=== PATIENT | female | born 1960 | race Caucasian/White ===

== ENCOUNTER 2019-02-14 12:43 | Outpatient (REF) | payer BC, SELFPAY ==
--- NOTE | 2019-02-14 09:00 | PAPFT_PTH ---
PATIENT: Frannie Mora LOC: [facility]#:[id number] AGE/SX: 58/F ROOM: RE02/14/[address]: Vicki Delcid : 1960 BED: DIS: 02/14/2019 SPEC #: [id number] RECD: 02/15/19 13:04 STATUS: MIGUEL DEJESUS #: [id number] JADE: 02/14/19 09:[address]: Vicki Mays DEPT: [facility] Cytology RECD BY: Georgiana Mejias ENTERED: 02/15/19 13:04 SP TYPE: PAPFT OTHR DR: Chantal Bates Tissues: 1 - CX/ENDOCX FOR PAP SMEARS Procedures: PAP THIN PREP/UVM Screening HPV DNA PROBE Comments: [id number]
[2019-02-14 22:32] LABS: ALT 49 U/L (14-59); AST 21 U/L (15-37); Albumin 4.1 g/dL (3.4-5.0); Alkaline Phosphatase 142 U/L (46-116); Anion Gap 11.1 mmol/L (3-11); BUN 17 mg/dL (7-18); Bilirubin, Total 0.5 mg/dL (0.2-1.0); CO2 23.9 mmol/L (21.0-32.0); CREATININE 0.97 mg/dL (0.55-1.02); Calcium 9.5 mg/dL (8.5-10.1); Calculated LDL 99 mg/dL; Chloride 103 mmol/L (98-107); Cholesterol 169 mg/dL (50-200); Glucose 105 mg/dL (70-100); HDL Cholesterol 49 mg/dL (40-60); Hemoglobin A1C 5.8 % (4.5-6.2); Potassium 4.4 mmol/L (3.5-5.1); Sodium 138 mmol/L (136-145); Total Protein 7.9 g/dL (6.4-8.2); Triglyceride 109 mg/dL (30-150)
== END 2019-02-14 13:03 ==
LOC: NCHCN 12:43
PROVIDERS: PCP Nurse Practitioner Family; Visit Provider Nurse Practitioner Family
DX: Z00.00 Encounter for general adult medical examination without abnormal findings (principal); R73.09 Other abnormal glucose; F41.1 Generalized anxiety disorder; E66.9 Obesity, unspecified; Z13.220 Encounter for screening for lipoid disorders; Z12.4 Encounter for screening for malignant neoplasm of cervix; Z11.51 Encounter for screening for human papillomavirus (HPV)
CPT/HCPCS: 80053; 80061; 88142; 83036; 87624

== ENCOUNTER 2020-04-27 20:58 | Outpatient (REF) | payer BC, SELFPAY ==
[2020-04-27 21:53] LABS: TSH 1.56 uIU/mL (0.36-3.74)
== END 2020-04-27 21:18 ==
LOC: NCHCN 20:58
PROVIDERS: PCP Nurse Practitioner Family; Visit Provider Nurse Practitioner Family
DX: R53.83 Other fatigue (principal)
CPT/HCPCS: 84443

== ENCOUNTER 2020-05-28 18:19 | Outpatient (REF) | payer BC, SELFPAY ==
[2020-05-28 20:04] LABS: HCT 43.5 % (36.0-46.0); HGB 14.3 g/dL (11.2-15.7); MCH 29.6 pg (27.0-33.0); MCHC 32.9 % (32.0-36.0); MCV 90.1 fL (80-95); MPV 11.2 fL (8.0-11.0); Platelet Count 282 10^3/uL (130-400); RBC 4.83 10^6/uL (3.93-5.22); RDW 13.6 % (11.7-14.6); RDW-SD 45.2 fL; WBC 9.32 10^3/uL (4.4-10.8)
[2020-05-28 20:28] LABS: ALT 35 U/L (14-59); AST 22 U/L (15-37); Alkaline Phosphatase 121 U/L (46-116); Anion Gap 10.6 mmol/L (3-11); BUN 19 mg/dL (7-18); Bilirubin, Total 0.4 mg/dL (0.2-1.0); C-Reactive Protein 1.09 mg/dL (0.0-0.3); CO2 24.4 mmol/L (21.0-32.0); CREATININE 0.97 mg/dL (0.55-1.02); Calcium 9.6 mg/dL (8.5-10.1); Chloride 101 mmol/L (98-107); Estimated GFR 59.19 (mL/min/1.73m2); Glucose 131 mg/dL (74-106); Sodium 136 mmol/L (136-145); Total Protein 7.8 g/dL (6.4-8.2)
[2020-05-28 20:40] LABS: ESR 33 mm/hr (0-30)
[2020-05-30 14:31] LABS: ANA Interpretation Negative (Negative)
== END 2020-05-28 18:39 ==
LOC: NCHCN 18:19
PROVIDERS: PCP Nurse Practitioner Family; Visit Provider Nurse Practitioner Family
DX: R53.83 Other fatigue (principal); R73.03 Prediabetes; M25.59 Pain in other specified joint
CPT/HCPCS: 80053; 85027; 85652; 83036; 86038; 86140

== ENCOUNTER 2020-11-07 16:57 | Outpatient (REF) | payer BC, SELFPAY ==
[2020-11-07 15:53] LABS: Vitamin B12 746 pg/mL (193-986)
[2020-11-08 01:17] LABS: Vitamin D 25 Total 38.8 ng/mL (30-100)
== END 2020-11-07 16:58 | disposition home or self-care (01) ==
LOC: NCHCN 16:57
PROVIDERS: PCP Nurse Practitioner Family; Visit Provider Nurse Practitioner Community Health
DX: F41.1 Generalized anxiety disorder (principal); F32.9 Major depressive disorder, single episode, unspecified; Z68.43 Body mass index [BMI] 50.0-59.9, adult
CPT/HCPCS: 82306; 82607

== ENCOUNTER 2021-09-02 19:58 | Outpatient (REF) | payer OTHER, SELFPAY ==
[2021-09-02 17:34] LABS: Abs Immature Grans 0.07 10^3/uL (0.0-0.06); Absolute Basophil Count 0.04 10^3/uL (0.0-0.2); Absolute Eosinophil Count 0.22 10^3/uL (0.0-0.7); Absolute Lymphocyte Count 1.71 10^3/uL (1.2-3.4); Absolute Monocyte Count 0.73 10^3/uL (0.1-0.8); Absolute Neutrophil Count 7.59 10^3/uL (1.2-6.7); Basophils % 0.4; Eosinophils % 2.1; HCT 44.6 % (36.0-46.0); HGB 14.4 g/dL (11.2-15.7); Immature Grans % 0.7; Lymphocytes % 16.5; MCH 30.1 pg (27.0-33.0); MCHC 32.3 % (32.0-36.0); MCV 93.1 fL (80-95); MPV 11.5 fL (8.0-11.0); Neutrophils % 73.3; Nucleated RBC 0 %; Platelet Count 275 10^3/uL (130-400); RBC 4.79 10^6/uL (3.93-5.22); RDW 13.9 % (11.7-14.6); RDW-SD 47.8 fL; WBC 10.36 10^3/uL (4.4-10.8)
[2021-09-02 19:38] LABS: Anion Gap 9.1 mmol/L (3-11); BUN 14 mg/dL (7-18); CO2 24.9 mmol/L (21.0-32.0); Calcium 9.2 mg/dL (8.5-10.1); Chloride 103 mmol/L (98-107); Estimated GFR 56.95 (mL/min/1.73m2); Glucose 186 mg/dL (74-106); Potassium 4.3 mmol/L (3.5-5.1); Sodium 137 mmol/L (136-145); TSH 2.31 uIU/mL (0.36-3.74)
== END 2021-09-02 19:59 | disposition home or self-care (01) ==
LOC: NCHCN 19:58
PROVIDERS: PCP Nurse Practitioner Family; Visit Provider Nurse Practitioner Family
DX: R53.83 Other fatigue (principal)
CPT/HCPCS: 80048; 84443; 85025

== ENCOUNTER 2022-07-03 08:46 | Outpatient (REF) | payer OTHER, SELFPAY ==
[2022-07-03 15:06] LABS: HCT 44.5 % (36.0-46.0); HGB 14.6 g/dL (11.2-15.7); MCH 29.4 pg (27.0-33.0); MCHC 32.8 % (32.0-36.0); MCV 90 fL (80-95); Platelet Count 295 10^3/uL (130-400); RBC 4.96 10^6/uL (3.93-5.22); RDW 13.9 % (11.7-14.6); RDW-SD 45.7 fL; WBC 9.98 10^3/uL (4.4-10.8)
[2022-07-03 15:32] LABS: ALT 34 U/L (14-59); AST 28 U/L (15-37); Albumin 3.8 g/dL (3.4-5.0); Alkaline Phosphatase 139 U/L (46-116); Anion Gap 7.2 mmol/L (3-11); BUN 15 mg/dL (7-18); Bilirubin, Total 0.4 mg/dL (0.2-1.0); CO2 26.8 mmol/L (21.0-32.0); Calcium 9.5 mg/dL (8.5-10.1); Chloride 106 mmol/L (98-107); Glucose 134 mg/dL (74-106); Hemoglobin A1C 6.3 % (<5.7); Potassium 4.4 mmol/L (3.5-5.1); Sodium 140 mmol/L (136-145); TSH 2.73 uIU/mL (0.36-3.74); Total Protein 8.2 g/dL (6.4-8.2)
== END 2022-07-03 08:47 | disposition home or self-care (01) ==
LOC: NCHCN 08:46
PROVIDERS: PCP Nurse Practitioner Family; Visit Provider Nurse Practitioner Family
DX: I10 Essential (primary) hypertension (principal); R53.83 Other fatigue; R73.03 Prediabetes; E04.1 Nontoxic single thyroid nodule
CPT/HCPCS: 80053; 85027; 83036; 84443

== ENCOUNTER 2023-05-04 14:46 | Outpatient (REF) | payer OTHER, SELFPAY ==
--- OUTSIDE RECORDS SUMMARY | 2023-05-04 14:56 | XMS_ITS | CCD ---
Author Name Unknown Address [address] [place] [address] [id number] Organization Unknown Address [address] [place], [place] [phone] Care Team Providers Care Nc Manager Name Role Phone MAYRA MOODY Attending Physician [phone] Vital Signs Unknown or Not Available. Allergies Allergy Code Allergy Type Reaction Status VICTOZA 556667 Drug allergy NAUSEA/VOMITING Active Procedures Unknown or Not Available. History of Immunizations Unknown or Not Available. Problems Unknown or Not Available. Results Unknown or Not Available. Active Medications Unknown or Not Available. Medications Administered During Visit Unknown or Not Available. Encounters Encounter Diagnosis Diagnosis Code Start Date Encounter for screening mamm ogram for malignant neoplasm of breast Z1231 02/12/2023 Social History Smoking Status Code Start Date End Date Never smoker [id number] Patient Decision Aids Unknown or Not Available. Discharge Instructions You were admitted to [facility] on 02/12/2023 12:16 with a principal diagnosis of Encounter for screening mammogram for malignant neoplasm of breast You were discharged from [facility] on 02/12/2023 12:17 Should you have any questions prior to discharge, please contact a member of your healthcare team. If you have left the hospital and have any questions, please contact your primary care physician. Chief Complaint and Reason For Visit Chief Complaint Date of Onset SCREENING Function Status Unknown or Not Available. Plan of Care Unknown or Not Available. Referral/Transition of Care Unknown or Not Available.
--- OUTSIDE RECORDS SUMMARY | 2023-05-04 14:56 | XMS_ITS | CCD ---
Author Name Unknown Address [address] [place] [address] [id number] Organization Unknown Address [address] [place] [address] [phone] Care Team Providers Care Multimedia Artist Name Role Phone MEGHAN BUI Attending Physician [phone] Vital Signs Unknown or Not Available. Allergies Allergy Code Allergy Type Reaction Status VICTOZA 760531 Drug allergy NAUSEA/VOMITING Active Procedures Unknown or Not Available. History of Immunizations Unknown or Not Available. Problems Unknown or Not Available. Results CBC W/ DIFFERENTIAL* - Colle ct Date/Time: 10/27/2022 17:27 Test Name Code Test Result Test Units Test Ref Rang e WBC 6690-2 11.01 th/cmm L=5.00 H=10.00 NEUT % 69.0 % L=40.0 H=80.0 LYMPH % 19.8 % L=10.0 H=50.0 MONO % 80031-9 8.0 % L=2.0 H=12.0 EOS % 2.2 % L=0.0 H=8.0 BASO % 0.5 % L=0.0 H=3.0 IG % 2514-8 0.5 % L=0.0 H=1.1 NRBC % 20651-2 0.0 % L=0.0 H=0.0 NEUT abs count 751-8 7.6 th/cmm L=1.6 H=8. 4 LYMPH abs count 731-0 2.2 th/cmm L=1.5 H=4 .0 MONO abs count 742-7 0.9 th/cmm L=0.2 H=1. 0 EOS abs count 711-2 0.2 th/cmm L=0.0 H=0.5 BASO abs count 704-7 0.1 th/cmm L=0.0 H=0. 2 IG abs count 33811-2 0.1 th/cmm L=0.0 H=0.1 NRBC abs count 72225-0 0.0 mil/cmm L=0.0 H=0. 0 RBC 789-8 4.53 mil/cmm L=3.90 H=5.40 HEMOGLOBIN 718-7 13.5 gm/dL L=12.0 H=16.0 HEMATOCRIT 4544-3 41 % L=37 H=47 MCV 787-2 90 fL L=82 H=92 MCH 785-6 29.8 pg L=27.0 H=31.0 MCHC 786-4 33.2 % L=32.0 H=36.0 RDW-SD 788-0 44.9 fL L=39.0 H=49.0 PLATELET COUNT 777-3 310 th/cmm L=150 H=45 0 Active Medications Unknown or Not Available. Medications Administered During Visit Unknown or Not Available. Encounters Encounter Diagnosis Diagnosis Code Start Date Hemorrhage of blood vessel [id number] 10/27 Social History Smoking Status Code Start Date End Date Never smoker [id number] Patient Decision Aids Unknown or Not Available. Discharge Instructions You were admitted to [facility] on 10/27/2022 16:57 with a principal diagnosis of Hemorrhage, not elsewhere classified You had the following tests done:CBC W/ DIFFERENTIAL* You were discharged from [facility] on 10/27/2022 16:57 Should you have any questions prior to discharge, please contact a member of your healthcare team. If you have left the hospital and have any questions, please contact your primary care physician. Chief Complaint and Reason For Visit Unknown or Not Available. Function Status Unknown or Not Available. Plan of Care Unknown or Not Available. Referral/Transition of Care Unknown or Not Available.
--- OUTSIDE RECORDS SUMMARY | 2023-05-04 14:56 | XMS_ITS | CCD ---
Author Name Unknown Address [address] [place] [address] [phone] Organization Unknown Address [address] [place] [address] [phone] Care Team Providers Care Printing Shop Supervisor Name Role Phone CORIE DORADO Mendoza Attending Physician [phone] Vital Signs Unknown or Not Available. Allergies Allergy Code Allergy Type Reaction Status VICTOZA 636558 Drug allergy NAUSEA/VOMITING Active Procedures Unknown or Not Available. History of Immunizations Unknown or Not Available. Problems Unknown or Not Available. Results Unknown or Not Available. Active Medications Unknown or Not Available. Medications Administered During Visit Unknown or Not Available. Encounters Encounter Diagnosis Diagnosis Code Start Date Obstructive sleep apnea syndrome [id number] 02/24/2023 Social History Smoking Status Code Start Date End Date Never smoker [id number] Patient Decision Aids Unknown or Not Available. Discharge Instructions You were admitted to [facility] on 02/24/2023 08:48 with a principal diagnosis of YANET You were discharged from [facility] on 02/24/2023 08:48 Should you have any questions prior to [...]
--- OUTSIDE RECORDS SUMMARY | 2023-05-04 14:57 | XMS_ITS | CCD ---
Author Name Unknown Address [address] [place] [address] [phone] Organization Unknown Address [address] [place] [address] [phone] Care Team Providers Care Non Licensed Nuclear Equipment Operator Name Role Phone MEGHAN BUI Attending Physician [phone] MEGHAN BUI Rounding (Secondary) Physician [phone] Vital Signs Unknown or Not Available. Allergies Unknown or Not Available. Procedures Unknown or Not Available. History of Immunizations Unknown or Not Available. Problems Unknown or Not Available. Results CBC W/ DIFFERENTIAL* - Colle ct Date/Time: 08/28/2022 11:24 Test Name Code Test Result Test Units Test Ref Rang e WBC 6690-2 10.30 th/cmm L=5.00 H=10.00 NEUT % 69.3 % L=40.0 H=80.0 LYMPH % 19.9 % L=10.0 H=50.0 MONO % 32012-8 7.2 % L=2.0 H=12.0 EOS % 2.1 % L=0.0 H=8.0 BASO % 0.6 % L=0.0 H=3.0 IG % 2514-8 0.9 % L=0.0 H=1.1 NRBC % 49493-1 0.0 % L=0.0 H=0.0 NEUT abs count 751-8 7.1 th/cmm L=1.6 H=8. 4 LYMPH abs count 731-0 2.1 th/cmm L=1.5 H=4 .0 MONO abs count 742-7 0.7 th/cmm L=0.2 H=1. 0 EOS abs count 711-2 0.2 th/cmm L=0.0 H=0.5 BASO abs count 704-7 0.1 th/cmm L=0.0 H=0. 2 IG abs count 06470-5 0.1 th/cmm L=0.0 H=0.1 NRBC abs count 11732-7 0.0 mil/cmm L=0.0 H=0. 0 RBC 789-8 4.59 mil/cmm L=3.90 H=5.40 HEMOGLOBIN 718-7 13.7 gm/dL L=12.0 H=16.0 HEMATOCRIT 4544-3 41 % L=37 H=47 MCV 787-2 90 fL L=82 H=92 MCH 785-6 29.8 pg L=27.0 H=31.0 MCHC 786-4 33.1 % L=32.0 H=36.0 RDW-SD 788-0 47.8 fL L=39.0 H=49.0 PLATELET COUNT 777-3 271 th/cmm L=150 H=45 0 Active Medications Unknown or Not Available. Medications Administered During Visit Unknown or Not Available. Encounters Encounter Diagnosis Diagnosis Code Start Date Abnormal findings on diagnos tic imaging of other specified body structures R9389 08/28/2022 Social History Smoking Status Code Start Date End Date Never smoker [id number] Patient Decision Aids Unknown or Not Available. Discharge Instructions You were admitted to [facility] on 08/28/2022 10:34 with a principal diagnosis of Abnormal findings on diagnostic imaging of other specified body structures You had the following tests done:CBC W/ DIFFERENTIAL* You were discharged from [facility] on 08/28/2022 10:34 Should you have any questions prior to [...]
--- OUTSIDE RECORDS SUMMARY | 2023-05-04 14:57 | XMS_ITS | CCD ---
Author Name Unknown Address [address] [place] [address] [phone] Organization Unknown Address [address] [place] [address] [phone] Care Team Providers Care Consumer Safety Inspector Name Role Phone MEGHAN BUI Attending Physician [phone] MEGHAN BUI Rounding (Secondary) Physician [phone] Vital Signs Unknown or Not Available. Allergies Unknown or Not Available. Procedures Unknown or Not Available. History of Immunizations Unknown or Not Available. Problems Unknown or Not Available. Results Unknown or Not Available. Active Medications Unknown or Not Available. Medications Administered During Visit Unknown or Not Available. Encounters Encounter Diagnosis Diagnosis Code Start Date Imaging result abnormal [id number] 09/17/19 23 Social History Smoking Status Code Start Date End Date Never smoker [id number] Patient Decision Aids Unknown or Not Available. Discharge Instructions You were admitted to [facility] on 09/16/2022 09:54 with a principal diagnosis of Abnormal findings on diagnostic imaging of other specified body structures You were discharged from [facility] on 09/16/2022 09:55 Should you have any questions prior to [...]
--- OUTSIDE RECORDS SUMMARY | 2023-05-04 14:57 | XMS_ITS | CCD ---
Author Name Unknown Address [address] [place] [address] [phone] Organization Unknown Address [address] [place] [address] [phone] Care Team Providers Care Recruiting Associate Name Role Phone MEGHAN BUI Attending Physician [phone] Vital Signs Unknown or Not Available. Allergies Allergy Code Allergy Type Reaction Status VICTOZA 199402 Drug allergy NAUSEA/VOMITING Active Procedures Unknown or Not Available. History of Immunizations Unknown or Not Available. Problems Unknown or Not Available. Results Unknown or Not Available. Active Medications Unknown or Not Available. Medications Administered During Visit Unknown or Not Available. Encounters Encounter Diagnosis Diagnosis Code Start Date Postmenopausal bleeding [id number] 09/20/19 23 Social History Smoking Status Code Start Date End Date Never smoker 139178325 Patient Decision Aids Unknown or Not Available. Discharge Instructions You were admitted to [facility] on 09/19/2022 00:22 with a principal diagnosis of Postmenopausal bleeding You were discharged from [facility] on 09/19/2022 00:22 Should you have any questions prior to [...]
--- OUTSIDE RECORDS SUMMARY | 2023-05-04 14:57 | XMS_ITS | CCD ---
Author Name Unknown Address [address] [place] [address] [phone] Organization Unknown Address [address] [place] [address] [phone] Care Team Providers Care Patrol Lady Name Role Phone MEGHAN BUI Attending Physician [phone] MEGHAN BUI Rounding (Secondary) Physician [phone] Vital Signs Unknown or Not Available. Allergies Allergy Code Allergy Type Reaction Status VICTOZA 810899 Drug allergy NAUSEA/VOMITING Active Procedures Unknown or Not Available. History of Immunizations Unknown or Not Available. Problems Unknown or Not Available. Results Unknown or Not Available. Active Medications Unknown or Not Available. Medications Administered During Visit Unknown or Not Available. Encounters Encounter Diagnosis Diagnosis Code Start Date Follow-up visit [id number] 10/02/2022 Social History Smoking Status Code Start Date End Date Never smoker 576003689 Patient Decision Aids Unknown or Not Available. Discharge Instructions You were admitted to [facility] on 10/02/2022 11:46 with a principal diagnosis of Encounter for follow-up examination after completed treatment for conditions other than malignant neoplasm You were discharged from [facility] on 10/02/2022 11:47 Should you have any questions prior to [...]
--- OUTSIDE RECORDS SUMMARY | 2023-05-04 14:57 | XMS_ITS | CCD ---
Author Name Unknown Address [address] [place] [address] [phone] Organization Unknown Address [address] [place] [address] [phone] Care Team Providers Care Sewer Line Photo Inspector Name Role Phone MAYRA MOODY Attending Physician [phone] Vital Signs Unknown or Not Available. Allergies Unknown or Not Available. Procedures Unknown or Not Available. History of Immunizations Unknown or Not Available. Problems Unknown or Not Available. Results Unknown or Not Available. Active Medications Unknown or Not Available. Medications Administered During Visit Unknown or Not Available. Encounters Encounter Diagnosis Diagnosis Code Start Date Pain in right hip D70360 04/22/2022 Social History Smoking Status Code Start Date End Date Never smoker [id number] Patient Decision Aids Unknown or Not Available. Discharge Instructions You were admitted to [facility] on 04/22/2022 13:55 with a principal diagnosis of Pain in right hip You were discharged from [facility] on 04/22/2022 13:55 Should you have any questions prior to [...]
--- OUTSIDE RECORDS SUMMARY | 2023-05-04 14:57 | XMS_ITS | CCD ---
Author Name Unknown Address [address] [place] [address] [phone] Organization Unknown Address [address] [place] [address] [phone] Care Team Providers Care Senior Civil Engineer Name Role Phone MAYRA MOODY Attending Physician [phone] Vital Signs Unknown or Not Available. Allergies [...] imaging of other specified body structures R9389 08/08/2022 Social History Smoking Status Code Start Date End Date Never smoker 585397813 Patient Decision Aids Unknown or Not Available. Discharge Instructions You were admitted to [facility] on 08/08/2022 08:10 with a principal diagnosis of Abnormal findings on diagnostic imaging of other specified body structures You were discharged from [facility] on 08/08/2022 08:10 Should you have any questions prior to [...]
--- OUTSIDE RECORDS SUMMARY | 2023-05-04 14:57 | XMS_ITS | CCD ---
Author Name Unknown Address [address] [place] [address] [id number] Organization Unknown Address [address] [place] [address] [phone] Care Team Providers Care Ribbon Sweatband Operator Name Role Phone ARMIN HERRERA Attending Physician [phone] ARMIN HERRERAing (Secondary) Physician [phone] Vital Signs Unknown or Not Available. Allergies Unknown or Not Available. Procedures Unknown or Not Available. History of Immunizations Unknown or Not Available. Problems Unknown or Not Available. Results Unknown or Not Available. Active Medications Unknown or Not Available. Medications Administered During Visit Unknown or Not Available. Encounters Encounter Diagnosis Diagnosis Code Start Date Pain in left shoulder L64465 02/27/2022 Social History Smoking Status Code Start Date End Date Never smoker [id number] Patient Decision Aids Unknown or Not Available. Discharge Instructions You were admitted to [facility] on 02/27/2022 11:49 with a principal diagnosis of Pain in left shoulder You were discharged from [facility] on 02/27/2022 00:00 Should you have any questions prior to [...]
--- OUTSIDE RECORDS SUMMARY | 2023-05-04 14:58 | XMS_ITS | CCD ---
Author Name Unknown Address [address] [place] [address] [phone] Organization Unknown Address [address] [place] [address] [id number] Care Team Providers Care Hat Ironer Name Role Phone MAYRA MOODY Attending Physician [phone] Vital Signs Unknown or Not Available. Allergies Unknown or Not Available. Procedures Unknown or Not Available. History of Immunizations Unknown or Not Available. Problems Unknown or Not Available. Results Unknown or Not Available. Active Medications Unknown or Not Available. Medications Administered During Visit Unknown or Not Available. Encounters Encounter Diagnosis Diagnosis Code Start Date Screening mammography [id number] 04/01/2021 Social History Smoking Status Code Start Date End Date Never smoker 763904982 Patient Decision Aids Unknown or Not Available. Discharge Instructions You were admitted to [facility] on 04/01/2021 11:01 with a principal diagnosis of Encounter for screening mammogram for malignant neoplasm of breast You were discharged from [facility] on 04/01/2021 11:01 Should you have any questions prior to discharge, please contact a member of your healthcare team. If you have left the hospital and have any questions, please contact your primary care physician. Chief Complaint and Reason For Visit Chief Complaint Date of Onset SCR Function Status Unknown or Not Available. Plan of Care Unknown or Not Available. Referral/Transition of Care Unknown or Not Available.
[2023-05-04 21:18] LABS: Abs Immature Grans 0.08 10^3/uL (0.0-0.06); Absolute Basophil Count 0.05 10^3/uL (0.0-0.2); Absolute Lymphocyte Count 1.79 10^3/uL (1.2-3.4); Absolute Monocyte Count 0.48 10^3/uL (0.1-0.8); Absolute Neutrophil Count 7.01 10^3/uL (1.2-6.7); Basophils % 0.5; Eosinophils % 2.1; HCT 44.4 % (36.0-46.0); HGB 14.6 g/dL (11.2-15.7); Immature Grans % 0.8; Lymphocytes % 18.6; MCH 28.9 pg (27.0-33.0); MCHC 32.9 % (32.0-36.0); MCV 88 fL (80-95); Platelet Count 281 10^3/uL (130-400); RBC 5.05 10^6/uL (3.93-5.22); RDW 13.7 % (11.7-14.6); RDW-SD 44.3 fL; WBC 9.61 10^3/uL (4.4-10.8)
[2023-05-04 21:23] LABS: ESR 42 mm/hr (0-30)
[2023-05-04 21:39] LABS: ALT 32 U/L (14-59); AST 26 U/L (15-37); Albumin 3.6 g/dL (3.4-5.0); Alkaline Phosphatase 156 U/L (46-116); Anion Gap 12.9 mmol/L (3-11); BUN 14 mg/dL (7-18); Bilirubin, Total 0.4 mg/dL (0.2-1.0); CO2 23.1 mmol/L (21.0-32.0); Calcium 9.7 mg/dL (8.5-10.1); Calculated LDL 69 mg/dL (<100); Chloride 101 mmol/L (98-107); Cholesterol 143 mg/dL (<200); Estimated GFR 64.49 (mL/min/1.73m2); Glucose 167 mg/dL (74-106); HDL Cholesterol 44 mg/dL (40-60); Sodium 137 mmol/L (136-145); TSH 1.68 uIU/mL (0.36-3.74); Total Protein 8.2 g/dL (6.4-8.2); Triglyceride 153 mg/dL (<150)
[2023-05-04 21:40] LABS: Microalb ug/mg Crea 8.1 ug/mg Cr
[2023-05-05 17:43] LABS: CRP, High Sensitivity 14.98 mg/L (See Note)
== END 2023-05-04 14:47 | disposition home or self-care (01) ==
LOC: NCHCN 14:46
PROVIDERS: PCP Nurse Practitioner Family; Visit Provider Nurse Practitioner Family
DX: E11.9 Type 2 diabetes mellitus without complications (principal); R53.82 Chronic fatigue, unspecified; K76.0 Fatty (change of) liver, not elsewhere classified; R70.0 Elevated erythrocyte sedimentation rate
CPT/HCPCS: 80053; 80061; 85652; 86141; 82043; 82570; 84443; 85025

== ENCOUNTER 2023-05-06 08:58 | Outpatient (REF) | payer OTHER, SELFPAY ==
--- OUTSIDE RECORDS SUMMARY | 2023-05-06 09:02 | XMS_ITS | CCD ---
Author Name Unknown Address [address] [place] [address] [phone] Organization Unknown Address [address] [place] [address] [phone] Care Team Providers Care Electric Power Superintendent Name Role Phone CORIE DORADO Mendoza Attending Physician [phone] Vital Signs Unknown or Not Available. Allergies Allergy Code Allergy Type Reaction Status VICTOZA 249068 Drug allergy NAUSEA/VOMITING Active Procedures Unknown or Not Available. History of Immunizations Unknown or Not Available. Problems Unknown or Not Available. Results Unknown or Not Available. Active Medications Unknown or Not Available. Medications Administered During Visit Unknown or Not Available. Encounters Encounter Diagnosis Diagnosis Code Start Date Obstructive sleep apnea syndrome 26570012 02/24/2023 Social History Smoking Status Code Start Date End Date Never smoker 871747754 Patient Decision Aids Unknown or Not Available. Discharge Instructions You were admitted to [facility] on 02/24/2023 08:48 with a principal diagnosis of YANET You were discharged from [facility] on 02/24/2023 08:48 Should you have [...]
--- OUTSIDE RECORDS SUMMARY | 2023-05-06 09:02 | XMS_ITS | CCD ---
Author Name Unknown Address [address] [place] [address] [phone] Organization Unknown Address [address] [place] [address] [phone] Care Team Providers Care Java Lead Engineer Name Role Phone MEGHAN BUI Attending Physician [phone] Vital Signs Unknown or Not Available. Allergies Allergy Code Allergy Type Reaction Status VICTOZA 363986 Drug allergy NAUSEA/VOMITING Active Procedures Unknown or Not Available. History of Immunizations Unknown or Not Available. Problems Unknown or Not Available. Results Unknown or Not Available. Active Medications Unknown or Not Available. Medications Administered During Visit Unknown or Not Available. Encounters Encounter Diagnosis Diagnosis Code Start Date Postmenopausal bleeding 73228817 09/20/19 23 Social History Smoking Status Code Start Date End Date Never smoker 300976414 Patient Decision Aids Unknown or Not Available. Discharge Instructions You were admitted to on 09/19/2022 00:22 with a principal diagnosis of Postmenopausal bleeding You were discharged from on 09/19/2022 00:22 Should you have any [...]
--- OUTSIDE RECORDS SUMMARY | 2023-05-06 09:02 | XMS_ITS | CCD ---
Author Name Unknown Address [address] [place] [address] [phone] Organization Unknown Address [address] [place], [place] [phone] Care Team Providers Care Roving Marker Name Role Phone MAYRA MOODY Attending Physician [phone] Vital Signs Unknown or Not Available. Allergies Allergy Code Allergy Type Reaction Status VICTOZA 069678 Drug allergy NAUSEA/VOMITING Active Procedures Unknown or [...] Code Start Date End Date Never smoker 563848018 Patient Decision Aids Unknown or Not Available. Discharge Instructions You were admitted to [facility] on 02/12/2023 12:16 with a principal diagnosis of Encounter for screening mammogram for malignant neoplasm of breast You were discharged from [facility] on 02/12/2023 12:17 Should you [...]
--- OUTSIDE RECORDS SUMMARY | 2023-05-06 09:02 | XMS_ITS | CCD ---
Author Name Unknown Address [address] [place] [address] [phone] Organization Unknown Address [address] [place] [address] [phone] Care Team Providers Care Managing Consultant Name Role Phone MEGHAN BUI Attending Physician [phone] Vital Signs Unknown or Not Available. Allergies Allergy Code Allergy Type Reaction Status VICTOZA 277427 Drug allergy NAUSEA/VOMITING Active Procedures Unknown or Not Available. History of Immunizations Unknown or Not Available. Problems Unknown or Not Available. Results CBC W/ DIFFERENTIAL* - Colle ct Date/Time: 10/27/2022 17:27 Test Name Code Test Result Test Units Test Ref Rang e WBC 6690-2 11.01 th/cmm L=5.00 H=10.00 NEUT % 69.0 % L=40.0 H=80.0 LYMPH % 19.8 % L=10.0 H=50.0 MONO % 59130-3 8.0 % L=2.0 H=12.0 EOS % 2.2 % L=0.0 H=8.0 BASO % 0.5 % L=0.0 H=3.0 IG % 2514-8 0.5 % L=0.0 H=1.1 NRBC % 02631-6 0.0 % L=0.0 H=0.0 NEUT abs count 751-8 7.6 th/cmm L=1.6 H=8. 4 LYMPH abs count 731-0 2.2 th/cmm L=1.5 H=4 .0 MONO abs count 742-7 0.9 th/cmm L=0.2 H=1. 0 EOS abs count 711-2 0.2 th/cmm L=0.0 H=0.5 BASO abs count 704-7 0.1 th/cmm L=0.0 H=0. 2 IG abs count 17037-5 0.1 th/cmm L=0.0 H=0.1 NRBC abs count 80718-7 0.0 mil/cmm L=0.0 H=0. 0 RBC 789-8 [...] Code Start Date Hemorrhage of blood vessel 143907370 10/27 Social History Smoking Status Code Start Date End Date Never smoker 504230724 Patient Decision Aids Unknown or Not Available. Discharge Instructions You were admitted to [facility] on 10/27/2022 16:57 with a principal diagnosis of Hemorrhage, not elsewhere classified You had the following tests done:CBC W/ DIFFERENTIAL* You were discharged from [facility] on 10/27/2022 16:57 Should you have [...]
--- OUTSIDE RECORDS SUMMARY | 2023-05-06 09:03 | XMS_ITS | CCD ---
Author Name Unknown Address [address] [place] [address] [phone] Organization Unknown Address [address] [place] [address] [phone] Care Team Providers Care Service Center Assistant Name Role Phone MEGHAN BUI Attending Physician [phone] Vital Signs Unknown or Not Available. Allergies Unknown or Not Available. Procedures Unknown or Not Available. History of Immunizations Unknown or Not Available. Problems Unknown or Not Available. Results CBC W/ DIFFERENTIAL* - Colle ct Date/Time: 09/13/2022 12:00 Test Name Code Test Result Test Units Test Ref Rang e WBC 6690-2 8.64 th/cmm L=5.00 H=10.00 NEUT % 69.7 % L=40.0 H=80.0 LYMPH % 20.7 % L=10.0 H=50.0 MONO % 06195-7 5.9 % L=2.0 H=12.0 EOS % 2.4 % L=0.0 H=8.0 BASO % 0.7 % L=0.0 H=3.0 IG % 2514-8 0.6 % L=0.0 H=1.1 NRBC % 08557-8 0.0 % L=0.0 H=0.0 NEUT abs count 751-8 6.0 th/cmm L=1.6 H=8. 4 LYMPH abs count 731-0 1.8 th/cmm L=1.5 H=4 .0 MONO abs count 742-7 0.5 th/cmm L=0.2 H=1. 0 EOS abs count 711-2 0.2 th/cmm L=0.0 H=0.5 BASO abs count 704-7 0.1 th/cmm L=0.0 H=0. 2 IG abs count 41761-0 0.1 th/cmm L=0.0 H=0.1 NRBC abs count 02973-0 0.0 mil/cmm L=0.0 H=0. 0 RBC 789-8 4.68 mil/cmm L=3.90 H=5.40 HEMOGLOBIN 718-7 13.7 gm/dL L=12.0 H=16.0 HEMATOCRIT 4544-3 42 % L=37 H=47 MCV 787-2 89 fL L=82 H=92 MCH 785-6 29.3 pg L=27.0 H=31.0 MCHC 786-4 32.8 % L=32.0 H=36.0 RDW-SD 788-0 47.6 fL L=39.0 H=49.0 PLATELET COUNT 777-3 285 th/cmm L=150 H=45 0 Active Medications Unknown or Not Available. Medications Administered During Visit Unknown or Not Available. Encounters Encounter Diagnosis Diagnosis Code Start Date Abnormal vaginal bleeding [id number] 2022 Social History Smoking Status Code Start Date End Date Never smoker [id number] Patient Decision Aids Unknown or Not Available. Discharge Instructions You were admitted to [facility] on 09/13/2022 11:56 with a principal diagnosis of Abnormal uterine and vaginal bleeding, unspecified You had the following tests done:CBC W/ DIFFERENTIAL* You were discharged from [facility] on 09/13/2022 11:56 Should you have any questions prior to [...]
--- OUTSIDE RECORDS SUMMARY | 2023-05-06 09:03 | XMS_ITS | CCD ---
Author Name Unknown Address [address] [place] [address] [phone] Organization Unknown Address [address] [place] [address] [phone] Care Team Providers Care Traffic Assistant Name Role Phone ARMIN HERRERA Attending Physician [phone] ARMIN HERRERAing (Secondary) Physician [phone] Vital Signs Unknown or Not Available. Allergies Unknown or Not Available. Procedures Unknown or Not Available. History of Immunizations Unknown or Not Available. Problems Unknown or Not Available. Results Unknown or Not Available. Active Medications Unknown or Not Available. Medications Administered During Visit Unknown or Not Available. Encounters Encounter Diagnosis Diagnosis Code Start Date Pain in left shoulder [id number] 02/27/2022 Social History Smoking Status Code Start Date End Date Never smoker [id number] Patient Decision Aids Unknown or Not Available. Discharge Instructions You were admitted to [facility] on 02/27/2022 11:49 with a principal diagnosis of Pain in left shoulder You were discharged from [facility] on 02/27/2022 00:00 Should you have any [...]
--- OUTSIDE RECORDS SUMMARY | 2023-05-06 09:03 | XMS_ITS | CCD ---
Author Name Unknown Address [address] [place] [address] [phone] Organization Unknown Address [address] [place] [address] [phone] Care Team Providers Care Band Presser Name Role Phone MEGHAN BUI Attending Physician [phone] MEGHAN BUI Rounding (Secondary) Physician [phone] Vital Signs Unknown or Not Available. Allergies [...] % 19.9 % L=10.0 H=50.0 MONO % 15952-8 7.2 % L=2.0 H=12.0 EOS % 2.1 % L=0.0 H=8.0 BASO % 0.6 % L=0.0 H=3.0 IG % 2514-8 0.9 % L=0.0 H=1.1 NRBC % 71949-0 0.0 % L=0.0 H=0.0 NEUT abs count 751-8 7.1 th/cmm L=1.6 H=8. 4 LYMPH abs count 731-0 2.1 th/cmm L=1.5 H=4 .0 MONO abs count 742-7 0.7 th/cmm L=0.2 H=1. 0 EOS abs count 711-2 0.2 th/cmm L=0.0 H=0.5 BASO abs count 704-7 0.1 th/cmm L=0.0 H=0. 2 IG abs count 57417-1 0.1 th/cmm L=0.0 H=0.1 NRBC abs count 71637-1 0.0 mil/cmm L=0.0 H=0. 0 RBC 789-8 [...] Code Start Date End Date Never smoker [id number] Patient Decision Aids Unknown or Not Available. Discharge Instructions You were admitted to [facility] on 08/28/2022 10:34 with a principal diagnosis of Abnormal findings on diagnostic imaging of other specified body structures You had the following tests done:CBC W/ DIFFERENTIAL* You were discharged from [facility] on 08/28/2022 10:34 Should you have [...]
--- OUTSIDE RECORDS SUMMARY | 2023-05-06 09:03 | XMS_ITS | CCD ---
Author Name Unknown Address [address] [place] [address] [phone] Organization Unknown Address [address] [place] [address] [phone] Care Team Providers Care Equalizer Operator Name Role Phone MAYRA MOODY Attending Physician [phone] Vital Signs Unknown or Not Available. Allergies Unknown or Not Available. Procedures Unknown or Not Available. History of Immunizations Unknown or Not Available. Problems Unknown or Not Available. Results Unknown or Not Available. Active Medications Unknown or Not Available. Medications Administered During Visit Unknown or Not Available. Encounters Encounter Diagnosis Diagnosis Code Start Date Screening mammography [id number] 04/01/2021 Social History Smoking Status Code Start Date End Date Never smoker [id number] Patient Decision Aids Unknown or Not Available. Discharge Instructions You were admitted to [facility] on 04/01/2021 11:01 with a principal diagnosis of Encounter for screening mammogram for malignant neoplasm of breast You were discharged from [facility] on 04/01/2021 11:01 Should you have any [...]
--- OUTSIDE RECORDS SUMMARY | 2023-05-06 09:03 | XMS_ITS | CCD ---
Author Name Unknown Address [address] [place] [address] [phone] Organization Unknown Address [address] [place] [address] [phone] Care Team Providers Care Ophthalmology Surgical Technician Name Role Phone MEGHAN BUI Attending Physician [phone] MEGHAN BUI Rounding (Secondary) Physician [phone] Vital Signs Unknown or Not Available. Allergies Unknown or Not Available. Procedures Unknown or Not Available. History of Immunizations Unknown or Not Available. Problems Unknown or Not Available. Results Unknown or Not Available. Active Medications Unknown or Not Available. Medications Administered During Visit Unknown or Not Available. Encounters Encounter Diagnosis Diagnosis Code Start Date Imaging result abnormal [id number] 09/17/19 23 Social History Smoking Status Code Start Date End Date Never smoker [id number] Patient Decision Aids Unknown or Not Available. Discharge Instructions You were admitted to [facility] on 09/16/2022 09:54 with a principal diagnosis of Abnormal findings on diagnostic imaging of other specified body structures You were discharged from [facility] on 09/16/2022 09:55 Should you have any [...]
--- OUTSIDE RECORDS SUMMARY | 2023-05-06 09:03 | XMS_ITS | CCD ---
Author Name Unknown Address [address] [place] [address] [phone] Organization Unknown Address [address] [place] [address] [phone] Care Team Providers Care Customer Supply Coordinator Name Role Phone MAYRA MOODY Attending Physician [phone] Vital Signs Unknown or Not Available. Allergies [...] Code Start Date End Date Never smoker [id number] Patient Decision Aids Unknown or Not Available. Discharge Instructions You were admitted to [facility] on 08/08/2022 08:10 with a principal diagnosis of Abnormal findings on diagnostic imaging of other specified body structures You were discharged from [facility] on 08/08/2022 08:10 Should you have [...]
--- OUTSIDE RECORDS SUMMARY | 2023-05-06 09:03 | XMS_ITS | CCD ---
Author Name Unknown Address [address] [place] [address] [phone] Organization Unknown Address [address] [place] [address] [phone] Care Team Providers Care Printed Circuit Boards Stripper Etcher Name Role Phone MEGHAN BUI Attending Physician [phone] Vital Signs Vital Sign Value Unit Date/Time Recent/Initial ? BMI (Body Mass Index) 51.39 kg/m^2 09/17/2022 10: 03 Initial VS Weight Measured 338 lbs 09/17/2022 10:03 Ini tial VS Height 68 in 09/17/2022 10:03 Initial VS BSA (Body Surface Area) 2.71 m^2 09/17/2022 1 0:03 Initial VS BP Systolic 120 mmHg 09/19/2022 10:13 Initial VS BP Diastolic 62 mmHg 09/19/2022 10:13 Initia l VS Respiratory Rate 12 bpm 09/19/2022 10:13 In itial VS Heart Rate 68 bpm 09/19/2022 10:13 Initial VS O2 % BldC Oximetry 98 % 09/19/2022 10:13 Initial VS Body Temperature 36.2 degrees 09/19/2022 10:13 In itial VS Allergies Allergy Code Allergy Type Reaction Status VICTOZA [id number] Drug allergy NAUSEA/VOMITING Active Procedures Procedure Code Procedure Type Date Hysteroscopy, Surgical; w/Endometrial Ablation 15550 CPT 09/19/2022 Anesthesia, Vaginal Proc, w/ Bx; Hysteroscopy &/Or Hysterosalpingography 57179 CPT 09/19/2022 History of Immunizations Unknown or Not Available. Problems Unknown or Not Available. Results TISSUE SURGICAL PATHOLOGY (C ONSULT)* - Collect Date/Time: 09/19/2022 10:49 Test Name Code Test Result Test Units Test Ref Rang e Report (See below) N/A Active Medications Medications Administered During Visit Medication Dose Units Frequency Route Date/Time of Last Dose LACTATED RINGERS 1000ML 1 EA X1 09/19/2022 07:21 MIDAZOLAM INJ SDV: 2MG/2ML 2 MG X1 IVP 09/19/2022 07:37 SCOPOLAMINE PATCH: 1MG/72HR 1 MG X1 TR ANSDERMAL 09/19/2022 07:21 Encounters Encounter Diagnosis Diagnosis Code Start Date Postmenopausal bleeding N950 09/20/19 23 Social History Smoking Status Code Start Date End Date Never smoker [id number] Patient Decision Aids Unknown or Not Available. Discharge Instructions You were admitted to [facility] on 09/19/2022 06:28 with a principal diagnosis of Postmenopausal bleeding You had the following procedures done:Hysteroscopy, Surgical; w/Endometrial AblationAnesthesia, Vaginal Proc, w/Bx; Hysteroscopy &/Or Hysterosalpingography You had the following tests done:TISSUE SURGICAL PATHOLOGY (CONSULT)* You were discharged from [facility] on 09/19/2022 10:39 Should you have any questions prior to [...]
[2023-05-07 11:20] LABS: Lyme Ab w Rflx to Lyme Confirm Negative (Negative)
[2023-05-07 14:44] LABS: ANA Interpretation Negative (Negative)
== END 2023-05-06 08:59 | disposition home or self-care (01) ==
LOC: NCHCN 08:58
PROVIDERS: PCP Nurse Practitioner Family; Visit Provider Nurse Practitioner Family
DX: R53.82 Chronic fatigue, unspecified (principal)
CPT/HCPCS: 86038; 86618

== ENCOUNTER 2023-08-06 15:00 | Outpatient (REF) | payer BC, SELFPAY ==
[2023-08-06 15:20] LABS: Abs Immature Grans 0.06 10^3/uL (0.0-0.06); Absolute Basophil Count 0.05 10^3/uL (0.0-0.2); Absolute Eosinophil Count 0.24 10^3/uL (0.0-0.7); Absolute Lymphocyte Count 1.27 10^3/uL (1.2-3.4); Absolute Monocyte Count 0.53 10^3/uL (0.1-0.8); Absolute Neutrophil Count 6.44 10^3/uL (1.2-6.7); Basophils % 0.6; Eosinophils % 2.8; HCT 41.9 % (36.0-46.0); HGB 14.2 g/dL (11.2-15.7); Immature Grans % 0.7; Lymphocytes % 14.8; MCH 29.2 pg (27.0-33.0); MCHC 33.9 % (32.0-36.0); MCV 86 fL (80-95); MPV 12.3 fL (8.0-11.0); Monocytes % 6.2; Neutrophils % 74.9; Platelet Count 275 10^3/uL (130-400); RBC 4.86 10^6/uL (3.93-5.22); RDW 13.2 % (11.7-14.6); RDW-SD 41.7 fL; WBC 8.59 10^3/uL (4.4-10.8)
[2023-08-06 15:21] LABS: Bilirubin Negative (Negative); Blood Negative (Negative); Clarity Clear (Clear); Glucose >=1000 mg/dL (Negative); Ketones Negative (Negative); Leukocyte Esterase Negative (Negative); Nitrite Negative (Negative); Specific Gravity <= 1.005 (1.005-1.025); Urobilinogen 0.2 mg/dL (Up to 0.2); pH 5.5 (5-8)
[2023-08-06 15:48] LABS: ALT 54 U/L (14-59); AST 35 U/L (15-37); Albumin 3.8 g/dL (3.4-5.0); Alkaline Phosphatase 207 U/L (46-116); Anion Gap 13.5 mmol/L (3-11); BUN 21 mg/dL (7-18); Bilirubin, Total 0.6 mg/dL (0.2-1.0); CREATININE 1.4 mg/dL (0.55-1.02); Calcium 9.6 mg/dL (8.5-10.1); Calculated LDL 48 mg/dL (<100); Cholesterol 136 mg/dL (<200); Estimated GFR 43.07 (mL/min/1.73m2); HDL Cholesterol 34 mg/dL (40-60); Sodium 125 mmol/L (136-145); TSH 1.75 uIU/Ml (0.36-3.74); Total Protein 8.1 g/dL (6.4-8.2); Triglyceride 270 mg/dL (<150)
[2023-08-06 15:50] LABS: Bacteria Negative HPF (Negative); C & S Indicated? Yes; Casts Negative LPF (Negative); Crystals Negative HPF (Negative); Epithelial Cells Rare HPF (Negative); Mucus Negative (Negative); Other Cells Rare Yeast (Negative); RBC Negative HPF (0-2); WBC 0-2 HPF (0-5)
[2023-08-06 15:59] LABS: Vitamin D 25 Total 32.2 ng/mL (30-100)
[2023-08-06 16:09] LABS: CO2 20.5 mmol/L (21.0-32.0); Chloride 91 mmol/L (98-107)
[2023-08-06 16:18] LABS: Glucose 514 mg/dL (74-106)
[2023-08-06 17:03] LABS: Hemoglobin A1C 10.7 % (<5.7)
== END 2023-08-06 15:01 | disposition home or self-care (01) ==
LOC: NCHCN 15:00
PROVIDERS: PCP Nurse Practitioner Family; Visit Provider Nurse Practitioner Family
DX: I10 Essential (primary) hypertension; E11.9 Type 2 diabetes mellitus without complications; E78.5 Hyperlipidemia, unspecified; E55.9 Vitamin D deficiency, unspecified
CPT/HCPCS: 80053; 80061; 82306; 81003; 81015; 83036; 84443; 85025; 87086

== ENCOUNTER 2024-04-05 13:08 | Outpatient (REF) | payer BC, SELFPAY ==
--- OUTSIDE RECORDS SUMMARY | 2024-04-05 13:42 | XMS_ITS ---
Author Organization Unknown Address [address] [place] [address] [phone] Phone Care Team Providers Care Molder Inflated Ball Name Role Phone HAO Greer Attending Unavailable HEIDY Payne Primary Unavailable Social History Type Status Start Date End Date Code Code Syst em Smoking History Never smoker (Never Smoked) [id number] SNOMED CT Sex Female Medications Medication Start Date End Date Route Frequency Dose Code Code System Medication Instructions Home Meds glipiZIDE 5MG Oral Tablet 08/10/2023 Unknown ORAL BID BEFORE MEALS 5 MILLIGRAMS 097496 RxNorm TAKE 5 MILLIGRAMS ORAL BID BEFORE MEALS Cortizone-10 Maximum Strength 1% Topical application Cream 08/10/2023 Unknown TOPICAL APPLICA TION NEEDED THREE TIMES A DAY 1 APPL 238170 RxNorm 1 APPL TOPICAL APPLICATION NEEDED THREE TIMES A DAY FOR HEMORRGHOIDS FLUoxetine HCl 40MG Oral Capsule 08/10/2023 Unknown ORAL DAILY 40 MILLIGRAMS 785243 RxNorm TAKE 40 MILLIGRAMS ORAL DAILY Multivitamin Oral Tablet 08/10/2023 Unknown ORAL DAILY 1 unit(s) RxNorm TAKE 1 EACH ORAL DAILY Olmesartan Medoxomil 20MG Oral Tablet 08/10/2023 Unknown ORAL DAILY 1 TABLET 674322 RxNorm TAKE 1 TABLE T ORAL DAILY Prometrium 200MG Oral Capsule, Liquid Filled 08/10/2023 Unknown ORAL DAILY 200 MILLIGRAMS 722433 RxNorm TAKE 200 MILLIGRAMS ORAL DAILY Terconazole 0.4% Vaginal Cream 08/10/2023 Unknown VAGINAL NEEDED 1 APPL 627223 RxNorm 1 APPL VAGINAL NEEDED Vitamin B Complex Oral Capsule 08/10/2023 Unknown ORAL DAILY 1 unit(s) RxNorm TAKE 1 EACH ORAL DAILY Vitamin D 5000 IU Oral Tablet 08/10/2023 Unknown ORAL DAILY 5000 IU 326858 RxNorm TAKE 5000 IU ORAL DAILY buPROPion HCl 300MG Oral Tablet, Extended Release, 24 HR 08/10/2023 Unknown ORAL DAILY 300 MILLIGRAMS 555430 RxNorm TAKE 300 MILLIGRAMS ORAL DAILY metFORMIN HCl AvPak 500MG Oral Tablet, Extended Release 08/10/2023 Unknown ORAL TWICE A DAY WITH FOOD 1000 MILLIGRAMS 262781 RxNorm TAKE 1000 MILLIGRAMS ORAL TWICE A DAY WITH FOOD Insulin Glargine Pen 100 IU/1 ML Subcutaneous Solution 08/10/2023 Unknown SUBCUTA NEOUS DAILY 20 UNIT 7965349 RxNorm INJECT 20 UNIT SUBCUTANEOUS DAILY Assessment You had the following problems:TYPE 2 DIABETES WITH COMPLICATIONBLURRED VISIONWEAKNESSDIZZINESSVAGINAL CANDIDAHEMORRHOIDS Hospital Discharge Instructions Should you have any questions prior to discharge, please contact a member of your healthcare team. If you have left the hospital and have any questions, please contact your primary care physician. Reason For Referral No Data Found Problems Problem Start Date Resolved Date Status Code Code System TYPE 2 DIABETES WITH COMPLICATION active 921753676 SNOMED-CT BLURRED VISION active 068996736 SNOME D-CT WEAKNESS active 24155853 SNOMED-CT DIZZINESS active 943728769 SNOMED-CT VAGINAL RAFAEL active 00556817 SNOM ED-CT HEMORRHOIDS active 40882775 SNOMED-C T DEPRESSION 08/08/2023 resolved 20992422 SNOMED-C T ANXIETY 08/08/2023 resolved 23760005 SNOMED-CT DIABETES 2 08/08/2023 resolved 33761889 SNOMED-C T ENDOMETRIAL CANCER GENETIC MARKER OF SUSCEPTIBILITY POSITIVE (FINDING) 08/08/2023 resolved 48763099063613 SNOMED-CT Allergies and Adverse Reactions Allergy Substance Reaction Severity Start Date Concern Status Co de Code System VICTOZA Nausea/Vomiting (SNOMED-CT: 46696780) Active 996810 RxNorm Plan of Treatment MM SCREEN BILAT 02/12/2023 US PELVIC / TV 08/08/2022 MM SCREEN BILAT 04/01/2021 Encounters Encounter Diagnosis Start Date Code Code Sys tem Imaging result abnormal 09/16/2022 948856461 SNOM ED-CT Personal Care Team Section Performer Name Performer Role Active Date Inactive Da te
--- OUTSIDE RECORDS SUMMARY | 2024-04-05 13:42 | XMS_ITS ---
Author Organization Unknown Address [address] [place] [address] [phone] Phone Care Team Providers Care Budget And Policy Analyst Name Role Phone HAO Greer Attending Unavailable HEIDY Payne Primary Unavailable Results CBC W/ DIFFERENTIAL* - Colle ct Date/Time: 08/28/2022 11:24 [facility] ID: [id number] [address] [place], [place], [address] LOINC: 62247-2 Test Value Unit Reference Range Code Code System Flag WBC 10.30 th/cmm L=5.00 H=10.00 6690-2 LOINC H NEUT % 69.3 % L=40.0 H=80.0 LYMPH % 19.9 % L=10.0 H=50.0 MONO % 7.2 % L=2.0 H=12.0 04613-0 LOINC EOS % 2.1 % L=0.0 H=8.0 BASO % 0.6 % L=0.0 H=3.0 IG % 0.9 % L=0.0 H=1.1 2514-8 LOINC NRBC % 0.0 % L=0.0 H=0.0 79919-4 LOINC NEUT abs count 7.1 th/cmm L=1.6 H=8.4 751-8 LOINC LYMPH abs count 2.1 th/cmm L=1.5 H=4.0 731-0 LOINC MONO abs count 0.7 th/cmm L=0.2 H=1.0 742-7 LOINC EOS abs count 0.2 th/cmm L=0.0 H=0.5 711-2 LOINC BASO abs count 0.1 th/cmm L=0.0 H=0.2 704-7 LOINC IG abs count 0.1 th/cmm L=0.0 H=0.1 29439-7 LOINC NRBC abs count 0.0 mil/cmm L=0.0 H=0.0 44285-4 LOINC RBC 4.59 mil/cmm L=3.90 H=5.40 789-8 LOINC HEMOGLOBIN 13.7 gm/dL L=12.0 H=16.0 718-7 LOINC HEMATOCRIT 41 % L=37 H=47 4544-3 LOINC MCV 90 fL L=82 H=92 787-2 LOINC MCH 29.8 pg L=27.0 H=31.0 785-6 LOINC MCHC 33.1 % L=32.0 H=36.0 786-4 LOINC RDW-SD 47.8 fL L=39.0 H=49.0 788-0 LOINC PLATELET COUNT 271 th/cmm L=150 H=450 777-3 LOINC Social History Type Status Start Date End Date Code Code Syst em Smoking History Never smoker (Never Smoked) 905366609 SNOMED CT Sex Female Medications Medication Start Date End Date Route Frequency Dose Code Code System Medication Instructions Home Meds glipiZIDE 5MG Oral Tablet 08/10/2023 Unknown ORAL BID BEFORE MEALS 5 MILLIGRAMS 292676 RxNorm TAKE 5 MILLIGRAMS ORAL BID BEFORE MEALS Cortizone-10 Maximum Strength 1% Topical application Cream 08/10/2023 Unknown TOPICAL APPLICA TION NEEDED THREE TIMES A DAY 1 APPL 496802 RxNorm 1 APPL TOPICAL APPLICATION NEEDED THREE TIMES A DAY FOR HEMORRGHOIDS FLUoxetine HCl 40MG Oral Capsule 08/10/2023 Unknown ORAL DAILY 40 MILLIGRAMS 078422 RxNorm TAKE 40 MILLIGRAMS ORAL DAILY Multivitamin Oral Tablet 08/10/2023 Unknown ORAL DAILY 1 unit(s) RxNorm TAKE 1 EACH ORAL DAILY Olmesartan Medoxomil 20MG Oral Tablet 08/10/2023 Unknown ORAL DAILY 1 TABLET 899655 RxNorm TAKE 1 TABLE T ORAL DAILY Prometrium 200MG Oral Capsule, Liquid Filled 08/10/2023 Unknown ORAL DAILY 200 MILLIGRAMS 674053 RxNorm TAKE 200 MILLIGRAMS ORAL DAILY Terconazole 0.4% Vaginal Cream 08/10/2023 Unknown VAGINAL NEEDED 1 APPL 809105 RxNorm 1 APPL VAGINAL NEEDED Vitamin B Complex Oral Capsule 08/10/2023 Unknown ORAL DAILY 1 unit(s) RxNorm TAKE 1 EACH ORAL DAILY Vitamin D 5000 IU Oral Tablet 08/10/2023 Unknown ORAL DAILY 5000 IU 724531 RxNorm TAKE 5000 IU ORAL DAILY buPROPion HCl 300MG Oral Tablet, Extended Release, 24 HR 08/10/2023 Unknown ORAL DAILY 300 MILLIGRAMS 780061 RxNorm TAKE 300 MILLIGRAMS ORAL DAILY metFORMIN HCl AvPak 500MG Oral Tablet, Extended Release 08/10/2023 Unknown ORAL TWICE A DAY WITH FOOD 1000 MILLIGRAMS 575928 RxNorm TAKE 1000 MILLIGRAMS ORAL TWICE A DAY WITH FOOD Insulin Glargine Pen 100 IU/1 ML Subcutaneous Solution 08/10/2023 Unknown SUBCUTA NEOUS DAILY 20 UNIT 8924584 RxNorm INJECT 20 UNIT SUBCUTANEOUS DAILY Assessment [...] System TYPE 2 DIABETES WITH COMPLICATION active 581974820 SNOMED-CT BLURRED VISION active 008026498 SNOME D-CT WEAKNESS active 31441551 SNOMED-CT DIZZINESS active 032062963 SNOMED-CT VAGINAL RAFAEL active 19857499 SNOM ED-CT HEMORRHOIDS active 61671521 SNOMED-C T DEPRESSION 08/08/2023 resolved 69748542 SNOMED-C T ANXIETY 08/08/2023 resolved 85110785 SNOMED-CT DIABETES 2 08/08/2023 resolved 38737010 SNOMED-C T ENDOMETRIAL CANCER GENETIC MARKER OF SUSCEPTIBILITY POSITIVE (FINDING) 08/08/2023 resolved 66368468055836 SNOMED-CT Allergies and Adverse Reactions Allergy Substance Reaction Severity Start Date Concern Status Co de Code System VICTOZA Nausea/Vomiting (SNOMED-CT: 80778246) Active 946177 RxNorm Plan of Treatment MM SCREEN BILAT 02/12/2023 US PELVIC / TV 08/08/2022 MM SCREEN BILAT 04/01/2021 Encounters Encounter Diagnosis Start Date Code Code Sys tem Abnormal findings on diagnos tic imaging of other specified body structures 08/28/2022 SNOMED-CT Personal Care Team Section Performer Name Performer Role Active Date Inactive Da te
--- OUTSIDE RECORDS SUMMARY | 2024-04-05 13:42 | XMS_ITS ---
Author Organization Unknown Address [address] [place] [address] [phone] Phone Care Team Providers Care Rn Allergy Name Role Phone HAO Greer Attending Unavailable HEIDY Payne Primary Unavailable Social History Type Status Start Date End Date Code Code Syst em Smoking History Never smoker (Never Smoked) 742735219 SNOMED CT Sex Female Medications Medication Start Date End Date Route Frequency Dose Code Code System Medication Instructions Home Meds glipiZIDE 5MG Oral Tablet 08/10/2023 Unknown ORAL BID BEFORE MEALS 5 MILLIGRAMS 653970 RxNorm TAKE 5 MILLIGRAMS ORAL BID BEFORE MEALS Cortizone-10 Maximum Strength 1% Topical application Cream 08/10/2023 Unknown TOPICAL APPLICA TION NEEDED THREE TIMES A DAY 1 APPL 529511 RxNorm 1 APPL TOPICAL APPLICATION NEEDED THREE TIMES A DAY FOR HEMORRGHOIDS FLUoxetine HCl 40MG Oral Capsule 08/10/2023 Unknown ORAL DAILY 40 MILLIGRAMS 549065 RxNorm TAKE 40 MILLIGRAMS ORAL DAILY Multivitamin Oral Tablet 08/10/2023 Unknown ORAL DAILY 1 unit(s) RxNorm TAKE 1 EACH ORAL DAILY Olmesartan Medoxomil 20MG Oral Tablet 08/10/2023 Unknown ORAL DAILY 1 TABLET 248944 RxNorm TAKE 1 TABLE T ORAL DAILY Prometrium 200MG Oral Capsule, Liquid Filled 08/10/2023 Unknown ORAL DAILY 200 MILLIGRAMS 652581 RxNorm TAKE 200 MILLIGRAMS ORAL DAILY Terconazole 0.4% Vaginal Cream 08/10/2023 Unknown VAGINAL NEEDED 1 APPL 927596 RxNorm 1 APPL VAGINAL NEEDED Vitamin B Complex Oral Capsule 08/10/2023 Unknown ORAL DAILY 1 unit(s) RxNorm TAKE 1 EACH ORAL DAILY Vitamin D 5000 IU Oral Tablet 08/10/2023 Unknown ORAL DAILY 5000 IU 894485 RxNorm TAKE 5000 IU ORAL DAILY buPROPion HCl 300MG Oral Tablet, Extended Release, 24 HR 08/10/2023 Unknown ORAL DAILY 300 MILLIGRAMS 943345 RxNorm TAKE 300 MILLIGRAMS ORAL DAILY metFORMIN HCl AvPak 500MG Oral Tablet, Extended Release 08/10/2023 Unknown ORAL TWICE A DAY WITH FOOD 1000 MILLIGRAMS 230697 RxNorm TAKE 1000 MILLIGRAMS ORAL TWICE A DAY WITH FOOD Insulin Glargine Pen 100 IU/1 ML Subcutaneous Solution 08/10/2023 Unknown SUBCUTA NEOUS DAILY 20 UNIT 0848775 RxNorm INJECT 20 UNIT SUBCUTANEOUS DAILY Assessment [...] System TYPE 2 DIABETES WITH COMPLICATION active 615783983 SNOMED-CT BLURRED VISION active 331515306 SNOME D-CT WEAKNESS active 36627764 SNOMED-CT DIZZINESS active 794255502 SNOMED-CT VAGINAL RAFAEL active 52640474 SNOM ED-CT HEMORRHOIDS active 08563757 SNOMED-C T DEPRESSION 08/08/2023 resolved 72545927 SNOMED-C T ANXIETY 08/08/2023 resolved 37606093 SNOMED-CT DIABETES 2 08/08/2023 resolved 54375906 SNOMED-C T ENDOMETRIAL CANCER GENETIC MARKER OF SUSCEPTIBILITY POSITIVE (FINDING) 08/08/2023 resolved 69696716273149 SNOMED-CT Allergies and Adverse Reactions Allergy Substance Reaction Severity Start Date Concern Status Co de Code System VICTOZA Nausea/Vomiting (SNOMED-CT: 97749445) Active 112816 RxNorm Plan of Treatment MM SCREEN BILAT 02/12/2023 US PELVIC / TV 08/08/2022 MM SCREEN BILAT 04/01/2021 Encounters Encounter Diagnosis Start Date Code Code Sys tem Follow-up visit 10/02/2022 518515863 SNOMED-CT Personal Care Team Section Performer Name Performer Role Active Date Inactive Da te
--- OUTSIDE RECORDS SUMMARY | 2024-04-05 13:42 | XMS_ITS ---
Author Organization Unknown Address [address] [place] [address] [phone] Phone Care Team Providers Care Jewelry Estimator Name Role Phone HAO Greer Attending Unavailable HEIDY Payne Primary Unavailable Results CBC W/ DIFFERENTIAL* - Colle ct Date/Time: 09/13/2022 12:00 [facility] ID: [id number] [address] [place], [place], [address] LOINC: 34243-4 Test Value Unit Reference Range Code Code System Flag WBC 8.64 th/cmm L=5.00 H=10.00 6690-2 LOINC NEUT % 69.7 % L=40.0 H=80.0 LYMPH % 20.7 % L=10.0 H=50.0 MONO % 5.9 % L=2.0 H=12.0 99483-3 LOINC EOS % 2.4 % L=0.0 H=8.0 BASO % 0.7 % L=0.0 H=3.0 IG % 0.6 % L=0.0 H=1.1 2514-8 LOINC NRBC % 0.0 % L=0.0 H=0.0 04780-1 LOINC NEUT abs count 6.0 th/cmm L=1.6 H=8.4 751-8 LOINC LYMPH abs count 1.8 th/cmm L=1.5 H=4.0 731-0 LOINC MONO abs count 0.5 th/cmm L=0.2 H=1.0 742-7 LOINC EOS abs count 0.2 th/cmm L=0.0 H=0.5 711-2 LOINC BASO abs count 0.1 th/cmm L=0.0 H=0.2 704-7 LOINC IG abs count 0.1 th/cmm L=0.0 H=0.1 91086-6 LOINC NRBC abs count 0.0 mil/cmm L=0.0 H=0.0 97267-3 LOINC RBC 4.68 mil/cmm L=3.90 H=5.40 789-8 LOINC HEMOGLOBIN 13.7 gm/dL L=12.0 H=16.0 718-7 LOINC HEMATOCRIT 42 % L=37 H=47 4544-3 LOINC MCV 89 fL L=82 H=92 787-2 LOINC MCH 29.3 pg L=27.0 H=31.0 785-6 LOINC MCHC 32.8 % L=32.0 H=36.0 786-4 LOINC RDW-SD 47.6 fL L=39.0 H=49.0 788-0 LOINC PLATELET COUNT 285 th/cmm L=150 H=450 777-3 LOINC Social History Type Status Start Date End Date Code Code Syst em Smoking History Never smoker (Never Smoked) 234908774 SNOMED CT Sex Female Medications Medication Start Date End Date Route Frequency Dose Code Code System Medication Instructions Home Meds glipiZIDE 5MG Oral Tablet 08/10/2023 Unknown ORAL BID BEFORE MEALS 5 MILLIGRAMS 736199 RxNorm TAKE 5 MILLIGRAMS ORAL BID BEFORE MEALS Cortizone-10 Maximum Strength 1% Topical application Cream 08/10/2023 Unknown TOPICAL APPLICA TION NEEDED THREE TIMES A DAY 1 APPL 558565 RxNorm 1 APPL TOPICAL APPLICATION NEEDED THREE TIMES A DAY FOR HEMORRGHOIDS FLUoxetine HCl 40MG Oral Capsule 08/10/2023 Unknown ORAL DAILY 40 MILLIGRAMS 517408 RxNorm TAKE 40 MILLIGRAMS ORAL DAILY Multivitamin Oral Tablet 08/10/2023 Unknown ORAL DAILY 1 unit(s) RxNorm TAKE 1 EACH ORAL DAILY Olmesartan Medoxomil 20MG Oral Tablet 08/10/2023 Unknown ORAL DAILY 1 TABLET 541614 RxNorm TAKE 1 TABLE T ORAL DAILY Prometrium 200MG Oral Capsule, Liquid Filled 08/10/2023 Unknown ORAL DAILY 200 MILLIGRAMS 994397 RxNorm TAKE 200 MILLIGRAMS ORAL DAILY Terconazole 0.4% Vaginal Cream 08/10/2023 Unknown VAGINAL NEEDED 1 APPL 051059 RxNorm 1 APPL VAGINAL NEEDED Vitamin B Complex Oral Capsule 08/10/2023 Unknown ORAL DAILY 1 unit(s) RxNorm TAKE 1 EACH ORAL DAILY Vitamin D 5000 IU Oral Tablet 08/10/2023 Unknown ORAL DAILY 5000 IU 604505 RxNorm TAKE 5000 IU ORAL DAILY buPROPion HCl 300MG Oral Tablet, Extended Release, 24 HR 08/10/2023 Unknown ORAL DAILY 300 MILLIGRAMS 357276 RxNorm TAKE 300 MILLIGRAMS ORAL DAILY metFORMIN HCl AvPak 500MG Oral Tablet, Extended Release 08/10/2023 Unknown ORAL TWICE A DAY WITH FOOD 1000 MILLIGRAMS 827423 RxNorm TAKE 1000 MILLIGRAMS ORAL TWICE A DAY WITH FOOD Insulin Glargine Pen 100 IU/1 ML Subcutaneous Solution 08/10/2023 Unknown SUBCUTA NEOUS DAILY 20 UNIT 9733575 RxNorm INJECT 20 UNIT SUBCUTANEOUS DAILY Assessment [...] System TYPE 2 DIABETES WITH COMPLICATION active 089346751 SNOMED-CT BLURRED VISION active 228490143 SNOME D-CT WEAKNESS active 09373003 SNOMED-CT DIZZINESS active 374413151 SNOMED-CT VAGINAL RAFAEL active 54364685 SNOM ED-CT HEMORRHOIDS active 94931568 SNOMED-C T DEPRESSION 08/08/2023 resolved 13897407 SNOMED-C T ANXIETY 08/08/2023 resolved 47885796 SNOMED-CT DIABETES 2 08/08/2023 resolved 02795643 SNOMED-C T ENDOMETRIAL CANCER GENETIC MARKER OF SUSCEPTIBILITY POSITIVE (FINDING) 08/08/2023 resolved 40867208177275 SNOMED-CT Allergies and Adverse Reactions Allergy Substance Reaction Severity Start Date Concern Status Co de Code System VICTOZA Nausea/Vomiting (SNOMED-CT: 40741698) Active 980813 RxNorm Plan of Treatment MM SCREEN BILAT 02/12/2023 US PELVIC / TV 08/08/2022 MM SCREEN BILAT 04/01/2021 Encounters Encounter Diagnosis Start Date Code Code Sys tem Abnormal vaginal bleeding 09/13/2022 563635168 SN OMED-CT Personal Care Team Section Performer Name Performer Role Active Date Inactive Da te
--- OUTSIDE RECORDS SUMMARY | 2024-04-05 13:42 | XMS_ITS ---
Author Organization Unknown Address [address] [place] [address] [phone] Phone Care Team Providers Care Fringe Weaver Name Role Phone HEIDY Payne Attending Unavailable Results XR HIP 2V OR 3V RT* - Comple thu: 04/22/2022 14:19 LOINC: [facility] RADIOLOGY [place], [place] [address] PACS COSMETIC ASSEMBLER REPORT Patient Name: BLOSSOM GRAHAM MRN: Sex: : Age: [id number] F 1960 61 Account: Accession: Admit: StayType: [id number] 04/22/2022 O/P Ordered: Order ID: Submitted: Ordering Provider: 04/22/2022 14:01 [id number] [facility] MAYRA MOODY Completed: Technologist: Resulted: 04/22/2022 14:19 KVK 04/22/2022 18:10 Study Description: XR HIP 2V OR 3V RT* Study Reason: RT HIP PAIN TECHNIQUE: 2D digital imaging was performed. COMPARISON: No exams were available for comparison FINDINGS: NUMBER OF VIEWS: 3 No evidence of pelvic nor hip fracture. No obvious degenerative changes in either hip. Additional views of the right reveal no osteophytes and no joint space narrowing. Bone density is normal. No osseous lesions. IMPRESSION: No significant radiographic findings in the pelvis and hip. Report Digitally Signed by Dany Andrade on 04/22/2022 06:10 PM EST Social History Type Status Start Date End Date Code Code Syst em Smoking History Never smoker (Never Smoked) 286771878 SNOMED CT Sex Female Medications Medication Start Date End Date Route Frequency Dose Code Code System Medication Instructions Home Meds glipiZIDE 5MG Oral Tablet 08/10/2023 Unknown ORAL BID BEFORE MEALS 5 MILLIGRAMS 215795 RxNorm TAKE 5 MILLIGRAMS ORAL BID BEFORE MEALS Cortizone-10 Maximum Strength 1% Topical application Cream 08/10/2023 Unknown TOPICAL APPLICA TION NEEDED THREE TIMES A DAY 1 APPL 188602 RxNorm 1 APPL TOPICAL APPLICATION NEEDED THREE TIMES A DAY FOR HEMORRGHOIDS FLUoxetine HCl 40MG Oral Capsule 08/10/2023 Unknown ORAL DAILY 40 MILLIGRAMS 894681 RxNorm TAKE 40 MILLIGRAMS ORAL DAILY Multivitamin Oral Tablet 08/10/2023 Unknown ORAL DAILY 1 unit(s) RxNorm TAKE 1 EACH ORAL DAILY Olmesartan Medoxomil 20MG Oral Tablet 08/10/2023 Unknown ORAL DAILY 1 TABLET 568608 RxNorm TAKE 1 TABLE T ORAL DAILY Prometrium 200MG Oral Capsule, Liquid Filled 08/10/2023 Unknown ORAL DAILY 200 MILLIGRAMS 494033 RxNorm TAKE 200 MILLIGRAMS ORAL DAILY Terconazole 0.4% Vaginal Cream 08/10/2023 Unknown VAGINAL NEEDED 1 APPL 395226 RxNorm 1 APPL VAGINAL NEEDED Vitamin B Complex Oral Capsule 08/10/2023 Unknown ORAL DAILY 1 unit(s) RxNorm TAKE 1 EACH ORAL DAILY Vitamin D 5000 IU Oral Tablet 08/10/2023 Unknown ORAL DAILY 5000 IU 789904 RxNorm TAKE 5000 IU ORAL DAILY buPROPion HCl 300MG Oral Tablet, Extended Release, 24 HR 08/10/2023 Unknown ORAL DAILY 300 MILLIGRAMS 548951 RxNorm TAKE 300 MILLIGRAMS ORAL DAILY metFORMIN HCl AvPak 500MG Oral Tablet, Extended Release 08/10/2023 Unknown ORAL TWICE A DAY WITH FOOD 1000 MILLIGRAMS 710691 RxNorm TAKE 1000 MILLIGRAMS ORAL TWICE A DAY WITH FOOD Insulin Glargine Pen 100 IU/1 ML Subcutaneous Solution 08/10/2023 Unknown SUBCUTA NEOUS DAILY 20 UNIT 0345876 RxNorm INJECT 20 UNIT SUBCUTANEOUS DAILY Assessment [...] System TYPE 2 DIABETES WITH COMPLICATION active 311197207 SNOMED-CT BLURRED VISION active 150475377 SNOME D-CT WEAKNESS active 64828444 SNOMED-CT DIZZINESS active 233370820 SNOMED-CT VAGINAL RAFAEL active 84832243 SNOM ED-CT HEMORRHOIDS active 44837543 SNOMED-C T DEPRESSION 08/08/2023 resolved 58815094 SNOMED-C T ANXIETY 08/08/2023 resolved 47979201 SNOMED-CT DIABETES 2 08/08/2023 resolved 01468438 SNOMED-C T ENDOMETRIAL CANCER GENETIC MARKER OF SUSCEPTIBILITY POSITIVE (FINDING) 08/08/2023 resolved [id number] SNOMED-CT Allergies and Adverse Reactions Allergy Substance Reaction Severity Start Date Concern Status Co de Code System VICTOZA Nausea/Vomiting (SNOMED-CT: 10167088) Active 783877 RxNorm Plan of Treatment MM SCREEN BILAT 02/12/2023 US PELVIC / TV 08/08/2022 MM SCREEN BILAT 04/01/2021 Encounters Encounter Diagnosis Start Date Code Code Sys tem Pain in right hip 04/22/2022 SNOMED-CT Personal Care Team Section Performer Name Performer Role Active Date Inactive Da te
--- OUTSIDE RECORDS SUMMARY | 2024-04-05 13:42 | XMS_ITS ---
Author Organization Unknown Address [address] [place] [address] [phone] Phone Care Team Providers Care Fire Control Assistant Name Role Phone HEIDY Payne Attending Unavailable Results MM SCREENING BILAT MAMMO W T CED W CAD - Completed: 02/12/2023 12:13 LOINC: [facility] RADIOLOGY [place], [place] [address] PACS WHEEL PRESS CLERK REPORT Patient Name: BLOSSOM GRAHAM MRN: Sex: : Age: [id number] F 1960 62 Account: Accession: Admit: StayType: [id number] O/P Ordered: Order ID: Submitted: Ordering Provider: 02/12/2023 11:04 [id number] MAYRA CARRION Completed: Technologist: Resulted: 02/12/2023 12:13 [facility] 02/12/2023 16:19 Study Description: MM SCREENING BILAT MAMMO W MARLON W CAD Study Reason: Screening TECHNIQUE: 2D digital images with tomosynthesis and CAD COMPARISON: 2014 through 2019 FINDINGS: The breasts are composed of scattered fibroglandular densities, Breast Density category B. No suspicious masses or suspicious microcalcifications are seen. No skin thickening or abnormal axillary lymph nodes are seen. There has been no significant change from prior exams. IMPRESSION: BI-RADS Category 1, Negative mammogram Yearly screening mammography is recommended. Breast Density - Category B, scattered fibroglandular densities. A negative radiographic report should not delay biopsy if a dominant or clinically suspicious mass is present. Up to ten percent of cancers are not identified on mammography. A negative report may reinforce clinical impression. Adenosis and dense breasts may obscure an underlying neoplasm. False positive reports average 6 to 10%. Patient will receive a letter notifying them of these results. Report Digitally Signed by Kelli Funk on 02/12/2023 04:19 PM EDT Social History Type Status Start Date End Date Code Code Syst em Smoking History Never smoker (Never Smoked) 084027599 SNOMED CT Sex Female Medications Medication Start Date End Date Route Frequency Dose Code Code System Medication Instructions Home Meds glipiZIDE 5MG Oral Tablet 08/10/2023 Unknown ORAL BID BEFORE MEALS 5 MILLIGRAMS 975896 RxNorm TAKE 5 MILLIGRAMS ORAL BID BEFORE MEALS Cortizone-10 Maximum Strength 1% Topical application Cream 08/10/2023 Unknown TOPICAL APPLICA TION NEEDED THREE TIMES A DAY 1 APPL 830841 RxNorm 1 APPL TOPICAL APPLICATION NEEDED THREE TIMES A DAY FOR HEMORRGHOIDS FLUoxetine HCl 40MG Oral Capsule 08/10/2023 Unknown ORAL DAILY 40 MILLIGRAMS 427626 RxNorm TAKE 40 MILLIGRAMS ORAL DAILY Multivitamin Oral Tablet 08/10/2023 Unknown ORAL DAILY 1 unit(s) RxNorm TAKE 1 EACH ORAL DAILY Olmesartan Medoxomil 20MG Oral Tablet 08/10/2023 Unknown ORAL DAILY 1 TABLET 594129 RxNorm TAKE 1 TABLE T ORAL DAILY Prometrium 200MG Oral Capsule, Liquid Filled 08/10/2023 Unknown ORAL DAILY 200 MILLIGRAMS 392912 RxNorm TAKE 200 MILLIGRAMS ORAL DAILY Terconazole 0.4% Vaginal Cream 08/10/2023 Unknown VAGINAL NEEDED 1 APPL 794925 RxNorm 1 APPL VAGINAL NEEDED Vitamin B Complex Oral Capsule 08/10/2023 Unknown ORAL DAILY 1 unit(s) RxNorm TAKE 1 EACH ORAL DAILY Vitamin D 5000 IU Oral Tablet 08/10/2023 Unknown ORAL DAILY 5000 IU 141862 RxNorm TAKE 5000 IU ORAL DAILY buPROPion HCl 300MG Oral Tablet, Extended Release, 24 HR 08/10/2023 Unknown ORAL DAILY 300 MILLIGRAMS 665649 RxNorm TAKE 300 MILLIGRAMS ORAL DAILY metFORMIN HCl AvPak 500MG Oral Tablet, Extended Release 08/10/2023 Unknown ORAL TWICE A DAY WITH FOOD 1000 MILLIGRAMS 821169 RxNorm TAKE 1000 MILLIGRAMS ORAL TWICE A DAY WITH FOOD Insulin Glargine Pen 100 IU/1 ML Subcutaneous Solution 08/10/2023 Unknown SUBCUTA NEOUS DAILY 20 UNIT 5732091 RxNorm INJECT 20 UNIT SUBCUTANEOUS DAILY Assessment [...] System TYPE 2 DIABETES WITH COMPLICATION active 335841574 SNOMED-CT BLURRED VISION active 632982693 SNOME D-CT WEAKNESS active 98230536 SNOMED-CT DIZZINESS active 810708775 SNOMED-CT VAGINAL RAFAEL active 04642597 SNOM ED-CT HEMORRHOIDS active 58000663 SNOMED-C T DEPRESSION 08/08/2023 resolved 07692331 SNOMED-C T ANXIETY 08/08/2023 resolved 40350003 SNOMED-CT DIABETES 2 08/08/2023 resolved 27547841 SNOMED-C T ENDOMETRIAL CANCER GENETIC MARKER OF SUSCEPTIBILITY POSITIVE (FINDING) 08/08/2023 resolved 76286593547852 SNOMED-CT Allergies and Adverse Reactions Allergy Substance Reaction Severity Start Date Concern Status Co de Code System VICTOZA Nausea/Vomiting (SNOMED-CT: 36628651) Active 222110 RxNorm Plan of Treatment MM SCREEN BILAT 02/12/2023 US PELVIC / TV 08/08/2022 MM SCREEN BILAT 04/01/2021 Encounters Encounter Diagnosis Start Date Code Code Sys tem Encounter for screening mamm ogram for malignant neoplasm of breast 02/12/2023 SNOMED-CT Personal Care Team Section Performer Name Performer Role Active Date Inactive Da te
--- OUTSIDE RECORDS SUMMARY | 2024-04-05 13:42 | XMS_ITS ---
Author Organization Unknown Address [address] [place] [address] [phone] Phone Care Team Providers Care Hot Metal Crane Operator Name Role Phone HAO Greer Attending Unavailable Social History Type Status Start Date End Date Code Code Syst em Smoking History Never smoker (Never Smoked) 681643707 SNOMED CT Sex Female Medications Medication Start Date End Date Route Frequency Dose Code Code System Medication Instructions Home Meds glipiZIDE 5MG Oral Tablet 08/10/2023 Unknown ORAL BID BEFORE MEALS 5 MILLIGRAMS 401375 RxNorm TAKE 5 MILLIGRAMS ORAL BID BEFORE MEALS Cortizone-10 Maximum Strength 1% Topical application Cream 08/10/2023 Unknown TOPICAL APPLICA TION NEEDED THREE TIMES A DAY 1 APPL 446370 RxNorm 1 APPL TOPICAL APPLICATION NEEDED THREE TIMES A DAY FOR HEMORRGHOIDS FLUoxetine HCl 40MG Oral Capsule 08/10/2023 Unknown ORAL DAILY 40 MILLIGRAMS 232922 RxNorm TAKE 40 MILLIGRAMS ORAL DAILY Multivitamin Oral Tablet 08/10/2023 Unknown ORAL DAILY 1 unit(s) RxNorm TAKE 1 EACH ORAL DAILY Olmesartan Medoxomil 20MG Oral Tablet 08/10/2023 Unknown ORAL DAILY 1 TABLET 137501 RxNorm TAKE 1 TABLE T ORAL DAILY Prometrium 200MG Oral Capsule, Liquid Filled 08/10/2023 Unknown ORAL DAILY 200 MILLIGRAMS 549189 RxNorm TAKE 200 MILLIGRAMS ORAL DAILY Terconazole 0.4% Vaginal Cream 08/10/2023 Unknown VAGINAL NEEDED 1 APPL 822287 RxNorm 1 APPL VAGINAL NEEDED Vitamin B Complex Oral Capsule 08/10/2023 Unknown ORAL DAILY 1 unit(s) RxNorm TAKE 1 EACH ORAL DAILY Vitamin D 5000 IU Oral Tablet 08/10/2023 Unknown ORAL DAILY 5000 IU 444504 RxNorm TAKE 5000 IU ORAL DAILY buPROPion HCl 300MG Oral Tablet, Extended Release, 24 HR 08/10/2023 Unknown ORAL DAILY 300 MILLIGRAMS 396446 RxNorm TAKE 300 MILLIGRAMS ORAL DAILY metFORMIN HCl AvPak 500MG Oral Tablet, Extended Release 08/10/2023 Unknown ORAL TWICE A DAY WITH FOOD 1000 MILLIGRAMS 582692 RxNorm TAKE 1000 MILLIGRAMS ORAL TWICE A DAY WITH FOOD Insulin Glargine Pen 100 IU/1 ML Subcutaneous Solution 08/10/2023 Unknown SUBCUTA NEOUS DAILY 20 UNIT 7625995 RxNorm INJECT 20 UNIT SUBCUTANEOUS DAILY Assessment [...] System TYPE 2 DIABETES WITH COMPLICATION active 366840848 SNOMED-CT BLURRED VISION active 957325166 SNOME D-CT WEAKNESS active 92465459 SNOMED-CT DIZZINESS active 129423772 SNOMED-CT VAGINAL RAFAEL active 69859011 SNOM ED-CT HEMORRHOIDS active 16803709 SNOMED-C T DEPRESSION 08/08/2023 resolved 79934805 SNOMED-C T ANXIETY 08/08/2023 resolved 38576509 SNOMED-CT DIABETES 2 08/08/2023 resolved 88358482 SNOMED-C T ENDOMETRIAL CANCER GENETIC MARKER OF SUSCEPTIBILITY POSITIVE (FINDING) 08/08/2023 resolved 07381121461625 SNOMED-CT Allergies and Adverse Reactions Allergy Substance Reaction Severity Start Date Concern Status Co de Code System VICTOZA Nausea/Vomiting (SNOMED-CT: 04845369) Active 507620 RxNorm Plan of Treatment MM SCREEN BILAT 02/12/2023 US PELVIC / TV 08/08/2022 MM SCREEN BILAT 04/01/2021 Encounters Encounter Diagnosis Start Date Code Code Sys tem Postmenopausal bleeding 09/19/2022 25883557 SNOM ED-CT Personal Care Team Section Performer Name Performer Role Active Date Inactive Da te
--- OUTSIDE RECORDS SUMMARY | 2024-04-05 13:42 | XMS_ITS ---
Author Organization Unknown Address [address] [place] [address] [phone] Phone Care Team Providers Care Arbor Press Operator Name Role Phone HEIDY Payne Attending Unavailable Results US PELVIC TRANSVAGINAL* - Co mpleted: 08/08/2022 08:42 LOINC: [facility] RADIOLOGY [place], [place] [address] PACS FAST FOOD SERVICES MANAGER REPORT Patient Name: BLOSSOM GRAHAM MRN: Sex: : Age: [id number] F 1960 61 Account: Accession: Admit: StayType: [id number] 08/08/2022 O/P Ordered: Order ID: Submitted: Ordering Provider: 08/08/2022 08:14 [id number] [facility] MAYRA MOODY Completed: Technologist: Resulted: 08/08/2022 08:42 BM 08/08/2022 09:31 Study Description: US PELVIC TRANSVAGINAL* Study Reason: POST MENOPAUSAL TECNIQUE: Transabdominal and transvaginal exams performed. COMPARISON: 18 September 2020 FINDINGS: Exam somewhat limited by patient body habitus. Transabdominal images limited by lack of bladder distention. UTERUS: Retroflexed. 11.0 x 6.2 x 8.1 cm Endometrium: 12 mm, thickened and heterogeneous. Myometrium: Unremarkable. Cervix: Nabothian cysts. OVARIES: Right: Cyst or mass: None. Left: Not visualized. DOPPLER: Color: Symmetric and uniform flow to both ovaries. No hyperemia. CUL-DE-SAC: Free fluid: None. IMPRESSION: 1. Enlarged uterus. Endometrium thickened and heterogeneous. 2. Unremarkable bilateral right ovary left ovary not visualized. Report Digitally Signed by Kelli Funk on 08/08/2022 09:31 AM EDT Social History Type Status Start Date End Date Code Code Syst em Smoking History Never smoker (Never Smoked) 193326356 SNOMED CT Sex Female Medications Medication Start Date End Date Route Frequency Dose Code Code System Medication Instructions Home Meds glipiZIDE 5MG Oral Tablet 08/10/2023 Unknown ORAL BID BEFORE MEALS 5 MILLIGRAMS 508243 RxNorm TAKE 5 MILLIGRAMS ORAL BID BEFORE MEALS Cortizone-10 Maximum Strength 1% Topical application Cream 08/10/2023 Unknown TOPICAL APPLICA TION NEEDED THREE TIMES A DAY 1 APPL 985143 RxNorm 1 APPL TOPICAL APPLICATION NEEDED THREE TIMES A DAY FOR HEMORRGHOIDS FLUoxetine HCl 40MG Oral Capsule 08/10/2023 Unknown ORAL DAILY 40 MILLIGRAMS 469389 RxNorm TAKE 40 MILLIGRAMS ORAL DAILY Multivitamin Oral Tablet 08/10/2023 Unknown ORAL DAILY 1 unit(s) RxNorm TAKE 1 EACH ORAL DAILY Olmesartan Medoxomil 20MG Oral Tablet 08/10/2023 Unknown ORAL DAILY 1 TABLET 992093 RxNorm TAKE 1 TABLE T ORAL DAILY Prometrium 200MG Oral Capsule, Liquid Filled 08/10/2023 Unknown ORAL DAILY 200 MILLIGRAMS 054338 RxNorm TAKE 200 MILLIGRAMS ORAL DAILY Terconazole 0.4% Vaginal Cream 08/10/2023 Unknown VAGINAL NEEDED 1 APPL 131651 RxNorm 1 APPL VAGINAL NEEDED Vitamin B Complex Oral Capsule 08/10/2023 Unknown ORAL DAILY 1 unit(s) RxNorm TAKE 1 EACH ORAL DAILY Vitamin D 5000 IU Oral Tablet 08/10/2023 Unknown ORAL DAILY 5000 IU 584787 RxNorm TAKE 5000 IU ORAL DAILY buPROPion HCl 300MG Oral Tablet, Extended Release, 24 HR 08/10/2023 Unknown ORAL DAILY 300 MILLIGRAMS 208084 RxNorm TAKE 300 MILLIGRAMS ORAL DAILY metFORMIN HCl AvPak 500MG Oral Tablet, Extended Release 08/10/2023 Unknown ORAL TWICE A DAY WITH FOOD 1000 MILLIGRAMS 614061 RxNorm TAKE 1000 MILLIGRAMS ORAL TWICE A DAY WITH FOOD Insulin Glargine Pen 100 IU/1 ML Subcutaneous Solution 08/10/2023 Unknown SUBCUTA NEOUS DAILY 20 UNIT 1471545 RxNorm INJECT 20 UNIT SUBCUTANEOUS DAILY Assessment [...] System TYPE 2 DIABETES WITH COMPLICATION active 538610443 SNOMED-CT BLURRED VISION active 142298060 SNOME D-CT WEAKNESS active 04179020 SNOMED-CT DIZZINESS active 074830725 SNOMED-CT VAGINAL RAFAEL active 55959767 SNOM ED-CT HEMORRHOIDS active 02923148 SNOMED-C T DEPRESSION 08/08/2023 resolved 09437440 SNOMED-C T ANXIETY 08/08/2023 resolved 73676482 SNOMED-CT DIABETES 2 08/08/2023 resolved 69383966 SNOMED-C T ENDOMETRIAL CANCER GENETIC MARKER OF SUSCEPTIBILITY POSITIVE (FINDING) 08/08/2023 resolved 08794541711639 SNOMED-CT Allergies and Adverse Reactions Allergy Substance Reaction Severity Start Date Concern Status Co de Code System VICTOZA Nausea/Vomiting (SNOMED-CT: 63585828) Active 757720 RxNorm Plan of Treatment MM SCREEN BILAT 02/12/2023 US PELVIC / TV 08/08/2022 MM SCREEN BILAT 04/01/2021 Encounters Encounter Diagnosis Start Date Code Code Sys tem Abnormal findings on diagnos tic imaging of other specified body structures 08/08/2022 SNOMED-CT Personal Care Team Section Performer Name Performer Role Active Date Inactive Da te
--- OUTSIDE RECORDS SUMMARY | 2024-04-05 13:42 | XMS_ITS ---
Author Organization Unknown Address [address] [place] [address] [phone] Phone Care Team Providers Care Safety Engineer Pressure Vessels Name Role Phone AVE CORIE Donaldson Attending Unavailable HEIDY Payne Primary Unavailable Social History Type Status Start Date End Date Code Code Syst em Smoking History Never smoker (Never Smoked) 530386417 SNOMED CT Sex Female Medications Medication Start Date End Date Route Frequency Dose Code Code System Medication Instructions Home Meds glipiZIDE 5MG Oral Tablet 08/10/2023 Unknown ORAL BID BEFORE MEALS 5 MILLIGRAMS 805679 RxNorm TAKE 5 MILLIGRAMS ORAL BID BEFORE MEALS Cortizone-10 Maximum Strength 1% Topical application Cream 08/10/2023 Unknown TOPICAL APPLICA TION NEEDED THREE TIMES A DAY 1 APPL 287560 RxNorm 1 APPL TOPICAL APPLICATION NEEDED THREE TIMES A DAY FOR HEMORRGHOIDS FLUoxetine HCl 40MG Oral Capsule 08/10/2023 Unknown ORAL DAILY 40 MILLIGRAMS 105301 RxNorm TAKE 40 MILLIGRAMS ORAL DAILY Multivitamin Oral Tablet 08/10/2023 Unknown ORAL DAILY 1 unit(s) RxNorm TAKE 1 EACH ORAL DAILY Olmesartan Medoxomil 20MG Oral Tablet 08/10/2023 Unknown ORAL DAILY 1 TABLET 679607 RxNorm TAKE 1 TABLE T ORAL DAILY Prometrium 200MG Oral Capsule, Liquid Filled 08/10/2023 Unknown ORAL DAILY 200 MILLIGRAMS 016441 RxNorm TAKE 200 MILLIGRAMS ORAL DAILY Terconazole 0.4% Vaginal Cream 08/10/2023 Unknown VAGINAL NEEDED 1 APPL 636766 RxNorm 1 APPL VAGINAL NEEDED Vitamin B Complex Oral Capsule 08/10/2023 Unknown ORAL DAILY 1 unit(s) RxNorm TAKE 1 EACH ORAL DAILY Vitamin D 5000 IU Oral Tablet 08/10/2023 Unknown ORAL DAILY 5000 IU 277657 RxNorm TAKE 5000 IU ORAL DAILY buPROPion HCl 300MG Oral Tablet, Extended Release, 24 HR 08/10/2023 Unknown ORAL DAILY 300 MILLIGRAMS 845417 RxNorm TAKE 300 MILLIGRAMS ORAL DAILY metFORMIN HCl AvPak 500MG Oral Tablet, Extended Release 08/10/2023 Unknown ORAL TWICE A DAY WITH FOOD 1000 MILLIGRAMS 212380 RxNorm TAKE 1000 MILLIGRAMS ORAL TWICE A DAY WITH FOOD Insulin Glargine Pen 100 IU/1 ML Subcutaneous Solution 08/10/2023 Unknown SUBCUTA NEOUS DAILY 20 UNIT 3376987 RxNorm INJECT 20 UNIT SUBCUTANEOUS DAILY Assessment [...] System TYPE 2 DIABETES WITH COMPLICATION active 965371286 SNOMED-CT BLURRED VISION active 470288344 SNOME D-CT WEAKNESS active 00160597 SNOMED-CT DIZZINESS active 131672680 SNOMED-CT VAGINAL RAFAEL active 38764395 SNOM ED-CT HEMORRHOIDS active 20681770 SNOMED-C T DEPRESSION 08/08/2023 resolved 93477241 SNOMED-C T ANXIETY 08/08/2023 resolved 18742537 SNOMED-CT DIABETES 2 08/08/2023 resolved 94984051 SNOMED-C T ENDOMETRIAL CANCER GENETIC MARKER OF SUSCEPTIBILITY POSITIVE (FINDING) 08/08/2023 resolved 56457959157388 SNOMED-CT Allergies and Adverse Reactions Allergy Substance Reaction Severity Start Date Concern Status Co de Code System VICTOZA Nausea/Vomiting (SNOMED-CT: 09145316) Active 654988 RxNorm Plan of Treatment MM SCREEN BILAT 02/12/2023 US PELVIC / TV 08/08/2022 MM SCREEN BILAT 04/01/2021 Encounters Encounter Diagnosis Start Date Code Code Sys tem Obstructive sleep apnea syndrome 02/24/2023 62670973 SNOMED-CT Personal Care Team Section Performer Name Performer Role Active Date Inactive Da te
--- OUTSIDE RECORDS SUMMARY | 2024-04-05 13:42 | XMS_ITS ---
Author Organization Unknown Address [address] [place] [address] [phone] Phone Care Team Providers Care Junior Software Engineer Name Role Phone HAO Greer Attending Unavailable HEIDY Payne Primary Unavailable Results CBC W/ DIFFERENTIAL* - Colle ct Date/Time: 10/27/2022 17:27 [facility] ID: [id number] [address] [place], [place], [address] LOINC: 34604-9 Test Value Unit Reference Range Code Code System Flag WBC 11.01 th/cmm L=5.00 H=10.00 6690-2 LOINC H NEUT % 69.0 % L=40.0 H=80.0 LYMPH % 19.8 % L=10.0 H=50.0 MONO % 8.0 % L=2.0 H=12.0 61121-5 LOINC EOS % 2.2 % L=0.0 H=8.0 BASO % 0.5 % L=0.0 H=3.0 IG % 0.5 % L=0.0 H=1.1 2514-8 LOINC NRBC % 0.0 % L=0.0 H=0.0 66231-3 LOINC NEUT abs count 7.6 th/cmm L=1.6 H=8.4 751-8 LOINC LYMPH abs count 2.2 th/cmm L=1.5 H=4.0 731-0 LOINC MONO abs count 0.9 th/cmm L=0.2 H=1.0 742-7 LOINC EOS abs count 0.2 th/cmm L=0.0 H=0.5 711-2 LOINC BASO abs count 0.1 th/cmm L=0.0 H=0.2 704-7 LOINC IG abs count 0.1 th/cmm L=0.0 H=0.1 91179-1 LOINC NRBC abs count 0.0 mil/cmm L=0.0 H=0.0 16438-6 LOINC RBC 4.53 mil/cmm L=3.90 H=5.40 789-8 LOINC HEMOGLOBIN 13.5 gm/dL L=12.0 H=16.0 718-7 LOINC HEMATOCRIT 41 % L=37 H=47 4544-3 LOINC MCV 90 fL L=82 H=92 787-2 LOINC MCH 29.8 pg L=27.0 H=31.0 785-6 LOINC MCHC 33.2 % L=32.0 H=36.0 786-4 LOINC RDW-SD 44.9 fL L=39.0 H=49.0 788-0 LOINC PLATELET COUNT 310 th/cmm L=150 H=450 777-3 LOINC Social History Type Status Start Date End Date Code Code Syst em Smoking History Never smoker (Never Smoked) 086620988 SNOMED CT Sex Female Medications Medication Start Date End Date Route Frequency Dose Code Code System Medication Instructions Home Meds glipiZIDE 5MG Oral Tablet 08/10/2023 Unknown ORAL BID BEFORE MEALS 5 MILLIGRAMS 089217 RxNorm TAKE 5 MILLIGRAMS ORAL BID BEFORE MEALS Cortizone-10 Maximum Strength 1% Topical application Cream 08/10/2023 Unknown TOPICAL APPLICA TION NEEDED THREE TIMES A DAY 1 APPL 631811 RxNorm 1 APPL TOPICAL APPLICATION NEEDED THREE TIMES A DAY FOR HEMORRGHOIDS FLUoxetine HCl 40MG Oral Capsule 08/10/2023 Unknown ORAL DAILY 40 MILLIGRAMS 881788 RxNorm TAKE 40 MILLIGRAMS ORAL DAILY Multivitamin Oral Tablet 08/10/2023 Unknown ORAL DAILY 1 unit(s) RxNorm TAKE 1 EACH ORAL DAILY Olmesartan Medoxomil 20MG Oral Tablet 08/10/2023 Unknown ORAL DAILY 1 TABLET 700833 RxNorm TAKE 1 TABLE T ORAL DAILY Prometrium 200MG Oral Capsule, Liquid Filled 08/10/2023 Unknown ORAL DAILY 200 MILLIGRAMS 046487 RxNorm TAKE 200 MILLIGRAMS ORAL DAILY Terconazole 0.4% Vaginal Cream 08/10/2023 Unknown VAGINAL NEEDED 1 APPL 924957 RxNorm 1 APPL VAGINAL NEEDED Vitamin B Complex Oral Capsule 08/10/2023 Unknown ORAL DAILY 1 unit(s) RxNorm TAKE 1 EACH ORAL DAILY Vitamin D 5000 IU Oral Tablet 08/10/2023 Unknown ORAL DAILY 5000 IU 758834 RxNorm TAKE 5000 IU ORAL DAILY buPROPion HCl 300MG Oral Tablet, Extended Release, 24 HR 08/10/2023 Unknown ORAL DAILY 300 MILLIGRAMS 344054 RxNorm TAKE 300 MILLIGRAMS ORAL DAILY metFORMIN HCl AvPak 500MG Oral Tablet, Extended Release 08/10/2023 Unknown ORAL TWICE A DAY WITH FOOD 1000 MILLIGRAMS 166775 RxNorm TAKE 1000 MILLIGRAMS ORAL TWICE A DAY WITH FOOD Insulin Glargine Pen 100 IU/1 ML Subcutaneous Solution 08/10/2023 Unknown SUBCUTA NEOUS DAILY 20 UNIT 8998971 RxNorm INJECT 20 UNIT SUBCUTANEOUS DAILY Assessment [...] System TYPE 2 DIABETES WITH COMPLICATION active 600221644 SNOMED-CT BLURRED VISION active 086487836 SNOME D-CT WEAKNESS active 56478749 SNOMED-CT DIZZINESS active 324603614 SNOMED-CT VAGINAL RAFAEL active 12173562 SNOM ED-CT HEMORRHOIDS active 05505762 SNOMED-C T DEPRESSION 08/08/2023 resolved 72178752 SNOMED-C T ANXIETY 08/08/2023 resolved 82599695 SNOMED-CT DIABETES 2 08/08/2023 resolved 01236996 SNOMED-C T ENDOMETRIAL CANCER GENETIC MARKER OF SUSCEPTIBILITY POSITIVE (FINDING) 08/08/2023 resolved 16266959779327 SNOMED-CT Allergies and Adverse Reactions Allergy Substance Reaction Severity Start Date Concern Status Co de Code System VICTOZA Nausea/Vomiting (SNOMED-CT: 02706727) Active 905807 RxNorm Plan of Treatment MM SCREEN BILAT 02/12/2023 US PELVIC / TV 08/08/2022 MM SCREEN BILAT 04/01/2021 Encounters Encounter Diagnosis Start Date Code Code Sys tem Hemorrhage of blood vessel 10/27/2022 151185816 S NOMED-CT Personal Care Team Section Performer Name Performer Role Active Date Inactive Da te
--- OUTSIDE RECORDS SUMMARY | 2024-04-05 13:42 | XMS_ITS ---
Author Organization Unknown Address [address] [place] [address] [phone] Phone Care Team Providers Care Permanent Mold Supervisor Name Role Phone HAO Greer Attending Unavailable NOAM Barr CIVIL TECHNICIAN Unavailable HEIDY Payne Primary Unavailable Results TISSUE SURGICAL PATHOLOGY (C ONSULT)* - Collect Date/Time: 09/19/2022 10:49 [facility] ID: [id number] [address], [id number] LOINC: Test Value Unit Reference Range Code Code System Flag Report (See below) Social History Type Status Start Date End Date Code Code Syst em Smoking History Never smoker (Never Smoked) 132602368 SNOMED CT Sex Female Vital Signs Vital Sign Value Unit [place] Value [place] Unit Date/Time Recent/Initial? Code Code System Body Mass Index 51.39 kg/m2 09/17/2022 10:03 Initial 06442 -5 LOINC Systolic Blood Pressure 120 mm[Hg] 09/19/2022 10:13 Initial 8480- 6 LOINC Diastolic Blood Pressure 62 mm[Hg] 09/19/2022 10:13 Initial 8462- 4 LOINC Body Surface Area 2.71 m2 09/17/2022 10:03 Initial 3140- 1 LOINC Height 172.720 0 cm 68.00 in 09/17/2022 10:03 Initial 8302- 2 LOINC O2 Saturation 98 % 2022 10:13 Initial 29527 -5 LOINC Pulse 68.0 /min 09/19/2022 10:13 Initial 8867- 4 LOINC Respiration 12 /min 09/20/19 10:13 Initial 9279- 1 LOINC Temperature 36.2 [place] 97.2 F 09/20/19 10:13 Initial 8310- 5 LOINC Weight 153.31 kg 338.00 lbs 09/17/2022 10:03 Initial 72566 -7 [facility] Medications Medication Start Date End Date Route Frequency Dose Code Code System Medication Instructions Home Meds glipiZIDE 5MG Oral Tablet 08/10/2023 Unknown ORAL BID BEFORE MEALS 5 MILLIGRAMS 173993 RxNorm TAKE 5 MILLIGRAMS ORAL BID BEFORE MEALS Cortizone-10 Maximum Strength 1% Topical application Cream 08/10/2023 Unknown TOPICAL APPLICA TION NEEDED THREE TIMES A DAY 1 APPL 077189 RxNorm 1 APPL TOPICAL APPLICATION NEEDED THREE TIMES A DAY FOR HEMORRGHOIDS FLUoxetine HCl 40MG Oral Capsule 08/10/2023 Unknown ORAL DAILY 40 MILLIGRAMS 597195 RxNorm TAKE 40 MILLIGRAMS ORAL DAILY Multivitamin Oral Tablet 08/10/2023 Unknown ORAL DAILY 1 unit(s) RxNorm TAKE 1 EACH ORAL DAILY Olmesartan Medoxomil 20MG Oral Tablet 08/10/2023 Unknown ORAL DAILY 1 TABLET 553608 RxNorm TAKE 1 TABLE T ORAL DAILY Prometrium 200MG Oral Capsule, Liquid Filled 08/10/2023 Unknown ORAL DAILY 200 MILLIGRAMS 596953 RxNorm TAKE 200 MILLIGRAMS ORAL DAILY Terconazole 0.4% Vaginal Cream 08/10/2023 Unknown VAGINAL NEEDED 1 APPL 862340 RxNorm 1 APPL VAGINAL NEEDED Vitamin B Complex Oral Capsule 08/10/2023 Unknown ORAL DAILY 1 unit(s) RxNorm TAKE 1 EACH ORAL DAILY Vitamin D 5000 IU Oral Tablet 08/10/2023 Unknown ORAL DAILY 5000 IU 412639 RxNorm TAKE 5000 IU ORAL DAILY buPROPion HCl 300MG Oral Tablet, Extended Release, 24 HR 08/10/2023 Unknown ORAL DAILY 300 MILLIGRAMS 404588 RxNorm TAKE 300 MILLIGRAMS ORAL DAILY metFORMIN HCl AvPak 500MG Oral Tablet, Extended Release 08/10/2023 Unknown ORAL TWICE A DAY WITH FOOD 1000 MILLIGRAMS 212024 RxNorm TAKE 1000 MILLIGRAMS ORAL TWICE A DAY WITH FOOD Insulin Glargine Pen 100 IU/1 ML Subcutaneous Solution 08/10/2023 Unknown SUBCUTA NEOUS DAILY 20 UNIT 1786311 RxNorm INJECT 20 UNIT SUBCUTANEOUS DAILY Assessment You had the following problems:TYPE 2 DIABETES WITH COMPLICATIONBLURRED VISIONWEAKNESSDIZZINESSVAGINAL CANDIDAHEMORRHOIDS Hospital Discharge Instructions Should you have any questions prior to discharge, please contact a member of your healthcare team. If you have left the hospital and have any questions, please contact your primary care physician. Reason For Referral No Data Found Procedures Procedure Name Date Status Code Code Jose rhodes Hysteroscopy, Surgical; w/Endometrial Ablation 09/19/2022 completed 24437 CPT Anesthesia, Vaginal Proc, w/ Bx; Hysteroscopy &/Or Hysterosalpingography 09/19/2022 completed 37368 CPT Problems Problem Start Date Resolved Date Status Code Code System TYPE 2 DIABETES WITH COMPLICATION active 069063883 SNOMED-CT BLURRED VISION active 060553244 SNOME D-CT WEAKNESS active 87955586 SNOMED-CT DIZZINESS active 901510339 SNOMED-CT VAGINAL RAFAEL active 64083726 SNOM ED-CT HEMORRHOIDS active 24892737 SNOMED-C T DEPRESSION 08/08/2023 resolved 10294169 SNOMED-C T ANXIETY 08/08/2023 resolved 24100462 SNOMED-CT DIABETES 2 08/08/2023 resolved 62814507 SNOMED-C T ENDOMETRIAL CANCER GENETIC MARKER OF SUSCEPTIBILITY POSITIVE (FINDING) 08/08/2023 resolved 43710459939466 SNOMED-CT Allergies and Adverse Reactions Allergy Substance Reaction Severity Start Date Concern Status Co de Code System VICTOZA Nausea/Vomiting (SNOMED-CT: 85790779) Active 839260 RxNorm Plan of Treatment MM SCREEN BILAT 02/12/2023 US PELVIC / TV 08/08/2022 MM SCREEN BILAT 04/01/2021 Future Order Description Future Order Date Futu re Order Loinc: BASIC METABOLIC PANEL (BMP) 09/17/2022 [place]: 51187-8 Encounters Encounter Diagnosis Start Date Code Code Sys tem Postmenopausal bleeding 09/19/2022 SNOM ED-CT Personal Care Team Section Performer Name Performer Role Active Date Inactive Da te
--- OUTSIDE RECORDS SUMMARY | 2024-04-05 13:42 | XMS_ITS ---
Author Organization Unknown Address [address] [place] [address] [phone] Phone Care Team Providers Care Ergonomic Specialist Name Role Phone SHARON FUNEZ Attending Unavailable HEIDY Payne Primary Unavailable Results XR SHOULDER 2V OR MORE LT* - Completed: 02/27/2022 13:13 LOINC: [facility] [place], [place] [address] PACS PLANNING ENGINEER REPORT Patient Name: BLOSSOM GRAHAM MRN: Sex: : Age: [id number] F [id number] Account: StayType: Accession: Admit: [id number] [facility] [id number] 02/27/2022 Ordered: Order ID: Ordering Provider: [id number] ARMIN HERRERA Completed: CompletedBy: Resulted: By: [id number] [facility] [id number] [facility] Study Description: XR SHOULDER 2V OR MORE LT* Study Reason: [email or web address] TECHNIQUE: 2D digital imaging was performed. COMPARISON: No exams were available for comparison FINDINGS: NUMBER OF VIEWS: 3 There is no evidence of fracture nor dislocation. There are no abnormal soft tissue calcifications. The subacromial space is not diminished. Bone density is normal and there are no significant osseous lesions. IMPRESSION: No significant findings Report Digitally Signed by Dany Andrade on 02/27/2022 05:30 PM EDT Social History Type Status Start Date End Date Code Code Syst em Smoking History Never smoker (Never Smoked) 157100034 SNOMED CT Sex Female Medications Medication Start Date End Date Route Frequency Dose Code Code System Medication Instructions Home Meds glipiZIDE 5MG Oral Tablet 08/10/2023 Unknown ORAL BID BEFORE MEALS 5 MILLIGRAMS 597795 RxNorm TAKE 5 MILLIGRAMS ORAL BID BEFORE MEALS Cortizone-10 Maximum Strength 1% Topical application Cream 08/10/2023 Unknown TOPICAL APPLICA TION NEEDED THREE TIMES A DAY 1 APPL 091414 RxNorm 1 APPL TOPICAL APPLICATION NEEDED THREE TIMES A DAY FOR HEMORRGHOIDS FLUoxetine HCl 40MG Oral Capsule 08/10/2023 Unknown ORAL DAILY 40 MILLIGRAMS 892740 RxNorm TAKE 40 MILLIGRAMS ORAL DAILY Multivitamin Oral Tablet 08/10/2023 Unknown ORAL DAILY 1 unit(s) RxNorm TAKE 1 EACH ORAL DAILY Olmesartan Medoxomil 20MG Oral Tablet 08/10/2023 Unknown ORAL DAILY 1 TABLET 630277 RxNorm TAKE 1 TABLE T ORAL DAILY Prometrium 200MG Oral Capsule, Liquid Filled 08/10/2023 Unknown ORAL DAILY 200 MILLIGRAMS 463453 RxNorm TAKE 200 MILLIGRAMS ORAL DAILY Terconazole 0.4% Vaginal Cream 08/10/2023 Unknown VAGINAL NEEDED 1 APPL 620017 RxNorm 1 APPL VAGINAL NEEDED Vitamin B Complex Oral Capsule 08/10/2023 Unknown ORAL DAILY 1 unit(s) RxNorm TAKE 1 EACH ORAL DAILY Vitamin D 5000 IU Oral Tablet 08/10/2023 Unknown ORAL DAILY 5000 IU 376169 RxNorm TAKE 5000 IU ORAL DAILY buPROPion HCl 300MG Oral Tablet, Extended Release, 24 HR 08/10/2023 Unknown ORAL DAILY 300 MILLIGRAMS 448609 RxNorm TAKE 300 MILLIGRAMS ORAL DAILY metFORMIN HCl AvPak 500MG Oral Tablet, Extended Release 08/10/2023 Unknown ORAL TWICE A DAY WITH FOOD 1000 MILLIGRAMS 553026 RxNorm TAKE 1000 MILLIGRAMS ORAL TWICE A DAY WITH FOOD Insulin Glargine Pen 100 IU/1 ML Subcutaneous Solution 08/10/2023 Unknown SUBCUTA NEOUS DAILY 20 UNIT 3589115 RxNorm INJECT 20 UNIT SUBCUTANEOUS DAILY Assessment [...] System TYPE 2 DIABETES WITH COMPLICATION active 681622693 SNOMED-CT BLURRED VISION active 047150503 SNOME D-CT WEAKNESS active 07145798 SNOMED-CT DIZZINESS active 261818175 SNOMED-CT VAGINAL RAFAEL active 22122939 SNOM ED-CT HEMORRHOIDS active 74419227 SNOMED-C T DEPRESSION 08/08/2023 resolved 06871129 SNOMED-C T ANXIETY 08/08/2023 resolved 41213149 SNOMED-CT DIABETES 2 08/08/2023 resolved 05209652 SNOMED-C T ENDOMETRIAL CANCER GENETIC MARKER OF SUSCEPTIBILITY POSITIVE (FINDING) 08/08/2023 resolved 87739248597457 SNOMED-CT Allergies and Adverse Reactions Allergy Substance Reaction Severity Start Date Concern Status Co de Code System VICTOZA Nausea/Vomiting (SNOMED-CT: 47205674) Active 557773 RxNorm Plan of Treatment MM SCREEN BILAT 02/12/2023 US PELVIC / TV 08/08/2022 MM SCREEN BILAT 04/01/2021 Encounters Encounter Diagnosis Start Date Code Code Sys tem 02/27/2022 [id number] SNOMED-CT Personal Care Team Section Performer Name Performer Role Active Date Inactive Da te
--- OUTSIDE RECORDS SUMMARY | 2024-04-05 13:43 | XMS_ITS | Encounter Summary ---
Author Organization [facility] Address [address] [place] [id number] Care Team Providers Care Legal Secretary Receptionist Name Role Phone Vicki Mays NP Primary Care Provider [phone] Sam Morris MD Unavailable [phone] Reason for Visit * Auth/Cert (Routine) Specialty Diagnoses / Procedures Referred By [facility] Referred To Contact Diagnoses Endometrial cancer ([facility]) Procedures UT LAPAROSCOPY W TOT HYSTERECTUTERUS <=250 GRAM W TUBE/OVARY UT INTRAOPERATIVE SENTINEL LYMPH NODE ID W DYE INJECTION UT LAP,PELVIC LYMPHADENECTOMY/BX UT LAPAROSCOPY TOT HYSTERECTOMY UTERUS >250 GRAM W TUBE/OVARY Robotic assisted total laparoscopic hysterectomy, bilateral salpingo-oophorectomy injection of ICG dye bilateral sentinel lymph node dissection Referral ID Status Reason Start Date Expiration Date Visits Re quested Visits Authorized [id number] 1 1 Encounter Details Date Type Department Care Team (Late st Contact Info) Description 11/17/2022 7:25 EDT - 11/17/2022 11:40 EDT Surgery [facility] OR [address] [place] [address] [id number] Seb Kwon MD [address] [place] [address], [facility], [address] [place] [address] Robotic assisted total laparoscopic hysterectomy, bilateral salpingo-oophorectomy [62783 (CPT??)] Surgery Details Date/Time Status Location OR Service Patient Class Case Class Case Type Trauma Case? 11/17/2022 0725 Posted [facility] OR MOR 17 Gynecology Extended Stay H - Elective Panel 1 Procedure LRB Anes Op Region Wound Class Comments Robotic assisted total laparoscopic hysterectomy, bilateral salpingo-oophorectomy Bilateral General Abdomen Class I/ Clean injection of ICG dye N/A General Abdomen Class I/ Clean bilateral sentinel lymph nod e dissection Bilateral General Abdomen Class I/ Clean Surgeon Surgeon Role Service Panel Seb Kwon MD Primary Gynecology 1 Mirella French MD Resident - Assisting Gynecology 1 Lisa Lopez DO Resident - Assisting Gynecolo gy 1 documented in this encounter Social History Tobacco Use Types Packs/Day Years Used Date Smoking Tobacco: Never Smokeless Tobacco: Never Alcohol Use Standard Drinks/Week Comments Not Currently 0 (1 standard drink = 0.6 oz pur e alcohol) Interpersonal Safety Answer Date Record ed Physically Hurt Never 08/26/2020 Verbally Threaten Not on file 08/26/2020 Comments No Sex and Gender Information Value Date Recorded Sex Assigned at Not on file Legal Sex Female 18:21 EST Gender Identity Not on file Sexual Orientation Not on file documented as of this encounter Last Filed Vital Signs Vital Sign Reading Time Taken Comments Blood Pressure 147/64 11/17/2022 0648 EDT Pulse - - Temperature 36.7 ??C (98.1 ??F) 11/17/2022 0648 EDT Respiratory Rate 16 11/17/2022 0648 EDT Oxygen Saturation 97% 11/17/2022 0648 EDT Inhaled Oxygen Concentration - - Weight 151.7 kg (334 lb 7 oz) 11/17/2022 0704 ED T Height 172.7 cm (5' 8) 11/17/2022 0704 EDT Body Mass Index 50.85 11/17/2022 0704 EDT documented in this encounter Functional Status * Are you deaf or do you have serious difficulty hearing? Answer Date of Assessment Author No 11/17/2022 16:56 Alicia Gomez RN * Are you blind or do you have serious difficulty seeing, even when wearing glasses? Answer Date of Assessment Author No 11/17/2022 16:56 Alicia Gomez RN * Do you have serious difficulty walking or climbing stairs? (5 years old or older) Answer Date of Assessment Author No 11/17/2022 16:56 Alicia Gomez RN * Do you have difficulty dressing or bathing? (5 years old or older) Answer Date of Assessment Author No 11/17/2022 16:56 Alicia Gomez RN * Because of a physical, mental, or emotional condition, do you have difficulty doing errands alone such as visiting a doctor's office or shopping? (15 years old or older) Answer Date of Assessment Author No 11/17/2022 16:56 Alicia Gomez RN documented as of this encounter Mental Status * Because of a physical, mental, or emotional condition, do you have serious difficulty concentrating, remembering, or making decisions? (5 years old or older) Answer Entry Date Author No 11/17/2022 16:56 Alicia Gomez RN documented in this encounter Discharge Summaries * Margo Brizuela MD - 11/17/2022 1536 EDT Discharge Summary Admit Date: 11/17/2022 Discharge Date: 11/18/2022 Principal/Final Diagnosis: Endometrial cancer (HCC-CMS) (HCC) Chief Complaint: postmenopausal bleeding Principal Procedure: RA TLH BSO SLND Date: 11/17/2022 Secondary Procedure: None Condition at Discharge: Good Hospital Course: Frannie is a 61 y.o. year old female who was admitted to the gynecologic oncology service following an uncomplicated RA TLH BSO and SLND that was performed for a history of grade 1 endometrial cancer. Please see operative report for full details. The patient did well post-operatively with stable vital signs and good pain control. Her Hct remained stable post-operatively. On the morning of POD #1, she tolerated a regular diet, ambulated and voided independently after removal of her courtney catheter. She was subsequently discharged to home withinstructions to follow up on 12/[address] Jacob Relevant Studies at Discharge: Final pathology pending Last Lab Results at Discharge: CBC: Lab Results Component Value Date WBC 9.79 10/09/2022 RBC 4.48 10/09/2022 HGB 13.4 10/09/2022 HCT 40.0 10/09/2022 MCV 89 10/09/2022 MCH 29.9 10/09/2022 MCHC 33.5 10/09/2022 PLT 313 10/09/2022 Discharge Summary Completed: Margo Brizuela MD 11/18/22 6:08 OBGYN PGY-1 Pager #[phone] Cosigned by Seb Kwon MD at 11/27/2022 9:32 EDT documented in this encounter Discharge Instructions * Discharge Instr - AVS First Page* Margo Brizuela MD - 11/17/2022 11:18 EDT You have undergone a robotic assisted laparoscopic hysterectomy. Many people feel quite well following their surgery and are tempted to resume their usual activities. It is important to remember that you had major surgery. For this reason you should limit your activities. No heavy lifting - no more than 25 pounds for 12 weeks. We recommend the common sense rule: If there is pain, pressure or discomfort when lifting , STOP. No driving for 1 week, or longer if you are taking narcotic pain medication. Do not place anything into your vagina for 12 weeks (no tampons, douching or intercourse). If you have stairs in your home, you may go up and down, but try to limit to only 2 times per day for the first days that you are home. You may shower 24 hours after your surgery, let the water run over your incisions and pat dry, but do not scrub the incisions. Pat dry with a clean towel. You should not immerse in water (no bath tubs, hot tubs or swimming) for 6 weeks, or longer if you have vaginal spotting or a discharge. Work with your doctor to plan your return to normal work activities. You have a follow-up appointment scheduled on 12/01/[address] Jacob. * Attachments The following attachments cannot be sent through Care Everywhere. * enoxaparin (Stateless) * Enoxaparin (Lovenox) (Stateless) documented in this encounter Medications at Time of Discharge acetaminophen (TYLENOL) 500 mg tablet Take 2 Tablets by mouth every 6 hours as needed for Pain. 11/17/2022 buPROPion (WELLBUTRIN XL) 300 mg XL tablet Take 1 Tablet by mouth daily. 10/03/2022 chlorhexidine gluconate 4 % (E-Z SCRUB 107) sponge Use as directed in pre-op showering instructions. 2 Each 10/09/2022 ergocalciferol, vitamin D2, (VITAMIN D ORAL) Take by mouth. famotidine (PEPCID) 40 mg tablet Take 1 Tablet by mouth daily. FLUoxetine (PROZAC) 20 mg capsule Take 1 Capsule by mouth daily. ibuprofen (MOTRIN) 200 mg tablet Take 4 Tablets by mouth every 8 hours as needed for Pain. 11/17/2022 LORazepam (ATIVAN) 0.5 mg tablet Take 2 Tablets by mouth at bedtime as needed. Multivitamins with Minerals tablet tablet Take 1 Tablet by mouth daily. olmesartan (BENICAR) 20 mg tablet Take 1 Tablet by mouth daily. oxyCODONE (ROXICODONE) 5 mg immediate release tablet Take 1 Tablet by mouth every 4 hours as needed for Pain. Daily Max: 30 mg 6 Tablet 11/18/2022 progesterone (PROMETRIUM) 200 mg capsule Take 1 Capsule by mouth daily. VITAMIN B COMPLEX ORAL Take by mouth. enoxaparin (LOVENOX) 40 mg/0.4 mL injection Inject 40 mg into the skin every 12 hours for 7 days. 6 mL 11/18/2022 3 documented as of this encounter Ordered Prescriptions Prescription Sig Dispense Quantity Refills Last Filled Start Date End Date oxyCODONE (ROXICODONE) 5 mg immediate release tablet Take 1 Tablet by mouth every 4 hours as needed for Pain. Daily Max: 30 mg 6 Tablet 11/18/2022 ibuprofen (MOTRIN) 200 mg tablet Take 4 Tablets by mouth every 8 hours as needed for Pain. 11/17/2022 acetaminophen (TYLENOL) 500 mg tablet Take 2 Tablets by mouth every 6 hours as needed for Pain. 11/17/2022 enoxaparin (LOVENOX) 40 mg/0.4 mL injection Inject 40 mg into the skin every 12 hours for 7 days. 6 mL 11/18/2022 3 enoxaparin (LOVENOX) 40 mg/0.4 mL injection Inject 40 mg into the skin every 12 hours for 7 days. 6 mL 11/17/2022 3 oxyCODONE (ROXICODONE) 5 mg immediate release tablet Take 1 Tablet by mouth every 4 hours as needed for Pain. Daily Max: 30 mg 6 Tablet 11/17/2022 3 documented in this encounter Discharge Disposition Disposition Code Departure Means Destination Comment s Home or Self [facility] documented in this encounter Progress Notes * Emily Webb - 11/18/2022 1042 EDT Frannie Mora 1960 Endometrial cancer ([facility]) ([facility]) Chart review completed and discussed the plan of care with the direct care RN and/or primary care team. Primary Insurance: R [employer] Secondary Insurance: none listed Patient with no apparent Case Management needs at this time. No housing, transportation, insurance,resources concerns identified at this time. Supports in place to achieve a safe post-hospital transition. No identified barriers to accessing necessary care and/or follow-up after discharge. psychology instructor/Educational Program Assistant will continue to follow patient's progress and remain available if situation changes for coordination of care, psychosocial support and/or discharge planning. Patient discharged home prior to CM being able to meet for assessment. Chart reviewed and patient was discharged with no apparent CM needs. EMILY WEBB 11/18/2022 13:48 Emily Webb LMSW Clamp Operator II Pager: [phone] * Jaime Nieves RN - 11/18/2022 0895 EDT Nursing Discharge Note D: Patient noted with discharge orders to: Home. A: Prescriptions e-scripted. Reviewed discharge instructions and prescriptions with Patient IV d/c'd. Belongings collected and sent home with patient. R: Patient verbalized understanding of discharge instructions and denied further questions. JAIME NIEVES RN 11/18/2022 8:14 * Seb Kwon MD - 11/18/2022 0524 EDT Gynecology Progress Note Service Date: 11/18/2022 Admit Date: 11/17/2022 5:09 ( LOS: 0 days ) POD: 1 (11/17/2022) Chief Complaint: endometrial cancer 24 Hour Events: -underwent RA TLH BSO SLND -admitted for routine post op care Subjective Feeling well, pain well controlled. Passing flatus. Tolerating PO, ambulating and voiding independently. Feeling prepared for discharge. Objective UOP: 150 cc/ 4 hours Vital Signs Temp: [36 ??C (96.8 ??F)-37 ??C (98.6 ??F)] , Heart Rate: [64 BPM-80 BPM] , Resp: [11-18] , BP: (106-160)/(45-78) , SpO2: [96 %-100 %] Physical Exam Gen: NAD Resp: CTAB CV: RRR Abdomen: Soft, non-tender, five Incisions clean/dry/intact with dermabond overlying. Ext: WWP, 2+DPs, 1+ PE bilat Medications Reviewed: No changes Labs Reviewed: No new labs. Assessment Frannie Mora is a 61 y.o. POD#1 s/p RA TLH, BSO, SLND for G1 endometrial adenocarcinoma. AVSS and voiding spontaneously, meeting post op milestones. Admitted for routine post op care 2/2 YANET. 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 - scheduled follow-up on 12/01/[address] Jacob Pain: Well controlled on current regimen of Acetaminophen, motrin and oxycodone CV: HTN, holding CHEESEMAKER omelsartan Resp: hx of YANET -continue home CPAP, RT consulted GI: Regular diet as tolerated. Zofran, Diphenhydramine PRN for nausea. Colace, miralax for bowel regimen. : s/p Courtney. Voiding spontaneously. F/E/N: SLIV Endo: No active issues. Psych: History of anxiety and depression -continue CHEESEMAKER wellbutrin and fluoxetine Heme: Pre-op Hct 40, EBL 25cc. AM CBC pending ID: Afebrile, no active issues. S/p ancef/ flagyl VTE Prophylaxis: Ambulation, SCD's, Lovenox 40 mg BID per weight based dosing, plan for dc with 7 days Disposition: D/C home once tolerating po, pain well controlled, ambulating and voiding independently,likely this am LISA LOPEZ DO 11/18/2022 5:24 Attending Note/Doyle I have personally examined and interviewed pt. I agree with residents note and plan. If tolerates diet and has good pain control. OK to d/c home later today. Seb Kwon MD * Guru Tolentino RT - 11/17/2022 8877 EDT Respiratory Nocturnal BIPAP/CPAP Heart Rate: 76 BPM, Resp: 18, SpO2: 96 %, Breath Sounds Bilateral: Clear Patient was placed on Device Type: Patient Home Unit, Settings were home settings. Pt tolerating well RT CHAD 11/17/22 * Lisa Lopez DO - 11/17/2022 1528 EDT Gynecology Progress Note Service Date: 11/17/2022 Admit Date: 11/17/2022 5:09 ( LOS: 0 days ) POD: 0 (11/17/2022) Chief Complaint: endometrial cancer 24 Hour Events: -underwent RA TLH BSO SLND -admitted for routine post op care Subjective Feeling fine, pain well controlled. Ambulated to bathroom and voided 500 cc, felt empty. Not yet passing flatus. Sipping on gingerale. Denies NVD, CP, SOB. . Objective UOP: 500 cc at 1600 Vital Signs Temp: [36.7 ??C (98.1 ??F)-37 ??C (98.6 ??F)] , Heart Rate: [72 BPM-80 BPM] , Resp: [11-17] , BP: (106-147)/(45-72) , SpO2: [96 %-99 %] Physical Exam Gen: NAD Resp: CTAB CV: RRR Abdomen: Soft, non-tender, five Incisions clean/dry/intact with dermabond overlying Ext: WWP, 2+DPs, 1+ PE bilat Medications Reviewed: No changes Labs Reviewed: No new labs. Assessment Frannie Mora is a 61 y.o. POD#0 s/p RA TLH, BSO, SLND for G1 endometrial adenocarcinoma. AVSS and voiding spontaneously, meeting post op milestones. Admitted for routine post op care 2/2 YANET. 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 - scheduled follow-up on 12/01/[address] Jacob Pain: Well controlled on current regimen of Acetaminophen, motrin and oxycodone CV: HTN, holding CHEESEMAKER omelsartan Resp: hx of YANET, currently on oxymizer for ERAS. Will monitor O2 Sat. -continue home CPAP GI: Regular diet as tolerated. Zofran, Diphenhydramine PRN for nausea. Colace, miralax for bowel regimen. : s/p Courtney. Voiding spontaneously. F/E/N: SLIV Endo: No active issues. Psych: History of anxiety and depression -continue CHEESEMAKER wellbutrin and fluoxetine Heme: Pre-op Hct 40, EBL 25cc. AM CBC ordered. ID: Afebrile, no active issues. S/p ancef flagyl VTE Prophylaxis: Ambulation, SCD's, Lovenox 40 mg BID per weight based dosing, plan for dc with 7 days Disposition: D/C home once tolerating po, pain well controlled, ambulating and voiding independently Stacy Sanders, MS4 MIRELLA PAZ MD 11/17/2022 15:28 documented in this encounter H&P Notes * Seb Kwon MD - 11/17/2022 0655 EDT The preoperative history and physical which was performed within 30 days of this procedure has been reviewed and the clinically appropriate elements of the physical examination have been repeated. There are no changes to the documented history and physical or if so such changes are documented below. The consent was reviewed with the patient. Plan is to remove the uterus, cervix, both tubes/ovaries, inject ICG dye and SLN bx. Pt agrees with the consent. Questions answered. Seb Kwon MD 11/17/2022 6:55 Source Note - Lisa Lopez DO - 11/17/2022 6:30 EDT DEPARTMENT OF GYNECOLOGY ONCOLOGY PRE-OP HISTORY AND PHYSICAL CC: endometrial cancer Date of Service: 11/17/2022 HPI: Per Dr. Jacob's note from 10/09, In August, presented to Dr. Morris [facility] with menorrhagia despite progesterone treatment. Reported large clots, one golf ball sized clot. Previous episode of bleeding in September 2020 prompted EMB which showed no hyperplasia, atypia or malignancy. 08/08/22 US showed 12 mm endometrium. 09/19/22 D&C resulted in diagnosis of endometrial cancer. ?? Today, Frannie describes 2 months of daily, heavy vaginal bleeding. Her last menstrual period was around 10 years ago. The bleeding has caused her to feel exhausted. She notes that she had COVID back in June and since then has felt SOB with exertion and occasionally. No history of asthma or smoking. She also endorses abdominal bloating which she thinks may be contributing to shortness of breath. ?? She was prescribed progesterone for bleeding / management of endometrial cancer one month ago afterdiagnosis. She has not noticed a difference in bleeding. She is sick of daily bleeding and ready for hysterectomy. ?? She denies fevers, chills, CP, nausea, vomiting, diarrhea, constipation, difficulty voiding. Today, she states she is feeling well denies CP, SOB. No questions. 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 PMH PSH Past Medical History: Diagnosis Date ??? Anxiety 11/10/22 med controlled ??? Depression 11/10/22 med controlled ??? Endometrial cancer (HCC-CMS) (HCC) ??? Exercise involving walking 11/10/22 walks daily, able to go up 2 flight of stairs w/o sob ??? History of general anesthesia 11/10/22 med controlled ??? Hypertension 11/10/22 med controlled ??? Menorrhagia Past Surgical History: Procedure Laterality Date ??? SHOULDER SURGERY Right 2010 Social History Family History Social History Tobacco Use ??? Smoking status: Never ??? Smokeless tobacco: Never Substance Use Topics ??? Alcohol use: Not Currently No family history on file. Medications Medications Prior to Admission Medication Sig Dispense Refill Last Dose ??? buPROPion (WELLBUTRIN) 100 mg tablet Take 1 Tablet by mouth daily. 11/17/2022 at 0400 ??? chlorhexidine gluconate 4 % (E-Z SCRUB 107) sponge Use as directed in pre-op showering instructions. 2 Each 0 11/17/2022 ??? ergocalciferol, vitamin D2, (VITAMIN D ORAL) Take by mouth. 11/09/2022 ??? famotidine (PEPCID) 40 mg tablet Take 1 Tablet by mouth daily. 11/17/2022 ??? FLUoxetine (PROZAC) 20 mg capsule Take 1 Capsule by mouth daily. 11/17/2022 at 0400 ??? LORazepam (ATIVAN) 0.5 mg tablet Take 2 Tablets by mouth at bedtime as needed. 11/14/2022 ??? Multivitamins with Minerals tablet tablet Take 1 Tablet by mouth daily. 11/09/2022 ??? olmesartan (BENICAR) 20 mg tablet Take 1 Tablet by mouth daily. 11/14/2022 ??? progesterone (PROMETRIUM) 200 mg capsule Take 1 Capsule by mouth daily. 11/17/2022 ??? VITAMIN B COMPLEX ORAL Take by mouth. 11/09/2022 at 0400 Allergies Allergies Allergen Reactions ??? Victoza [Liraglutide] Nausea And Vomiting Crazy sick Objective: There were no vitals filed for this visit. There is no height or weight on file to calculate BMI. Physical Exam GEN: NAD CV: RRR Resp: CTAB Ext: WWP Labs: Latest Reference Range & Units 10/09/22 15:41 Sodium 136 - 145 mmol/L 140 Potassium 3.5 - 5.0 mmol/L 4.7 Chloride 96 - 110 mmol/L 106 CO2 22 - 32 mmol/L 23 Anion Gap 5 - 14 mmol/L 11 BUN 10 - 26 mg/dL 17 Creatinine 0.52 - 1.04 mg/dL 0.88 GFR, Calculated >60 mL/min/1.73m2 76 Glucose, Serum 70 - 100 mg/dl 102 (H) Calcium 8.5 - 10.5 mg/dL 10.0 Total Protein 6.3 - 8.2 g/dL 7.8 Albumin 3.4 - 4.9 g/dL 4.6 ALBUMIN/GLOBULIN RATIO - PMC 1.0 - 2.5 1.4 ALT <35 U/L 44 (H) AST 15 - 46 U/L 33 Bilirubin, Total <1.4 mg/dL <0.5 Total Alkaline Phosphatase 38 - 126 U/L 102 Hemoglobin A1C <5.7 % 7.0 (H) Est Avg Glucose mg/dL 154 (H): Data is abnormally high Latest Reference Range & Units 10/09/22 15:41 WBC 4.00 - 12.40 K/cmm 9.79 RBC 3.86 - 5.04 M/cmm 4.48 Hemoglobin 11.6 - 15.2 g/dL 13.4 HCT 34.9 - 44.4 % 40.0 MCV 81 - 98 fL 89 MCH 26.7 - 33.3 pg 29.9 MCHC 32.1 - 35.9 g/dL 33.5 RDW-CV <14.7 % 14.2 RDW-SD <50.4 fl 46.5 PLT 141 - 377 K/cmm 313 MPV 9.5 - 12.7 fL 11.0 Imaging: No new imaging Assessment: Frannie Mora is an 61 y.o. with FIGO grade 1 endometrial adenocarcinoma presenting for planned RA TLH BSO and SLND. AVSS and feeling well, plan to proceed. Plan: Medical Considerations: - Comorbidities: depression, HTN, DM2 - Medications: fluoxetine, wellbutrin, omelsartan - Anticoagulation: none Surgical Considerations: - PSH: shoulder surgery - There is no height or weight on file to calculate BMI. Blossom-operative Considerations: - Consent: paper; signed in the office - Health Maintenance: Pap not indicated - Labs: noneS - Other Studies: EKG/CXR n/a - ABx: cefazolin, flagyl - VTE PPx: SCDs, heparin - Glucose Protocol: n/a - Beta-blockade: none - Blood products: willing to accept all blood products; no refusal Lisa Lopez D.O. 11/17/2022 6:49 OBGYN PGY-4 Cosigned by Seb Kwon MD at 11/17/2022 6:51 EDT * Lisa Lopez DO - 11/17/2022 0630 EDT DEPARTMENT OF GYNECOLOGY ONCOLOGY PRE-OP HISTORY AND PHYSICAL CC: endometrial cancer Date of Service: 11/17/2022 HPI: Per Dr. Jacob's note from 10/09, In August, presented to Dr. Morris [facility] with menorrhagia despite progesterone treatment. Reported large clots, one golf ball sized clot. Previous episode of bleeding in September 2020 prompted EMB which showed no hyperplasia, atypia or malignancy. 08/08/22 US showed 12 mm endometrium. 09/19/22 D&C resulted in diagnosis of endometrial cancer. ?? Today, Frannie describes 2 months of daily, heavy vaginal bleeding. Her last menstrual period was around 10 years ago. The bleeding has caused her to feel exhausted. She notes that she had COVID back in June and since then has felt SOB with exertion and occasionally. No history of asthma or smoking. She also endorses abdominal bloating which she thinks may be contributing to shortness of breath. ?? She was prescribed progesterone for bleeding / management of endometrial cancer one month ago afterdiagnosis. She has not noticed a difference in bleeding. She is sick of daily bleeding and ready for hysterectomy. ?? She denies fevers, chills, CP, nausea, vomiting, diarrhea, constipation, difficulty voiding. Today, she states she is feeling well denies CP, SOB. No questions. 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 PMH PSH Past Medical History: Diagnosis Date ??? Anxiety 11/10/22 med controlled ??? Depression 11/10/22 med controlled ??? Endometrial cancer (HCC-CMS) (HCC) ??? Exercise involving walking 11/10/22 walks daily, able to go up 2 flight of stairs w/o sob ??? History of general anesthesia 11/10/22 med controlled ??? Hypertension 11/10/22 med controlled ??? Menorrhagia Past Surgical History: Procedure Laterality Date ??? SHOULDER SURGERY Right 2010 Social History Family History Social History Tobacco Use ??? Smoking status: Never ??? Smokeless tobacco: Never Substance Use Topics ??? Alcohol use: Not Currently No family history on file. Medications Medications Prior to Admission Medication Sig Dispense Refill Last Dose ??? buPROPion (WELLBUTRIN) 100 mg tablet Take 1 Tablet by mouth daily. 11/17/2022 at 0400 ??? chlorhexidine gluconate 4 % (E-Z SCRUB 107) sponge Use as directed in pre-op showering instructions. 2 Each 0 11/17/2022 ??? ergocalciferol, vitamin D2, (VITAMIN D ORAL) Take by mouth. 11/09/2022 ??? famotidine (PEPCID) 40 mg tablet Take 1 Tablet by mouth daily. 11/17/2022 ??? FLUoxetine (PROZAC) 20 mg capsule Take 1 Capsule by mouth daily. 11/17/2022 at 0400 ??? LORazepam (ATIVAN) 0.5 mg tablet Take 2 Tablets by mouth at bedtime as needed. 11/14/2022 ??? Multivitamins with Minerals tablet tablet Take 1 Tablet by mouth daily. 11/09/2022 ??? olmesartan (BENICAR) 20 mg tablet Take 1 Tablet by mouth daily. 11/14/2022 ??? progesterone (PROMETRIUM) 200 mg capsule Take 1 Capsule by mouth daily. 11/17/2022 ??? VITAMIN B COMPLEX ORAL Take by mouth. 11/09/2022 at 0400 Allergies Allergies Allergen Reactions ??? Victoza [Liraglutide] Nausea And Vomiting Crazy sick Objective: There were no vitals filed for this visit. There is no height or weight on file to calculate BMI. Physical Exam GEN: NAD CV: RRR Resp: CTAB Ext: WWP Labs: Latest Reference Range & Units 10/09/22 15:41 Sodium 136 - 145 mmol/L 140 Potassium 3.5 - 5.0 mmol/L 4.7 Chloride 96 - 110 mmol/L 106 CO2 22 - 32 mmol/L 23 Anion Gap 5 - 14 mmol/L 11 BUN 10 - 26 mg/dL 17 Creatinine 0.52 - 1.04 mg/dL 0.88 GFR, Calculated >60 mL/min/1.73m2 76 Glucose, Serum 70 - 100 mg/dl 102 (H) Calcium 8.5 - 10.5 mg/dL 10.0 Total Protein 6.3 - 8.2 g/dL 7.8 Albumin 3.4 - 4.9 g/dL 4.6 ALBUMIN/GLOBULIN RATIO - PMC 1.0 - 2.5 1.4 ALT <35 U/L 44 (H) AST 15 - 46 U/L 33 Bilirubin, Total <1.4 mg/dL <0.5 Total Alkaline Phosphatase 38 - 126 U/L 102 Hemoglobin A1C <5.7 % 7.0 (H) Est Avg Glucose mg/dL 154 (H): Data is abnormally high Latest Reference Range & Units 10/09/22 15:41 WBC 4.00 - 12.40 K/cmm 9.79 RBC 3.86 - 5.04 M/cmm 4.48 Hemoglobin 11.6 - 15.2 g/dL 13.4 HCT 34.9 - 44.4 % 40.0 MCV 81 - 98 fL 89 MCH 26.7 - 33.3 pg 29.9 MCHC 32.1 - 35.9 g/dL 33.5 RDW-CV <14.7 % 14.2 RDW-SD <50.4 fl 46.5 PLT 141 - 377 K/cmm 313 MPV 9.5 - 12.7 fL 11.0 Imaging: No new imaging Assessment: Frannie Mora is an 61 y.o. with FIGO grade 1 endometrial adenocarcinoma presenting for planned RA TLH BSO and SLND. AVSS and feeling well, plan to proceed. Plan: Medical Considerations: - Comorbidities: depression, HTN, DM2 - Medications: fluoxetine, wellbutrin, omelsartan - Anticoagulation: none Surgical Considerations: - PSH: shoulder surgery - There is no height or weight on file to calculate BMI. Blossom-operative Considerations: - Consent: paper; signed in the office - Health Maintenance: Pap not indicated - Labs: noneS - Other Studies: EKG/CXR n/a - ABx: cefazolin, flagyl - VTE PPx: SCDs, heparin - Glucose Protocol: n/a - Beta-blockade: none - Blood products: willing to accept all blood products; no refusal Lisa Lopez D.O. 11/17/2022 6:49 OBGYN PGY-4 Cosigned by Seb Kwon MD at 11/17/2022 6:51 EDT documented in this encounter OR Notes * OR Surgeon - Seb Kwon MD - 11/17/2022 0000 EDT OPERATIVE REPORT SERVICE DATE: 11/17/2022 SURGEON: Seb Kwon MD ASSISTANTS: Ena Lopez MD and Mirella Paz MD PREOPERATIVE DIAGNOSIS: Endometrial carcinoma, BMI of 51. POSTOPERATIVE DIAGNOSIS: Endometrial carcinoma index of 51 with a uterine weight of over 400 grams. PROCEDURES: Da Eduardo assisted total laparoscopic hysterectomy, bilateral salpingo-oophorectomy, injection of ICG dye, bilateral pelvic lymph node sampling, and cystoscopy. ANESTHESIA: General. COMPLICATIONS: At the very beginning of the case, the patient became hypotensive and had decrease in O2 saturation. Anesthesia was having a difficult time and at that time had requested that we stop the procedure. At that point, the abdominal pressure was decreased to 12 mmHg and anesthesia was able to stabilize the patient and anesthesia then allowed us to continue with the procedure. FINDINGS: At the time of surgery, both ovaries were small and atrophic. Uterus was approximately 12-week size, weight was greater than 400 grams. Cystoscopy demonstrated urine from both ureteral orifices, and the bladder mucosa was intact. NARRATIVE: The patient was brought to operating room, and after successful attainment of anesthesia, the patient was prepped and draped in the usual sterile fashion. Timeout was taken, the patient was identified and the proposed surgical procedure was stated with nursing and anesthesia. ICG dye wasinjected at the cervix at the 3 and 9 o'clock position and the COREY uterine manipulator and cervical cap was inserted under direct visualization. At this point, a small incision was made at the umbilicus. Veress needle was inserted into abdominopelvic cavity. The abdominopelvic cavity was then insufflated with CO2. A small vertical incision was made above the umbilicus and the 8 mm da Eduardo trocar port was inserted. Next, under direct visualization, two 8 mm da Eduardo ports were placed in the left lower quadrant, one was placed in the rightupper quadrant and one was placed in the right lower quadrant. The patient was then placed in Trendelenburg and the above findings were noted. At this point, the da Eduardo system was docked under trocars. However, at this point, anesthesia had mentioned that they were having a challenge ventilating t he patient and the patient was hypotensive and had dropped her O2 saturations. At this point, the da Eduardo System was undocked from the trocars and the intra- abdominal pressure was then decreased to 12 mmHg. Please refer to anesthesia notes, but anesthesia was able to stabilize the patient. At thispoint, when anesthesia had stabilized the patient, they gave us permission to continue with the surgery. The da Eduardo system was docked under trocars and Dr Kwon took control of the surgical console and the above findings were noted. The round ligament on the patient's right side was identified. Itwas cauterized and cut. Retroperitoneal space was opened. The ureter was identified and the ovarian pedicle was then cauterized and cut. Using the Firefly technology, sentinel lymph nodes could not be clearly visualized with the Firefly technology and as such a right-sided pelvic lymph node sampling was performed. Specimens were delivered through the accessory port. Attention was then turned to the patient's left side. Round ligament was cauterized and cut. Retroperitoneal space was opened. Theureter was identified and the ovarian pedicle was then cauterized and cut. However, because of the size of the uterus and it was obstructing the view of being able to clearly see the lymph node on the patient's left side, Dr Kwon decided not proceed on with the sentinel lymph nodes because of the patient's anatomy and as such, began the hysterectomy. The bladder was then backfilled to outline thesuperior boundaries of the bladder. The bladder flap was then created. Uterine vessels were then skeletonized and uterine vessels were then cauterized and cut bilaterally. Descending bites were takenalong the cervix in a fashion of cauterizing and cutting fashion. Once this was performed, the anter ior colpotomy was then created after the bladder was deflated and the anterior colpotomy was extended to both the right and left side and then posteriorly. Once the cervix was amputated from the upper vagina, an attempt was made to deliver the uterus, cervix, tubes and ovaries through the vagina, but however, because of the width of the uterus we could not pass it through. At this point, a 15 cm Endopouch was placed into the vagina. The uterus, tubes, and ovaries were placed into the Endopouch and the uterus was then brought into the vaginal canal. Uterus was then morcellated in order to decompress the width of the uterus and the entire specimen was then still able to deliver through the vaginal canal intact and with the Endopouch intact. At this point, attention wa s then turned to the patient's left pelvic area and because sentinel lymph nodes could not be identified with the Firefly technology, sampling of the left-sided pelvic lymph nodes was then performed.Specimens were delivered through the accessory port. At this point, copious irrigation was performed. All areas of resection were noted to be hemostatic. Vaginal cuff was then reapproximated. Two V-Loc sutures were used. Each V-Loc suture started at an angle and met in the midline. Cystoscopy was then performed and urine was noted to come from both ureteral orifices, and the bladder mucosa was intact. At this point, all areas of resection were reexamined and were noted to be hemostatic. Martha was then applied to the areas of resection, the da Eduardo system was then undocked from trocars, CO2 was expressed from the abdominopelvic cavity, trocars were removed, and skin edges were reapproximated. At the end of surgical procedure, the patient tolerated the procedure well. The patient was transferred to the recovery room in good, stable condition. Dr Kwon was present throughout the entire procedure. Unless otherwise noted, there were no complications, no blood loss, no cultures obtained, no specimens removed, and no drains retained. Seb Kwon MD / CD Confirmation: [id number] Dictation ID: [id number] cc: Seb Kwon MD, [facility], [address] [place] [address] Lisa Lopez DO, [address] [place] [address] Mirella Paz MD, [facility], [address] [place] [phone] documented in this encounter Miscellaneous Notes * Plan of Care - Emily Webb - 11/18/2022 1042 EDT 11/18/22 1347 Discharge Delay Risk Assessment 1. Disease/Medical Condition 5 Major Barrier day total 1-6 1 Minor or major discharge risk delay(s) present? No discharge barriers identified Does the patient meet criteria to be escalated? No Initial assessment status Initial assessment complete? Yes Emily Webb [facility] [place] Clamp Operator II Pager: [phone] * Result Encounter Note - Seb Kwon MD - 11/18/2022 1042 EDT Frannie, your final pathology report shows that the cancer was confined to the lining of your uterus.There was no invasion into the muscle of the uterus. There was no cancer spread. You will not need any radiation therapy or chemotherapy. When we see you in clinic, we will review the surveillance protocol in the future. Please call if you have any questions. Oh yes, happy birthday! * Plan of Care - Uriel Rosas RN - 11/18/2022 0639 EDT Problem: Daily Care Plan Goals Goal: Care Plan Documentation Outcome: Met This Shift Flowsheets (Taken 11/18/2022 0015) Area of Focus: Pain/ Comfort Goal This Shift: maintain an acceptable level of pain during shift Problem: High Fall Risk: Goal: Patient will Remain Free of Falls due to Med. Side Effects Outcome: Met This Shift Data: assume care 2300. Patient A&Ox3 , ambulates with standby assist, voiding , pain controlled on scheduled and prn medication.POD #1 today for RA TLH BSO SLND lap sites x 5 derma galloway CDI Action: medication given as ordered and needed, Q 4 VSS used home CPAP during the night Bed locked in lowest position, alarm on and audible call mccoy tray table and belongings within reach Response: patient rest in between care, care bundled to promote rest URIEL ROSAS RN 11/18/2022 2:10 * Plan of Care - Yoanna Laws RN - 11/17/2022 2238 EDT Problem: Daily Care Plan Goals Goal: Care Plan Documentation Outcome: Ongoing Data: Pt admitted to [place] [id number] from PACU s/p TLH BSO and sentinel lymph node dissection. Patient rating pain 3/10 at rest and 8/10 with movement. Action: Assessment completed. Pt oriented to floor, room, plan of care. Pt medicated for pain. Callbell within reach. Response: Pt stable at this time. Pt verbalizes understanding of plan of care. States pain is now 2-3 /10 at rest and 6/10 with movement. Will continue to monitor. * Flowsheet Note - Liliana Vallejo RN - 11/17/2022 1230 EDT Pt maintains eyes closed , opens eyes to verbal stim but quickly closes, unable to verbalize responses to questions like how's your breathing? Nods yes to agree that she is having discomfort, but not interactive. Resp with long exxpirations, nasal trumpet still in place until cognitively more interactive; simple mask remains 8l; pt able to cough shallow , congested but no sputum produces. on command. Lunge sound like she needs to cough out some mucus, no obvious wheezing at present. * Brief Op Note - Lisa Lopez DO - 11/17/2022 1119 EDT Date: 11/17/2022 Location: [facility] OR Name: Frannie Mora, : 1960, Diagnosis Pre-Op Diagnosis Codes: * Endometrial cancer (HCC-CMS) (HCC) [C54.1] Post-op Diagnosis * Endometrial cancer (HCC-CMS) (HCC) [C54.1] Procedures * Robotic assisted total laparoscopic hysterectomy, bilateral salpingo-oophorectomy * injection of ICG dye * bilateral sentinel lymph node dissection Surgeons * Seb Kwon MD - Primary * Lisa Lopez DO - Resident - Assisting * Mirella Paz MD - Resident - Assisting Procedure Summary Anesthesia: General ASA: ASA status not filed in the log. Estimated Blood Loss: 25 cc Total IV Fluids: 2200 mL UOP: 250 cc Staff: Forensic Photographer: Gilma Malik RN Scrub Person: Rosmery Bailey RN Patient Brim Rounder: Unique Trejo Indications: Frannie Mora is an 61 y.o. female who is having surgery for grade 1 endometrial cancer Findings: 1. Normal external genitalia, vaginal rugae and cervix. Bimanual with large boggy uterus, no masses 2. Uterus sounded to 10 cm, corey placed without issues 3. Atraumatic entry. Normal abdominal survey 4. Large and boggy appearing uterus with possible left sided broad ligament fiboid, normal b/l fallopian tubes and ovaries 5. B/l ureters visualized vermiculating away from surgical site 6. B/l lymph nodes dissected with good hemostasis 7. Cystoscopy with atraumatic bladder mucosa, b/l ureteral jets visualized 8. Hemostasis at end of case Complications: None; patient tolerated the procedure well. Disposition: PACU - hemodynamically stable. Condition: stable Specimens Collected: Order Name Source Comment Collection Info Order Time TYPE AND SCREEN Blood, Venous Use when sample to be drawn day of surgery - 3-day expiry Collected By: Symoen Salazar RN 11/17/2022 6:03 Where will surgery be performed? [facility] Results Release to Patient (Note: Choosing Manual Release will only block results from tests performed at [facility] and does not apply for Miscellaneous Test Order) Immediate via [employer] Portal PATIENT RE-TYPE Blood, Venous Collected By: Shanelle Jalloh AA 11/17/2022 8:17 Results Release to Patient (Note: Choosing Manual Release will only block results from tests performed at [facility] and does not apply for Miscellaneous Test Order) Immediate via [employer] Portal Lisa Lopez D.O. 11/17/2022 11:21 OBGYN PGY-4 documented in this encounter Plan of Treatment Not on file documented as of this encounter Procedures Procedure Name Priority Date/Time Associated Diagnosis Comments COMPLETE BLOOD COUNT Routine 11/18/2022 7:12 EDT SURGICAL PATHOLOGY Routine 11/17/2022 8: 55 EDT PATIENT RE-TYPE Routine 11/17/2022 8:00 EDT LYMPHADENECTOMY, PELVIS, LAPAROSCOPIC, WITH BIOPSY 11/17/2022 7:36 EDT Endometrial cancer (HCC-CMS) INTRAOPERATIVE MAPPING SENTINEL LYMPH NODES INCLUDING INJECTION 11/17/2022 7:36 EDT Endometrial cancer (HCC-CMS) HYSTERECTOMY, ROBOT-ASSISTED, WITH SALPINGO-OOPHORECTOMY IF INDICATED, FOR UTERUS LESS THAN 250 GRAMS 11/17/2022 7:36 EDT Endometrial cancer (HCC-CMS) TYPE AND SCREEN Routine 11/17/2022 6:28 EDT documented in this encounter Results * (ABNORMAL) COMPLETE BLOOD COUNT (11/18/2022 7:12 EDT) WBC 17.09(H) 4.00 - 12.40 K/cmm 11/18/2022 8:15 EDT [facility] RBC 4.44 3.86 - 5.04 M/cmm 11/18/2022 8:15 EDT [facility] Hemoglobin 13.1 11.6 - 15.2 g/dL 11/18/2022 8:15 EDT [facility] HCT 38.6 34.9 - 44.4 % 11/18/2022 8:15 EDT [facility] MCV 87 81 - 98 fL 11/18/2022 8:15 EDT [facility] MCH 29.5 26.7 - 33.3 pg 11/18/2022 8:15 EDT [facility] MCHC 33.9 32.1 - 35.9 g/dL 11/18/2022 8:15 EDT [facility] RDW-CV 13.1 <14.7 % 11/18/2022 8:15 T [facility] RDW-SD 41.2 <50.4 fl 11/18/2022 8:15 EDT [facility] PLT 305 141 - 377 K/cmm 11/18/2022 8:15 T [facility] MPV 11.1 9.5 - 12.7 fL 11/18/2022 8:15 T [facility] Blood VENOUS BLOOD / Unknown Venipuncture / Unknown 11/18/2022 7:12 EDT 11/18/2022 8:04 EDT us Lisa Lopez DO HEMATOLOGY & PF4 ORDERABL ES Final Result [facility] [address] [place] [address] * SURGICAL PATHOLOGY (11/17/2022 8:55 EDT) Note to Patient The following pathology results have been interpreted by your pathologist and may be available to you before your health provider has had the opportunity to review them. Please allow time for your provider to receive these results and explore management options, if applicable. 11/20/2022 16:35 EDT [facility] Final Diagnosis A. LYMPH NODES, PELVIC, RIGHT, SAMPLING: - One lymph node negative for metastatic carcinoma (0/1). B. A. UTERUS, CERVIX, FALLOPIAN TUBES, AND OVARIES, HYSTERECTOMY AND BILATERAL SALPINGO-OOPHORECTOMY : - Endometrium: - Endometrial adenocarcinoma, endometrioid type with squamous differentiation, FIGO grade 1, confined to the endometrium (slides B7, B10) (AJCC: pT1a, pN0; FIGO stage IA). See synoptic report and comment. - Adjacent inactive endometrium with pseudodecidualized stroma consistent with exogenous hormone effect. - Myometrium: - Adenomyosis. - Cervix: - Negative for tumor. - Serosa: - Negative for tumor. - Fallopian tubes: - No specific pathologic features. - Ovaries: - Cortical inclusion cysts. C. LYMPH NODES, PELVIC, LEFT, SAMPLING: - Two lymph nodes negative for metastatic carcinoma (0/2). 11/20/2022 16:35 [facility] Diagnosis Comment Ultrastaging of the pelvic sentinel lymph node(s) is not performed in the absence of myoinvasion or lymphovascular invasion. Immunohistochemical staining for mismatch repair (MMR) proteins was previously performed on the curettage. 11/20/2022 16:35 [facility] Attestation By the signature below, the attending physician certifies that they have 1) personally conducted a gross and/or microscopic examination of the described specimen(s), and/or personally interpreted the results of laboratory testing of the described specimen(s), and 2) personally rendered or confirmed the above diagnosis. 11/20/2022 16:35 [facility] at 1635 Synoptic ENDOMETRIUM ENDOMETRIUM: HYSTERECTOMY - All Specimens 8th Edition - Protocol posted: 05/07/2022 SPECIMEN ?? Procedure: ?Total hysterectomy and bilateral salpingo-oophorectomy TUMOR ?? Tumor Site: ?Endometrium ?? Histologic Type: ?Endometrioid carcinoma, NOS ?? Histologic Grade: ?FIGO grade 1 ?? Myometrial Invasion: ?Not identified ?? Uterine Serosa Involvement: ?Not identified ?? Cervical Stromal Involvement: ?Not identified ?? Other Tissue / Organ Involvement: ?Not applicable ?? Peritoneal / Ascitic Fluid: ?Not submitted / unknown ?? Lymphatic and / or Vascular Invasion: ?Not identified REGIONAL LYMPH NODES ?? Regional Lymph Node Status: ? : ?All regional lymph nodes negative for tumor cells ? Lymph Nodes Examined: ? Total Number of Pelvic Nodes Examined: ?3 ? Total Number of Para-aortic Nodes Examined: ?0 pTNM CLASSIFICATION (AJCC 8th Edition) ?? Reporting of pT, pN, and (when applicable) pM categories is based on information available to the pathologist at the time the report is issued. As per the AJCC (Chapter 1, 8th Ed.) it is the managing physician's responsibility to establish the final pathologic stage based upon all pertinent information, including but potentially not limited to this pathology report. ?? pT Category: ?pT1a ?? pN Category: ?pN0 FIGO STAGE ?? FIGO Stage: ?IA 11/20/2022 16:35 [facility] Clinical History Endometrial cancer (HCC-CMS) ([facility]) 11/20/2022 16:35 [facility] Gross Description A. Received in normal saline labelled with proper patient identification (initials K, N) and right-sided pelvic lymph node sampling is a 3.5 x 3.0 x 1.5 cm aggregate of lobulated pale yellow adipose tissue. Sectioning reveals two pink-duron lymph nodes (0.7 x 0.4 x 0.3 cm and 0.9 x 0.6 x 0.4 cm). The lymph nodes are entirely submitted in A1 (smaller node, trisected) and A2 (larger node, trisected). B. Received in normal saline labelled with proper patient identification (initials K, N) and uterus, cervix, bilateral fallopian tubes and ovaries is a focally disrupted, unopened uterus (316 g, 14.5 cm fundus to cervix by 8.5 cm cornu to cornu by 7.2 cm anterior to posterior), right ovary (3.0 x 0.7 x 0.5 cm), right fallopian tube (7.5 cm in length by 0.5 cm in diameter left ovary (2.4 x 0.7 x 0.4 cm) and left fallopian tube (7.5 cm in length by 0.5 cm in diameter). The intact portions of serosa are smooth and pink-duron. The cervix (2.8 cm in diameter) is covered by duron david ectocervical mucosa and has a slit-like os (1.5 cm in diameter). The endocervical canal (4.8 cm in length) is lined by duron herringbone mucosa. The specimen is disrupted at the lower uterine segment on both sides of the specimen. This area is inked blue on both sides of the specimen. The endometrium (6.5 cm cornu to cornu by 6.3 cm in length) shows a polypoid, pink-duron to david, friable mass (6.5 x 6.3 x 0.8 cm) involving the majority of the anterior and small portion of the posterior endometrium. The mass grossly appears to invade to a maximum depth of less than 50% of the underlying myometrium. The remainder of the endometrium pale duron and finely granular with a maximum thickness of 0.1 cm. The duron, coarsely trabeculated myometrium has a maximum of 3.6 cm. No intramural submucosal, or subserosal nodules are identified. The right ovary has a smooth, white cortical surface. Sectioning reveals duron-white to yellow cut surfaces. The right fimbriated fallopian tube has a duron-david serosal surface with multiple mucus-filled paratubal cysts (0.4 cm in greatest dimension). No excrescences identified. Sectioning reveals a patent unremarkable lumen. The left ovary has a smooth, duron-yellow cortical surface. Sectioning reveals duron-yellow cut surfaces. The left fallopian tube has a smooth, dark purple serosal surface. Sectioning reveals a patent unremarkable lumen. Staff Nurse sections are submitted as follows: BLOCK SIMON B1-B2- anterior cervix to lower uterine segment, bisected B3-B4- posterior cervix to lower uterine segment, bisected B5-B6- mass at deepest point of invasion from anterior side of specimen, bisected B7-B8- additional section of mass from anterior side of specimen, bisected B9- anterior lower uterine segment with possible mass B10-B11- mass at deepest point of invasion from posterior side of specimen bisected B12-B13- additional section of mass from posterior side of specimen, bisected B14-B16- right ovary, entirely submitted B17-B18- right fallopian tube to include bisected fimbria B19-B21- left ovary entirely submitted B22-B23- left fallopian tube to include bisected fimbria C. Received in normal saline labelled with proper patient identification (initials K, N) and left-sided pelvic lymph node sampling is a 3.5 x 2.7 x 1.0 cm aggregate of lobulated yellow adipose tissue. Sectioning reveals two firm duron lymph nodes (0.9 x 0.5 x 0.4 cm and 1.4 x 0.9 x 0.5 cm). The specimen is entirely submitted as follows: BLOCK SIMON C1- smaller lymph node, trisected C2-C3- larger lymph node, quadrisected RAJ ALFONSO(ASCP) 11/18/2022 12:04 11/20/2022 16:35 EDT [facility] Performing Lab [facility] 11/20/2022 16:35 EDT [facility] Scanned Images 11/20/2022 16:35 EDT [facility] Tissue UTERUS, FALLOPIAN TUBES AND OVARIES, CS / Unknown 11/17/2022 8:55 EDT 11/17/2022 21:48 EDT Tissue specimen (specimen) ENTIRE LYMPH NODE / Unknown 11/17/2022 9:17 EDT 11/17/2022 21:48 EDT Tissue specimen (specimen) ENTIRE LYMPH NODE / Unknown 11/17/2022 10:43 EDT 11/17/2022 21:48 EDT us Seb Kwon MD PATHOLOGY ORDERABLES Final Resul t Performing Organization Address City/[facility]/ZIP Co de Phone Number [facility] [address] [place] [id number] * PATIENT RE-TYPE (11/17/2022 8:00 EDT) ABO A 11/17/2022 8:44 EDT [facility] Rh Factor Positive 11/17/2022 8:44 EDT [facility] Blood VENOUS BLOOD / Unknown Venipuncture / Unknown 11/17/2022 8:00 EDT 11/17/2022 8:27 EDT us Seb Kwon MD BLOOD BANK TESTS Final Result [facility] [address] [place] [address] * TYPE AND SCREEN (11/17/2022 6:28 EDT) ABO A 11/17/2022 7:30 EDT [facility] Rh Factor Positive 11/17/2022 7:30 EDT [facility] Antibody Screen Negative 11/17/2022 7:30 EDT [facility] Specimen Expires: 11/20/2022 @ 23:59 11/17/2022 7:30 EDT [facility] Blood VENOUS BLOOD / Unknown Venipuncture / Unknown 11/17/2022 6:28 EDT 11/17/2022 6:41 EDT us Lisa Lopez DO BLOOD BANK TESTS Edited R esult - Final Performing Organization Address City/[facility] de Phone Number [facility] [address] [place] [address] documented in this encounter Visit Diagnoses Diagnosis Endometrial cancer (HCC-CMS)- Primary Malignant neoplasm of corpus uteri, except isthmus Endometrial cancer (HCC-CMS) Malignant neoplasm of corpus uteri, except isthmus documented in this encounter Admitting Diagnoses Diagnosis Endometrial cancer (HCC-CMS) Malignant neoplasm of corpus uteri, except isthmus Endometrial adenocarcinoma (HCC-CMS) Malignant neoplasm of corpus uteri, except isthmus documented in this encounter Administered Medications Inactive Administered Medications - up to 3 most recent administrations Medication Order MAR Action Action Date Dose Rate Site acetaminophen (OFIRMEV) IV solution 1,000 mg 1,000 mg, intravenous, NOW X1, 1 dose, On 11/17/22 at 1245, Is the patient NPO? If No, state reason why oral acetaminophen cannot be used in Comment field. No, Is this patient nothing by rectum? If No, state why rectal acetaminophen cannot be used in the Comment field. No, Are NSAIDs contraindicated in this patient? No, Is the patient in ED, PACU or ICU? Yes, Routine, Recovery & On Unit Given 11/17/2022 12:25 EDT 1,000 mg acetaminophen (TYLENOL) tablet 1,000 mg 1,000 mg, oral, PRE-OP ONCE, 1 dose, On Thu11/17/22 at 0630, Routine, Preprocedure Given 11/17/2022 6:29 EDT 1,000 mg acetaminophen (TYLENOL) tablet 650 mg 650 mg, oral, EVERY 4 HOURS, First dose on Thu11/17/22 at 1700, Until Discontinued, Routine Given 11/18/2022 5:00 EDT 650 mg Given 11/18/2022 0:16 EDT 650 mg Given 11/17/2022 20:42 EDT 650 mg buPROPion (WELLBUTRIN XL) XL tablet 300 mg 300 mg, oral, DAILY, First dose on Thu11/18/22 at 0900, Until Discontinued, Routine Given 11/18/2022 8:26 EDT 300 mg diphenhydrAMINE (BENADRYL) capsule 25 mg 25 mg, oral, EVERY 6 HOURS PRN, Starting on Thu11/17/22 at 1643, Until Thu11/18/22 at 1242, Itching, Routine diphenhydrAMINE (BENADRYL) injection 25 mg 25 mg, intravenous, EVERY 6 HOURS PRN, Starting on Thu11/17/22 at 1643, Until Thu11/18/22 at 1242, Itching, Routine docusate sodium (COLACE) capsule 100 mg 100 mg, oral, 2 TIMES DAILY, First dose on Thu11/17/22 at 2100, Until Discontinued, Routine Given 11/18/2022 8:26 EDT 10 0 mg Given 11/17/2022 20:43 EDT 100 mg enoxaparin (LOVENOX) injection 40 mg 40 mg, subcutaneous, EVERY 12 HOURS, First dose on Thu11/18/22 at 0900, Until Discontinued, Routine Given 11/18/2022 8:26 EDT 40 mg famotidine (PEPCID) tablet 40 mg 40 mg, oral, DAILY, First dose on Thu11/18/22 at 0900, Until Discontinued, Routine Given 11/18/2022 8:26 EDT 40 mg FLUoxetine (PROZAC) capsule 20 mg 20 mg, oral, DAILY, First dose on Thu11/18/22 at 0900, Until Discontinued, Routine Given 11/18/2022 8:27 EDT 20 mg heparin injection 5,000 Units 5,000 Units, subcutaneous, PRE-OP ONCE, 1 dose, On Thu11/17/22 at 0630, Routine, Preprocedure Given 11/17/2022 6:31 EDT 5,000 Units HYDROmorphone (DILAUDID) 2 mg tablet 1 dose, Starting on Thu11/17/22 at 1416, Until Thu11/17/22 at 1420 HYDROmorphone (DILAUDID) tablet 2-4 mg 2-4 mg, oral, PACU ONCE, 1 dose, On Thu11/17/22 at 1430, Routine Given 11/17/2022 14:20 EDT 4 mg HYDROmorphone (PF) (DILAUDID) 0.5 mg/0.5 mL syringe 0.3-0.5 mg 0.3-0.5 mg, intravenous, EVERY 10 MINUTES PRN, Starting on Thu11/17/22 at 1130, Until Thu11/17/22 at 1629, Pain, Routine, Recovery (only) Given 11/17/2022 15:26 EDT 0.3 mg ibuprofen (MOTRIN) tablet 600 mg 600 mg, oral, EVERY 6 HOURS PRN, Starting on Thu11/17/22 at 1643, Until Thu11/18/22 at 1242, Mild Pain 1-3, Routine Given 11/17/2022 20:42 EDT 600 mg indocyanine green (IC-GREEN) injection PRN, Starting on Thu11/17/22 at 0826, Until Thu11/17/22 at 1150, Routine, Intraprocedure Given 11/17/2022 8:26 EDT 25 mg Other lactated ringers (LR) infusion at 25 mL/hr, intravenous, CONTINUOUS, Starting on Thu11/17/22 at 0630, Until Thu11/17/22 at 1643, Routine, Preprocedure Restarted 11/17/2022 8:17 EDT Continued by Anesthesia 11/17/2022 7:36 EDT 25 mL/hr New Bag 11/17/2022 6:29 EDT 25 mL/hr ondansetron (PF) (ZOFRAN) injection 4 mg 4 mg, intravenous, EVERY 6 HOURS PRN, Starting on Thu11/17/22 at 1643, Until Thu11/18/22 at 1242, Nausea, Vomiting, Routine Given 11/17/2022 17:34 EDT 4 mg ondansetron (ZOFRAN-ODT) disintegrating tablet 4 mg 4 mg, oral, EVERY 6 HOURS PRN, Starting on Thu11/17/22 at 1643, Until Thu11/18/22 at 1242, Nausea, Routine oxyCODONE (ROXICODONE) immediate release tablet 5-10 mg 5-10 mg, oral, EVERY 4 HOURS PRN, Starting on Thu11/17/22 at 1643, Until Thu11/18/22 at 1242, Pain, Routine Given 11/18/2022 6:53 EDT 10 mg Given 11/18/2022 0:16 EDT 5 mg Given 11/17/2022 19:04 EDT 10 mg sodium chloride 0.9 % 1,000 mL with methylene blue (PROVAYBLUE) 5 mL PRN, Starting on Thu11/17/22 at 0835, Until Thu11/17/22 at 1150, Routine, Intraprocedure Given 11/17/2022 8:35 EDT 300 mL Bladde r sodium chloride 0.9 % irrigation PRN, Starting on Thu11/17/22 at 0835, Until Thu11/17/22 at 1150, Routine, Intraprocedure Given 11/17/2022 8:35 EDT 1,000 mL Other sterile water (bottle) irrigation PRN, Starting on Thu11/17/22 at 0835, Until Thu11/17/22 at 1150, Intraprocedure Given 11/17/2022 8:35 EDT 500 mL Other documented in this encounter Discontinued Medications Medication Sig Discontinue Reason Start Date End Da te buPROPion (WELLBUTRIN) 100 mg tablet Take 1 Tablet by mouth daily. Order modification 11/17/2022 oxyCODONE (ROXICODONE) 5 mg immediate release tablet Take 1 Tablet by mouth every 4 hours as needed for Pain. Daily Max: 30 mg Reorder 11/17/2022 11/18/2022 enoxaparin (LOVENOX) 40 mg/0.4 mL injection Inject 40 mg into the skin every 12 hours for 7 days. Reorder 11/17/2022 11/18/2022 documented as of this encounter Historical Medications * This list may reflect changes made after this encounter. buPROPion (WELLBUTRIN XL) 300 mg XL tablet Take 1 Tablet by mouth daily. 10/03/2022 added in this encounter Active and Recently Administered Medications Times are shown in EDT. Scheduled Medication Order 11/16/2022 11/17/2022 11/18/2022 acetaminophen (OFIRMEV) IV solution 1,000 mg (COMPLETED) 1,000 mg, intravenous, NOW X1, 1 dose, On Thu11/17/22 at 1245, Is the patient NPO? If No, state reason why oral acetaminophen cannot be used in Comment field. No, Is this patient nothing by rectum? If No, state why rectal acetaminophen cannot be used in the Comment field. No, Are NSAIDs contraindicated in this patient? No, Is the patient in ED, PACU or ICU? Yes, Routine, Recovery & On Unit 1225 (Given - Provider: Liliana Vallejo RN) acetaminophen (TYLENOL) tablet 1,000 mg (COMPLETED) 1,000 mg, oral, PRE-OP ONCE, 1 dose, On Thu11/17/22 at 0630, Routine, Preprocedure 0629 (Given - Provider: Symone Salazar RN) acetaminophen (TYLENOL) tablet 650 mg 650 mg, oral, EVERY 4 HOURS, First dose on Thu11/17/22 at 1700, Until Discontinued, Routine 1733 (Given - Provider: Yoanna Laws RN)2042 (Given - Provider: Yoanna Laws RN) 0016 (Given - Provider: Uriel Rosas RN)0500 (Given - Provider: Uriel Rosas RN)0900 (Canceled Entry - Provider: Batch Job User Admin - Comment: Automatically canceled at discontinue of medication order)1200 (Canceled Entry - Provider: Batch Job User Admin - Comment: Automatically canceled at discontinue of medication order) buPROPion (WELLBUTRIN XL) XL tablet 300 mg 300 mg, oral, DAILY, First dose on Thu11/18/22 at 0900, Until Discontinued, Routine 0826 (Given - Provid er: Jaime Nieves RN) ceFAZolin (ANCEF) syringe 3 g (COMPLETED) 3 g, intravenous, Administer over 5 Minutes, PRE-OP ONCE, 1 dose, On Thu11/17/22 at 0630, Routine, Preprocedure 08 (Given - Provider: ELLIE Monk) docusate sodium (COLACE) capsule 100 mg 100 mg, oral, 2 TIMES DAILY, First dose on Thu11/17/22 at 2100, Until Discontinued, Routine 2042 (Given - Provider: Yoanna Laws RN) 825 (Given - Provider: Jaime Nieves RN) enoxaparin (LOVENOX) injection 40 mg 40 mg, subcutaneous, EVERY 12 HOURS, First dose on Thu11/18/22 at 0900, Until Discontinued, Routine 825 (Given - Provid er: Jaime Nieves RN) famotidine (PEPCID) tablet 40 mg 40 mg, oral, DAILY, First dose on Thu11/18/22 at 0900, Until Discontinued, Routine 825 (Given - Provid er: Jaime Nieves RN) FLUoxetine (PROZAC) capsule 20 mg 20 mg, oral, DAILY, First dose on Thu11/18/22 at 0900, Until Discontinued, Routine 826 (Given - Provid er: Jiame Nieves RN) heparin injection 5,000 Units (COMPLETED) 5,000 Units, subcutaneous, PRE-OP ONCE, 1 dose, On Thu11/17/22 at 0630, Routine, Preprocedure 0631 (Given - Provider: Symone Salazar RN) HYDROmorphone (DILAUDID) tablet 2-4 mg (COMPLETED) 2-4 mg, oral, PACU ONCE, 1 dose, On Thu11/17/22 at 1430, Routine 1420 (Given - Provider: Bettie Hirsch RN) metronidazole (FLAGYL) infusion 500 mg (COMPLETED) 500 mg, intravenous, Administer over 30 Minutes, PRE-OP ONCE, 1 dose, On Thu11/17/22 at 0630, Type of Therapy: Prophylaxis, Suspected Indication (Select all that apply): Other, Other Indication: hsyterectomy, Routine, Preprocedure 0738 (Given - Provider: ELLIE Monk) Continuous Medication Order 11/16/2022 11/17/2022 11/18/2022 lactated ringers (LR) infusion (CANCELED) at 25 mL/hr, intravenous, CONTINUOUS, Starting on Thu11/17/22 at 0630, Until Thu11/17/22 at 1643, Routine, Preprocedure 0629 (New Bag - Provider: Symone Salazar RN)0736 (Continued by Anesthesia - Provider: ELLIE Monk)0816 (Paused - Provider: ELLIE Monk - Comment: Switch to gravity)0817 (Restarted - Provider: ELLIE Monk)0949 (Anesthesia Volume Adjustment - Provider: ELLIE Monk)1147 (Completed - Provider: ELLIE Monk) PRN Medication Order 11/16/2022 11/17/2022 11/18/2022 diphenhydrAMINE (BENADRYL) capsule 25 mg(Linked Group 1) 25 mg, oral, EVERY 6 HOURS PRN, Starting on Thu11/17/22 at 1643, Until Thu11/18/22 at 1242, Itching, Routine diphenhydrAMINE (BENADRYL) injection 25 mg(Linked Group 1) 25 mg, intravenous, EVERY 6 HOURS PRN, Starting on Thu11/17/22 at 1643, Until Thu11/18/22 at 1242, Itching, Routine HYDROmorphone (PF) (DILAUDID) 0.5 mg/0.5 mL syringe 0.3-0.5 mg (CANCELED) 0.3-0.5 mg, intravenous, EVERY 10 MINUTES PRN, Starting on Thu11/17/22 at 1130, Until Thu11/17/22 at 1629, Pain, Routine, Recovery (only) 1526 (Given - Provider: Lesly Guzmán RN) ibuprofen (MOTRIN) tablet 600 mg 600 mg, oral, EVERY 6 HOURS PRN, Starting on Thu11/17/22 at 1643, Until Thu11/18/22 at 1242, Mild Pain 1-3, Routine 2042 (Given - Provider: Yoanna Laws RN) indocyanine green (IC-GREEN) injection (CANCELED) PRN, Starting on Thu11/17/22 at 0826, Until Thu11/17/22 at 1150, Routine, Intraprocedure 0826 (Given - Provider: Seb Kwon MD - Comment: cervix. mix with 20 ml sterile water) ondansetron (PF) (ZOFRAN) injection 4 mg(Linked Group 2) 4 mg, intravenous, EVERY 6 HOURS PRN, Starting on Thu11/17/22 at 1643, Until Thu11/18/22 at 1242, Nausea, Vomiting, Routine 1734 (Given - Provider: Yoanna Laws RN) ondansetron (ZOFRAN-ODT) disintegrating tablet 4 mg(Linked Group 2) 4 mg, oral, EVERY 6 HOURS PRN, Starting on Thu11/17/22 at 1643, Until Thu11/18/22 at 1242, Nausea, Routine 1734 (See Alternative - Provider: Yoanna Laws RN) oxyCODONE (ROXICODONE) immediate release tablet 5-10 mg 5-10 mg, oral, EVERY 4 HOURS PRN, Starting on Thu11/17/22 at 1643, Until Thu11/18/22 at 1242, Pain, Routine 1904 (Given - Provider: Yoanna Laws RN) 0016 (Given - Provider: Uriel Rosas, YARELI)0653 (Given - Provider: Uriel Rosas RN) polyethylene glycol 3350 (MIRALAX) packet 17 g 17 g, oral, DAILY PRN, Starting on Thu11/17/22 at 1643, Until Thu11/18/22 at 1242, Constipation, Routine sodium chloride 0.9 % 1,000 mL with methylene blue (PROVAYBLUE) 5 mL (CANCELED) PRN, Starting on Thu11/17/22 at 0835, Until Thu11/17/22 at 1150, Routine, Intraprocedure 0835 (Given - Provider: Seb Kwon MD) sodium chloride 0.9 % irrigation (CANCELED) PRN, Starting on Thu11/17/22 at 0835, Until Thu11/17/22 at 1150, Routine, Intraprocedure 0835 (Given - Provider: Seb Kwon MD - Comment: surgical site) sterile water (bottle) irrigation (CANCELED) PRN, Starting on Thu11/17/22 at 0835, Until Thu11/17/22 at 1150, Intraprocedure 0835 (Given - Provider: Seb Kwon MD - Comment: instrument care) Linked Groups Order Group 1: diphenhydrAMINE (BENADRYL) capsule 25 mgJump to med 25 mg, oral, EVERY 6 HOURS PRN, Starting on Thu11/17/22 at 1643, Until Thu11/18/22 at 1242, Itching, Routine Or diphenhydrAMINE (BENADRYL) injection 25 mgJump to med 25 mg, intravenous, EVERY 6 HOURS PRN, Starting on Thu11/17/22 at 1643, Until Thu11/18/22 at 1242, Itching, Routine Group 2: ondansetron (PF) (ZOFRAN) injection 4 mgJump to med 4 mg, intravenous, EVERY 6 HOURS PRN, Starting on Thu11/17/22 at 1643, Until Thu11/18/22 at 1242, Nausea, Vomiting, Routine Or ondansetron (ZOFRAN-ODT) disintegrating tablet 4 mgJump to med 4 mg, oral, EVERY 6 HOURS PRN, Starting on Thu11/17/22 at 1643, Until Thu11/18/22 at 1242, Nausea, Routine documented in this encounter Orders Medications Ordered That Frank ht Not Have Been Administered Count Last Ordered Date First Ordered Date acetaminophen (TYLENOL) solu tion unit dose cup 995 mg 1 11/17/2022 acetaminophen (TYLENOL) tablet 1,000 mg 1 0 11/17/2022 atropine 0.1 mg/mL syringe 0.5 mg 1 023 ceFAZolin (ANCEF) syringe 3 g 1 11/17/2022 chlorhexidine gluconate 2 % cloth 1 Each 2 11/17/2022 diphenhydrAMINE (BENADRYL) capsule 25 mg 1 11/17/2022 diphenhydrAMINE (BENADRYL) i njection 12.5 mg 1 11/17/2022 diphenhydrAMINE (BENADRYL) injection 25 mg 1 11/17/2022 fentaNYL citrate (PF) injection 25-50 mcg 1 11/17/2022 lactated ringers (LR) infusion 1 11/17/2022 lidocaine (PF) 10 mg/mL (1 % ) injection 2 mg 1 11/17/2022 metoclopramide (REGLAN) injection 10 mg 1 0 11/17/2022 metronidazole (FLAGYL) infusion 500 mg 1 naloxone (NARCAN) injection 0.2 mg 1 2022 ondansetron (PF) (ZOFRAN) injection 4 mg 1 11/17/2022 ondansetron (ZOFRAN-ODT) dis integrating tablet 4 mg 1 11/17/2022 polyethylene glycol 3350 (DE RALAX) packet 17 g 1 11/17/2022 Nursing Count Last Ordered Date First Orde red Date VTE PHARMACOLOGIC PROPHYLAXI S CURRENTLY ORDERED OR ON ALTERNATIVE THER 1 11/17/2022 Transfer Count Last Ordered Date First Orde red Date TRANSFER PATIENT 1 11/17/2022 Discharge Count Last Ordered Date First Orde red Date DISCHARGE PATIENT 1 11/18/2022 documented in this encounter Care Teams Legal Secretary Receptionist Relationship Specialty Start Date End Date Vicki Mays NP [address] [place] [address] PCP - General 01/17/16 Sam Morris MD [address] [place] [address] [place] [id number] 11/17/22 documented as of this encounter
--- OUTSIDE RECORDS SUMMARY | 2024-04-05 13:43 | XMS_ITS | Encounter Summary ---
Author Organization [facility] Address [address] [place] [address] Care Team Providers Care Research Development Manager Name Role Phone Vicki Mays NP Primary Care Provider [phone] Sam Morris MD Unavailable Encounter Details Date Type Department Care Team (Late st Contact Info) Description 05/05/2023 Lab Requisition [facility] Pathology & Laboratory Medicine - [address] [phone] Outr Resulting Lab, Provider Social History Tobacco Use Types Packs/Day Years [...] on file documented as of this encounter Functional Status * Are you [...] Alicia Gomez RN documented in this encounter Plan of Treatment Not on file documented as of this encounter Procedures Procedure Name Priority Date/Time Associated Diagnosis Comments HIGH SENSITIVITY C-REACTIVE PROTEIN (CARDIOVASCULAR DISEASE) Routine 05/04/2023 13:50 EST documented in this encounter Results * HIGH SENSITIVITY C-REACTIVE PROTEIN (CARDIOVASCULAR DISEASE) (05/04/2023 13:50 EST) High Sensitivity CRP 14.98 See Note mg/L 05/05/2023 17:39 EST [facility] Comment: Reference Range: ??Low Risk: ? <1.0 mg/L ??Average Risk: ?? 1.0 - 3.0 mg/L ??High Risk: ?>3.0 mg/L ??Indeterminate*: >10.0 mg/L ??*May be an indication of another source of inflammation or infection Blood VENOUS BLOOD / Unknown 05/04/2023 13:50 EST 05/05/2023 17:15 EST us Provider Outr Resulting Lab CHEMISTRY & BLOOD GA S ORDERABLES Final Result [facility] [address] [place] [address] documented in this encounter Visit Diagnoses Not on filedocumented in this encounter Care Teams Research Development Manager Relationship Specialty Start Date End Date Vicki Mays NP [address] [place] [address] PCP - General 01/17/16 Sam Morris MD [address] [facility] [address] [place] [id number] 11/17/22 documented as of this encounter
--- OUTSIDE RECORDS SUMMARY | 2024-04-05 13:43 | XMS_ITS | Encounter Summary ---
Author Organization [facility] Address [address] [place] [address] Care Team Providers Care Geography Teacher Name Role Phone Vicki Mays NP Primary Care Provider [phone] Sam Morris MD Unavailable [phone] Reason for Visit * Reason Onset Date Comments Other 06/15/2023 Health Coaching - Referral Encounter Details Date Type Department Care Team (Late st Contact Info) Description 06/15/2023 Telephone [facility] Hematology & Oncology - [facility] [address] [place], [place] [phone] Sigifredo Jacob MD [address] [place] [address] [address] [place] [address] Other (Health Coaching - Referral) Social History Tobacco Use Types Packs/Day Years [...] Alicia Gomez RN documented in this encounter Miscellaneous Notes * Telephone Encounter - Leticia Muñoz - 06/15/2023 1114 EST I left the patient a voice mail and followed up with an email to the patient about the health coaching referral their doctor made. I included some details about the health coaching process, my email,and my phone number so they can contact me to schedule a session if interested in health coaching. Leticia Muñoz 06/15/2023 11:33 documented in this encounter Plan of Treatment Not on file documented as of this encounter Visit Diagnoses Not on filedocumented in this encounter Care Teams Geography Teacher Relationship Specialty Start Date End Date Vicki Mays NP [address] [place] [address] PCP - General 01/17/16 Sam Morris MD [address] [place] [address] [place] [address] 11/17/22 documented as of this encounter
--- OUTSIDE RECORDS SUMMARY | 2024-04-05 13:43 | XMS_ITS ---
Author Organization Unknown Address [address] [place] [phone] Phone Care Team Providers Care Picker/Puller Name Role Phone LA Payne Attending Unavailable Social History Type Status Start Date End Date Code Code Syst em Smoking History Never smoker (Never Smoked) 267556920 SNOMED CT Sex Female Medications Medication Start Date End Date Route Frequency Dose Code Code System Medication Instructions Home Meds glipiZIDE 5MG Oral Tablet 08/10/2023 Unknown ORAL BID BEFORE MEALS 5 MILLIGRAMS 578277 RxNorm TAKE 5 MILLIGRAMS ORAL BID BEFORE MEALS Cortizone-10 Maximum Strength 1% Topical application Cream 08/10/2023 Unknown TOPICAL APPLICA TION NEEDED THREE TIMES A DAY 1 APPL 166511 RxNorm 1 APPL TOPICAL APPLICATION NEEDED THREE TIMES A DAY FOR HEMORRGHOIDS FLUoxetine HCl 40MG Oral Capsule 08/10/2023 Unknown ORAL DAILY 40 MILLIGRAMS 161611 RxNorm TAKE 40 MILLIGRAMS ORAL DAILY Multivitamin Oral Tablet 08/10/2023 Unknown ORAL DAILY 1 unit(s) RxNorm TAKE 1 EACH ORAL DAILY Olmesartan Medoxomil 20MG Oral Tablet 08/10/2023 Unknown ORAL DAILY 1 TABLET 965526 RxNorm TAKE 1 TABLE T ORAL DAILY Prometrium 200MG Oral Capsule, Liquid Filled 08/10/2023 Unknown ORAL DAILY 200 MILLIGRAMS 423290 RxNorm TAKE 200 MILLIGRAMS ORAL DAILY Terconazole 0.4% Vaginal Cream 08/10/2023 Unknown VAGINAL NEEDED 1 APPL 182569 RxNorm 1 APPL VAGINAL NEEDED Vitamin B Complex Oral Capsule 08/10/2023 Unknown ORAL DAILY 1 unit(s) RxNorm TAKE 1 EACH ORAL DAILY Vitamin D 5000 IU Oral Tablet 08/10/2023 Unknown ORAL DAILY 5000 IU 880736 RxNorm TAKE 5000 IU ORAL DAILY buPROPion HCl 300MG Oral Tablet, Extended Release, 24 HR 08/10/2023 Unknown ORAL DAILY 300 MILLIGRAMS 487637 RxNorm TAKE 300 MILLIGRAMS ORAL DAILY metFORMIN HCl AvPak 500MG Oral Tablet, Extended Release 08/10/2023 Unknown ORAL TWICE A DAY WITH FOOD 1000 MILLIGRAMS 144202 RxNorm TAKE 1000 MILLIGRAMS ORAL TWICE A DAY WITH FOOD Insulin Glargine Pen 100 IU/1 ML Subcutaneous Solution 08/10/2023 Unknown SUBCUTA NEOUS DAILY 20 UNIT 2026794 RxNorm INJECT 20 UNIT SUBCUTANEOUS DAILY Assessment [...] System TYPE 2 DIABETES WITH COMPLICATION active 214076835 SNOMED-CT BLURRED VISION active 122491602 SNOME D-CT WEAKNESS active 79842354 SNOMED-CT DIZZINESS active 708314407 SNOMED-CT VAGINAL RAFAEL active 74360083 SNOM ED-CT HEMORRHOIDS active 14551343 SNOMED-C T DEPRESSION 08/08/2023 resolved 74209601 SNOMED-C T ANXIETY 08/08/2023 resolved 28393070 SNOMED-CT DIABETES 2 08/08/2023 resolved 17764371 SNOMED-C T ENDOMETRIAL CANCER GENETIC MARKER OF SUSCEPTIBILITY POSITIVE (FINDING) 08/08/2023 resolved [id number] SNOMED-CT Allergies and Adverse Reactions Allergy Substance Reaction Severity Start Date Concern Status Co de Code System VICTOZA Nausea/Vomiting (SNOMED-CT: 89100675) Active 932568 RxNorm Plan of Treatment MM SCREEN BILAT 02/12/2023 US PELVIC / TV 08/08/2022 MM SCREEN BILAT 04/01/2021 Encounters Encounter Diagnosis Start Date Code Code Sys tem Type 2 diabetes mellitus with hyperglycemia 08/08/2023 SNOMED-CT Personal Care Team Section Performer Name Performer Role Active Date Inactive Da te
--- OUTSIDE RECORDS SUMMARY | 2024-04-05 13:43 | XMS_ITS ---
Author Organization Unknown Address [address] [place] [phone] Phone Care Team Providers Care Datacap Developer Name Role Phone VESNA ZAMAN Attending Unavailable HEIDY Payne Primary Unavailable Social History Type Status Start Date End Date Code Code Syst em Smoking History Never smoker (Never Smoked) [id number] SNOMED CT Sex Female Medications Medication Start Date End Date Route Frequency Dose Code Code System Medication Instructions Home Meds glipiZIDE 5MG Oral Tablet 08/10/2023 Unknown ORAL BID BEFORE MEALS 5 MILLIGRAMS 111250 RxNorm TAKE 5 MILLIGRAMS ORAL BID BEFORE MEALS Cortizone-10 Maximum Strength 1% Topical application Cream 08/10/2023 Unknown TOPICAL APPLICA TION NEEDED THREE TIMES A DAY 1 APPL 999396 RxNorm 1 APPL TOPICAL APPLICATION NEEDED THREE TIMES A DAY FOR HEMORRGHOIDS FLUoxetine HCl 40MG Oral Capsule 08/10/2023 Unknown ORAL DAILY 40 MILLIGRAMS 632407 RxNorm TAKE 40 MILLIGRAMS ORAL DAILY Multivitamin Oral Tablet 08/10/2023 Unknown ORAL DAILY 1 unit(s) RxNorm TAKE 1 EACH ORAL DAILY Olmesartan Medoxomil 20MG Oral Tablet 08/10/2023 Unknown ORAL DAILY 1 TABLET 121481 RxNorm TAKE 1 TABLE T ORAL DAILY Prometrium 200MG Oral Capsule, Liquid Filled 08/10/2023 Unknown ORAL DAILY 200 MILLIGRAMS 407261 RxNorm TAKE 200 MILLIGRAMS ORAL DAILY Terconazole 0.4% Vaginal Cream 08/10/2023 Unknown VAGINAL NEEDED 1 APPL 911912 RxNorm 1 APPL VAGINAL NEEDED Vitamin B Complex Oral Capsule 08/10/2023 Unknown ORAL DAILY 1 unit(s) RxNorm TAKE 1 EACH ORAL DAILY Vitamin D 5000 IU Oral Tablet 08/10/2023 Unknown ORAL DAILY 5000 IU 575862 RxNorm TAKE 5000 IU ORAL DAILY buPROPion HCl 300MG Oral Tablet, Extended Release, 24 HR 08/10/2023 Unknown ORAL DAILY 300 MILLIGRAMS 017237 RxNorm TAKE 300 MILLIGRAMS ORAL DAILY metFORMIN HCl AvPak 500MG Oral Tablet, Extended Release 08/10/2023 Unknown ORAL TWICE A DAY WITH FOOD 1000 MILLIGRAMS 291902 RxNorm TAKE 1000 MILLIGRAMS ORAL TWICE A DAY WITH FOOD Insulin Glargine Pen 100 IU/1 ML Subcutaneous Solution 08/10/2023 Unknown SUBCUTA NEOUS DAILY 20 UNIT 7728682 RxNorm INJECT 20 UNIT SUBCUTANEOUS DAILY Assessment [...] System TYPE 2 DIABETES WITH COMPLICATION active [id number] SNOMED-CT BLURRED VISION active 972459131 SNOME D-CT WEAKNESS active 31017608 SNOMED-CT DIZZINESS active 157257457 SNOMED-CT VAGINAL RAFAEL active 14322901 SNOM ED-CT HEMORRHOIDS active 70803471 SNOMED-C T DEPRESSION 08/08/2023 resolved 04096671 SNOMED-C T ANXIETY 08/08/2023 resolved 46610008 SNOMED-CT DIABETES 2 08/08/2023 resolved 07894843 SNOMED-C T ENDOMETRIAL CANCER GENETIC MARKER OF SUSCEPTIBILITY POSITIVE (FINDING) 08/08/2023 resolved 54045801659158 SNOMED-CT Allergies and Adverse Reactions Allergy Substance Reaction Severity Start Date Concern Status Co de Code System VICTOZA Nausea/Vomiting (SNOMED-CT: 64127874) Active 893048 RxNorm Plan of Treatment MM SCREEN BILAT 02/12/2023 US PELVIC / TV 08/08/2022 MM SCREEN BILAT 04/01/2021 Encounters Encounter Diagnosis Start Date Code Code Sys tem Obstructive sleep apnea (adult) (pediatric) 09/13/2023 SNOMED-CT Personal Care Team Section Performer Name Performer Role Active Date Inactive Da te
--- OUTSIDE RECORDS SUMMARY | 2024-04-05 13:43 | XMS_ITS | Encounter Summary ---
Author Organization [facility] Address [address] [place] [address] Care Team Providers Care Manager Technology Name Role Phone Vicki Mays NP Primary Care Provider [phone] Sam Morris MD Unavailable [phone] Reason for Referral * Consult (Routine/Next Available) - Receiving Office to Obtain Authorization Specialty Diagnoses / Procedures Referred By Olimpia lentz Referred To Contact Diagnoses Endometrial cancer ([facility]) Yessenia Huddleston PA-C Phone: tel: fax: [facility] Hematology & Oncology - [address] [address] Phone: tel: fax: Referral ID Status Reason Start Date Expiration Date Visits Requested Visits Authorized [id number] Receiving Office to Obtain Authorization Specialty Services Required 4 1 1 Reason for Visit * Reason Comments Follow-up Encounter Details Date Type Department Care Team ([facility] Contact Info) Description 06/04/2023 11:00 EST Office Visit [facility] OBGYN Services - [address] [phone] Yessenia Huddleston PA-C [address] [place] [address], [address] [place] [address] Endometrial cancer ([facility]) (Primary Dx) Social History Tobacco Use Types Packs/Day Years [...] Sign Reading Time Taken Comments Blood Pressure 130/76 06/04/2023 1113 EST Pulse - - Temperature - - Respiratory Rate - - Oxygen Saturation - - Inhaled Oxygen Concentration - - Weight 153.8 kg (339 lb) 06/04/2023 1113 EST Height - - Body Mass Index 51.54 11/17/2022 0704 EDT documented in this encounter [...] Answer Entry Date Author No 11/17/2022 16:56 BLAISET Alicia Laws RN documented in this encounter Progress Notes * Yessenia Huddleston PA-C - 06/04/2023 1100 EST GYNECOLOGIC ONCOLOGY VISIT NOTE Date of service: 06/11/2023 Patient Identification: Name: Frannie Mora Reason for Visit: Follow up - history of endometrial cancer Subjective: HPI: Frannie Mora is a 62 y.o. with a history of endometrial cancer who is s/p RA TLH, BSO, SLND on11/17/2022. Final pathology demonstrated FIGO grade 1 stage IA endometrial adenocarcinoma, endometrioid type with squamous differentiation. Today Frannie reports to be feeling well overall. She is having back and lower abdominal pain that she related directly to moving heavy sheetrock. She continues to have chronic shortness of breath withexertion. Frannie does report increased personal stress and is seeing a therapist that she is pleasedand comfortable with. Her weight has been stable but notes gaining weight over time. She denies vaginal bleeding/discharge, vulvar irritation/itching, pelvic pain, abdominal pain/bloating/distention,early satiety, nausea, vomiting, unintentional weight loss, changes in bowel or bladder habits, chest pain, and lower extremity edema. The remainder of a 10 point review of systems was negative unless otherwise described above. Objective: BP 130/76 Wt (!) 153.8 kg (339 lb) BMI 51.54 kg/m?? Physical Exam: Constitutional: Oriented to person, place, and time. She appears well-developed and well-nourished.In no acute distress. Head: Normocephalic and atraumatic. Eyes: Pupils are equal, round, and reactive to light. Neck: Normal range of motion. No lymphadenopathy. Cardiovascular: Normal rate, regular rhythm and normal heart sounds. No murmur heard. Pulmonary/Chest: Effort and breath sounds normal. No respiratory distress. No wheezes. Abdominal: Soft and non-tender, no distension. Genitourinary: There is no rash, tenderness, lesion or injury on the right labia. There is no rash,tenderness, lesion or injury on the left labia. No vaginal discharge, erythema, tenderness or bleeding. Speculum exam reveals that the vaginal cuff is well healed, without any evidence of masses or or exophytic lesions. Bimanual exam is without any masses or nodularity. Cervix, uterus and adnexa are surgically absent. Musculoskeletal: Normal range of motion. Skin: Skin is warm and dry. No erythema. No pallor. Psychiatric: Normal mood and affect. Behavior is normal. Judgment and thought content normal. Assessment: Frannie Mora is an 62 y.o. female s/p RA TLH, BSO, SLND for G1 FIGO stage IA endometrial adenocarcinoma on 11/17/2022. Frannie continues to do well. She is without evidence of disease recurrence on clinical exam, and she is without worrisome symptoms. Per the most recent SGO guidelines, I did not obtain a vaginal pap smear, as there were no concerning lesions on her vaginal exam. We discussed the signs and symptoms that would be concerning for recurrent endometrial cancer (vaginal bleeding, abdominal pain, pressure, bloating or changes in bowel or bladder habits), and she knows to call our office for sooner evaluation if she should experience any symptoms such as these. Surveillance visits q 3-4 months for 2 years, followed by q 6 months for a total of 5 years. Imaging only as clinically indicated. We discussed meeting with a hot mill shearer and she is amendable to this. Plan: - [facility]er to [facility] - follow up 3 months or sooner as needed Yessenia Huddleston PA-C Gynecologic Oncology [id number] documented in this encounter Plan of Treatment Scheduled Referrals Name Type Priority Associated Diagnoses Order Schedule AMB NUTRITION SERVICES Outpatient Referral Routine/Next Available Endometrial cancer ([facility]) Expected: 07/12/2023 (Approximate), Expires: 06/11/2024 documented as of this encounter Visit Diagnoses Diagnosis Endometrial cancer ([facility])- Primary Malignant neoplasm of corpus uteri, except isthmus documented in this encounter Care Teams Manager Technology Relationship Specialty Start Date End Date Vicki Mays NP [address] [place] [address] PCP - General 8/25/16 Sam Morris MD [address] [address] 11/17/22 documented as of this encounter
--- OUTSIDE RECORDS SUMMARY | 2024-04-05 13:43 | XMS_ITS | Encounter Summary ---
Author Organization [facility] Address [address] [place] [address] Care Team Providers Care Material Assembler Name Role Phone Vicki Mays NP Primary Care Provider [phone] Sam Morris MD Unavailable [phone] Encounter Details Date Type Department Care Team (Late st Contact Info) Description 08/09/[address] [facility] Pathology & Laboratory Medicine - [address] [phone] Outr Resulting Lab, Provider Social History Tobacco [...] Date of Assessment Author No 11/17/2022 16:56 EDT Alicia Laws RN * Do you have difficulty dressing or bathing? (5 years old or older) Answer Date of Assessment Author No 11/17/2022 16:56 EDT Alicia Laws RN * Because of a physical, mental, or emotional condition, do you have difficulty doing errands alone such as visiting a doctor's office or shopping? (15 years old or older) Answer Date of Assessment Author No 11/17/2022 16:56 EDT Alicia Laws RN documented as of this encounter Mental Status * Because of a physical, mental, or emotional condition, do you have serious difficulty concentrating, remembering, or making decisions? (5 years old or older) Answer Entry Date Author No 11/17/2022 16:56 EDT Alicia Laws RN documented in this encounter Plan of Treatment Not on file documented as of this encounter Procedures Procedure Name Priority Date/Time Associated Diagnosis Comments VITAMIN B12 Routine 08/09/2023 6:56 EDT documented in this encounter Results * (ABNORMAL) VITAMIN B12 (08/09/2023 6:56 EDT) Vitamin B12 1,043(H) 211 - 911 pg/mL 08/10/2023 9:40 EDT [facility] Blood VENOUS BLOOD / Unknown 08/09/2023 6:56 EDT 08/09/2023 15:44 EDT us Provider Outr Resulting Lab CHEMISTRY & BLOOD GA S ORDERABLES Final Result [facility] [address] [place] [address] documented in this encounter Visit Diagnoses Not on filedocumented in this encounter Care Teams Material Assembler Relationship Specialty Start Date End Date Vicki Mays NP [address] [place] [address] PCP - General 01/17/16 Sam Morris MD [address] [facility] [address] [place] [address] 11/17/22 documented as of this encounter
--- OUTSIDE RECORDS SUMMARY | 2024-04-05 13:43 | XMS_ITS | Encounter Summary ---
Author Organization [facility] Address [address] [place] [address] Care Team Providers Care Burner Machine Operator Name Role Phone Vicki Mays NP Primary Care Provider [phone] Sam Morris MD Unavailable [phone] Reason for Visit * Auth/Cert (Routine) Specialty Diagnoses / Procedures Referred By Olimpia lentz Referred To Contact Diagnoses Endometrial cancer ([facility]) Procedures SC LAPAROSCOPY W TOT HYSTERECTUTERUS <=250 GRAM W TUBE/OVARY SC INTRAOPERATIVE SENTINEL LYMPH NODE ID W DYE INJECTION SC LAP,PELVIC LYMPHADENECTOMY/BX SC LAPAROSCOPY TOT HYSTERECTOMY UTERUS >250 GRAM W TUBE/OVARY Robotic assisted total laparoscopic hysterectomy, bilateral salpingo-oophorectomy injection of ICG dye bilateral sentinel lymph node dissection Referral ID Status Reason Start Date Expiration Date Visits Re quested Visits Authorized [id number] 1 1 Encounter Details Date Type Department Care Team (Late st Contact Info) Description 11/17/2022 5:09 EDT - 11/18/2022 10:42 EDT Hospital Encounter [facility] Neurosurgery Unit [address] [place] [address] Seb Kwon MD [address] [facility], [facility] [address] [place] [address] Discharge Disposition: Home or Self Care Social History Tobacco Use Types Packs/Day Years [...] Sign Reading Time Taken Comments Blood Pressure 154/78 11/18/2022 0825 EDT Pulse - - Temperature 36.5 ??C (97.7 ??F) 11/18/2022 0825 EDT Respiratory Rate 15 11/18/2022 0825 EDT Oxygen Saturation 99% 11/18/2022 0825 EDT Inhaled Oxygen Concentration - - Weight [...] Alicia Laws RN documented in this encounter Discharge Summaries [...] Brizuela MD 11/18/22 6:08 OBGYN PGY-1 Pager #[phone] Cosigned by Seb Kwon MD at 11/27/2022 [...] follow-up appointment scheduled on 12/01/[address] Jcaob. * Attachments The following attachments cannot be sent through Care Everywhere. * enoxaparin (Bulgarian) * Enoxaparin (Lovenox) (Bulgarian) documented in this encounter Medications at Time [...] Means Destination Comment s Home or Self Group Home documented in this encounter Progress Notes * Emily Webb - 11/18/2022 1042 EDT Frannie Mora 1960 Endometrial cancer ([facility]) ([facility]) Chart review completed and discussed the plan of care with the direct care RN and/or primary care team. Primary Insurance: [employer] Secondary Insurance: none listed Patient with no apparent Case Management needs at this time. No housing, transportation, insurance,resources concerns identified at this time. Supports in place to achieve a safe post-hospital transition. No identified barriers to accessing necessary care and/or follow-up after discharge. electrical installation supervisor/Chemical Processor will continue to follow patient's progress and remain available if situation changes for coordination of care, psychosocial support and/or discharge planning. Patient discharged home prior to CM being able to meet for assessment. Chart reviewed and patient was discharged with no apparent CM needs. EMILY WEBB 11/18/2022 13:48 Emily Webb [facility] Assurance Sourcing Manager II Pager: [phone] * Jaime Nieves RN - 11/18/2022 0814 EDT Nursing Discharge Note D: Patient noted with discharge orders to: Home. A: Prescriptions e-scripted. Reviewed discharge instructions and prescriptions with Patient IV d/c'd. Belongings collected and sent home with patient. R: Patient verbalized understanding of discharge instructions and denied further questions. JAIME NIEVES RN 11/18/2022 8:14 * Seb Kwon MD - 11/18/2022 0537 EDT Gynecology Progress Note Service Date: 11/18/2022 [...] routine post op care 2/2 YANET. Plan Military Education Coordinator: s/p above procedure, final path pending. - scheduled follow-up on 12/01/[address] 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 Zofran, Diphenhydramine PRN for nausea. Colace, miralax for bowel regimen. : s/p Courtney. Voiding spontaneously. F/E/N: [facility]IV Endo: No active issues. Psych: History of anxiety and depression -continue PRINTING SHOP SUPERVISOR wellbutrin and fluoxetine Heme: Pre-op Hct 40, EBL 25cc. AM CBC pending ID: Afebrile, no active issues. S/p ancef/ flagyl VTE Prophylaxis: Ambulation, SCD's, Lovenox 40 mg BID per weight based dosing, plan for dc with 7 days Disposition: D/C home once tolerating po, pain well controlled, ambulating and voiding independently,likely this am LISA LOPEZ, 11/18/2022 5:24 Attending Jenny/Doyle I have personally examined and interviewed pt. I agree with residents note and plan. If tolerates diet and has good pain control. OK to d/c home later today. Seb Kwon MD * Guru Tolentino, RT - 11/17/2022 6537 EDT Respiratory Nocturnal BIPAP/CPAP Heart Rate: 76 [...] Admitted for routine post op care 2/2 YANTE. Plan Military Education Coordinator: s/p above procedure, final path pending. - scheduled follow-up on 12/01/[address] 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 Will monitor O2 Sat. -continue home CPAP GI: Regular diet as tolerated. Zofran, Diphenhydramine PRN for nausea. Colace, miralax for bowel regimen. : s/p Courtney. Voiding spontaneously. F/E/N: SLIV Endo: No active issues. 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 Morris at [facility] with menorrhagia despite progesterone treatment. Reported [...] No questions. Review of Systems: see HPI SUPERVISOR CABINETMAKER History OB History Menopause 10 years ago [...] Dr. Morris at [facility] with menorrhagia despite progesterone treatment. Reported [...] No questions. Review of Systems: see HPI SUPERVISOR CABINETMAKER History OB History Menopause 10 years ago [...] Procedure Laterality Date ??? SHOULDER SURGERY Right 2009 Social History Family History Social History Tobacco [...] retained. Seb Kwon MD / CD Confirmation: [id number] Dictation ID: [id number] cc: Seb Kwon MD, [facility], [address] [place] [address] Lisa Lopez DO, [address] [place] [address] Mirella aPz MD, [facility], [address] [place] [phone] documented in this encounter Miscellaneous Notes * Plan of Care - Emily Webb - 11/18/2022 1042 EDT 11/18/22 1347 Discharge Delay Risk Assessment 1. Disease/Medical Condition 5 Major Barrier day total 1-6 1 Minor or major discharge risk delay(s) present? No discharge barriers identified Does the patient meet criteria to be escalated? No Initial assessment status Initial assessment complete? Yes Emily Webb LMSW Assurance Sourcing Manager II Pager: [phone] * Result Encounter Note - Seb Kwon [...] Care - Uriel Rosas RN - 11/18/2022 0645 EDT Problem: Daily Care Plan Goals Goal: [...] Documentation Outcome: Ongoing Data: Pt admitted to I0111-1 from PACU s/p TLH BSO and sentinel [...] - 11/17/2022 1119 EDT Date: 11/17/2022 Location: [facility] OR Name: Frannie Mora, : 1960, Diagnosis [...] Fluids: 2200 mL UOP: 250 cc Staff: Currency Counter: Gilma Malik RN Scrub Person: Rosmery Bailey RN Patient Health And Nutrition Specialist: Unique Trejo Indications: Frannie Mora is an [...] of surgery - 3-day expiry Collected By: Symone Salazar RN 11/17/2022 6:03 Where will surgery be performed? [facility] Results Release to Patient (Note: Choosing Manual Release will only block results from tests performed at [facility] and does not apply for Miscellaneous Test Order) Immediate via Strut PATIENT RE-TYPE Blood, Venous Collected By: Shanelle Jalloh AA 11/17/2022 8:17 Results Release to Patient (Note: Choosing Manual Release will only block results from tests performed at [facility] and does not apply for Miscellaneous Test Order) Immediate via Strut Lisa Lopez D.O. 11/17/2022 11:21 OBGYN PGY-4 [...] 250 GRAMS 11/17/2022 7:36 EDT Endometrial cancer ([facility]) TYPE AND SCREEN Routine 11/17/2022 6:28 EDT documented in this encounter Results * (ABNORMAL) COMPLETE BLOOD COUNT (11/18/2022 7:12 EDT) WBC 17.09(H) 4.00 - 12.40 K/cmm 11/18/2022 8:15 [facility] RBC 4.44 3.86 - 5.04 M/cmm 11/18/2022 8:15 [facility] Hemoglobin 13.1 11.6 - 15.2 g/dL 11/18/2022 8:15 [facility] HCT 38.6 34.9 - 44.4 % 11/18/2022 8:15 [facility] MCV 87 81 - 98 fL 11/18/2022 8:15 [facility] MCH 29.5 26.7 - 33.3 pg 11/18/2022 8:15 [facility] MCHC 33.9 32.1 - 35.9 g/dL 11/18/2022 8:15 [facility] RDW-CV 13.1 <14.7 % 11/18/2022 8:15 [facility] RDW-SD 41.2 <50.4 fl 11/18/2022 8:15 EDT [facility] PLT 305 141 - 377 K/cmm 11/18/2022 8:15 EDT [facility] MPV 11.1 9.5 - 12.7 fL 11/18/2022 8:15 EDT [facility] Blood VENOUS BLOOD / Unknown Venipuncture / Unknown 11/18/2022 7:12 EDT 11/18/2022 8:04 EDT us Lisa Lopez DO HEMATOLOGY & PF4 ORDERABL ES Final Result [facility] [address] [place] [address] * SURGICAL PATHOLOGY (11/17/2022 8:55 EDT) Note to Patient The following pathology results have been interpreted by your pathologist and may be available to you before your health provider has had the opportunity to review them. Please allow time for your provider to receive these results and explore management options, if applicable. 11/20/2022 16:35 EDT [facility] Final Diagnosis A. LYMPH NODES, [...] negative for metastatic carcinoma (0/2). 11/20/2022 16:35 EDT [facility] Diagnosis Comment Ultrastaging of the pelvic sentinel lymph node(s) is not performed in the absence of myoinvasion or lymphovascular invasion. Immunohistochemical staining for mismatch repair (MMR) proteins was previously performed on the curettage. 11/20/2022 16:35 [facility] Attestation By the signature below, the attending physician certifies that they have 1) personally conducted a gross and/or microscopic examination of the described specimen(s), and/or personally interpreted the results of laboratory testing of the described specimen(s), and 2) personally rendered or confirmed the above diagnosis. 11/20/2022 16:35 [facility] at 1635 Synoptic ENDOMETRIUM ENDOMETRIUM: [...] STAGE ?? FIGO Stage: ?IA 11/20/2022 16:35 [facility] Clinical History Endometrial cancer ([facility]) ([facility]) 11/20/2022 16:35 [facility] Gross Description A. Received in [...] surface. Sectioning reveals a patent unremarkable lumen. Flooring Professional sections are submitted as follows: BLOCK SIMON [...] RAJ ALFONSO(ASCP) 11/18/2022 12:04 11/20/2022 16:35 EDT [facility] Performing Lab [facility] 11/20/2022 16:35 EDT [facility] Scanned Images 11/20/2022 16:35 EDT [facility] Tissue UTERUS, FALLOPIAN TUBES AND OVARIES, CS / Unknown 11/17/2022 8:55 EDT 11/17/2022 21:48 EDT Tissue specimen (specimen) ENTIRE LYMPH NODE / Unknown 11/17/2022 9:17 EDT 11/17/2022 21:48 EDT Tissue specimen (specimen) ENTIRE LYMPH NODE / Unknown 11/17/2022 10:43 EDT 11/17/2022 21:48 EDT us Seb Kwon MD PATHOLOGY ORDERABLES Final Resul t Performing Organization Address City/[facility]/ZIP Co de Phone Number [facility] [address] [place] [address] * PATIENT RE-TYPE (11/17/2022 8:00 EDT) ABO A 11/17/2022 8:44 EDT [facility] Rh Factor Positive 11/17/2022 8:44 EDT [facility] Blood VENOUS BLOOD / Unknown Venipuncture / Unknown 11/17/2022 8:00 EDT 11/17/2022 8:27 EDT us Seb Kwon MD BLOOD BANK TESTS Final Result [facility] [address] [place] [address] * TYPE AND SCREEN (11/17/2022 6:28 EDT) ABO A 11/17/2022 7:30 EDT [facility] Rh Factor Positive 11/17/2022 7:30 EDT [facility] Antibody Screen Negative 11/17/2022 7:30 EDT [facility] Specimen Expires: 11/20/2022 @ 23:59 11/17/2022 7:30 EDT [facility] Blood VENOUS BLOOD / Unknown Venipuncture / Unknown 11/17/2022 6:28 EDT 11/17/2022 6:41 EDT Lisa Lopez DO BLOOD BANK TESTS Edited R dicksonult - Final [facility] [address] [place] [address] documented in this encounter Visit Diagnoses Diagnosis [...] Routine Given 11/17/2022 20:42 EDT 600 mg lactated ringers (LR) infusion at 25 mL/hr, [...] mg Given 11/17/2022 19:04 EDT 10 mg documented in this encounter Discontinued Medications Medication [...] On Unit 1225 (Given - Provider: Liliana Vallejo, YARELI) acetaminophen (TYLENOL) tablet 1,000 mg (COMPLETED) 1,000 mg, oral, PRE-OP ONCE, 1 dose, On Thu11/17/22 at 0630, Routine, Preprocedure 0629 (Given - Provider: Symone Salazar, YARELI) acetaminophen (TYLENOL) tablet 650 mg 650 mg, oral, EVERY 4 HOURS, First dose on Thu11/17/22 at 1700, Until Discontinued, Routine 1733 (Given - Provider: Yoanna Laws RN)2042 (Given - Provider: Yoanna Laws RN) 0016 (Given - Provider: Uriel Rosas, YARELI)0500 (Given - Provider: Uriel Rosas, YARELI)0900 (Canceled Entry - Provider: Batch Job User [...] Discontinued, Routine 826 (Given - Provid er: Jaime Nieves RN) heparin injection 5,000 Units (COMPLETED) [...] RN) 0016 (Given - Provider: Uriel Rosas RN)0653 (Given - Provider: Uriel Rosas RN) polyethylene [...] citrate (PF) injection 25-50 mcg 1 11/17/2022 indocyanine green (IC-GREEN) injection 1 lactated ringers (LR) infusion 1 11/17/2022 lidocaine (PF) 10 mg/mL (1 % ) injection 2 mg 1 11/17/2022 metoclopramide (REGLAN) injection 10 mg 1 0 11/17/2022 metronidazole (FLAGYL) infusion 500 mg 1 naloxone (NARCAN) injection 0.2 mg 1 2022 ondansetron (PF) (ZOFRAN) injection 4 mg 1 11/17/2022 ondansetron (ZOFRAN-ODT) dis integrating tablet 4 mg 1 11/17/2022 polyethylene glycol 3350 (AK RALAX) packet 17 g 1 11/17/2022 sodium chloride 0.9 % 1,000 mL with methylene blue (PROVAYBLUE) 5 mL 1 11/17/2022 sodium chloride 0.9 % irrigation 1 11/18/19 sterile water (bottle) irrigation 1 023 Nursing Count Last Ordered Date First Orde red Date VTE PHARMACOLOGIC PROPHYLAXI S CURRENTLY ORDERED OR ON ALTERNATIVE THER 1 11/17/2022 Transfer Count Last Ordered Date First Orde red Date TRANSFER PATIENT 1 11/17/2022 Discharge Count Last Ordered Date First Orde red Date DISCHARGE PATIENT 1 11/18/2022 documented in this encounter Care Teams Burner Machine Operator Relationship Specialty Start Date End Date Vicki Mays NP [address] [place] [address] PCP - General 01/17/16 Sam Morris MD [address] [place] [address] [place] [phone] 11/17/22 documented as of this encounter
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
--- OUTSIDE RECORDS SUMMARY | 2024-04-05 13:43 | XMS_ITS | Encounter Summary ---
Author Organization [facility] Address [address] [place] [address] Care Team Providers Care Tank Stave Assembler Name Role Phone Vicki Mays NP Primary Care Provider [phone] Sam Morris MD Unavailable [phone] Reason for Visit * Reason Comments Post-OP Follow Up Post op follow up; Rafa Trejo TLH/BSO ICG, SLND 11/17/22 Encounter Details Date Type Department Care Team (Late st Contact Info) Description 02/26/2023 11:00 EDT Office Visit [facility] OBGYN Services - [address] [address] Yessenia Huddleston, PA-C [address] [facility], [address] [place] [address] Encounter for follow-up surveillance of endometrial cancer (Primary Dx) Social History Tobacco Use Types Packs/Day Years Used Date Smoking Tobacco: Never Smokeless Tobacco: Never Tobacco Cessation:Counseling Given: Not Answered Alcohol Use Standard Drinks/Week Comments Not Currently [...] Sign Reading Time Taken Comments Blood Pressure 142/84 02/26/2023 1102 EDT Pulse - - Temperature - - Respiratory Rate - - Oxygen Saturation - - Inhaled Oxygen Concentration - - Weight 151.2 kg (333 lb 6.4 oz) 02/26/2023 1102 EDT Height - - Body Mass Index 50.69 11/17/2022 0704 EDT documented in this encounter [...] Alicia Gomez RN documented in this encounter Progress Notes * Yessenia Huddleston PA-C - 02/26/2023 1100 EDT GYNECOLOGIC ONCOLOGY VISIT NOTE Date of service: 02/26/2023 Patient Identification: Name: Frannie Mora Reason for Visit: Follow up - history of endometrial cancer Subjective: HPI: Frannie Mora is a 62 y.o. s/p RA TLH, BSO, SLND on 11/17/2022. Final pathology demonstrated FIGO grade 1 stage IA endometrial adenocarcinoma, endometrioid type with squamous differentiation. Today Frannie reports to be feeling well overall. She does have a pulling sensation in her pelvic area and a numbness sensation in her left thigh. She is still feeling fatigued but wonders if it's 2/2 to not sleeping well due to her sleep apnea. She is eating and drinking without difficultly. Bowel/Bladder function has returned to normal. Denies fevers, chills, nausea, vomiting. Objective: BP (!) 142/84 Wt (!) 151.2 kg (333 lb 6.4 oz) BMI 50.69 kg/m?? Physical Exam: Constitutional: Oriented to person, [...] G1 FIGO stage IA endometrial adenocarcinoma on 11/17/22. Frannie has recovered well from surgery. She is without evidence of disease recurrence on clinical exam, and she is without worrisome symptoms. Per the most recent SGO guidelines, I didnot obtain a vaginal pap smear, as there were no concerning lesions on her vaginal exam. We discussed the signs and symptoms that would be concerning for recurrent endometrial cancer (vaginal bleeding, abdominal pain, pressure, bloating or changes in bowel or bladder habits), and she knows to call our office for sooner evaluation if she should experience any symptoms such as these. Surveillance vi sits q 3-4 months for 2 years, followed by q 6 months for a total of 5 years. Imaging only as clinically indicated. Plan: - follow up 3 months or sooner as needed Yessenia Huddleston PA-C Gynecologic Oncology [id number] documented in this encounter Plan of Treatment Not on file documented as of this encounter Visit Diagnoses Diagnosis Encounter for follow-up surveillance of endometrial cancer- Primary Unspecified follow-up examination documented in this encounter Care Teams Tank Stave Assembler Relationship Specialty Start Date End Date Vicki Mays NP [address] [place] [address] PCP - General 01/17/16 Sam Morris MD [address] [facility] [address] [place] [address] 11/17/22 documented as of this encounter
--- OUTSIDE RECORDS SUMMARY | 2024-04-05 13:43 | XMS_ITS | Referral Summary ---
Author Organization [facility] Address [address] [place] [address] Care Team Providers Care Window Trimmer Name Role Phone Vicki Mays NP Primary Care Provider [phone] Sam Morris MD Unavailable [phone] Encounters Date Type Department Care Team Description 03/03/2024 10:15 EDT Office Visit [facility] OBGYN Services - [facility] [address] [place] [address] Yessenia Huddleston, PADarwinC Encounter for follow-up surveillance of endometrial cancer (Primary Dx) from Last 3 Months Allergies Active Allergy Reactions Criticality Noted Date Comments Liraglutide Nausea And Vomiting 10/03/2022 Crazy sick Medications FLUoxetine (PROZAC) 20 mg capsule Take 1 Capsule by mouth daily. Active olmesartan (BENICAR) 20 mg tablet Take 1 Tablet by mouth daily. Active progesterone (PROMETRIUM) 200 mg capsule Take 1 Capsule by mouth daily. Active LORazepam (ATIVAN) 0.5 mg tablet Take 2 Tablets by mouth at bedtime as needed. Active Multivitamins with Minerals tablet tablet Take 1 Tablet by mouth daily. Active VITAMIN B COMPLEX ORAL Take by mouth. Ac tive ergocalciferol, vitamin D2, (VITAMIN D ORAL) Take by mouth. Activ e chlorhexidine gluconate 4 % (E-Z SCRUB 107) sponge Use as directed in pre-op showering instructions. 2 Each 3 Active Additional Information Patient not taking.Reported on 12/01/2022 famotidine (PEPCID) 40 mg tablet Take 1 Tablet by mouth daily. Active acetaminophen (TYLENOL) 500 mg tablet Take 2 Tablets by mouth every 6 hours as needed for Pain. 3 Active ibuprofen (MOTRIN) 200 mg tablet Take 4 Tablets by mouth every 8 hours as needed for Pain. 3 Active buPROPion (WELLBUTRIN XL) 300 mg XL tablet Take 1 Tablet by mouth daily. 3 Active oxyCODONE (ROXICODONE) 5 mg immediate release tablet Take 1 Tablet by mouth every 4 hours as needed for Pain. Daily Max: 30 mg 6 Tablet 3 Active Additional Information Patient not taking.Reported on 12/01/2022 ONETOUCH VERIO TEST STRIPS test strips TAKE 1 STRIP EVERY DAY BY MISCELL. ROUTE BEFORE MEAL(S). 4 Active ONETOUCH VERIO REFLECT METER Use as directed. 4 Active glipiZIDE (GLUCOTROL) 5 mg tablet Take 1 Tablet by mouth 2 times daily. 4 Active LANTUS SOLOSTAR U-100 INSULIN 100 unit/mL (3 mL) injection pen Inject 10 Units into the skin daily. 4 Active ONETOUCH DELICA PLUS LANCET 33 gauge misc USE TO TEST BLOOD SUGAR 4 Active Active Problems Problem Noted Date Diagnosed Date Endometrial adenocarcinoma ([facility]) 11/17/2022 Endometrial cancer ([facility]) 10/09/2022 Overview (10/09/2022): Added automatically from request for surgery [id number] Varicella 10/03/2022 Anxiety and depression 10/03/2022 Hypertension 10/03/2022 Social History Tobacco Use Types Packs/Day Years [...] on file Sexual Orientation Not on file Last Filed Vital Signs Vital Sign Reading Time Taken Comments Blood Pressure 138/76 09/03/2023 1037 EDT Pulse 100 07/01/2023 1358 EST Temperature 37.4 ??C (99.3 ??F) 07/01/2023 1358 EST Respiratory Rate 16 07/01/2023 1358 EST Oxygen Saturation 97% 07/01/2023 1358 EST Inhaled Oxygen Concentration - - Weight 144.2 kg (318 lb) 03/03/2024 1036 EDT Height 172.7 cm (5' 8) 11/17/2022 0704 EDT Body Mass Index 48.35 11/17/2022 0704 EDT Functional Status * Are you deaf or [...] Author No 11/17/2022 16:56 Alicia Gomez RN Mental Status * Because of a physical, mental, or emotional condition, do you have serious difficulty concentrating, remembering, or making decisions? (5 years old or older) Answer Entry Date Author No 11/17/2022 16:56 Alicia Gomez RN Plan of Treatment Not on file Insurance [facility] [place] [id number] [place] [address] [place] [address] Advance Directives For more information, please contact: [phone] * Full Code (Latest Code Status on File) Date Activated Date Inactivated Comments 11/17/2022 16:44 11/18/2022 12:47 Question Answer Comments When the patient has NO PULSE: Full Code / CPR Who Made the Decision? Default/Not Discussed * Full Code Date Activated Date Inactivated Comments 11/17/2022 6:03 11/17/2022 16:44 Question Answer Comments When the patient has NO PULSE: Full Code / CPR Who Made the Decision? Patient Care Teams Window Trimmer Relationship Specialty Start Date End Date Vicki Mays NP 4 [facility] [place] [address] PCP - General 01/17/16 Sam Morris MD [address] [facility] [address] [place] [address] 11/17/22
--- OUTSIDE RECORDS SUMMARY | 2024-04-05 13:43 | XMS_ITS | Encounter Summary ---
Author Organization [facility] Address [address] [place] [address] Care Team Providers Care Cartridge Feeder Name Role Phone Vicki Mays NP Primary Care Provider [phone] Sam Morris MD Unavailable [phone] Reason for Visit * Reason Comments Surveillance 6m surveillance; hx endometrial cancer Encounter Details Date Type Department Care Team (Late st Contact Info) Description 03/03/2024 10:15 EDT Office Visit [facility] OBGYN Services - [facility] [address] [place], [place] [id number] Yessenia Huddleston, PA-C [address] [place] [address], [address] [place] [address] Encounter for follow-up surveillance of [...] Sign Reading Time Taken Comments Blood Pressure - - Pulse - - Temperature - - Respiratory Rate - - Oxygen Saturation - - Inhaled Oxygen Concentration - - Weight 144.2 kg (318 lb) 03/03/2024 1036 EDT Height - - Body Mass Index 48.35 11/17/2022 0704 EDT documented in this encounter Functional Status * Are you deaf or do you have serious difficulty hearing? Answer Date of Assessment Author No 11/17/2022 16:56 Alicai Gomez RN * Are you blind or do you have serious difficulty seeing, even when wearing glasses? Answer Date of Assessment Author No 11/17/2022 16:56 EDT Alicia Laws RN * Do you have serious difficulty [...] Progress Notes * Yessenia Huddleston PA-C - 03/03/2024 1015 EDT GYNECOLOGIC ONCOLOGY VISIT NOTE Date of service: 03/03/2024 Patient Identification: Name: Frannie Mora Reason for Visit: Follow up - history of endometrial cancer Subjective: HPI: Frannie Mora is a 63 y.o. with a history of endometrial cancer who is s/p RA TLH, BSO, SLND on11/17/2022. Final pathology demonstrated FIGO grade 1 stage IA endometrial adenocarcinoma, endometrioid type with squamous differentiation. Today Frannie reports to be feeling well overall. She has mild fatigue. Appetite is normal. No issuesurinating or moving her bowels. She has chronic shortness of breath with exertion. She denies vaginal bleeding, pelvic pain, abdominal pain/bloating/distention, early satiety, unintentional weight loss, fevers, chills, fatigue, hot flashes, night sweats, nausea, vomiting, shortness of breath, chestpain, hematochezia/hematuria, and lower extremity edema. She has not had any abnormal vaginal discharge, vulvar irritation or itching. Review of Systems: A 10 point review of systems was performed and was negative, pertinent positives are listed in the HPI. Objective: Wt (!) 144.2 kg (318 lb) BMI 48.35 kg/m?? Physical Exam: Constitutional: Oriented to person, [...] content normal. Assessment: Frannie Mora is an 63 y.o. female s/p RA TLH, BSO, SLND for G1 FIGO stage IA endometrial adenocarcinoma on 11/17/2022. Frannie continues to do well. She is without evidence of disease recurrence on clinical exam, and she is without worrisome symptoms. We discussed the signs and symptoms that would be concerning for recurrent endometrial cancer (vaginal bleeding, abdominal pain, pressure, bloating orchanges in bowel or bladder habits), and she knows to call our office for sooner evaluation if she should experience any symptoms such as these. Surveillance visits q 3-4 months for 2 years, followedby q 6 months for a total of 5 years. Imaging only as clinically indicated. Plan: - follow up 3-4 months or sooner as needed Yessenia Huddleston PA-C Gynecologic Oncology [id number] documented in this encounter Plan of Treatment Not on file documented as of this encounter Visit Diagnoses Diagnosis Encounter for follow-up surveillance of endometrial cancer- Primary Unspecified follow-up examination documented in this encounter Care Teams Cartridge Feeder Relationship Specialty Start Date End Date Vicki Mays NP [address] [place] [address] PCP - General 01/17/16 Sam Morris MD [address] [facility] [address] [place] [address] 11/17/22 documented as of this encounter
--- OUTSIDE RECORDS SUMMARY | 2024-04-05 13:43 | XMS_ITS | Encounter Summary ---
Author Organization [facility] Address [address] [place] [address] Care Team Providers Care Electronics Processor Name Role Phone Vicki Mays NP Primary Care Provider [phone] Sam Morris MD Unavailable [phone] Encounter Details Date Type Department Care Team (Late st Contact Info) Description 11/09/2023 Lab Requisition [facility] Pathology & Laboratory Medicine - [facility] [address] [place], [place] [id number] Elsi Reese, PA [address] [place] [address] Neoplasm of uncertain behavior of skin Social History Tobacco Use Types Packs/Day Years [...] of Assessment Author No 11/17/2022 16:56 Alicia Gomez, RN * Are you blind or do [...] Procedure Name Priority Date/Time Associated Diagnosis Comments SURGICAL PATHOLOGY Today 11/09/2023 10 :32 EDT Neoplasm of uncertain behavior of skin documented in this encounter Results * SURGICAL PATHOLOGY (11/09/2023 10:32 EDT) Note to Patient The following pathology results have been interpreted by your pathologist and may be available to you before your health provider has had the opportunity to review them. Please allow time for your provider to receive these results and explore management options, if applicable. 11/10/2023 16:53 [facility] Final Diagnosis A. SKIN OF NASAL DORSUM, SHAVE BIOPSY: - Basal cell carcinoma, nodular type, involving the biopsy base and peripheral edge. B. SKIN OF MALAR CHEEK, RIGHT MEDIAL, SHAVE BIOPSY: - Basal cell carcinoma, nodular type, involving the biopsy base and peripheral edge. 11/10/2023 16:53 [facility] Attestation By the signature below, the attending physician certifies that they have 1) personally conducted a gross and/or microscopic examination of the described specimen(s), and/or personally interpreted the results of laboratory testing of the described specimen(s), and 2) personally rendered or confirmed the above diagnosis. 11/10/2023 16:53 [facility] at 1653 Clinical History A, B. Pearly telangiectatic papule; Ddx: BCC vs SCC; clinical diagnosis code: D48.5 11/10/2023 16:53 EDT [facility] Gross Description A. Received in formalin labelled with proper patient identification (initials K, N) and nasal dorsum is a 0.7 x 0.7 cm duron irregular skin shave. The epidermis displays a 0.5 x 0.5 cm duron-white irregular papule which is less than 0.1 cm from closest peripheral margin. The specimen is inked, bisected and entirely submitted in A1. B. Received in formalin labelled with proper patient identification (initials K, N) and right medial malar cheek is a 1.2 x 0.9 cm duron irregular skin shave. The epidermis displays a central 0.8 x 0.5 cm white irregular nodule which is less than 0.1 cm from closest peripheral margin. The specimen is inked, trisected and entirely submitted in B1. RAJ FRANCOIS(ASCP) 11/10/2023 7:58 11/10/2023 16:53 T [facility] Performing Lab [facility] 11/10/2023 16:53 T [facility] Scanned Images 11/10/2023 16:53 T [facility] Tissue SPECIMEN FROM SKIN / Unknown 11/09/2023 10:32 EDT 11/09/2023 22:37 EDT Tissue specimen (specimen) SPECIMEN FROM SKIN / Unknown 11/09/2023 10:32 EDT 11/09/2023 22:37 EDT us Elsi ANTHONY PATHOLOGY ORDERABLES Final Res ult [facility] [address] [place] [address] documented in this encounter Visit Diagnoses Diagnosis Neoplasm of uncertain behavior of skin documented in this encounter Care Teams Electronics Processor Relationship Specialty Start Date End Date Vicki Mays NP [address] [place] [address] PCP - General 01/17/16 Sam Morris MD [address] [facility] [address] [place] [address] 11/17/22 documented as of this encounter
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
--- OUTSIDE RECORDS SUMMARY | 2024-04-05 13:43 | XMS_ITS | Encounter Summary ---
Author Organization [facility] Address [address] [place] [address] Care Team Providers Care Marker Delivery Name Role Phone Vicki Mays NP Primary Care Provider Sam Morris MD Unavailable [phone] Reason for Visit * Auth/Cert (Routine) Specialty Diagnoses / Procedures Ref[facility] Referred To Contact Diagnoses Endometrial cancer ([facility]) Procedures SD LAPAROSCOPY W TOT HYSTERECTUTERUS <=250 GRAM W TUBE/OVARY SD INTRAOPERATIVE SENTINEL LYMPH NODE ID W DYE INJECTION SD LAP,PELVIC LYMPHADENECTOMY/BX SD LAPAROSCOPY TOT HYSTERECTOMY UTERUS >250 GRAM W TUBE/OVARY Robotic assisted total laparoscopic hysterectomy, bilateral salpingo-oophorectomy injection of ICG dye bilateral sentinel lymph node dissection Referral ID Status Reason Start Date Expiration Date Visits Re quested Visits Authorized [id number] 1 1 Encounter Details Date Type Department Care Team (Late st Contact Info) Description 11/17/2022 7:36 EDT Anesthesia Event [facility] Main [place] [address] [place], [place] [id number] Rubén Manzo MD PhD [address] [id number] Sam Tejeda MD [address] [phone] Anesthesia Record Procedure Summary Procedure Name Responsible Anesthesiologist Anesthesia Start Time Anesthesia Stop Time Robotic assisted total laparoscopic hysterectomy, bilateral salpingo-oophorectomy (Bilateral: Abdomen) Rubén Manzo MD PhD 11/17/22 0736 11/17/22 1200 Events Date Time Event Comment 11/17/2022 0736 An Start The patient was re-evaluated immediately before moderate or deep sedation use, before anesthesia induction, or before the anesthesia procedure. 0736 An Start Data 0749 An Intubation 0753 IV Placed 0802 Anesthesia Ready 1135 Jimmy 7.5 NPA to left nare 1140 An Extubation Simple mask 8 LPM to pacu 1150 an stop data 1200 Handoff to RN I completed my handoff to the receiving nurse during which we: 1. Identified the patient 2. Identified the responsible provider 3. Reviewed the pertinent medical history 4. Discussed the surgical course 5. Reviewed intra-op anesthesia management and issues during anesthesia 6. Set expectations for post-procedure period 7. Allowed opportunity for questions and acknowledgement of understanding. 1200 An Stop Meds Name Total dexaMETHasone (DECADRON) injection 4 mg/ mL (for IV doses up to 10mg) 8 mg fentanyl citrate (PF) injection 100 mcg HYDROmorphone vial 2 mg/mL 1 mg ketAMINE 5 mL prefilled syringe 30 mg midazolam (versed) 1 mg/mL 2 mL vial 2 m g ondansetron (PF) (ZOFRAN) injection 4 mg lidocaine 2% (PF) injection glass vial 8 0 mg phenylephrine pre-filled syringe 7,845 m cg propOFol (DIPRIVAN) injection 4,095,996 mcg rocuronium 10 mg/mL vial 130 mg sugammadex 100 mg/mL 2 mL vial 400 mg metronidazole (FLAGYL) infusion 500 mg 5 00 mg ceFAZolin (ANCEF) syringe 3 g 3 g scopolamine 1.5 mg/72 hr patch 1 Patch ketOROLAC injection 15 mg lactated ringers (LR) infusion 1,000 mL lactated ringers (LR) infusion 1,200 mL * Agents Name O2 N2O Air * Blood No blood administrations on file. Lines, Drains, and Airways Type Details Placement Removal Wound 11/17/22; 0848; Inci aditi; Anterior; Abdomen; 5 trocar incisions, dermabond as dressing 11/17/22 0848 by Gilma Malik RN Peripheral IV 11/17/22; 0615; 20; 1.5; B Avilez Introcan; Left; Antecubital; Inserted by RN (Nati Manzano); 1; None; 2% Chlorhexidine with IPA; 11/18/22; 0811; Discharged 11/17/22 0615 by Symone Salazar RN 11/18/22 0811 by Manjit Nieves RN Peripheral IV 11/17/22; 0753; 18; Left; Wrist; In OR by MD (jennifer HOU); 1; 11/18/22; 0811; Discharged 11/17/22 0753 by Jennifer Jalloh AA 11/18/22 0811 by Manjit Nieves RN Non-Surgical Airway 11/17/22; 0816 (crea thu via procedure documentation); 11/17/22; 1148 11/17/22 0816 by Jennifer Jalloh AA 11/17/22 1148 by Jennifer Jalloh AA Urethral Catheter 11/17/22; 0844; In O R by MD; Intraoperative monitoring; Non-latex; 16 fr; 10 ml; Yes; 11/17/22; 1700 (was removed earlier in the day, not sure of dc time) 11/17/22 0844 by Gilma Malik RN 11/17/22 1700 by Shaina Rosas RN documented in this encounter Social History Tobacco [...] on file documented as of this encounter Mental Status * Because of a physical, mental, or emotional condition, do you have serious difficulty concentrating, remembering, or making decisions? (5 years old or older) Answer Entry Date Author No 11/17/2022 16:56 EDT Alicia Laws RN documented in this encounter OR Notes * Anesthesia Postprocedure Evaluation - Jennifer Jalloh AA - 11/17/2022 1201 EDT Patient: Frannie Mora Vital signs were reviewed with the recovery nurse. [facility] Vit[facility] Value Taken Time BP 113/62 11/17/22 1154 Temp 36 11/17/22 1201 Resp 16 11/17/22 1200 Pulse From Oximetry 79 BPM 11/17/22 1200 SpO2 97 % 11/17/22 1200 Heart Rate 79 BPM 11/17/22 1200 Vitals shown include unvalidated device data. Last Pain Score - Numeric Pain Level (Scale 1-10): 6 Type of Anesthesia - general Anesthesia Post Evaluation Post-procedure vitals reviewed and are stable. Level of consciousness: awake and responsive/arousable to verbal stimuli Temperature status: normothermia Respiratory status: airway patent, stable, O2 Sat-within patient's normal range and face mask (NPA in left nare) Cardiovascular status: stable and acceptable Hydration status: adequate Nausea/Vomiting: none Pain management: adequate Post-Op Assessment: patient tolerated procedure well with no complications Patient participation: unable to participate due to sedation Disposition: inpatient Anesthesia Complications: No apparent anesthesia complications * Anesthesia Procedure Notes - Jennifer Jalloh AA - 11/17/2022 0815 EDTAssociated Order(s): Airway Airway Date/Time: 11/17/2022 7:49 Urgency: elective Airway not difficult General Information and Staff Patient location during procedure: OR Anesthesiologist: Rubén Manzo MD PhD Resident/MASTER MOTORCYCLE TECHNICIAN: Jennifer Jalloh AA Performed: resident/MASTER MOTORCYCLE TECHNICIAN/ELLIE Performed by: Jennifer Jalloh AA Authorized by: Rubén Manzo MD PhD Indications and Patient Condition Indications for airway management: anesthesia Sedation level: GA Preoxygenated: yes Patient position: sniffing Ventilation assessment: 1 - Easy Final Airway Details Final airway type: endotracheal airway Successful airway: ETT Cuffed: yes Successful intubation technique: video laryngoscopy Doyle Facilitating devices/methods: intubating stylet Endotracheal tube insertion site: oral Blade: Yoon Blade size: #3 ETT size (mm): 7.5 Cormack-Lehane Classification: grade I - full view of glottis Placement verified by: chest auscultation, capnometry and palpation of cuff Measured from: teeth ETT to teeth (cm): 22 Number of attempts at approach: 1 * Anesthesia Preprocedure Evaluation - Rubén Manzo MD PhD - 11/16/2022 1239 EDT Anesthesia Preprocedure Evaluation Nauseated in pre op. Rare GERD Sx. Objective fever 2 nights ago (99.9 F). Rapid covid test was negative. Took tylenol. In morning, felt fine, fever gone; no other Sx indicative of infection. Patient Medical History, including Anesthesia History reviewed. Chart and Nursing Notes reviewed, including NPO status and Medication History. Additional ROS/History Findings: 149.7KG Frannie Mora is a 61 year old female presenting for Robotic Lap Hysterectomy. PMH includes obesity, Anxiety, Depression, DM2, HTN and daily, heavy vaginal bleeding (endometrial CA). Residual effects ofCovid in June and some abdominal bloating causes SOB with exertion. No anesthesia records on file. No EKG on file Allergies Allergen Reactions ??? Victoza [Liraglutide] Nausea And Vomiting Review of Systems Past Medical History: Diagnosis Date ??? Anxiety 11/10/22 med controlled ??? Depression 11/10/22 med controlled ??? Endometrial cancer ([facility]) ([facility]) ??? Exercise involving walking 11/10/22 walks daily, able to go up 2 flight of stairs w/o sob ??? History of general anesthesia 11/10/22 med controlled ??? Hypertension 11/10/22 med controlled ??? Menorrhagia Relevant Problems CARDIOVASCULAR (+) Hypertension Physical Exam Airway Mallampati: IV Comments: obese Cardiovascular - normal exam Dental - normal exam Pulmonary - normal exam Abdominal Anesthesia Plan ASA 3 Anesthesia Type - general Anesthesia plan and risks discussed. Informed consent obtained from patient. Specific risks discussed were bleeding, myocardial infarction, nerve damage, dental injury, nausea,vomiting and post-op intubation. PAT Note Notes from 10/17/22 through 11/16/22 No notes of this type exist for this encounter. documented in this encounter Plan of Treatment Not on file documented as of this encounter Procedures Procedure Name Priority Date/Time Associated Diagnosis Comments ANESTHESIA INTUBATION Routine 11/17/2022 7:49 EDT documented in this encounter Results * SD AN ELECTIVE ENDOTRACHEAL AIRWAY (11/17/2022 7:49 EDT) Narrative Jennifer Jalloh AA - 11/17/2022 7:49 EDT Jennifer Jalloh AA ? 11/17/2022 ??8:16 Airway Date/Time: 11/17/2022 7:49 Urgency: elective Airway not difficult General Information and Staff Patient location during procedure: OR Anesthesiologist: Rubén Manzo MD PhD Resident/MASTER MOTORCYCLE TECHNICIAN: Jennifer Jalloh AA Performed: resident/MASTER MOTORCYCLE TECHNICIAN/AA Performed by: Jennifer Jalloh AA Authorized by: Rubén Manzo MD PhD ?? Indications and Patient Condition Indications for airway management: anesthesia Sedation level: GA Preoxygenated: yes Patient position: sniffing Ventilation assessment: 1 - Easy Final Airway Details Final airway type: endotracheal airway Successful airway: ETT Cuffed: yes Successful intubation technique: video laryngoscopy Doyle Facilitating devices/methods: intubating stylet Endotracheal tube insertion site: oral Blade: Yoon Blade size: #3 ETT size (mm): 7.5 Cormack-Lehane Classification: grade I - full view of glottis Placement verified by: chest auscultation, capnometry and palpation of cuff Measured from: teeth ETT to teeth (cm): 22 Number of attempts at approach: 1 Rubén Manzo MD PhD ANESTHESIA ORDERABLES Fin al Result documented in this encounter Visit Diagnoses Not on filedocumented in this encounter Administered Medications Inactive Administered Medications - up to 3 most recent administrations Medication Order MAR Action Action Date Dose Rate Site ceFAZolin (ANCEF) syringe 3 g 3 g, intravenous, Administer over 5 Minutes, PRE-OP ONCE, 1 dose, On Thu11/17/22 at 0630, Routine, Preprocedure Given 11/17/2022 8:01 EDT 3 g dexAMETHasone (DECADRON) injection intravenous, PRN, Starting on Thu11/17/22 at 0810, Until Thu11/17/22 at 1200, Routine, Anesthesia Intraprocedure Given 11/17/2022 8:10 EDT 8 mg fentaNYL citrate (PF) injection intravenous, PRN, Starting on Thu11/17/22 at 0739, Until Thu11/17/22 at 1200, Routine, Anesthesia Intraprocedure Given 11/17/2022 7:39 EDT 100 mcg HYDROmorphone (DILAUDUD) 2 mg/mL injection intravenous, PRN, Starting on Thu11/17/22 at 0812, Until Thu11/17/22 at 1200, Routine, Anesthesia Intraprocedure Given 11/17/2022 8:12 EDT 1 mg ketAMINE in NaCl, iso-osmotic (KETALAR) 50 mg/5 mL (10 mg/mL) IV injection intravenous, PRN, Starting on Thu11/17/22 at 0811, Until Thu11/17/22 at 1200, Routine, Anesthesia Intraprocedure Given 11/17/2022 9:49 EDT 10 mg Given 11/17/2022 8:11 EDT 20 mg ketOROLAC (TORADOL) injection intravenous, PRN, Starting on Thu11/17/22 at 1122, Until Thu11/17/22 at 1200, Routine, Anesthesia Intraprocedure Given 11/17/2022 11:22 EDT 15 mg lactated ringers (LR) infusion at 25 mL/hr, intravenous, CONTINUOUS, Starting on Thu11/17/22 at 0630, Until Thu11/17/22 at 1643, Routine, Preprocedure Restarted 11/17/2022 8:17 EDT Continued by Anesthesia 11/17/2022 7:36 EDT 25 mL/hr New Bag 11/17/2022 6:29 EDT 25 mL/hr lactated ringers (LR) infusion intravenous, FA IP EQF CONTINUOUS PRN FOR ONE STEP MEDS, Starting on Thu11/17/22 at 0753, Until Thu11/17/22 at 1200, Routine, Anesthesia Intraprocedure New Bag 11/17/2022 10:26 EDT New Bag 11/17/2022 7:53 EDT lidocaine (PF) 20 mg/mL (2 %) injection intravenous, PRN, Starting on Thu11/17/22 at 0743, Until Thu11/17/22 at 1200, Routine, Anesthesia Intraprocedure Given 11/17/2022 7:43 EDT 80 mg metronidazole (FLAGYL) infusion 500 mg 500 mg, intravenous, Administer over 30 Minutes, PRE-OP ONCE, 1 dose, On Thu11/17/22 at 0630, Type of Therapy: Prophylaxis, Suspected Indication (Select all that apply): Other, Other Indication: hsyterectomy, Routine, Preprocedure Given 11/17/2022 7:38 EDT 500 mg midazolam (PF) (VERSED) injection intravenous, PRN, Starting on Thu11/17/22 at 0728, Until Thu11/17/22 at 1200, Routine, Anesthesia Intraprocedure Given 11/17/2022 7:28 EDT 2 mg ondansetron (PF) (ZOFRAN) injection intravenous, PRN, Starting on Thu11/17/22 at 0729, Until Thu11/17/22 at 1200, Routine, Anesthesia Intraprocedure Given 11/17/2022 7:29 EDT 4 mg phenylephrine HCl in 0.9% NaCl injection intravenous, PRN, Starting on Thu11/17/22 at 0830, Until Thu11/17/22 at 1200, Routine, Anesthesia Intraprocedure Given 11/17/2022 10:01 EDT 200 mcg Rate Change 11/17/2022 8:50 EDT 40 mcg/min 24 mL/hr Given 11/17/2022 8:49 EDT 200 mcg propOFol (DIPRIVAN) injection intravenous, FA IP EQF CONTINUOUS PRN FOR ONE STEP MEDS, Starting on Thu11/17/22 at 0746, Until Thu11/17/22 at 1200, Routine, Anesthesia Intraprocedure Rate Change 11/17/2022 11:17 EDT 115 mcg/kg/min 104.673 mL/hr Rate Change 11/17/2022 8:44 EDT 115 mcg/kg/min 104.673 mL/ hr New Bag 11/17/2022 7:46 EDT 125 mcg/kg/min 113.775 mL/h r rocuronium (ZEMURON) injection intravenous, PRN, Starting on Thu11/17/22 at 0747, Until Thu11/17/22 at 1200, Routine, Anesthesia Intraprocedure Given 11/17/2022 10:05 EDT 30 mg Given 11/17/2022 8:49 EDT 30 mg Given 11/17/2022 7:47 EDT 70 mg scopolamine (TRANSDERM-SCOP) 1 mg over 3 days patch transdermal, Administer over 72 Hours, PRN, Starting on Thu11/17/22 at 0729, Until Thu11/17/22 at 1200, Routine, Anesthesia Intraprocedure Given 11/17/2022 7:29 EDT 1 Patch sugammadex (BRIDION) injection intravenous, PRN, Starting on Thu11/17/22 at 1135, Until Thu11/17/22 at 1200, Routine, Anesthesia Intraprocedure Given 11/17/2022 11:35 EDT 400 mg documented in this encounter Care Teams Marker Delivery Relationship Specialty Start Date End Date Vicki Mays NP [address] [place] [address] PCP - General 01/17/16 Sam Morris MD [address] [place] [address] [place] [id number] 11/17/22 documented as of this encounter
--- OUTSIDE RECORDS SUMMARY | 2024-04-05 13:43 | XMS_ITS ---
Author Organization Unknown Address [address] [place] [phone] Phone Care Team Providers Care Machine Stone Polisher Apprentice Name Role Phone AVE CORIE Donaldson Attending Unavailable HEIDY Payne Primary Unavailable Social History Type Status Start Date End Date Code Code Syst em Smoking History Never smoker (Never Smoked) 802543291 SNOMED CT Sex Female Medications Medication Start Date End Date Route Frequency Dose Code Code System Medication Instructions Home Meds glipiZIDE 5MG Oral Tablet 08/10/2023 Unknown ORAL BID BEFORE MEALS 5 MILLIGRAMS 982138 RxNorm TAKE 5 MILLIGRAMS ORAL BID BEFORE MEALS Cortizone-10 Maximum Strength 1% Topical application Cream 08/10/2023 Unknown TOPICAL APPLICA TION NEEDED THREE TIMES A DAY 1 APPL 902859 RxNorm 1 APPL TOPICAL APPLICATION NEEDED THREE TIMES A DAY FOR HEMORRGHOIDS FLUoxetine HCl 40MG Oral Capsule 08/10/2023 Unknown ORAL DAILY 40 MILLIGRAMS 492648 RxNorm TAKE 40 MILLIGRAMS ORAL DAILY Multivitamin Oral Tablet 08/10/2023 Unknown ORAL DAILY 1 unit(s) RxNorm TAKE 1 EACH ORAL DAILY Olmesartan Medoxomil 20MG Oral Tablet 08/10/2023 Unknown ORAL DAILY 1 TABLET 525159 RxNorm TAKE 1 TABLE T ORAL DAILY Prometrium 200MG Oral Capsule, Liquid Filled 08/10/2023 Unknown ORAL DAILY 200 MILLIGRAMS 007492 RxNorm TAKE 200 MILLIGRAMS ORAL DAILY Terconazole 0.4% Vaginal Cream 08/10/2023 Unknown VAGINAL NEEDED 1 APPL 685091 RxNorm 1 APPL VAGINAL NEEDED Vitamin B Complex Oral Capsule 08/10/2023 Unknown ORAL DAILY 1 unit(s) RxNorm TAKE 1 EACH ORAL DAILY Vitamin D 5000 IU Oral Tablet 08/10/2023 Unknown ORAL DAILY 5000 IU 363181 RxNorm TAKE 5000 IU ORAL DAILY buPROPion HCl 300MG Oral Tablet, Extended Release, 24 HR 08/10/2023 Unknown ORAL DAILY 300 MILLIGRAMS 987014 RxNorm TAKE 300 MILLIGRAMS ORAL DAILY metFORMIN HCl AvPak 500MG Oral Tablet, Extended Release 08/10/2023 Unknown ORAL TWICE A DAY WITH FOOD 1000 MILLIGRAMS 206773 RxNorm TAKE 1000 MILLIGRAMS ORAL TWICE A DAY WITH FOOD Insulin Glargine Pen 100 IU/1 ML Subcutaneous Solution 08/10/2023 Unknown SUBCUTA NEOUS DAILY 20 UNIT 8704535 RxNorm INJECT 20 UNIT SUBCUTANEOUS DAILY Assessment [...] System TYPE 2 DIABETES WITH COMPLICATION active 126992615 SNOMED-CT BLURRED VISION active 806382470 SNOME D-CT WEAKNESS active 45035891 SNOMED-CT DIZZINESS active 504870156 SNOMED-CT VAGINAL RAFAEL active 25937049 SNOM ED-CT HEMORRHOIDS active 50774558 SNOMED-C T DEPRESSION 08/08/2023 resolved 48312156 SNOMED-C T ANXIETY 08/08/2023 resolved 05579226 SNOMED-CT DIABETES 2 08/08/2023 resolved 25551393 SNOMED-C T ENDOMETRIAL CANCER GENETIC MARKER OF SUSCEPTIBILITY POSITIVE (FINDING) 08/08/2023 resolved 17221755912860 SNOMED-CT Allergies and Adverse Reactions Allergy Substance Reaction Severity Start Date Concern Status Co de Code System VICTOZA Nausea/Vomiting (SNOMED-CT: 45195125) Active 638723 RxNorm Plan of Treatment MM SCREEN BILAT 02/12/2023 US PELVIC / TV 08/08/2022 MM SCREEN BILAT 04/01/2021 Encounters Encounter Diagnosis Start Date Code Code Sys tem Obstructive sleep apnea syndrome 10/08/2023 90779226 SNOMED-CT Personal Care Team Section Performer Name Performer Role Active Date Inactive Da te
--- OUTSIDE RECORDS SUMMARY | 2024-04-05 13:43 | XMS_ITS | Encounter Summary ---
Author Organization [facility] Address [address] [place] [address] Care Team Providers Care Repulping Supervisor Name Role Phone Vicki Mays PILOT CONTROL OPERATOR HELPER Primary Care Provider [phone] Reason for Visit * Reason Onset Date Comments Confirmation 11/14/2022 Encounter Details Date Type Department Care Team (Late st Contact Info) Description 11/14/2022 Telephone [facility] O[facility] - [facility] [address], [place] [phone] Seb Kwon MD [address] [facility], [address] [place] [address] Confirmation Social History Tobacco Use Types Packs/Day Years [...] on file documented as of this encounter Miscellaneous Notes * Telephone Encounter - Marbiell Colón - 11/14/2022 1610 EDT Called pt to confirm their surgery details for 11/17. Check in at 5:20a at registration. No food after midnight and clear nonfat liquids ok until 3:20a. Confirmed pt has a ride home. No further questions and pt in agreement with plan. documented in this encounter Plan of Treatment Not on file documented as of this encounter Visit Diagnoses Not on filedocumented in this encounter Care Teams Repulping Supervisor Relationship Specialty Start Date End Date Vicki Mays, PILOT CONTROL OPERATOR HELPER [address] [place] [address] PCP - General 01/17/16 documented as of this encounter
--- OUTSIDE RECORDS SUMMARY | 2024-04-05 13:43 | XMS_ITS | Encounter Summary ---
Author Organization [facility] Address [address] [place] [address] Care Team Providers Care Arc And Gas Welder Name Role Phone Vicki Mays NP Primary Care Provider [phone] Sam Morris MD Unavailable [phone] Reason for Visit * Reason Comments Post-OP Follow Up Post op f/u s/p RA T LH, BSO, ICG, SLND (11/17/22); hx endometrial cancer Encounter Details Date Type Department Care Team (Late st Contact Info) Description 12/01/2022 9:45 EDT Post-op Visit [facility] O[facility]YN Services - [address] [address] Sigifredo Jacob MD [address] [facility], [address] [place] [address] Endometrial cancer (FORMERLY [facility]) (Primary Dx) Social History Tobacco Use Types [...] Sign Reading Time Taken Comments Blood Pressure 134/72 12/01/2022 0951 EDT Pulse - - Temperature - - Respiratory Rate - - Oxygen Saturation - - Inhaled Oxygen Concentration - - Weight 151.5 kg (334 lb) 12/01/2022 0951 EDT Height - - Body Mass Index 50.78 11/17/2022 0704 EDT documented in this encounter [...] documented in this encounter Progress Notes * Sigifredo Jacob MD - 12/01/2022 0945 EDT Gynecologic Oncology Post-Op Subjective: Patient ID: Frannie Mora Chief Complaint: Endometrial Cancer History of Present Illness: Frannie Mora is a 61 y.o. s/p RA TLH, BSO, SLND for FIGO G1 endometrial adenocarcinoma 11/17/22. Pt feels well well since procedure. Eating and drinking without difficult. Bowel/Bladder function has returned to normal. Denies nausea, vomiting, light headedness or dizziness. No longer taking painmedication. Ambulating without difficulty. See ROS for details. Oncology History No history exists. Patient Active Problem List Diagnosis ??? Varicella ??? Anxiety and depression ??? Hypertension ??? Endometrial cancer (HCC-CMS) (HCC) ??? Endometrial adenocarcinoma (HCC-CMS) (HCC) Past Medical History: Diagnosis Date ??? Anxiety 11/10/22 med controlled ??? Depression 11/10/22 med controlled ??? Endometrial cancer (HCC-CMS) (HCC) ??? Exercise involving walking 11/10/22 walks daily, able to go up 2 flight of stairs w/o sob ??? History of general anesthesia 11/10/22 med controlled ??? Hypertension 11/10/22 med controlled ??? Menorrhagia Past Surgical History: Procedure Laterality Date ??? SHOULDER SURGERY Right 2009 No family history on file. Social History Tobacco Use ??? Smoking status: Never ??? Smokeless tobacco: Never Substance Use Topics ??? Alcohol use: Not Currently ??? Drug use: Never Current Outpatient Medications on File Prior to Visit Medication Sig Dispense Refill ??? acetaminophen (TYLENOL) 500 mg tablet Take 2 Tablets by mouth every 6 hours as needed for Pain. ??? buPROPion (WELLBUTRIN XL) 300 mg XL tablet Take 1 Tablet by mouth daily. ??? chlorhexidine gluconate 4 % (E-Z SCRUB 107) sponge Use as directed in pre-op showering instructions. (Patient not taking: Reported on 12/01/2022) 2 Each 0 ??? ergocalciferol, vitamin D2, (VITAMIN D ORAL) Take by mouth. ??? famotidine (PEPCID) 40 mg tablet Take 1 Tablet by mouth daily. (Patient not taking: Reported on12/01/2022) ??? FLUoxetine (PROZAC) 20 mg capsule Take 1 Capsule by mouth daily. ??? ibuprofen (MOTRIN) 200 mg tablet Take 4 Tablets by mouth every 8 hours as needed for Pain. ??? LORazepam (ATIVAN) 0.5 mg tablet Take 2 Tablets by mouth at bedtime as needed. ??? Multivitamins with Minerals tablet tablet Take 1 Tablet by mouth daily. ??? olmesartan (BENICAR) 20 mg tablet Take 1 Tablet by mouth daily. ??? oxyCODONE (ROXICODONE) 5 mg immediate release tablet Take 1 Tablet by mouth every 4 hours as needed for Pain. Daily Max: 30 mg (Patient not taking: Reported on 12/01/2022) 6 Tablet 0 ??? progesterone (PROMETRIUM) 200 mg capsule Take 1 Capsule by mouth daily. (Patient not taking: Reported on 12/01/2022) ??? VITAMIN B COMPLEX ORAL Take by mouth. No current facility-administered medications on file prior to visit. Allergies Allergen Reactions ??? Victoza [Liraglutide] Nausea And Vomiting Crazy sick Review of Systems Constitutional: Negative for activity change, appetite change, chills, diaphoresis, fatigue and fever. HENT: Negative for sore throat and trouble swallowing. Respiratory: Negative for apnea, cough, shortness of breath and wheezing. Cardiovascular: Negative for chest pain, palpitations and leg swelling. Gastrointestinal: Negative for abdominal distention, abdominal pain, blood in stool, constipation, diarrhea, nausea and vomiting. Genitourinary: Negative for dysuria, pelvic pain, vaginal bleeding, vaginal discharge and vaginal pain. Neurological: Negative for dizziness, syncope, weakness and headaches. All other systems reviewed and are negative. - See HPI Objective: BP 134/72 Wt (!) 151.5 kg (334 lb) BMI 50.78 kg/m?? Physical Exam Vitals reviewed. Constitutional: She is oriented to person, place, and time. She appears well- developed and well-nourished. No distress. HENT: Head: Normocephalic and atraumatic. Mouth/Throat: Oropharynx is clear and moist. Eyes: Pupils are equal, round, and reactive to light. Conjunctivae and EOM are normal. Neck: No JVD present. No tracheal deviation present. No thyromegaly present. Cardiovascular: Normal rate, regular rhythm, normal heart sounds and intact distal pulses. Exam reveals no gallop and no friction rub. No murmur heard. Pulmonary/Chest: Effort normal and breath sounds normal. No stridor. No respiratory distress. She has no wheezes. She has no rales. Abdominal: Soft. Bowel sounds are normal. She exhibits no distension and no mass. There is no abdominal tenderness. There is no rebound and no guarding. Laparoscopic incisions are CDI Musculoskeletal: General: No tenderness or edema. Normal range of motion. Cervical back: Normal range of motion and neck supple. Lymphadenopathy: She has no cervical adenopathy. Neurological: She is alert and oriented to person, place, and time. No cranial nerve deficit. Skin: Skin is warm and dry. No rash noted. She is not diaphoretic. No erythema. No pallor. Psychiatric: She has a normal mood and affect. Her behavior is normal. Judgment and thought contentnormal. Surgical Pathology A. LYMPH NODES, PELVIC, RIGHT, SAMPLING: - One lymph node negative for metastatic carcinoma (0/1). ?? B. A. UTERUS, CERVIX, FALLOPIAN TUBES, AND OVARIES, HYSTERECTOMY AND BILATERAL SALPINGO-OOPHORECTOMY: - Endometrium: - Endometrial adenocarcinoma, endometrioid type [...] features. - Ovaries: - Cortical inclusion cysts. ?? C. LYMPH NODES, PELVIC, LEFT, SAMPLING: - Two lymph nodes negative for metastatic carcinoma (0/2). Assessment: Frannie Mora is an 62 y.o. female s/p RA TLH, BSO, SLND for G1 FIGO stage IA endometrial adenocarcinoma 11/17/22. She is recovering well. We discussed her pathology findings, and given the stage, lackof myometrial invasion or other risk factors for recurrence, recommendation at this time would be for no additional adjuvant treatment. Plan: Cuff check at 12 wks w/ Yessenia Huddleston PA-C Surveillance visits q 3-4 months for 2 years, followed by q 6 months for a total of 5 years. Imaging only as clinically indicated. Babak Parker MS4 The above documentation was initially written by a medical student as part of their education within my clinic. I was present, participated in, and supervised the gathering of all reeves clinical information documented above. I performed, myself, all portions of the patient's physical exam listed above. All clinical decision making and patient planning, as documented above, was made by me alone. I have reviewed, and when necessary edited, the above document to reflect my own clinical findings,assessment and treatment plan. I spent a total of 20 minutes in evaluating, planning and counseling the patient on the date of this encounter. No procedures were performed. Sigifredo Jacob MD documented in this encounter Plan of Treatment Not on file documented as of this encounter Visit Diagnoses Diagnosis Endometrial cancer (FORM[facility]LY [facility])- Primary Malignant neoplasm of corpus uteri, except isthmus documented in this encounter Care Teams Arc And Gas Welder Relationship Specialty Start Date End Date Vicki Mays NP [address] [place] [address] PCP - General 01/17/16 Sam Morris MD [address] [facility] [address] [place] [id number] 11/17/22 documented as of this encounter
--- OUTSIDE RECORDS SUMMARY | 2024-04-05 13:43 | XMS_ITS | Encounter Summary ---
Author Organization [facility] Address [address] [place] [address] Care Team Providers Care Software Technician Name Role Phone Vicki Mays NP Primary Care Provider [phone] Sam Morris MD Unavailable [phone] Reason for Visit * Reason Comments Follow-up 3m f/u; hx endometri al cancer Encounter Details Date Type Department Care Team (Late st Contact Info) Description 09/03/2023 10:30 EDT Office Visit [facility] OBGYN Services - [address] [id number] Ysesenia Huddleston, PADarwinC [address] [place] [address], [facility] [place] [address] [place] [address] Encounter for follow-up surveillance of [...] Blood Pressure 138/76 09/03/2023 1037 EDT Pulse - - Temperature - - Respiratory Rate - - Oxygen Saturation - - Inhaled Oxygen Concentration - - Weight 146.5 kg (323 lb) 09/03/2023 1037 EDT Height - - Body Mass Index 49.11 11/17/2022 0704 EDT documented in this encounter Functional Status * Are you deaf or do you have serious difficulty hearing? Answer Date of Assessment Author No 11/17/2022 16:56 EDT Alicia Laws RN * Are you blind or do you have serious difficulty seeing, even when wearing glasses? Answer Date of Assessment Author No 11/17/2022 16:56 BLAISET Alicia Laws RN * Do you have [...] Progress Notes * Yessenia Huddleston PA-C - 09/03/2023 1030 EDT GYNECOLOGIC ONCOLOGY VISIT NOTE Date of service: 09/03/2023 Patient Identification: Name: Frannie Mora Reason for Visit: Follow up - history of endometrial cancer Subjective: HPI: Frannie Mora is a 62 y.o. with a history of endometrial cancer who is s/p RA TLH, BSO, SLND on11/17/2022. Final pathology demonstrated FIGO grade 1 stage IA endometrial adenocarcinoma, endometrioid type with squamous differentiation. Today Frannie reports to be feeling well overall. She has chronic shortness of breath with exertion. She denies vaginal bleeding/discharge, vulvar irritation/itching, pelvic pain, abdominal pain/bloating/distention, early satiety, nausea, vomiting, unintentional weight loss, changes in bowel or bladde r habits, chest pain, and lower extremity edema. The remainder of a 10 point review of systems was negative unless otherwise described above. Objective: BP 138/76 Wt (!) 146.5 kg (323 lb) BMI 49.11 kg/m?? Physical Exam: Constitutional: Oriented to person, [...] clinically indicated. We discussed meeting with a powertrain engineer and she is amendable to this. Plan: - follow up 3-4 months or sooner as needed Yessenia Huddleston PA-C Gynecologic Oncology [id number] documented in this encounter Plan of Treatment Not on file documented as of this encounter Visit Diagnoses Diagnosis Encounter for follow-up surveillance of endometrial cancer- Primary Unspecified follow-up examination documented in this encounter Historical Medications * This list may reflect changes made after this encounter. ONETOUCH DELICA PLUS LANCET 33 gauge misc USE TO TEST BLOOD SUGAR 08/13/2023 LANTUS SOLOSTAR U-100 INSULIN 100 unit/mL (3 mL) injection pen Inject 10 Units into the skin daily. 08/10/2023 glipiZIDE (GLUCOTROL) 5 mg tablet Take 1 Tablet by mouth 2 times daily. 08/10/2023 ONETOUCH VERIO REFLECT METER Use as directed. 08/07/2023 ONETOUCH VERIO TEST STRIPS test strips TAKE 1 STRIP EVERY DAY BY MISCELL. ROUTE BEFORE MEAL(S). 08/28/2023 added in this encounter Care Teams Software Technician Relationship Specialty Start Date End Date Vicki Mays NP [address] [place] [address] PCP - General 01/17/16 Sam Morris MD [address] [facility] [address] [place] [id number] 11/17/22 documented as of this encounter
--- OUTSIDE RECORDS SUMMARY | 2024-04-05 13:43 | XMS_ITS | Encounter Summary ---
Author Organization [facility] Address [address] [place] [address] Care Team Providers Care Machine Washer Name Role Phone Vicki Mays NP Primary Care Provider [phone] Sam Morris MD Unavailable [phone] Encounter Details Date Type Department Care Team (Late st Contact Info) Description 05/06/2023 Lab Requisition [facility] - [address] [phone] Outr Resulting Lab, Provider Social History Tobacco [...] Procedure Name Priority Date/Time Associated Diagnosis Comments LYME AB Routine 05/06/2023 8:15 EST ANTI NUCLEAR AB (SHIMON), IFA Routine 05/06/2023 8:15 EST documented in this encounter Results * LYME AB (05/06/2023 8:15 EST) Lyme Ab Negative Negative 05/07/2023 11:15 EST [facility] Blood VENOUS BLOOD / Unknown 05/06/2023 8:15 EST 05/06/2023 21:37 EST us Provider Outr Resulting Lab IMMUNOLOGY AND SEROL OGY ORDERABLES Final Result [facility] [address] [place] [address] * ANTI NUCLEAR AB (SHIMON), IFA (05/06/2023 8:15 EST) SHIMON Interpretation Negative Negative 2022 14:40 EST [facility] Comment:No titer performed, SHIMON Screen is negative. Blood VENOUS BLOOD / Unknown 05/06/2023 8:15 EST 05/06/2023 21:37 EST Narrative [facility] - 05/07/2023 14:40 EST Results were obtained with the INOVA NOVA Lite HEp-2 SHIMON Kit by indirect immunofluorescence. us Provider Outr Resulting Lab IMMUNOLOGY AND SEROL OGY ORDERABLES Final Result [facility] [address] [place] [address] documented in this encounter Visit Diagnoses Not on filedocumented in this encounter Care Teams Machine Washer Relationship Specialty Start Date End Date Vicki Mays NP [address] [place] [address] PCP - General 01/17/16 Sam Morris MD [address] [facility] [address] [place] [id number] 11/17/22 documented as of this encounter
--- OUTSIDE RECORDS SUMMARY | 2024-04-05 13:43 | XMS_ITS ---
Author Organization Unknown Address [address] [place] [phone] Phone Care Team Providers Care Breakdown Worker Name Role Phone NORA SCHMITZFLOR Registered Nurse Unavailable Unavailable Xwatchlist Unavailable LA Payne Attending Unavailable [facility] Unavailable HEIDY Payne Primary Unavailable ANA Rhodes Secondary Unavailable UNLISTED PROVIDER - REQUESTED Xhandoff Un available Results NOVA GLUCOSE FINGER HEEL CAP ILLARY - Collect Date/Time: 08/10/2023 12:06 [facility] ID: [id number] [address] [place], [place], [id number] LOINC: 94602-9 Test Value Unit Reference Range Code Code System Flag GLUCOSE CAP 275 mg/dL L=70 H=116 58287-9 LOINC H NOVA GLUCOSE FINGER HEEL CAP ILLARY - Collect Date/Time: 08/10/2023 08:19 [facility] ID: [id number] [address] [place], [place], [id number] LOINC: 32116-0 Test Value Unit Reference Range Code Code System Flag GLUCOSE CAP 242 mg/dL L=70 H=116 45762-7 LOINC H NOVA GLUCOSE FINGER HEEL CAP ILLARY - Collect Date/Time: 08/09/2023 20:48 [facility] ID: [id number] [address] [place], [place], [id number] LOINC: 77931-3 Test Value Unit Reference Range Code Code System Flag GLUCOSE CAP 214 mg/dL L=70 H=116 68170-6 LOINC H NOVA GLUCOSE FINGER HEEL CAP ILLARY - Collect Date/Time: 08/09/2023 17:03 [facility] ID: [id number] [address] [place] [address], [place], [id number] LOINC: 58997-0 Test Value Unit Reference Range Code Code System Flag GLUCOSE CAP 149 mg/dL L=70 H=116 64222-0 LOINC H NOVA GLUCOSE FINGER HEEL CAP ILLARY - Collect Date/Time: 08/09/2023 11:50 [facility] ID: [id number] [address] [place], [place], [id number] LOINC: 93287-4 Test Value Unit Reference Range Code Code System Flag GLUCOSE CAP 182 mg/dL L=70 H=116 17719-5 LOINC H NOVA GLUCOSE FINGER HEEL CAP ILLARY - Collect Date/Time: 08/09/2023 08:19 [facility] ID: [id number] [address] [place], [place], [id number] LOINC: 84742-8 Test Value Unit Reference Range Code Code System Flag GLUCOSE CAP 255 mg/dL L=70 H=116 02012-0 LOINC H LACTIC ACID - Collect Date/T philly: 08/09/2023 06:56 [facility] ID: [id number] [address] [place] [address], [address] LOINC: Test Value Unit Reference Range Code Code System Flag LACTIC ACID 2.0 mmol/L L=0.7 H=2.1 50855-0 LOINC COMPREHENSIVE METABOLIC PANE L (CMP) - Collect Date/Time: 08/09/2023 06:56 [facility] ID: [id number] [address] [place] [address], [address] LOINC: 78019-2 Test Value Unit Reference Range Code Code System Flag GLUCOSE 246 mg/dL L=70 H=116 2345-7 LOINC H BUN 13 mg/dL L=6 H=25 3094-0 LOINC CREATININE 0.98 mg/dL L=0.51 H=0.95 2160-0 LOINC H SODIUM SERUM 135 mmol/L L=136 H=145 2951-2 LOINC L POTASSIUM SERUM 3.9 mmol/L L=3.4 H=5.2 2823-3 LOINC CHLORIDE SERUM 102 mmol/L L=96 H=110 2075-0 LOINC CARBON DIOXIDE (CO2) 26 mmol/L L=22 H=34 2028-9 LOINC ANION GAP 7.3 mmol/L 80113-8 LOINC CALCIUM SERUM 8.3 mg/dL L=8.2 H=10.2 99332-4 LOINC BILIRUBIN TOTAL 0.4 mg/dL L=0.0 H=1.3 1975-2 LOINC ALK. PHOS. 155 U/L L=46 H=116 6768-6 LOINC H SGOT (AST) 29 U/L L=15 H=37 1920-8 LOINC SGPT (ALT) 46 U/L L=12 H=78 1742-6 LOINC TOTAL PROTEIN 6.9 gm/dL L=6.0 H=8.0 2885-2 LOINC ALBUMIN 3.2 gm/dL L=3.4 H=5.0 1751-7 LOINC L AGE 62 years eGFR (non-Afr.Amer.) 58 mL/min 28570-2 LOINC eGFR (Afr-Equatorial [place]) 70 mL/min 83674-7 LOINC CBC W/ DIFFERENTIAL* - Colle ct Date/Time: 08/09/2023 06:56 [facility] ID: [id number] [address] [place], [place], [address] LOINC: 02156-8 Test Value Unit Reference Range Code Code System Flag WBC 9.60 th/cmm L=5.00 H=10.00 6690-2 LOINC NEUT % 67.0 % L=40.0 H=80.0 LYMPH % 22.9 % L=10.0 H=50.0 MONO % 5.8 % L=2.0 H=12.0 72264-0 LOINC EOS % 3.0 % L=0.0 H=8.0 BASO % 0.5 % L=0.0 H=3.0 IG % 0.8 % L=0.0 H=1.1 2514-8 LOINC NRBC % 0.0 % L=0.0 H=0.0 77886-5 LOINC NEUT abs count 6.4 th/cmm L=1.6 H=8.4 751-8 LOINC LYMPH abs count 2.2 th/cmm L=1.5 H=4.0 731-0 LOINC MONO abs count 0.6 th/cmm L=0.2 H=1.0 742-7 LOINC EOS abs count 0.3 th/cmm L=0.0 H=0.5 711-2 LOINC BASO abs count 0.1 th/cmm L=0.0 H=0.2 704-7 LOINC IG abs count 0.1 th/cmm L=0.0 H=0.1 60851-1 LOINC NRBC abs count 0.0 mil/cmm L=0.0 H=0.0 51025-5 LOINC RBC 4.45 mil/cmm L=3.90 H=5.40 789-8 LOINC HEMOGLOBIN 13.2 gm/dL L=12.0 H=16.0 718-7 LOINC HEMATOCRIT 39 % L=37 H=47 4544-3 LOINC MCV 87 fL L=82 H=92 787-2 LOINC MCH 29.7 pg L=27.0 H=31.0 785-6 LOINC MCHC 34.3 % L=32.0 H=36.0 786-4 LOINC RDW-SD 40.8 fL L=39.0 H=49.0 788-0 LOINC PLATELET COUNT 234 th/cmm L=150 H=450 777-3 LOINC VITAMIN B12 - Collect Date/T philly: 08/09/2023 06:56 [facility] ID: [id number] [address] [place], [place], [id number] LOINC: 2132-9 Test Value Unit Reference Range Code Code System Flag Vitamin B12 1043 211-911 H TSH THYROID STIMULATING HORM ONE* - Collect Date/Time: 08/09/2023 06:56 [facility] ID: [id number] [address] [place], [place], [address] LOINC: 3014-8 Test Value Unit Reference Range Code Code System Flag TSH 2.230 uIU/mL L=0.360 H=3.740 3014-8 LOINC NOVA GLUCOSE FINGER HEEL CAP ILLARY - Collect Date/Time: 08/09/2023 01:38 [facility] ID: [id number] [address] [place] [address], [id number] LOINC: 46208-7 Test Value Unit Reference Range Code Code System Flag GLUCOSE CAP 204 mg/dL L=70 H=116 58250-9 LOINC H NOVA GLUCOSE FINGER HEEL CAP ILLARY - Collect Date/Time: 08/08/2023 20:47 [facility] ID: [id number] [address] [place] [address], [id number] LOINC: 45995-1 Test Value Unit Reference Range Code Code System Flag GLUCOSE CAP 217 mg/dL L=70 H=116 96649-1 LOINC H LACTIC ACID - Collect Date/T philly: 08/08/2023 19:12 [facility] ID: [id number] [address] [place] [address], [address] LOINC: Test Value Unit Reference Range Code Code System Flag LACTIC ACID 2.2 mmol/L L=0.7 H=2.1 37623-8 LOINC H BASIC METABOLIC PANEL (BMP) - Collect Date/Time: 08/08/2023 19:12 [facility] ID: [id number] [address] [place] [address], [address] LOINC: 70822-3 Test Value Unit Reference Range Code Code System Flag GLUCOSE 292 mg/dL L=70 H=116 2345-7 LOINC H BUN 21 mg/dL L=6 H=25 3094-0 LOINC CREATININE 1.07 mg/dL L=0.51 H=0.95 2160-0 LOINC H SODIUM SERUM 131 mmol/L L=136 H=145 2951-2 LOINC L POTASSIUM SERUM 4.0 mmol/L L=3.4 H=5.2 2823-3 INC CHLORIDE SERUM 98 mmol/L L=96 H=110 2075-0 [facility] CARBON DIOXIDE (CO2) 25 mmol/L L=22 H=34 2028-9 [facility] ANION GAP 8.3 mmol/L 97057-0 [facility] CALCIUM SERUM 8.5 mg/dL L=8.2 H=10.2 07342-4 [facility] AGE 62 years eGFR (non-Afr.Amer.) 52 mL/min 00229-1 [facility] eGFR (Afr-Equatorial [place]an) 63 mL/min 59871-5 [facility] NOVA GLUCOSE FINGER HEEL CAP ILLARY - Collect Date/Time: 08/08/2023 18:26 [facility] ID: [id number] [address] [place], [place], [id number] LOINC: 72481-2 Test Value Unit Reference Range Code Code System Flag GLUCOSE CAP 302 mg/dL L=70 H=116 97823-3 LOINC H [facility] COVID GENEXPERT* - Co llect Date/Time: 08/08/2023 18:25 [facility] ID: [id number] [address] [place], [place], [id number] LOINC: 30081-3 Test Value Unit Reference Range Code Code System Flag COVID NEGATIVE Normal: Negative 02946-5 [facility] SOURCE= Anterior nasal 39207-8 [facility] Tier- INPATIENT/ED 34822-6 [facility] ORDER VENOUS BLOOD GAS* - Co llect Date/Time: 08/08/2023 17:38 [facility] ID: [id number] [address] [place], [place], [id number] LOINC: Test Value Unit Reference Range Code Code System Flag Specimen type: VENOUS pH (venous) 7.34 L=7.38 H=7.46 2746-6 LOINC L PCO2 (venous) 40.8 mm Hg L=41.0 H=51.0 2703-7 LOINC L PO2 (venous) 41 mm Hg L=30 H=50 2705-2 LOINC HCO3 22 mmol/L L=22 H=26 1960-4 LOINC TCO2 (venous) 23 mmol/L L=22 H=28 3533-7 LOINC BASE EXCESS (venous) -4 mmol/L L=-2 H=3 3097-3 LOINC L Assist vent. Resp. Rate /min. Temp. TROPONIN HIGH SENSITIVITY* - Collect Date/Time: 08/08/2023 17:38 [facility] ID: [id number] [address] [place] [address], [address] LOINC: 13157-9 Test Value Unit Reference Range Code Code System Flag TROPONIN HS 6.3 pg/mL L=0.0 H=60.4 Specimen seq. 1 HOUR HEMOGLOBIN A1C* - Collect Da te/Time: 08/08/2023 16:30 [facility] ID: [id number] [address] [place] [address], [address] LOINC: 4548-4 Test Value Unit Reference Range Code Code System Flag Hgb A1c 10.6 % L=3.8 H=5.7 4548-4 LOINC H MEAN BLOOD GLUCOSE 267 mg/dL 78387-3 LOINC KETONES QUAL - Collect Date/ Time: 08/08/2023 16:30 [facility] ID: [id number] [address] [place] [address], [address] LOINC: 5567-3 Test Value Unit Reference Range Code Code System Flag ACETONE SMALL 5567-3 LOINC URINALYSIS WITH REFLEX CULT IF POSITIVE* - Collect Date/Time: 08/08/2023 16:30 [facility] ID: [id number] [address] [place] [address], [address] LOINC: 17377-9 Test Value Unit Reference Range Code Code System Flag COLLECTION MODE: CLEAN CATCH 02634-2 LOINC Color YELLOW yellow 5778-6 LOINC Appearance CLEAR clear 5767-9 LOINC Glucose urine >=1000 negative mg/dl 59433-9 LOINC A Bilirubin NEGATIVE negative 5770-3 LOINC Ketones 40 negative mg/dl 2514-8 LOINC A Spec gravity 1.010 1.003 - 1.030 5811-5 LOINC pH urine 5.5 5.0 - 7.0 2756-5 LOINC Protein NEGATIVE negative mg/dl 17329-6 LOINC Urobilinogen 0.2 <or= 1 EU/dl 38025-1 LOINC Nitrite. NEGATIVE negative 5802-4 LOINC Blood NEGATIVE negative 5794-3 LOINC Leukocytes. NEGATIVE negative MICROSCOPIC NOT INDICAT LACTIC ACID - Collect Date/T philly: 08/08/2023 16:30 [facility] ID: [id number] [address] [place] [address], [address] LOINC: Test Value Unit Reference Range Code Code System Flag LACTIC ACID 3.6 mmol/L L=0.7 H=2.1 36715-5 LOINC H CBC W/ DIFFERENTIAL* - [facility] ct Date/Time: 08/08/2023 16:30 [facility] ID: [id number] [address] [place], [place] [address] LOINC: 50595-2 Test Value Unit Reference Range Code Code System Flag WBC 12.08 th/cmm L=5.00 H=10.00 6690-2 LOINC H NEUT % 73.8 % L=40.0 H=80.0 LYMPH % 16.6 % L=10.0 H=50.0 MONO % 6.0 % L=2.0 H=12.0 35817-8 LOINC EOS % 2.1 % L=0.0 H=8.0 BASO % 0.7 % L=0.0 H=3.0 IG % 0.8 % L=0.0 H=1.1 2514-8 LOINC NRBC % 0.0 % L=0.0 H=0.0 61193-5 LOINC NEUT abs count 8.9 th/cmm L=1.6 H=8.4 751-8 LOINC H LYMPH abs count 2.0 th/cmm L=1.5 H=4.0 731-0 LOINC MONO abs count 0.7 th/cmm L=0.2 H=1.0 742-7 LOINC EOS abs count 0.3 th/cmm L=0.0 H=0.5 711-2 LOINC BASO abs count 0.1 th/cmm L=0.0 H=0.2 704-7 LOINC IG abs count 0.1 th/cmm L=0.0 H=0.1 71503-9 LOINC NRBC abs count 0.0 mil/cmm L=0.0 H=0.0 61221-6 LOINC RBC 5.05 mil/cmm L=3.90 H=5.40 789-8 LOINC HEMOGLOBIN 14.9 gm/dL L=12.0 H=16.0 718-7 LOINC HEMATOCRIT 44 % L=37 H=47 4544-3 LOINC MCV 87 fL L=82 H=92 787-2 LOINC MCH 29.5 pg L=27.0 H=31.0 785-6 LOINC MCHC 34.0 % L=32.0 H=36.0 786-4 LOINC RDW-SD 41.2 fL L=39.0 H=49.0 788-0 LOINC PLATELET COUNT 267 th/cmm L=150 H=450 777-3 LOINC BASIC METABOLIC PANEL (BMP) - Collect Date/Time: 08/08/2023 16:30 [facility] ID: [id number] [address] [place], [place], [address] LOINC: 24443-3 Test Value Unit Reference Range Code Code System Flag GLUCOSE 428 mg/dL L=70 H=116 2345-7 LOINC HH BUN 22 mg/dL L=6 H=25 3094-0 LOINC CREATININE 1.16 mg/dL L=0.51 H=0.95 2160-0 LOINC H SODIUM SERUM 127 mmol/L L=136 H=145 2951-2 LOINC L POTASSIUM SERUM 4.9 mmol/L L=3.4 H=5.2 2823-3 LOINC CHLORIDE SERUM 94 mmol/L L=96 H=110 2075-0 LOINC L CARBON DIOXIDE (CO2) 21 mmol/L L=22 H=34 2028-9 LOINC L ANION GAP 12.4 mmol/L 35479-4 LOINC CALCIUM SERUM 9.5 mg/dL L=8.2 H=10.2 33154-8 LOINC AGE 62 years eGFR (non-Afr.Amer.) 48 mL/min 56114-8 LOINC eGFR (Afr-Equatorial [place]) 58 mL/min 51235-9 LOINC MICROALBUMIN URINE - Collect Date/Time: 08/08/2023 16:30 [facility] ID: [id number] - [id number] [address] [place] [address], [id number] LOINC: 57751-9 Test Value Unit Reference Range Code Code System Flag Creatinine Urine 72.2 mg/dl 2161-8 LOINC Microalb mg/dl 1.9 mg/dl 69853-0 [facility] Microalbumin ug/mg C 26.3 ug/mg Cr 9318-7 LOINC BNP (PRO-B NATRIURETIC PEPTI DE) - Collect Date/Time: 08/08/2023 16:30 [facility] ID: [id number] - [id number] [address] [place] [address], [address] LOINC: 65003-2 Test Value Unit Reference Range Code Code System Flag NT-proBNP 37.0 pg/mL L=0.0 H=125 77598-4 LOINC TROPONIN HIGH SENSITIVITY* - Collect Date/Time: 08/08/2023 16:30 [facility] ID: [id number] [address] [place] [address], [address] LOINC: 28254-7 Test Value Unit Reference Range Code Code System Flag TROPONIN HS 5.6 pg/mL L=0.0 H=60.4 Specimen seq. RANDOM ORDER VENOUS BLOOD GAS* - Co llect Date/Time: 08/08/2023 16:30 [facility] ID: [id number] [address] [place] [address], [id number] LOINC: Test Value Unit Reference Range Code Code System Flag Specimen type: VENOUS pH (venous) 7.50 L=7.38 H=7.46 2746-6 LOINC H PCO2 (venous) 26.6 mm Hg L=41.0 H=51.0 2703-7 LOINC L PO2 (venous) 122 mm Hg L=30 H=50 2705-2 LOINC H HCO3 21 mmol/L L=22 H=26 1960-4 LOINC L TCO2 (venous) 21 mmol/L L=22 H=28 3533-7 LOINC L BASE EXCESS (venous) -3 mmol/L L=-2 H=3 3097-3 LOINC L Assist vent. Resp. Rate /min. Temp. 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 CONTRAST MATERIAL Intravenous: Omnipaque 350 Contrast volume:structured data in ml COMPARISON: No exams were available for comparison FINDINGS: CTA Neck: The aortic arch anatomy is conventional and there is no significant stenosis of the origins of the great vessels off the aortic arch. ANTERIOR CIRCULATION: Both common carotid arteries exhibit normal luminal diameters. The carotid bifurcations are located medially anterior to the vertebral body, behind the hypopharynx, and do not exhibit stenosis at the bifurcations nor in the proximal internal carotid arteries on either side. The upper aspect of the internal carotid arteries in the upper neck are also patent. Also patent and the skull base/carotid canals. POSTERIOR CIRCULATION: Both vertebral arteries originate in conventional fashion off of the subclavian arteries. There is no evidence of significant stenosis of the subclavian arteries (which might result in subclavian steal syndrome). Both vertebral arteries are patent and the foramen transversarium. No evidence of intraluminal thrombus nor dissection. At the skull base both vertebral arteries contribute to the formation of the basilar artery. CTA Brain With: ANTERIOR CIRCULATION: Both internal carotid arteries are patent in the cavernous sinuses. Supraclinoid aspects are patent and nonaneurysmal. Both A1 segments are patent as are the anterior cerebral arteries. There is no aneurysm at the level of the anterior communicating artery. Both middle cerebral arteries appear patent without significant intraluminal defects nor tight stenosis. POSTERIOR CIRCULATION: At the skull base both vertebral arteries contribute to the formation of the basilar artery. Basilar artery ascends in the midline. Distally it terminates as patent posterior cerebral arteries. There is no aneurysm the tip of the basilar artery nor elsewhere in the inaja of Tran. BRAIN: There is no evidence hemorrhage, mass effect, nor shift of midline structures. There are no extraaxial fluid collections. The ventricles are not enlarged nor shifted and there is no blood within the ventricular system nor within the basal cisterns. There are no obvious ring enhancing lesions in the brain no abnormal meningeal enhancement. There is no obvious vascular malformation. IMPRESSION: 1. Patent carotid arteries in the neck. No significant stenosis. 2. Patent vertebral arteries in the neck. No dissection. 3. Patent intracranial arteries. No obvious aneurysms. No acute intracranial findings. Report Digitally Signed by Dany Andrade on 08/08/2023 07:18 PM EDT XR CHEST 2V PA AND LATERAL - Completed: 08/08/2023 18:15 LOINC: [facility] [place], [place] [address] PACS [employer]ICE [employer] MECHANIC REPORT Patient Name: FRANNIE GRAHAM MRN: Sex: : Age: [id number] F 1960 62 Account: Accession: Admit: StayType: [id number] 08/08/2023 E/R Ordered: Order ID: Submitted: Ordering Provider: 08/08/2023 17:44 [id number] LILIA OLIVAS Completed: Technologist: Resulted: 08/08/2023 18:15 PW 08/08/2023 18:34 Study Description: XR CHEST 2V PA AND LATERAL Study Reason: SOB TECHNIQUE: 2D digital imaging was performed. PA and Lateral views COMPARISON: Prior chest x-ray 2013. FINDINGS: Heart size is normal. The mediastinum is not widened. Lungs are clear. There are no infiltrates nor pleural effusions. IMPRESSION: No acute pulmonary findings. Report Digitally Signed by Dany Andrade on 08/08/2023 06:34 PM EDT Social History Type Status Start Date End Date Code Code Syst em Smoking History Never smoker (Never Smoked) [id number] SNOMED CT Sex Female Vital Signs Vital Sign Value Unit Cameron Value Cameron Unit Date/Time Recent/Initial? Code Code System Body Mass Index 49.87 kg/m2 08/08/2023 20:54 Most Recent 78404 -5 LOINC Body Mass Index 50.25 kg/m2 08/08/2023 16:15 Initial 50198 -5 LOINC Systolic Blood Pressure 131 mm[Hg] 08/10/2023 07:20 Most Recent 8480- 6 LOINC Diastolic Blood Pressure 69 mm[Hg] 08/10/2023 07:20 Most Recent 8462- 4 LOINC Systolic Blood Pressure 184 mm[Hg] 08/08/2023 16:15 Initial 8480- 6 LOINC Diastolic Blood Pressure 82 mm[Hg] 08/08/2023 16:15 Initial 8462- 4 LOINC Body Surface Area 2.67 m2 08/08/2023 20:54 Most Recent 3140- 1 LOINC Body Surface Area 2.68 m2 08/08/2023 16:15 Initial 3140- 1 LOINC Height 172.720 0 cm 68.00 in 08/08/2023 20:54 Most Recent 8302- 2 LOINC Height 172.720 0 cm 68.00 in 08/08/2023 16:15 Initial 8302- 2 LOINC O2 Saturation 95 % 2023 07:20 Most Recent 54919 -5 LOINC O2 Saturation 95 % 2023 16:15 Initial 51690 -5 LOINC Fraction of Inspired Oxygen 21 % 08/09/2023 23:34 Most Recent 3150- 0 LOINC Fraction of Inspired Oxygen 21 % 08/08/2023 23:19 Initial 3150- 0 LOINC Pulse 70.0 /min 08/10/2023 07:20 Most Recent 8867- 4 LOINC Pulse 83.0 /min 08/08/2023 16:15 Initial 8867- 4 LOINC Respiration 18 /min 08/10/19 24 07:20 Most Recent 9279- 1 LOINC Respiration 18 /min 08/08/19 24 16:15 Initial 9279- 1 LOINC Temperature 36.3 Altagracia 97.3 F 08/10/19 24 07:20 Most Recent 8310- 5 LOINC Temperature 35.7 Altagracia 96.3 F 08/08/19 24 16:15 Initial 8310- 5 LOINC Weight 148.78 kg 328.00 lbs 08/08/2023 20:54 Most Recent 08507 -7 LOINC Weight 149.90 kg 330.47 lbs 08/08/2023 16:15 Initial 91846 -7 LOINC Medications Medication Start Date End Date Route Frequency Dose Code Code System Medication Instructions Home Meds glipiZIDE 5MG Oral Tablet 08/10/2023 Unknown ORAL BID BEFORE MEALS 5 MILLIGRAMS 831502 RxNorm TAKE 5 MILLIGRAMS ORAL BID BEFORE MEALS Cortizone-10 Maximum Strength 1% Topical application Cream 08/10/2023 Unknown TOPICAL APPLICA TION NEEDED THREE TIMES A DAY 1 APPL 462318 RxNorm 1 APPL TOPICAL APPLICATION NEEDED THREE TIMES A DAY FOR HEMORRGHOIDS FLUoxetine HCl 40MG Oral Capsule 08/10/2023 Unknown ORAL DAILY 40 MILLIGRAMS 293751 RxNorm TAKE 40 MILLIGRAMS ORAL DAILY Multivitamin Oral Tablet 08/10/2023 Unknown ORAL DAILY 1 unit(s) RxNorm TAKE 1 EACH ORAL DAILY Olmesartan Medoxomil 20MG Oral Tablet 08/10/2023 Unknown ORAL DAILY 1 TABLET 951375 RxNorm TAKE 1 TABLE T ORAL DAILY Prometrium 200MG Oral Capsule, Liquid Filled 08/10/2023 Unknown ORAL DAILY 200 MILLIGRAMS 414296 RxNorm TAKE 200 MILLIGRAMS ORAL DAILY Terconazole 0.4% Vaginal Cream 08/10/2023 Unknown VAGINAL NEEDED 1 APPL 907926 RxNorm 1 APPL VAGINAL NEEDED Vitamin B Complex Oral Capsule 08/10/2023 Unknown ORAL DAILY 1 unit(s) RxNorm TAKE 1 EACH ORAL DAILY Vitamin D 5000 IU Oral Tablet 08/10/2023 Unknown ORAL DAILY 5000 IU 497995 RxNorm TAKE 5000 IU ORAL DAILY buPROPion HCl 300MG Oral Tablet, Extended Release, 24 HR 08/10/2023 Unknown ORAL DAILY 300 MILLIGRAMS [id number] RxNorm TAKE 300 MILLIGRAMS ORAL DAILY metFORMIN HCl AvPak 500MG Oral Tablet, Extended Release 08/10/2023 Unknown ORAL TWICE A DAY WITH FOOD 1000 MILLIGRAMS 774044 RxNorm TAKE 1000 MILLIGRAMS ORAL TWICE A DAY WITH FOOD Insulin Glargine Pen 100 IU/1 ML Subcutaneous Solution 08/10/2023 Unknown SUBCUTA NEOUS DAILY 20 UNIT [id number] RxNorm INJECT 20 UNIT SUBCUTANEOUS DAILY Assessment [...] Name Date Status Code Code Jose rhodes Hysterectomy completed 408570937 SNOMEDCT REPAIR BICEPS TENDON completed [id number] SNOM EDCT Rotator cuff repair completed [id number] SNOME DCT Problems Problem Start Date Resolved Date Status Code Code System TYPE 2 DIABETES WITH COMPLICATION active 136391505 SNOMED-CT BLURRED VISION active 324747256 SNOME D-CT WEAKNESS active 13462836 SNOMED-CT DIZZINESS active 333554568 SNOMED-CT VAGINAL LEATHA active 51770655 SNOM ED-CT HEMORRHOIDS active 03421795 SNOMED-C T DEPRESSION 08/08/2023 resolved 42507654 SNOMED-C T ANXIETY 08/08/2023 resolved 32587152 SNOMED-CT DIABETES 2 08/08/2023 resolved 83449495 SNOMED-C T ENDOMETRIAL CANCER GENETIC MARKER OF SUSCEPTIBILITY POSITIVE (FINDING) 08/08/2023 resolved [id number] SNOMED-CT Allergies and Adverse Reactions Allergy Substance Reaction Severity Start Date Concern Status Co de Code System VICTOZA Nausea/Vomiting (SNOMED-CT: 78474980) Active 313116 RxNorm Plan of Treatment MM SCREEN BILAT 02/12/2023 US PELVIC / TV 08/08/2022 MM SCREEN BILAT 04/01/2021 Encounters Encounter Diagnosis Start Date Code Code Sys tem Type 2 diabetes mellitus with hyperglycemia 08/08/2023 SNOMED-CT Personal Care Team Section Performer Name Performer Role Active Date Inactive Da te Discharge Summary Notes [facility] 08/10/2023 10:42 All Demographics Patient Name Age Sex Visit Number Admission Date/Time Attending Physician Date of Service Room and Bed Emergency Contact FRANNIE GRAHAM 1960 62 years Unknown [id number] 08/08/2023 20:25 EMILY FRENCH 08/08/2023 [id number] YASMIN GRAHAM J - [id number] 08/10/2023 10:34 Discharge Date: 08/10/2023 Admission Diagnosis: Diabetes mellitus type 2, newly diagnosed Hyperglycemia Pseudohyponatremia in the setting of hyperglycemia Dizziness Blurred vision Discharge Diagnosis: Diabetes mellitus type 2, newly diagnosed Hyperglycemia Pseudohyponatremia in the setting of hyperglycemia Dizziness Blurred vision Primary Care Physician: Primary Care Physician: HEIDY Payne Consulting Physician(s): Procedures: Recommendations: Discharge to home With home health Patient will follow-up with her primary care provider Eber Mays NP in the next couple of weeks, she has an appointment Frannie will check blood sugars at least twice a day, keep a record to review with Eber Mays at the follow-up appointment to aid in ongoing management of her newly diagnosed diabetes No concentrated sweets/Diabetic diet, patient is advised to pay particular attention to avoiding foods that have a high content of sugar including desserts and beverages. Discharge Medications: Discharge Meds List buPROPion HCl 300MG Oral Tablet, Extended Release, 24 HR, TAKE 300 MILLIGRAMS ORAL DAILY Cortizone-10 Maximum Strength 1% Topical application Cream, 1 APPL TOPICAL APPLICATION NEEDED THREE TIMES A DAY FOR HEMORRGHOIDS FLUoxetine HCl 40MG Oral Capsule, TAKE 40 MILLIGRAMS ORAL DAILY glipiZIDE 5MG Oral Tablet, TAKE 5 MILLIGRAMS ORAL BID BEFORE MEALS Insulin Glargine Pen 100 IU/1 ML Subcutaneous Solution, INJECT 20 UNIT SUBCUTANEOUS DAILY metFORMIN HCl AvPak 500MG Oral Tablet, Extended Release, TAKE 1000 MILLIGRAMS ORAL TWICE A DAY WITH FOOD Multivitamin Oral Tablet, TAKE 1 EACH ORAL DAILY Olmesartan Medoxomil 20MG Oral Tablet, TAKE 1 TABLET ORAL DAILY Prometrium 200MG Oral Capsule, Liquid Filled, TAKE 200 MILLIGRAMS ORAL DAILY Terconazole 0.4% Vaginal Cream, 1 APPL VAGINAL NEEDED Vitamin B Complex Oral Capsule, TAKE 1 EACH ORAL DAILY Vitamin D 5000 IU Oral Tablet, TAKE 5000 IU ORAL DAILY History of Present Illness patient is a very delightful 62-year-old woman who comes in with elevated blood sugars greater than 475, generalized weakness and blurred vision. Patient was seen at her primary care office at [facility] where she was seen for feeling unwell for multiple days. Feeling that she was excessively thirsty, painful urination, weak, dizzy and a yeast infection. Labs were drawn to note that the patient had an A1c of 10.6. This is a new diagnosis for the patient. Patient was started on 1000 mg of metformin and prescribed a glucometer. On Thursday patient was able to package pick up her medications, took first dose, and was unable to maintain a blood sugar under 450. Patient continued to get increasingly weak and very dizzy. Patient called primary care office and was instructed to double up on the metformin. Patient's Symptoms Continue to Worsen and Began to Feel Significantly Unwell. Blood Sugars Remained Elevated and Was Referred to the Emergency Department In the emergency department patient had blood work that showed an elevated glucose of 428, and elevated creatinine of 1.16, hyponatremia with a sodium of 127 and an elevated lactic acid of 3.5. There were greater than 1000 ketones in her urine. Initial VBG was done however it was elevated due to delayed testing and a repeat done showing an significantly improved with no initial concerns. CTA was completed to rule out any vascular changes and this was without any acute findings. Chest x-ray was done due to shortness of breath and this was also negative. Patient Denies Any Fevers, No Nausea Vomiting Diarrhea, No Pain outside of the Rectum Pain from the Hemorrhoids. Hospital Course Frannie was started on glargine, initially 10 units daily, ultimately increased to 20 units each a.m. Glipizide 5 mg p.o. twice daily with meals has been added to the metformin 1000 mg bid with meals. She was provided with some gentle intravenous fluids initially. Blood sugars have improved significantly. As above, initial blood glucose was 442 in the emergency department, sugars are now running mid 100s to low 200s. With hydration and improvement in her blood sugars sodium has come up to 135 from 127 and BUN of and creatinine have improved from 22 and 1.16 to 13 and 0.98. Patient is feeling much better although reports her vision is still a bit blurred. She is felt to be stable for discharge home with close follow-up. Frannie been provided with a log to keep track of her blood sugars. She Will Check Her Blood Sugars At Least Twice a Day can alternate between meals and at bedtime. She will bring the log to her follow-up appointment with Eber Mays to aid in ongoing management of her newly diagnosed diabetes. She recently had her vision tested, it sounds like she has some new glasses. If her vision continues to be blurred she should have her vision checked again. Labs last 72 hours Test Results Units Reference Range Collected WBC 9.60 th/cmm L=5.00 H=10.00 08/09/2023 06:56 HEMOGLOBIN 13.2 gm/dL L=12.0 H=16.0 08/09/2023 06:56 HEMATOCRIT 39 % L=37 H=47 08/09/2023 06:56 PLATELET COUNT 234 th/cmm L=150 H=450 08/09/2023 06:56 GLUCOSE 246 H mg/dL L=70 H=116 08/09/2023 06:56 BUN 13 mg/dL L=6 H=25 08/09/2023 06:56 CREATININE 0.98 H mg/dL L=0.51 H=0.95 08/09/2023 06:56 SODIUM SERUM 135 L mmol/L L=136 H=145 08/09/2023 06:56 POTASSIUM SERUM 3.9 mmol/L L=3.4 H=5.2 08/09/2023 06:56 CHLORIDE SERUM 102 mmol/L L=96 H=110 08/09/2023 06:56 CARBON DIOXIDE (CO2) 26 mmol/L L=22 H=34 08/09/2023 06:56 ANION GAP 7.3 mmol/L 08/09/2023 06:56 CALCIUM SERUM 8.3 mg/dL L=8.2 H=10.2 08/09/2023 06:56 BILIRUBIN TOTAL 0.4 mg/dL L=0.0 H=1.3 08/09/2023 06:56 ALK. PHOS. 155 H U/L L=46 H=116 08/09/2023 06:56 SGOT (AST) 29 U/L L=15 H=37 08/09/2023 06:56 SGPT (ALT) 46 U/L L=12 H=78 08/09/2023 06:56 TOTAL PROTEIN 6.9 gm/dL L=6.0 H=8.0 08/09/2023 06:56 ALBUMIN 3.2 L gm/dL L=3.4 H=5.0 08/09/2023 06:56 LACTIC ACID 2.0 mmol/L L=0.7 H=2.1 08/09/2023 06:56 TSH 2.230 uIU/mL L=0.360 H=3.740 08/09/2023 06:56 VITAMIN B12 08/09/2023 06:56 GLUCOSE 292 H mg/dL L=70 H=116 08/08/2023 19:12 BUN 21 mg/dL L=6 H=25 08/08/2023 19:12 CREATININE 1.07 H mg/dL L=0.51 H=0.95 08/08/2023 19:12 SODIUM SERUM 131 L mmol/L L=136 H=145 08/08/2023 19:12 POTASSIUM SERUM 4.0 mmol/L L=3.4 H=5.2 08/08/2023 19:12 CHLORIDE SERUM 98 mmol/L L=96 H=110 08/08/2023 19:12 CARBON DIOXIDE (CO2) 25 mmol/L L=22 H=34 08/08/2023 19:12 ANION GAP 8.3 mmol/L 08/08/2023 19:12 CALCIUM SERUM 8.5 mg/dL L=8.2 H=10.2 08/08/2023 19:12 LACTIC ACID 2.2 H mmol/L L=0.7 H=2.1 08/08/2023 19:12 COVID NEGATIVE NEGATIVE Normal: Negative 08/08/2023 18:25 Tier- INPATIENT/ED INPATIENT/ED 08/08/2023 18:25 Specimen type: VENOUS VENOUS 08/08/2023 17:38 pH (venous) 7.34 L L=7.38 H=7.46 08/08/2023 17:38 PCO2 (venous) 40.8 L mm Hg L=41.0 H=51.0 08/08/2023 17:38 PO2 (venous) 41 mm Hg L=30 H=50 08/08/2023 17:38 HCO3 22 mmol/L L=22 H=26 08/08/2023 17:38 TCO2 (venous) 23 mmol/L L=22 H=28 08/08/2023 17:38 BASE EXCESS (venous) -4 L mmol/L L=-2 H=3 08/08/2023 17:38 Assist vent. 08/08/2023 17:38 Resp. Rate /min. 08/08/2023 17:38 Temp. 08/08/2023 17:38 TROPONIN HS 6.3 pg/mL L=0.0 H=60.4 08/08/2023 17:38 Specimen seq. 1 HOUR 1 HOUR 08/08/2023 17:38 GLUCOSE 428 HH mg/dL L=70 H=116 08/08/2023 16:30 BUN 22 mg/dL L=6 H=25 08/08/2023 16:30 CREATININE 1.16 H mg/dL L=0.51 H=0.95 08/08/2023 16:30 SODIUM SERUM 127 L mmol/L L=136 H=145 08/08/2023 16:30 POTASSIUM SERUM 4.9 mmol/L L=3.4 H=5.2 08/08/2023 16:30 CHLORIDE SERUM 94 L mmol/L L=96 H=110 08/08/2023 16:30 CARBON DIOXIDE (CO2) 21 L mmol/L L=22 H=34 08/08/2023 16:30 ANION GAP 12.4 mmol/L 08/08/2023 16:30 CALCIUM SERUM 9.5 mg/dL L=8.2 H=10.2 08/08/2023 16:30 NT-proBNP 37.0 pg/mL L=0.0 H=125 08/08/2023 16:30 WBC 12.08 H th/cmm L=5.00 H=10.00 08/08/2023 16:30 HEMOGLOBIN 14.9 gm/dL L=12.0 H=16.0 08/08/2023 16:30 HEMATOCRIT 44 % L=37 H=47 08/08/2023 16:30 PLATELET COUNT 267 th/cmm L=150 H=450 08/08/2023 16:30 Hgb A1c 10.6 H % L=3.8 H=5.7 08/08/2023 16:30 MEAN BLOOD GLUCOSE 267 mg/dL 08/08/2023 16:30 ACETONE SMALL SMALL 08/08/2023 16:30 LACTIC ACID 3.6 H mmol/L L=0.7 H=2.1 08/08/2023 16:30 MICROALBUMIN URINE 08/08/2023 16:30 Specimen type: VENOUS VENOUS 08/08/2023 16:30 pH (venous) 7.50 H L=7.38 H=7.46 08/08/2023 16:30 PCO2 (venous) 26.6 L mm Hg L=41.0 H=51.0 08/08/2023 16:30 PO2 (venous) 122 H mm Hg L=30 H=50 08/08/2023 16:30 HCO3 21 L mmol/L L=22 H=26 08/08/2023 16:30 TCO2 (venous) 21 L mmol/L L=22 H=28 08/08/2023 16:30 BASE EXCESS (venous) -3 L mmol/L L=-2 H=3 08/08/2023 16:30 Assist vent. 08/08/2023 16:30 Resp. Rate /min. 08/08/2023 16:30 Temp. 08/08/2023 16:30 TROPONIN HS 5.6 pg/mL L=0.0 H=60.4 08/08/2023 16:30 Specimen seq. RANDOM RANDOM 08/08/2023 16:30 COLLECTION MODE: CLEAN CATCH CLEAN CATCH 08/08/2023 16:30 Color YELLOW YELLOW yellow 08/08/2023 16:30 Appearance CLEAR CLEAR clear 08/08/2023 16:30 Glucose urine >=1000 A >=1000 negative mg/dl 08/08/2023 16:30 Bilirubin NEGATIVE NEGATIVE negative 08/08/2023 16:30 Ketones 40 A 40 negative mg/dl 08/08/2023 16:30 Spec gravity 1.010 1.010 1.003 - 1.030 08/08/2023 16:30 pH urine 5.5 5.5 5.0 - 7.0 08/08/2023 16:30 Protein NEGATIVE NEGATIVE negative mg/dl 08/08/2023 16:30 Urobilinogen 0.2 0.2 08/08/2023 16:30 Nitrite. NEGATIVE NEGATIVE negative 08/08/2023 16:30 Blood NEGATIVE NEGATIVE negative 08/08/2023 16:30 Leukocytes. NEGATIVE NEGATIVE negative 08/08/2023 16:30 MICROSCOPIC NOT INDICAT NOT INDICAT 08/08/2023 16:30 Physical Exam: Vitals: Temperature 36.3 pulse 70 respiratory rate 18 blood pressure 131/69 oxygenation 95% on room air General: Obese middle-age woman who currently appears comfortable Heart: Regular rate and rhythm with no murmurs rubs gallops appreciated Lungs: Clear with no crackles or wheezes Abdomen: Obese, soft and nontender Extremities: No cyanosis cubbing or edema Neurologic: Patient awake and alert and oriented History and Physical Notes [facility] 08/08/2023 20:59 Patient Name Age Sex Admission Date/Time FRANNIE GRAHAM 1960 62 years Unknown 08/08/2023 20:25 08/08/2023 20:41 Admission Date: 08/08/2023 Reason for Admission: Hyperglycemia, visual changes and weakness Code Status: full code Attending Physician: Emily French MD Primary Care Physician: HEIDY Payne History of Present Illness Chief Complaint: BLURRED VISION, DIZZY HIGH BLOOD SUGAR patient is a very delightful 62-year-old woman who comes in with elevated blood sugars greater than 475, generalized weakness and blurred vision. Patient was seen at her primary care office at [facility] where she was seen for feeling unwell for multiple days. Feeling that she was excessively thirsty, painful urination, weak, dizzy and a yeast infection. Labs were drawn to note that the patient had an A1c of 10.6. This is a new diagnosis for the patient. Patient was started on 1000 mg of metformin and prescribed a glucometer. On Thursday patient was able to package pick up her medications, took first dose, and was unable to maintain a blood sugar under 450. Patient continued to get increasingly weak and very dizzy. Patient called primary care office and was instructed to double up on the metformin. Patient's Symptoms Continue to Worsen and Began to Feel Significantly Unwell. Blood Sugars Remained Elevated and Was Referred to the Emergency Department In the emergency department patient had blood work that showed an elevated glucose of 428, and elevated creatinine of 1.16, hyponatremia with a sodium of 127 and an elevated lactic acid of 3.5. There were greater than 1000 ketones in her urine. Initial VBG was done however it was elevated due to delayed testing and a repeat done showing an significantly improved with no initial concerns. CTA was completed to rule out any vascular changes and this was without any acute findings. Chest x-ray was done due to shortness of breath and this was also negative. Patient Denies Any Fevers, No Nausea Vomiting Diarrhea, No Pain outside of the Rectum Pain from the Hemorrhoids. Past Medical/Surgical/Family/Social History Past Medical History: Hysterectomy in 2022 hypertension anxiety depression obstructive sleep apnea hemorrhoids candidiasis Past Surgical History: RTC repair, right shoulder Bicep tendon repair Past Family History: history of familial diabetes, no early coronary artery disease in family. Past Social History: Patient lives in [place] with her and 13-year-old son. Patient has 6 kids. 3 of which are adopted. recently discharged from [facility] post bone marrow transplant 21 days ago. 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 Does not work she stays at home. Denies any recreational drug use, no EtOH, no smoking. No social determinants of health issues or concerns reported at this visit. Allergies: Allergy List VICTOZA, Medication Current Medications: Active Home Meds Medication Dosage Route Frequency Special Instructions Terconazole 0.4% Vaginal Cream buPROPion HCl 300MG Oral Tablet, Extended Release, 24 HR 300 MILLIGRAMS ORAL DAILY FLUoxetine HCl 40MG Oral Capsule 40 MILLIGRAMS ORAL DAILY metFORMIN HCl 500MG Oral Tablet, Extended Release 2000 MILLIGRAMS ORAL DAILY Olmesartan Medoxomil 20MG Oral Tablet 1 TABLET ORAL DAILY Prometrium 200MG Oral Capsule, Liquid Filled 200 MILLIGRAMS ORAL DAILY Previous Home Med Vitamin B Complex Oral Capsule 1 EACH ORAL DAILY Previous Home Med Vitamin D 5000 IU Oral Tablet 5000 IU ORAL DAILY Previous Home Med Multivitamin Oral Tablet 1 EACH ORAL DAILY Previous Home Med Review of Systems Constitutional: (-) fever (-) weight changes. Eyes: (+) blurry vision (-) eye pain. ENT: (-) sore throat (-) ear pain (-) epistaxis. Neck: (-) lymphadenopathy. Respiratory: (-) SOB (-) cough. Heart: (-) chest pain (-) palpitations. Abdomen: (-) nausea (-) vomiting (-) diarrhea. Genitourinary: (-) urinary frequency (-) urgency.+painful urination, +painful rectum Extremities: (-) edema. Skin: (-) rashes (-) lesions. Neuro: (-) headache (+) dizziness. Physical Exam Date/Time BP (mm/Hg) Heart Rate Resp Temp (C) SPO2% O2 Device 08/08/2023 19:45 137/74 67 18 96 % Room Air 21% GENERAL: Non Toxic, no acute distress SKIN: Warm & Dry, Good skin turgor, Absence of lesions or rashes HEENT: HEAD: Normocephalic, atraumatic EYES: Lid Margins without edema, ptosis, or lesions, conjunctivae without injections, sclera non icteric, moist, PERRL, EOM intact EARS: Symmetrical; no lesions NOSE: Septum midline, mucosa pink, non-tender MOUTH: Tongue symmetrical, MMM, Uvula midline, posterior pharynx without erythema or exudate. NECK: Supple, midline, no thyromegaly or adenopthay, negative for carotid bruit CHEST/LUNGS: Respiratory rate and rhythm regular, non-labored, no use of accessory muscles lung sounds CTA T/O, No rales, rhonchi or wheezes. HEART: Regular rate and rhythm. S1 S2 Present, no S3 S4 noted. No murmurs, rubs or gallop. ABDOMEN: Soft, non-distended, non-tender. Normal bowel sounds x 4 Q. No CVA tenderness, no masses or organomegaly GI/U: Noted +2 hemorroids EXTREMITIES: No cyanosis, edema +CSMT, +PP/DP. MUSCULOSKELETAL: Full ROM, no deformaties, symmetrical NEUROLOGIC: Alert & Oriented x 4, CN II-XII intact; Muscle strength 5/5 bilaterally, Sensation to pain, touch intact. Pre-Admission Studies: Diagnostic images reviewed by myself. CTA: There are no evidence of hemorrhage, mass or midline shift or structure. Patent carotid arteries bilaterally and vertebral arteries. No intracranial findings. CXR: No acute findings Labs last 24 hours Test Results Units Reference Range Collected GLUCOSE 292 H mg/dL L=70 H=116 08/08/2023 19:12 BUN 21 mg/dL L=6 H=25 08/08/2023 19:12 CREATININE 1.07 H mg/dL L=0.51 H=0.95 08/08/2023 19:12 SODIUM SERUM 131 L mmol/L L=136 H=145 08/08/2023 19:12 POTASSIUM SERUM 4.0 mmol/L L=3.4 H=5.2 08/08/2023 19:12 CHLORIDE SERUM 98 mmol/L L=96 H=110 08/08/2023 19:12 CARBON DIOXIDE (CO2) 25 mmol/L L=22 H=34 08/08/2023 19:12 ANION GAP 8.3 mmol/L 08/08/2023 19:12 CALCIUM SERUM 8.5 mg/dL L=8.2 H=10.2 08/08/2023 19:12 LACTIC ACID 2.2 H mmol/L L=0.7 H=2.1 08/08/2023 19:12 COVID NEGATIVE NEGATIVE Normal: Negative 08/08/2023 18:25 Tier- INPATIENT/ED INPATIENT/ED 08/08/2023 18:25 Specimen type: VENOUS VENOUS 08/08/2023 17:38 pH (venous) 7.34 L L=7.38 H=7.46 08/08/2023 17:38 PCO2 (venous) 40.8 L mm Hg L=41.0 H=51.0 08/08/2023 17:38 PO2 (venous) 41 mm Hg L=30 H=50 08/08/2023 17:38 HCO3 22 mmol/L L=22 H=26 08/08/2023 17:38 TCO2 (venous) 23 mmol/L L=22 H=28 08/08/2023 17:38 BASE EXCESS (venous) -4 L mmol/L L=-2 H=3 08/08/2023 17:38 Assist vent. 08/08/2023 17:38 Resp. Rate /min. 08/08/2023 17:38 Temp. 08/08/2023 17:38 TROPONIN HS 6.3 pg/mL L=0.0 H=60.4 08/08/2023 17:38 Specimen seq. 1 HOUR 1 HOUR 08/08/2023 17:38 GLUCOSE 428 HH mg/dL L=70 H=116 08/08/2023 16:30 BUN 22 mg/dL L=6 H=25 08/08/2023 16:30 CREATININE 1.16 H mg/dL L=0.51 H=0.95 08/08/2023 16:30 SODIUM SERUM 127 L mmol/L L=136 H=145 08/08/2023 16:30 POTASSIUM SERUM 4.9 mmol/L L=3.4 H=5.2 08/08/2023 16:30 CHLORIDE SERUM 94 L mmol/L L=96 H=110 08/08/2023 16:30 CARBON DIOXIDE (CO2) 21 L mmol/L L=22 H=34 08/08/2023 16:30 ANION GAP 12.4 mmol/L 08/08/2023 16:30 CALCIUM SERUM 9.5 mg/dL L=8.2 H=10.2 08/08/2023 16:30 NT-proBNP 37.0 pg/mL L=0.0 H=125 08/08/2023 16:30 WBC 12.08 H th/cmm L=5.00 H=10.00 08/08/2023 16:30 HEMOGLOBIN 14.9 gm/dL L=12.0 H=16.0 08/08/2023 16:30 HEMATOCRIT 44 % L=37 H=47 08/08/2023 16:30 PLATELET COUNT 267 th/cmm L=150 H=450 08/08/2023 16:30 Hgb A1c 10.6 H % L=3.8 H=5.7 08/08/2023 16:30 MEAN BLOOD GLUCOSE 267 mg/dL 08/08/2023 16:30 ACETONE SMALL SMALL 08/08/2023 16:30 LACTIC ACID 3.6 H mmol/L L=0.7 H=2.1 08/08/2023 16:30 Specimen type: VENOUS VENOUS 08/08/2023 16:30 pH (venous) 7.50 H L=7.38 H=7.46 08/08/2023 16:30 PCO2 (venous) 26.6 L mm Hg L=41.0 H=51.0 08/08/2023 16:30 PO2 (venous) 122 H mm Hg L=30 H=50 08/08/2023 16:30 HCO3 21 L mmol/L L=22 H=26 08/08/2023 16:30 TCO2 (venous) 21 L mmol/L L=22 H=28 08/08/2023 16:30 BASE EXCESS (venous) -3 L mmol/L L=-2 H=3 08/08/2023 16:30 Assist vent. 08/08/2023 16:30 Resp. Rate /min. 08/08/2023 16:30 Temp. 08/08/2023 16:30 TROPONIN HS 5.6 pg/mL L=0.0 H=60.4 08/08/2023 16:30 Specimen seq. RANDOM RANDOM 08/08/2023 16:30 COLLECTION MODE: CLEAN CATCH CLEAN CATCH 08/08/2023 16:30 Color YELLOW YELLOW yellow 08/08/2023 16:30 Appearance CLEAR CLEAR clear 08/08/2023 16:30 Glucose urine >=1000 A >=1000 negative mg/dl 08/08/2023 16:30 Bilirubin NEGATIVE NEGATIVE negative 08/08/2023 16:30 Ketones 40 A 40 negative mg/dl 08/08/2023 16:30 Spec gravity 1.010 1.010 1.003 - 1.030 08/08/2023 16:30 pH urine 5.5 5.5 5.0 - 7.0 08/08/2023 16:30 Protein NEGATIVE NEGATIVE negative mg/dl 08/08/2023 16:30 Urobilinogen 0.2 0.2 08/08/2023 16:30 Nitrite. NEGATIVE NEGATIVE negative 08/08/2023 16:30 Blood NEGATIVE NEGATIVE negative 08/08/2023 16:30 Leukocytes. NEGATIVE NEGATIVE negative 08/08/2023 16:30 MICROSCOPIC NOT INDICAT NOT INDICAT 08/08/2023 16:30 Assessment Problem List Dizziness Hemorrhoids Vaginal leatha Weakness Blurred vision Type 2 diabetes with complication Plan Admit for observation type 2 diabetes and hyperglycemia: will monitor blood sugars before meals and at bedtime and administer sliding scale. Will do diabetic education by nursing. Will start on Lantus 10 units nightly. Will continue the metformin 1000 mg p.o. twice daily. Will get a microalbumin. hyponatremia: will monitor BMP and treat as needed. Elevated lactic acid: was 3.5 after 1 L of fluid went down to 2.2. Will maintain IV hydration overnight. Will recheck in the a.m. Candiasis: Will Continue Terconazole Vaginal Cream Written by PCP Hemorrhoids: Will Provide Stool Softeners, Docusate Nightly. Will Also Prescribe Hydrocortisone Cream 2% Per Rectum Patient admitted as observation as I anticipate them to be here less than 2 midnights due to symptoms of hyperglycemia, weakness, vision changes. Progress Notes [facility] 08/09/2023 11:57 08/09/2023, 11:55 SUBJECTIVE: 62-year-old woman with morbid obesity, BMI 50 who was just recently diagnosed with diabetes this past . She is admitted with persistent hyperglycemia with associated weakness and blurred vision, blood sugar was 442 on arrival to the emergency department. She was started on glargine last evening, has been continued on metformin. Glipizide was added to her regimen this morning. Blood sugar before lunch today is down to 182. However, she is still feeling weak, states she really did not get any sleep last night. She also still has some blurred vision. See admission history and physical from 08/08/2023 for past medical history, family history, social history and review of systems. All reviewed and unchanged other than those listed above in the HPI. Allergy List VICTOZA, Medication OBJECTIVE: Vital Signs Most Recent Date/Time BP (mm/Hg) Heart Rate Resp Temp (C) SPO2% O2 Device 08/09/2023 07:08 122/56 63 18 36.5 TEMPORAL SCANNING 95 % GEN: Morbidly obese woman appears comfortable, no acute distress EYES: No scleral icteris NECK: supple, no LAD PULM: CTA b/l no w/r/r CV: RRR with no m/r/g appreciated ABD: soft, nontender, +BSx4 EXT: no edema NEURO: A&Ox3, 5/5 muscle strength upper and lower ext b/l. no facial droop. Labs last 24 hours Test Results Units Reference Range Collected WBC 9.60 th/cmm L=5.00 H=10.00 08/09/2023 06:56 HEMOGLOBIN 13.2 gm/dL L=12.0 H=16.0 08/09/2023 06:56 HEMATOCRIT 39 % L=37 H=47 08/09/2023 06:56 PLATELET COUNT 234 th/cmm L=150 H=450 08/09/2023 06:56 GLUCOSE 246 H mg/dL L=70 H=116 08/09/2023 06:56 BUN 13 mg/dL L=6 H=25 08/09/2023 06:56 CREATININE 0.98 H mg/dL L=0.51 H=0.95 08/09/2023 06:56 SODIUM SERUM 135 L mmol/L L=136 H=145 08/09/2023 06:56 POTASSIUM SERUM 3.9 mmol/L L=3.4 H=5.2 08/09/2023 06:56 CHLORIDE SERUM 102 mmol/L L=96 H=110 08/09/2023 06:56 CARBON DIOXIDE (CO2) 26 mmol/L L=22 H=34 08/09/2023 06:56 ANION GAP 7.3 mmol/L 08/09/2023 06:56 CALCIUM SERUM 8.3 mg/dL L=8.2 H=10.2 08/09/2023 06:56 BILIRUBIN TOTAL 0.4 mg/dL L=0.0 H=1.3 08/09/2023 06:56 ALK. PHOS. 155 H U/L L=46 H=116 08/09/2023 06:56 SGOT (AST) 29 U/L L=15 H=37 08/09/2023 06:56 SGPT (ALT) 46 U/L L=12 H=78 08/09/2023 06:56 TOTAL PROTEIN 6.9 gm/dL L=6.0 H=8.0 08/09/2023 06:56 ALBUMIN 3.2 L gm/dL L=3.4 H=5.0 08/09/2023 06:56 LACTIC ACID 2.0 mmol/L L=0.7 H=2.1 08/09/2023 06:56 TSH 2.230 uIU/mL L=0.360 H=3.740 08/09/2023 06:56 VITAMIN B12 08/09/2023 06:56 GLUCOSE 292 H mg/dL L=70 H=116 08/08/2023 19:12 BUN 21 mg/dL L=6 H=25 08/08/2023 19:12 CREATININE 1.07 H mg/dL L=0.51 H=0.95 08/08/2023 19:12 SODIUM SERUM 131 L mmol/L L=136 H=145 08/08/2023 19:12 POTASSIUM SERUM 4.0 mmol/L L=3.4 H=5.2 08/08/2023 19:12 CHLORIDE SERUM 98 mmol/L L=96 H=110 08/08/2023 19:12 CARBON DIOXIDE (CO2) 25 mmol/L L=22 H=34 08/08/2023 19:12 ANION GAP 8.3 mmol/L 08/08/2023 19:12 CALCIUM SERUM 8.5 mg/dL L=8.2 H=10.2 08/08/2023 19:12 LACTIC ACID 2.2 H mmol/L L=0.7 H=2.1 08/08/2023 19:12 COVID NEGATIVE NEGATIVE Normal: Negative 08/08/2023 18:25 Tier- INPATIENT/ED INPATIENT/ED 08/08/2023 18:25 Specimen type: VENOUS VENOUS 08/08/2023 17:38 pH (venous) 7.34 L L=7.38 H=7.46 08/08/2023 17:38 PCO2 (venous) 40.8 L mm Hg L=41.0 H=51.0 08/08/2023 17:38 PO2 (venous) 41 mm Hg L=30 H=50 08/08/2023 17:38 HCO3 22 mmol/L L=22 H=26 08/08/2023 17:38 TCO2 (venous) 23 mmol/L L=22 H=28 08/08/2023 17:38 BASE EXCESS (venous) -4 L mmol/L L=-2 H=3 08/08/2023 17:38 Assist vent. 08/08/2023 17:38 Resp. Rate /min. 08/08/2023 17:38 Temp. 08/08/2023 17:38 TROPONIN HS 6.3 pg/mL L=0.0 H=60.4 08/08/2023 17:38 Specimen seq. 1 HOUR 1 HOUR 08/08/2023 17:38 GLUCOSE 428 HH mg/dL L=70 H=116 08/08/2023 16:30 BUN 22 mg/dL L=6 H=25 08/08/2023 16:30 CREATININE 1.16 H mg/dL L=0.51 H=0.95 08/08/2023 16:30 SODIUM SERUM 127 L mmol/L L=136 H=145 08/08/2023 16:30 POTASSIUM SERUM 4.9 mmol/L L=3.4 H=5.2 08/08/2023 16:30 CHLORIDE SERUM 94 L mmol/L L=96 H=110 08/08/2023 16:30 CARBON DIOXIDE (CO2) 21 L mmol/L L=22 H=34 08/08/2023 16:30 ANION GAP 12.4 mmol/L 08/08/2023 16:30 CALCIUM SERUM 9.5 mg/dL L=8.2 H=10.2 08/08/2023 16:30 NT-proBNP 37.0 pg/mL L=0.0 H=125 08/08/2023 16:30 WBC 12.08 H th/cmm L=5.00 H=10.00 08/08/2023 16:30 HEMOGLOBIN 14.9 gm/dL L=12.0 H=16.0 08/08/2023 16:30 HEMATOCRIT 44 % L=37 H=47 08/08/2023 16:30 PLATELET COUNT 267 th/cmm L=150 H=450 08/08/2023 16:30 Hgb A1c 10.6 H % L=3.8 H=5.7 08/08/2023 16:30 MEAN BLOOD GLUCOSE 267 mg/dL 08/08/2023 16:30 ACETONE SMALL SMALL 08/08/2023 16:30 LACTIC ACID 3.6 H mmol/L L=0.7 H=2.1 08/08/2023 16:30 MICROALBUMIN URINE 08/08/2023 16:30 Specimen type: VENOUS VENOUS 08/08/2023 16:30 pH (venous) 7.50 H L=7.38 H=7.46 08/08/2023 16:30 PCO2 (venous) 26.6 L mm Hg L=41.0 H=51.0 08/08/2023 16:30 PO2 (venous) 122 H mm Hg L=30 H=50 08/08/2023 16:30 HCO3 21 L mmol/L L=22 H=26 08/08/2023 16:30 TCO2 (venous) 21 L mmol/L L=22 H=28 08/08/2023 16:30 BASE EXCESS (venous) -3 L mmol/L L=-2 H=3 08/08/2023 16:30 Assist vent. 08/08/2023 16:30 Resp. Rate /min. 08/08/2023 16:30 Temp. 08/08/2023 16:30 TROPONIN HS 5.6 pg/mL L=0.0 H=60.4 08/08/2023 16:30 Specimen seq. RANDOM RANDOM 08/08/2023 16:30 COLLECTION MODE: CLEAN CATCH CLEAN CATCH 08/08/2023 16:30 Color YELLOW YELLOW yellow 08/08/2023 16:30 Appearance CLEAR CLEAR clear 08/08/2023 16:30 Glucose urine >=1000 A >=1000 negative mg/dl 08/08/2023 16:30 Bilirubin NEGATIVE NEGATIVE negative 08/08/2023 16:30 Ketones 40 A 40 negative mg/dl 08/08/2023 16:30 Spec gravity 1.010 1.010 1.003 - 1.030 08/08/2023 16:30 pH urine 5.5 5.5 5.0 - 7.0 08/08/2023 16:30 Protein NEGATIVE NEGATIVE negative mg/dl 08/08/2023 16:30 Urobilinogen 0.2 0.2 08/08/2023 16:30 Nitrite. NEGATIVE NEGATIVE negative 08/08/2023 16:30 Blood NEGATIVE NEGATIVE negative 08/08/2023 16:30 Leukocytes. NEGATIVE NEGATIVE negative 08/08/2023 16:30 MICROSCOPIC NOT INDICAT NOT INDICAT 08/08/2023 16:30 ASSESSMENT: Problem List Type 2 diabetes with complication Blurred vision Weakness Vaginal leatha Hemorrhoids Dizziness PLAN: Continue metformin Glipizide started this morning 5 mg p.o. twice daily Continue glargine 10 units SQ nightly for now Monitor blood sugars, cover with Humalog sliding scale, adjust medication dosing accordingly Pseudohyponatremia in the setting of hyperglycemia, improved with improvement in her blood sugars. Consider admitting to inpatient today if she is not stable for discharge home.
--- OUTSIDE RECORDS SUMMARY | 2024-04-05 13:43 | XMS_ITS | Encounter Summary ---
Author Organization [facility] Address [address] [place] [address] Care Team Providers Care Shell Molder Name Role Phone Vicki Mays SCOOPER Primary Care Provider [phone] Reason for Visit * Reason Onset Date Comments Confirmation 11/14/2022 Encounter Details Date Type Department Care Team (Late st Contact Info) Description 11/14/2022 Telephone [facility] OBGYN Services - [facility] [address], [place] [id number] Seb Kwon MD [address] [facility], [address] [place] [address] Confirmation Social History Tobacco Use [...] encounter Miscellaneous Notes * Telephone Encounter - Maribell Colón - 11/14/2022 4767 EDT pc to pt to inform of surgery/check-in times. Pt did not answer LVM informing pt that I will try and call her again before the end of the day and that I will be sending her a MyChart message with allthe details that she needs to know for surgery. documented in this encounter Plan of Treatment Not on file documented as of this encounter Visit Diagnoses Not on filedocumented in this encounter Care Teams Shell Molder Relationship Specialty Start Date End Date Vicki Mays, SCOOPER [address] [place] [address] PCP - General 01/17/16 documented as of this encounter
--- OUTSIDE RECORDS SUMMARY | 2024-04-05 13:43 | XMS_ITS | Clinical Summary ---
Author Organization [facility] Address [address] [place] [address] Care Team Providers Care Rand Butter Name Role Phone Vicki Mays NP Primary Care Provider [phone] Sam Morris MD Unavailable [phone] Allergies Active Allergy Reactions Criticality Noted Date Comments Liraglutide Nausea And Vomiting 10/03/2022 [facility] Medications FLUoxetine (PROZAC) 20 mg capsule Take [...] Problem Noted Date Diagnosed Date Endometrial adenocarcinoma ([facility]) 11/17/2022 Endometrial cancer (HCC-CMS) 10/09/2022 Overview (10/09/2022): Added automatically from request for surgery [id number] Varicella 10/03/2022 Anxiety and depression 10/03/2022 Hypertension 10/03/2022 Encounters Date Type Department Care Team Description 03/03/2024 10:15 EDT Office Visit [facility] OBGYN Services - [address] [address] Yessenia Huddleston PA-C Encounter for follow-up surveillance of endometrial cancer (Primary Dx) from Last 3 Months Surgical History Surgery Date Site/Laterality Comments SHOULDER SURGERY 05/25/2009 - 05/24/2010 Right Medical History Medical History Date Comments History of general anesthesia med controlled Exercise involving walking walks daily, able to go up 2 flight of stairs w/o sob Hypertension 11/10/22 med cont rolled Anxiety 11/10/22 med cont rolled Depression 11/10/22 med cont rolled Menorrhagia Endometrial cancer (HCC-CMS) Family History Relation Status Comments Father Mother Alive Social History Tobacco Use Types Packs/Day Years [...] on file Sexual Orientation Not on file Obstetrics History Last Filed Vital Signs Vital Sign Reading [...] Body Mass Index 48.35 11/17/2022 0704 EDT Plan of Treatment Health Maintenance Due Date Last Done Comments Hepatitis C Screen 1960 RSV Immunization ( o r 60+ Years) (1 - Risk 60-74 years 1-dose series) 2022 COVID-19 Vaccine (2023- season) 2024 Insurance [facility] [place] [address] [id number] [place] [address] [place] [address] [place] [address] Advance Directives For more information, please contact: [phone] * Full Code (Latest Code Status on [...] Who Made the Decision? Patient Care Teams Rand Butter Relationship Specialty Start Date End Date Vicki Mays NP [address] [place] [address] PCP - General 01/17/16 Sam Morris MD [address] [facility] [address] [place] [address] 11/17/22
--- OUTSIDE RECORDS SUMMARY | 2024-04-05 13:43 | XMS_ITS | Encounter Summary ---
Author Organization [facility] Address [address] [place] [address] Care Team Providers Care Demand Equipment Repairer Name Role Phone Vicki Mays NP Primary Care Provider [phone] Encounter Details Date Type Department Care Team (Latest Contact Info) Description 11/10/2022 15:20 EDT - 11/10/2022 23:59 EDT Hospital Encounter [facility] Pre-Surgical Testing [address] [place] [address] Discharge Disposition: Home or Self Care Social [...] - Inhaled Oxygen Concentration - - Weight 149.7 kg (330 lb) 11/10/2022 1541 EDT Height 172.7 cm (5' 8) 11/10/2022 1541 EDT Body Mass Index 50.18 11/10/2022 1541 EDT documented in this encounter Medications at Time [...] VITAMIN B COMPLEX ORAL Take by mouth. buPROPion (WELLBUTRIN) 100 mg tablet Take 1 Tablet by mouth daily. 3 enoxaparin (LOVENOX) 40 mg/0.4 mL injection [...] 30 mg 6 Tablet 11/17/2022 3 documented as of this encounter Discharge Disposition Disposition Code Departure Means Destination Home or Self Care documented in this encounter OR Notes * Preprocedure Instructions - Radhika Patel RN - 11/10/2022 7570 EDT Frannie Mora has been instructed as follows regarding medication administration for the day of the scheduled procedure. Date of Surgery: 11/17/22 Instructions for Taking Medications Day of Surgery Medication Dose and frequency Last Dose Hold Day of Surgery Take Day of Surgery buPROPion (WELLBUTRIN) 100 mg tablet Take 100 mg by mouth daily. yes chlorhexidine gluconate 4 % (E-Z SCRUB 107) sponge Use as directed in pre-op showering instructions. yes ergocalciferol, vitamin D2, (VITAMIN D ORAL) Take by mouth. 11/10/22 x famotidine (PEPCID) 40 mg tablet Take 1 Tablet by mouth daily. Yes FLUoxetine (PROZAC) 20 mg capsule Take 20 mg by mouth daily. yes LORazepam (ATIVAN) 0.5 mg tablet Take 1 mg by mouth at bedtime as needed. yes Multivitamins with Minerals tablet tablet Take 1 Tablet by mouth daily. 11/10/22 x olmesartan (BENICAR) 20 mg tablet Take 20 mg by mouth daily. 11/15/22 x progesterone (PROMETRIUM) 200 mg capsule Take 200 mg by mouth daily. yes VITAMIN B COMPLEX ORAL Take by mouth. 11/10/22 x Stop all vitamins and supplements 7 days prior to surgery. Nonsteroidal anti-inflammatories (NSAIDS; i.e. ibuprofen, naproxen, indomethacin, ketorolac, Motrin) stop 3 days prior to surgery. Acetaminophen (Tylenol) can be taken prior to surgery if needed. Preparing for surgery: o Fasting- Follow the eating and drinking instructions below unless otherwise instructed by your surgeon - STOP all solid FOOD and LIQUIDS Containing Fats, including Milk, at midnight the night before surgery - You May have FAT FREE CLEAR liquids until 2 hours before your scheduled time to arrive to the hospital on the day of surgery. Acceptable clear liquids include Water, apple juice, and sports drinks (Gatorade?? or Powerade?? avoid red and purple). - On the day of your procedure, no gum, mints, lozenges or hard candy. - Children under 1 year of age may have breast milk up to 4 hours and formula up to 6 hours before their procedure. - Pedialyte?? is also an acceptable clear liquid for children. o Safety - Infection prevention Shower with an ANTIBACTERIAL SOAP the night before surgery and the morning of surgery. If you were given scrub sponges, use those also, scrubbing well over the area indicated by your surgeon. Do not shave your surgical site for 3 days prior to surgery. Protect Surgical Site from injury such as cuts, bruising or valle After your morning shower avoid any personal care products such as creams, lotion, powders, deodorant, makeup, hairspray, perfumes or colognes. - Ride home We require you have a responsible Adult to drive you home after surgery or to accompany you in getting home via Taxi or Bus Your Family Member/Ride Home should stay at the hospital during the procedure until you are discharged. If your ride can't stay in the hospital, they still need to come in to pick you up to assist with medication grape picker from pharmacy, review of discharge instructions and surgical consult. We ask that your ride stay within 15 minutes of the hospital for grape picker. - CPAP/BiPAP Bring your CPAP or BiPAP machine in with you on the day of your surgery. - Nail south sudanese and Jewelry Remove all finger nail south sudanese and makeup before surgery Remove all jewelry including rings and Body Piercings before coming in for Surgery. - Glasses and Contacts Wear glasses on the Day of surgery. For eye surgeries avoid contacts for 7 days prior to surgery, unless otherwise instructed by your surgeon. - Full beards Shaving is optional, certain aspects of the anesthetic management can be made easier without a fullbeard. - Smoking Stop smoking tobacco and marijuana prior to surgery as much as possible with a minimum of 24 hours prior to surgery. o Medications - Inhalers Bring your inhalers in with you on the day of your surgery. - Bowel cleansing Follow the instructions for bowel cleansing given to you by your surgeon. Once you start, drink lots of clear liquids, stopping them at the time your surgeon told you to stop. It would be best to stay at home while doing the bowel cleansing. o Legal Guardianship - BRING Proof of Guardianship on Day of Surgery. - Legal Guardian is to be available on the Day of Surgery by Telephone if not physically present onthe Day of Surgery. - Surgical and/or other consents will be signed by Legal Guardian prior to the Day of Surgery if possible. o Call your surgeon IF: - You become ill before your surgery. - You have any new skin problems near the area where your surgery will be, such as a rash, blister,or infection. - You have any questions. - Your surgeon may have given you other instructions to prepare for surgery. Please follow these and if you have questions call your surgeon's office. Day of surgery o Identification - Please bring a photo ID, insurance card and any other information needed for your surgery. o Arrival - General Arrival Time is 2 hours prior to your surgery time. o Medications - Take as directed above with a small sip of water on day of surgery. - Bring a list of medications you take on the day of surgery. - Leave medications at home. o Clothing - Wear casual, loose fitting and comfortable clothing. We recommend you wear/bring inexpensive (avoid silks, etc.) clothing on Day of Surgery. For arm and hand surgery wear a zip up or button up shirt with short sleeves. For eye surgery, do not wear a shirt that pulls over the head unless it has a wide neck opening. Bring a hat with a visor or a pair of sunglasses to wear home after surgery. o Medical Devices - Bring any medical devices that you would normally use during the course of your day. These items include, but are not limited to: insulin pumps, mobility aids, CPAP. o Valuables - Bring only money you may need for you hospital co-pay and to purchase any prescriptions on the way home. Let the person driving you home hold you're your money while you are in surgery. - Leave jewelry at home - Leave contact lenses at home. Wear your eye glasses and bring your eye glass case. - Leave valuable items at home. Ask a family member to bring them in after you have been admitted to the inpatient unit if possible. o Equipment - Remember to bring pillows for the car ride home to elevate your arm or leg (for arm/leg surgery).Bring Crutches if needed. - Use the Volumetric Senior User Experience Architect given to you by your surgeon or nurse. Starting 2 weeks prior to your surgery use it 2 times a day, 10 times each use. Bring it with you on the day of your surgery. o Visitation - Per our Welcoming Policy ???Unit nursing staff may have to ask patients and families to limit numbers of family members at the bedside when it impacts the environment of care?? - Typically two visitors are allowed in the Preop and Recovery areas. o Bring plastic bags and paper towels in the car for the Trip Home. o Contact information - Patient/Family given Preop Contact Numbers appropriate to campus of surgery. For Day of Surgery: [facility] [place]: [phone]; COUNT INCLUDES THE [facility] [place]; [phone]. Prior to Day of Surgery call: [phone]. Pre-op toll Free Number . - More information can also be found on our website: [email or web address] RADHIKA PATEL RN documented in this encounter Plan of Treatment Not on file documented as of this encounter Visit Diagnoses Not on filedocumented in this encounter Historical Medications * This list may reflect changes made after this encounter. famotidine (PEPCID) 40 mg tablet Take 1 Tablet by mouth daily. added in this encounter Care Teams Demand Equipment Repairer Relationship Specialty Start Date End Date Vicki Mays NP [address] [place] [address] PCP - General 01/17/16 documented as of this encounter
--- OUTSIDE RECORDS SUMMARY | 2024-04-05 13:44 | XMS_ITS | Encounter Summary ---
Author Organization [facility] Address [address] [place] [address] Care Team Providers Care Research Animal Attendant Name Role Phone Unavailable Primary Care Provider Unavailabl e Encounter Details Date Type Department Care Team ([facility] st Contact Info) Description 05/01/2003 11:40 EST Hospital Encounter [facility] - Other [address] [place] [address] Mendy Mejia MD [address] [place] [address] Social History Tobacco Use Types Packs/Day Years [...] on file Sexual Orientation Not on file COVID-19 Exposure Response Date Recorded In the last month, have you been in contact with someone who was confirmed or suspected to have Coronavirus / COVID-19? No / Unsure 08/26/2020 18:30 EDT documented as of this encounter Plan of Treatment Not on file documented as of this encounter Procedures Procedure Name Priority Date/Time Associated Diagnosis Comments CYTOPATHOLOGY Routine 05/01/2003 0:00 EST documented in this encounter Results * CYTOPATHOLOGY (05/01/2003 0:00 EST) Pathologist [facility] Pathology Report: CYTOPATHOLOGY REPORT Reports generated via electronic interface contain original data; however they are lacking the format of the original report. Caution should be taken when reading/interpreti ng unformatted reports. Name: ? FRANNIE GRAHAM ? Accession #: ? [id number] : ? 1960 (Age: 42) ??F ?Collect Date: ? 05/01/2003 Location: ? [facility] ? Receive Date: ? 05/03/2003 Provider: ?MENDY MEJIA MD Copy to: ? Specimen/Source: ?ThinPrep Pap Test, Cervix/Endocervix Last Menstrual Period: ? Other: ? HPVA - HPV testing requested if ASC-US on the current ThinPrep Pap test. ? SPECIMEN ADEQUACY ? Satisfactory for Evaluation - transformation zone component present GENERAL CATEGORIZATION ? Negative for Intraepithelial Lesion or Malignancy ? Document reviewed and electronically signed by: ? TYLER Tompkins(ASCP) ? Report Date: ??05/05/2003 12:09 End of Report ARNALDO MARINA 05/01/2003 05/03/2003 us Mendy Mejia MD PATHOLOGY ORDERABLES Fin al Result ARNALDO MARINA [address] [place] [address] documented in this encounter Visit Diagnoses Not on filedocumented in this encounter
--- OUTSIDE RECORDS SUMMARY | 2024-04-05 13:44 | XMS_ITS | Encounter Summary ---
Author Organization [facility] Address [address] [place] [address] Care Team Providers Care Chief Architect Name Role Phone Vicki Mays DIRECTOR PHYSICAL Primary Care Provider [phone] Encounter Details Date Type Department Care Team (Late st Contact Info) Description 10/09/2022 15:45 EDT Phlebotomy Only [facility] 2 Phlebotomy [address] [place] [address] Pig Machine Operator Helper, Acc Phlebotomy Endometrial cancer ([facility]) Social History Tobacco Use Types Packs/Day Years [...] on file documented as of this encounter Plan of Treatment Not on file documented as of this encounter Procedures Procedure Name Priority Date/Time Associated Diagnosis Comments COMPLETE BLOOD COUNT Routine 10/09/2022 15:41 EDT Endometrial cancer ([facility]) HEMOGLOBIN A1C Routine 10/09/2022 15:41 EDT Endometrial cancer ([facility]) COMPREHENSIVE METABOLIC PANEL (CMP) Routine 10/09/2022 15:41 EDT Endometrial cancer ([facility]) documented in this encounter Results * (ABNORMAL) HEMOGLOBIN A1C (10/09/2022 15:41 EDT) Hemoglobin A1c 7.0(H) <5.7 % 10/09/2022 22:19 [facility] Comment: Glycemic Status References: Normal: ??<5.7% Pre-Diabetes: ??5.7% - 6.4% Diagnostic of Diabetes: ??> or = 6.5% (if confirmed) Est Avg Glucose 154 mg/dL 22:19 T [facility] Comment:The eAG represents t he A1c result expressed as average glucose in mg/dL. Blood VENOUS BLOOD / Unknown Venipuncture / Unknown 10/09/2022 15:41 EDT 10/09/2022 15:51 EDT Sigifredo Jacob MD CHEMISTRY & BLOOD GAS ORDERA BLES Final Result [facility] [address] [place] [address] * (ABNORMAL) COMPREHENSIVE METABOLIC PANEL (CMP) (10/09/2022 15:41 EDT) Pathologist [facility] Sodium 140 136 - 145 mmol/L 10/09/2022 16:25 [facility] Potassium 4.7 3.5 - 5.0 mmol/L 10/09/2022 16:25 [facility] Chloride 106 96 - 110 mmol/L 10/09/2022 16:25 [facility] CO2 Total 23 22 - 32 mmol/L 10/09/2022 16:25 [facility] Glucose 102(H) 70 - 100 mg/dl 10/09/2022 16:25 [facility] BUN 17 10 - 26 mg/dL 10/09/2022 16:25 [facility] Creatinine 0.88 0.52 - 1.04 mg/dL 10/09/2022 16:25 [facility] eGFR 76 >60 mL/min/1.7 3m2 10/09/2022 16:25 [facility] Total Protein 7.8 6.3 - 8.2 g/dL 10/09/2022 16:25 [facility] Albumin 4.6 3.4 - 4.9 g/dL 10/09/2022 16:25 [facility] Alkaline Phosphatase 102 38 - 126 U/L 10/09/2022 16:25 [facility] AST 33 15 - 46 U/L 10/09/2022 16:25 [facility] ALT 44(H) <35 U/L 10/09/2022 16:25 [facility] Bilirubin, Total <0.5 <1.4 mg/dL 10/10/19 16:25 [facility] Calcium 10.0 8.5 - 10.5 mg/dL 10/09/2022 16:25 [facility] Albumin/Globulin Ratio 1.4 1.0 - 2.5 10/09/2022 16:25 [facility] Anion Gap 11 5 - 14 mmol/L 10/09/2022 16:25 [facility] Blood VENOUS BLOOD / Unknown Venipuncture / Unknown 10/09/2022 15:41 EDT 10/09/2022 15:52 EDT Sigifredo Jacob MD CHEMISTRY & BLOOD GAS ORDERA BLES Final Result [facility] [address] [place] [address] * COMPLETE BLOOD COUNT (10/09/2022 15:41 EDT) WBC 9.79 4.00 - 12.40 K/cmm 10/09/2022 16:10 [facility] RBC 4.48 3.86 - 5.04 M/cmm 10/09/2022 16:10 [facility] Hemoglobin 13.4 11.6 - 15.2 g/dL 10/09/2022 16:10 EDT [facility] HCT 40.0 34.9 - 44.4 % 10/09/2022 16:10 EDT [facility] MCV 89 81 - 98 fL 10/09/2022 16:10 EDT [facility] MCH 29.9 26.7 - 33.3 pg 10/09/2022 16:10 EDT [facility] MCHC 33.5 32.1 - 35.9 g/dL 10/09/2022 16:10 EDT [facility] RDW-CV 14.2 <14.7 % 10/09/2022 16:10 EDT [facility] RDW-SD 46.5 <50.4 fl 10/09/2022 16:10 EDT [facility] PLT 313 141 - 377 K/cmm 10/09/2022 16:10 T [facility] MPV 11.0 9.5 - 12.7 fL 10/09/2022 16:10 T [facility] Blood VENOUS BLOOD / Unknown Venipuncture / Unknown 10/09/2022 15:41 EDT 10/09/2022 15:51 EDT Sigifredo Jacob MD HEMATOLOGY & PF4 ORDERABLES Final Result [facility] [address] [place] [address] documented in this encounter Visit Diagnoses Diagnosis Endometrial cancer ([facility]) Malignant neoplasm of corpus uteri, except isthmus documented in this encounter Care Teams Chief Architect Relationship Specialty Start Date End Date Vicki Mays NP [address] [place] [address] PCP - General 01/17/16 documented as of this encounter
--- OUTSIDE RECORDS SUMMARY | 2024-04-05 13:44 | XMS_ITS | Encounter Summary ---
Author Organization [facility] Address [address] [place] [address] Care Team Providers Care Toy Electric Train Repairer Name Role Phone Unavailable Primary Care Provider Unavailabl e Encounter Details Date Type Department Care Team ([facility] st Contact Info) Description 03/17/2001 15:39 EDT Hospital Encounter [facility] - Other [address] [place] [address] Adan Raymundo MD [address] [place] [address] Unknown, Provider, Social History Tobacco Use Types Packs/Day Years [...]
--- OUTSIDE RECORDS SUMMARY | 2024-04-05 13:44 | XMS_ITS | Encounter Summary ---
Author Organization [facility] Address [address] [place] [address] Care Team Providers Care Consumer Insights Intern Name Role Phone Vicki Mays ARCH CUSHION SKIVING MACHINE OPERATOR Primary Care Provider [phone] Encounter Details Date Type Department Care Team (Latest Contact Info) Description 08/26/2020 Travel Social History Tobacco Use Types Packs/Day Years Used Date Smoking Tobacco: Never Smokeless Tobacco: Never Alcohol Use Standard Drinks/Week Comments Not Currently 0 (1 standard drink = 0.6 oz pur e alcohol) Interpersonal Safety Answer Date Record ed Physically Hurt Never 08/26/2020 Verbally Threaten Not on file 08/26/2020 Comments Unknown Sex and Gender Information Value Date Recorded [...] on filedocumented in this encounter Care Teams Consumer Insights Intern Relationship Specialty Start Date End Date Vicki Mays, ARCH CUSHION SKIVING MACHINE OPERATOR [address] [place] [address] PCP - General 01/17/16 documented as of this encounter
--- OUTSIDE RECORDS SUMMARY | 2024-04-05 13:44 | XMS_ITS | Encounter Summary ---
Author Organization [facility] Address [address] [place] [address] Care Team Providers Care Endbander Name Role Phone Vicki Moody BARREL RIFLER HOOK Primary Care Provider [phone] Encounter Details Date Type Department Care Team (Late st Contact Info) Description 02/14/2019 Results Only [facility] [phone] Vicki Moody, BARREL RIFLER HOOK [address] [place], [place] [id number] Social History Tobacco Use Types Packs/Day Years Used Date Smoking Tobacco: Never Assessed Comments Unknown Sex and Gender Information Value Date Recorded Sex Assigned at Not on file Legal Sex Female 18:21 EST Gender Identity Not on file Sexual Orientation Not on file documented as of this encounter Plan of Treatment Not on file documented as of this encounter Procedures Procedure Name Priority Date/Time Associated Diagnosis Comments PAP TEST- RESULT ONLY Routine 02/14/2019 0:00 EDT documented in this encounter Results * PAP TEST- RESULT ONLY (02/14/2019 0:00 EDT) Pathology Report: CYTOPATHOLOGY REPORT Reports generated via electronic interface contain original data; however they are lacking the format of the original report. Caution should be taken when reading/interpreti ng unformatted reports. Name: ? FRANNIE GRAHAM ? Accession #: ? [id number] ? : ? 1960 (Age: 58) ??F ?Collect Date: ? 02/14/2019 ? Location: ? [facility] ? Receive Date: ? 02/16/2019 ? Provider: VICKI MOODY BARREL RIFLER HOOK Copy to: ? Final Report SPECIMEN ADEQUACY ? Satisfactory for Evaluation - transformation zone component present GENERAL CATEGORIZATION ? Negative for Intraepithelial Lesion or Malignancy ?? Last Menstrual Period: 5YRS AGO Other: Additional clinical information: Z00.00 Z12.4 Specimen/Source: ??Pap Test, Cervix, ThinPrep Imaging System with manual evaluation Document reviewed and electronically signed by: ? Maria Del Rosario Miller, TYLER(ASCP) ? Report ??Date: 02/18/2019 07:52 HPV with Pap Test ? Date Ordered: ? 02/18/2019 ? Status: ?? Signed Out ?Date Complete: ? 02/21/2019 ? By: ??System Interface ? Date Reported: ? 02/21/2019 ? Interpretation RESULT: Negative for HPV. No E6 or E7 mRNA is detected from HPV types 16,18,31,33,35, 39,45,51,52,56,58, 59,66, and 68 by real estate internship mediated amplification. Comments Document reviewed and electronically signed by: ? System Interface ? Report date: 02/21/2019 By the signature above, the attending physician certifies that he/she has personally conducted a gross and/or microscopic examination of the described specimens and rendered or confirmed the above diagnosis. End of Report [facility] 02/14/2019 02/16/2019 us Vicki Moody NP PATHOLOGY ORDERABLES Final Re sult [facility] [address] [place] [address] documented in this encounter Visit Diagnoses Not on filedocumented in this encounter Care Teams Endbander Relationship Specialty Start Date End Date Vicki Moody, BARREL RIFLER HOOK [address] [place] [address] PCP - General 01/17/16 documented as of this encounter
--- OUTSIDE RECORDS SUMMARY | 2024-04-05 13:44 | XMS_ITS | Encounter Summary ---
Author Organization [facility] Address [address] [place] [address] Care Team Providers Care Services Rep Name Role Phone Unavailable Primary Care Provider Unavailabl e Encounter Details Date Type Department Care Team (Late st Contact Info) Description 12/22/2006 Results Only [facility] [address] [place] [address] Mendy Mejia MD [address] [place] [phone] Social History Tobacco Use Types Packs/Day Years [...] Priority Date/Time Associated Diagnosis Comments CYTOPATHOLOGY Routine 12/22/2006 0:00 EDT documented in this encounter Results * CYTOPATHOLOGY (12/22/2006 0:00 EDT) Pathology Report: CYTOPATHOLOGY REPORT Reports generated via electronic interface contain original data; however they are lacking the format of the original report. Caution should be taken when reading/interpreti ng unformatted reports. Name: ? FRANNIE GRAHAM ? Accession #: ? [id number] : ? 1960 (Age: 46) ??F ?Collect Date: ? 12/22/2006 Location: ? [facility] ? Receive Date: ? 12/24/2006 Provider: ?MENDY MEJIA MD Copy to: ? Specimen/Source: ?ThinPrep Pap Test, Source Not Provided, processed on [employer] ThinPrep Imaging System, with manual evaluation Last Menstrual Period: ? 12/13/06 Other: ? HPVA - HPV testing requested if ASC-US on the current ThinPrep Pap test. ? SPECIMEN ADEQUACY ? Satisfactory for Evaluation - transformation zone component present GENERAL CATEGORIZATION ? Negative for Intraepithelial Lesion or Malignancy ? Document reviewed and electronically signed by: ? Darlene Vences, SCT(ASCP) ? Report Date: ??12/28/2006 09:40 End of Report [facility] 12/22/2006 12/24/2006 us Mendy Mejia MD PATHOLOGY ORDERABLES Fin al Result [facility] [address] [place] [address] documented in this encounter Visit Diagnoses Not on filedocumented in this encounter
--- OUTSIDE RECORDS SUMMARY | 2024-04-05 13:44 | XMS_ITS | Encounter Summary ---
Author Organization [facility] Address [address] [place] [address] Care Team Providers Care Orchard Manager Name Role Phone Unavailable Primary Care Provider Unavailabl e Encounter Details Date Type Department Care Team ([facility] st Contact Info) Description 03/16/2001 10:40 EDT Hospital Encounter [facility] - Other [address] [place] [address] Mendy Mejia MD [address] [place] [phone] Unknown, Provider, Social History Tobacco Use Types [...] Priority Date/Time Associated Diagnosis Comments CYTOPATHOLOGY Routine 03/16/2001 0:00 EDT documented in this encounter Results * CYTOPATHOLOGY (03/16/2001 0:00 EDT) Pathology Report: CYTOPATHOLOGY REPORT Reports generated via electronic interface contain original data; however they are lacking the format of the original report. Caution should be taken when reading/interpreti ng unformatted reports. Name: ? FRANNIE GRAHAM ? Accession #: ? [id number] : ? 1960 (Age: 40) ??F ?Collect Date: ? 03/16/2001 Location: ? [facility] ? Receive Date: ? 03/19/2001 Provider: ?MENDY MEJIA MD Copy to: ? Specimen/Source: ?ThinPrep Pap Test, Cervix/Endocervix Last Menstrual Period: ? 03/02/01 ? SPECIMEN ADEQUACY ? Satisfactory for evaluation. GENERAL CATEGORIZATION ? Within Normal Limits ? Document reviewed and electronically signed by: ? Phoebe Escalante, ??SCT(ASCP) ? Report Date: ??03/22/2001 10:42 End of Report [facility] 03/16/2001 03/19/2001 us Mendy Mejia MD PATHOLOGY ORDERABLES Fin al Result [facility] [address] [place] [address] documented in this encounter Visit Diagnoses Not on filedocumented in this encounter
--- OUTSIDE RECORDS SUMMARY | 2024-04-05 13:44 | XMS_ITS | Encounter Summary ---
Author Organization [facility] Address [address] [place] [address] Care Team Providers Care Rfid Analyst Name Role Phone Unknown, Provider Primary Care Provider Unava ilable Encounter Details Date Type Department Care Team (Late st Contact Info) Description 09/10/2011 Results Only [facility] - [facility] [address] [place], [place] [phone] Franny Dillard [address] [place] [id number] Social History Tobacco Use Types Packs/Day Years [...] Diagnosis Comments PAP TEST- RESULT ONLY Routine 09/10/2011 0:00 EDT documented in this encounter Results * PAP TEST- RESULT ONLY (09/10/2011 0:00 EDT) Pathology Report: CYTOPATHOLOGY REPORT Reports generated via electronic interface contain original data; however they are lacking the format of the original report. Caution should be taken when reading/interpreti ng unformatted reports. Name: ? FRANNIE GRAHAM ? Accession #: ? [id number] ? : ? 1960 (Age: 50) ??F ?Collect Date: ? 09/10/2011 ? Location: ? [facility] ? Receive Date: ? 09/12/2011 ? Provider: FRANNY DILLARD CNM Copy to: ? Final Report SPECIMEN ADEQUACY ? Satisfactory for Evaluation - transformation zone component present GENERAL CATEGORIZATION ? Negative for Intraepithelial Lesion or Malignancy ?? Last Menstural Period: 08/26/11 Specimen/Source: ??Pap Test, Cervix/Endocervix, ThinPrep Imaging System with manual evaluation Document reviewed and electronically signed by: ? TYLER Mcbride(ASCP) ? Report ??Date: 09/17/2011 15:23 HPV with Pap Test ? Date Ordered: ? 09/17/2011 ? Status: ?? Signed Out ?Date Complete: ? 09/19/2011 ? By: ??System Interface ? Date Reported: ? 09/19/2011 ? Interpretation RESULT: Negative for HPV. No E6 or E7 mRNA is detected from HPV types 16,18,31,33,35, 39,45,51,52,56,58, 59,66, and 68 by flour distributor mediated amplification. Comments Document reviewed and electronically signed by: ? System Interface ? Report date: 09/19/2011 By the signature above, the attending physician certifies that he/she has personally conducted a gross and/or microscopic examination of the described specimens and rendered or confirmed the above diagnosis. End of Report [facility] 09/10/2011 09/12/2011 us Franny Dillard CNM PATHOLOGY ORDERABLES Final Re sult [facility] [address] [place] [address] documented in this encounter Visit Diagnoses Not on filedocumented in this encounter Care Teams Rfid Analyst Relationship Specialty Start Date End Date Unknown, Provider, PCP - General 09/11/11 01/16/16 documented as of this encounter
--- OUTSIDE RECORDS SUMMARY | 2024-04-05 13:44 | XMS_ITS | Encounter Summary ---
Author Organization [facility] Address [address] [place] [address] Care Team Providers Care Alligator Shear Operator Name Role Phone Vicki Mays NP Primary Care Provider [phone] Reason for Referral * Radiology Services (Routine/Next Available) - Authorization Not Required Specialty Diagnoses / Procedures Referred By Contac t Referred To Contact Diagnoses Endometrial cancer ([facility]) Procedures XR CHEST 2 VIEWS Sigifredo Jacob MD Phone: tel: fax: [facility] Referral ID Status Reason Start Date Expiration Date Visits Requested Visits Authorized [id number] Authorization Not Required 10/09/2022 1 1 * Cardiology (Routine/Next Available) - New Request Specialty Diagnoses / Procedures Referred By Contac t Referred To Contact Diagnoses Endometrial cancer ([facility]) Procedures EKG 12-LEAD Sigifredo Jacob MD Phone: tel: fax: Referral ID Status Reason Start Date Expiration Date V isits Requested Visits Authorized [id number] New Request 10/09/2022 1 1 Reason for Visit * Reason Comments Advice Only Consult - endometria l cancer * Consult (Routine) - Receiving Office to Obtain Authorization Specialty Diagnoses / Procedures Referred By Contac t Referred To Contact Diagnoses Endometrial cancer ([facility]) Sam Morris MD [address] [place] [address] [address] [place] [address] Phone: tel: fax: Seb Kwon MD Phone: tel: fax: Referral ID Status Reason Start Date Expiration Date Visits Requested Visits Authorized [id number] Receiving Office to Obtain Authorization 1 1 Encounter Details Date Type Department Care Team (Late st Contact Info) Description 10/09/2022 13:45 EDT Initial consult [facility] O[facility] Services - [address] [address] Sigifredo Jacob MD [address] [facility], [address] [place] [address] Endometrial cancer (HCC-CMS) (Primary Dx) Social History Tobacco Use Types [...] Sign Reading Time Taken Comments Blood Pressure 140/74 10/09/2022 1340 EDT Pulse - - Temperature - - Respiratory Rate - - Oxygen Saturation - - Inhaled Oxygen Concentration - - Weight 152.9 kg (337 lb) 10/09/2022 1340 EDT Height - - Body Mass Index - - documented in this encounter Patient Instructions * Patient Instructions* Kayleigh Jiang RN - 10/09/2022 13:45 EDT Images from the original note were not included. You are scheduled for surgery on: TBD Before you leave today please have the following completed: --EKG at [place] [address], Cardiology --Labs, at Outpt lab, level 2 ACC --Chest X-Ray, Radiology Level 3 ACC PREOPERATIVE HOME INSTRUCTIONS 1) The day before your surgery, eat normally and please make sure you stay well hydrated by drinking plenty of clear liquids. 2) Have no solid food or liquids containing fats, including milk, after midnight before your procedure. 3) On the day of your procedure, you may have ONLY water, apple juice or Gatorade until 4 hours before the scheduled time of your procedure. Our office will contact you with your surgery arrival timeand time of last clear liquid intake the day prior to your surgery. ONLY Acceptable Liquids: Unacceptable (DO NOT Drink -Water -[place] juice (orange or pineapple) -Apple Juice -Gatorade -Clear broth -Gelatin (Jell-O)* -Apple Sauce 4) Take your medications as directed with small sips of water at any time prior to your procedure. (If a medication must be taken with something other than clear liquids or sips of water, please refer to the Preoperative Screening Clinic at [phone] for guidance.) 5) On the day of surgery, NO candy, gum or mints, etc. 6) No jewelry. This includes wedding bands and any body piercing, or any other valuables. 7) No make-up, lotions, perfumes. 8) No fingernail jamaican. Gel nails are acceptable if they are a clear or pale color. 9) No contact lenses. *The following medications need to be discontinued at least 7 days prior to surgery: IBUPROFEN, ADVIL, ALEVE, MOTRIN, MULTIVITAMINS AND SUPPLEMENTS INCLUDING FLAX SEED OIL, FISH OIL, VITAMIN E, GARLIC (supplements only, garlic in food is ok), GINKGO BILOBA, GINSENG POST-OPERATIVE CONSTIPATION Even if you have regular bowel movements prior to having surgery, you are likely to experience post-operative constipation. Exposure to anesthetics and narcotic pain medication, alterations in your diet and fluid intake and reduced physical activity can all contribute to this. We strongly recommend the following to reduce the likelihood of post-operative constipation: 1) Take the recommended dose of over the counter Miralax in the late afternoon or evening prior to your surgery. This should be continued on a daily basis once you are home until you are no longer taking RX pain medication and resume having normal bowel movements. 2) Some type of stimulant laxative such as Senokot, Milk of Magnesia, Dulcolax may be needed in addition to Miralax if you continue to experience constipation. 3) If you are having issues with constipation after trying the above measures, PLEASE call the office for further advice. POST-OPERATIVE PAIN MANAGEMENT Pain after operations is a unique experience for everyone and varies in intensity depending on the invasiveness of the procedure. Well controlled pain after surgery increases the ability to move and can decrease some post-operative complications. Typical pain medication regime can include: Tylenol (acetaminophen) 650 mg every 6 hours alternating with Motrin (ibuprofen) 400-600 mg every 6 hours Example: The hospital will discharge you with narcotic pain medication which can be introduced in between these doses to increase acute pain after the initial days following your procedure. Please have your prescription mediation card and means by paying for any prescription medication you may be discharged with. For your convenience there is a pharmacy located in the main lobby/ LEVEL 3 of the hospital. Call [phone] if you have questions. Preoperative Showering Instructions Gynecology You play an important role in the prevention of a surgical site infection by preparing your skin leticia as germ free as possible. Your surgeon has asked that you shower with the antibacterial soap sponge provided. It contains chlorohexidine gluconate (CHG). If you have a known allergy to this agent you should not use this soap, and inform your surgeon or nurse. In this instance you should use Dial??? or Safeguard??? soap. documented in this encounter Ordered Prescriptions Prescription Sig Dispense Quantity Refills Last Filled Start Date End Date chlorhexidine gluconate 4 % (E-Z SCRUB 107) sponge Use as directed in pre-op showering instructions. 2 Each 10/09/2022 documented in this encounter Progress Notes * Sigifredo Jacob MD - 10/09/2022 9065 EDT Gynecologic oncology consult note Subjective: ID/CC: Frannie Mora is a 61 y.o. female with newly diagnosed endometrial cancer who presents for consult. HPI: Per chart review: In August, presented to Dr. Morris at [facility] with menorrhagia despite progesterone treatment. Reported large clots, one golf ball sized clot. Previous episode of bleeding in September 2020 prompted EMB which showed no hyperplasia, atypia or malignancy. 08/08/22 US showed 12 mm endometrium. 09/19/22 D&C resulted in diagnosis of endometrial cancer. Today, Frannie describes 2 months of daily, [...] may be contributing to shortness of breath. She was prescribed progesterone for bleeding / management of endometrial cancer one month ago afterdiagnosis. She has not noticed a difference in bleeding. She is sick of daily bleeding and ready for hysterectomy. She denies fevers, chills, CP, nausea, vomiting, diarrhea, constipation, difficulty voiding. Menstrual History: OB History No obstetric history on file. No LMP recorded. Patient is postmenopausal. Past Medical History: - Depression - Anxiety - Hypertension Past Surgical History: Procedure Laterality Date ??? SHOULDER SURGERY No family history on file. Current Outpatient Medications Medication Sig Dispense Refill ??? buPROPion (WELLBUTRIN) 100 mg tablet Take 100 mg by mouth daily. ??? ergocalciferol, vitamin D2, (VITAMIN D ORAL) Take by mouth. ??? FLUoxetine (PROZAC) 20 mg capsule Take 20 mg by mouth daily. ??? gabapentin (NEURONTIN) 100 mg capsule Take 200 mg by mouth 3 times daily. (Patient not taking: Reported on 10/09/2022) ??? LORazepam (ATIVAN) 0.5 mg tablet Take 1 mg by mouth at bedtime as needed. ??? Multivitamins with Minerals tablet tablet Take 1 Tablet by mouth daily. ??? olmesartan (BENICAR) 20 mg tablet Take 20 mg by mouth daily. ??? progesterone (PROMETRIUM) 100 mg capsule Take 200 mg by mouth daily. (Patient not taking: Reported on 10/09/2022) ??? progesterone (PROMETRIUM) 200 mg capsule Take 200 mg by mouth daily. ??? UNKNOWN TO PATIENT Weight loss pill (Patient not taking: Reported on 10/09/2022) ??? VITAMIN B COMPLEX ORAL Take by mouth. No current facility-administered medications for this visit. Allergies Allergen Reactions ??? Victoza [Liraglutide] Nausea And Vomiting Social History Socioeconomic History ??? Marital status: Spouse name: Not on file ??? Number of children: Not on file ??? Years of education: Not on file ??? Highest education level: Not on file Occupational History ??? Not on file Tobacco Use ??? Smoking status: Never ??? Smokeless tobacco: Never Substance and Sexual Activity ??? Alcohol use: Not Currently ??? Drug use: Never ??? Sexual activity: Not on file Other Topics Concern ??? Not on file Social History Narrative ??? Not on file Social Determinants of Health Financial Resource Strain: Not on file Food Insecurity: Not on file Transportation Needs: Not on file Physical Activity: Not on file Stress: Not on file Social Connections: Not on file Housing Stability: Not on file Review of Systems A 10 point review of systems was performed and was negative, pertinent positives are listed in the HPI. Objective: BP 140/74 Wt (!) 152.9 kg (337 lb) Physical Exam Vitals reviewed. Constitutional: General: She is not in acute distress. Appearance: Normal appearance. She is obese. She is not ill-appearing, toxic- appearing or diaphoretic. HENT: Head: Normocephalic and atraumatic. Mouth/Throat: Mouth: Mucous membranes are moist. Eyes: General: No scleral icterus. Right eye: No discharge. Left eye: No discharge. Extraocular Movements: Extraocular movements intact. Conjunctiva/sclera: Conjunctivae normal. Pupils: Pupils are equal, round, and reactive to light. Cardiovascular: Rate and Rhythm: Normal rate and regular rhythm. Pulses: Normal pulses. Heart sounds: Normal heart sounds. No murmur heard. No friction rub. No gallop. Pulmonary: Effort: Pulmonary effort is normal. No respiratory distress. Breath sounds: Normal breath sounds. No stridor. No wheezing. Abdominal: General: There is no distension. Palpations: Abdomen is soft. There is no mass. Tenderness: There is no abdominal tenderness. There is no guarding or rebound. Hernia: No hernia is present. Neurological: General: No focal deficit present. Mental Status: She is alert and oriented to person, place, and time. Mental status is at baseline. Psychiatric: Mood and Affect: Mood normal. Behavior: Behavior normal. Thought Content: Thought content normal. Judgment: Judgment normal. Labs: CBC: Recent Labs 10/09/22 1541 WBC 9.79 RBC 4.48 HGB 13.4 HCT 40.0 MCV 89 MCH 29.9 MCHC 33.5 PLT 313 BMP: Recent Labs 10/09/22 1541 NA 140 K 4.7 CL 106 CO2 23 BUN 17 CREATININE 0.88 CALCIUM 10.0 LABALBU 4.6 LFT: Recent Labs 10/09/22 1541 TBIL <0.5 ALKPHOS 102 AST 33 ALT 44* Path: Final Diagnosis [facility] [id number] (9), PROCEDURE DATE 09/19/2022 A. ENDOMETRIUM CURETTAGE: - Findings most suggestive of endometrial adenocarcinoma, endometrioid type (FIGO Grade 1) involving an endometrial polyp. - See Comment. Imaging: TVUS 08/08/22 (see scans) 1. Enlarged uterus. Endometrium 12 mm thickened and heterogenous. 2. Unremarkable right ovary, left not visualized. Assessment: Frannie Mora is a 61 y.o. female with newly diagnosed grade 1 endometrial cancer. Discussed diagnosis, grading and staging of endometrial cancer and recommendation for surgical management. Informed consent signed and all questions answered. Plan for Ra-TLH, BSO, injection of ICG dye, SLND. Different ial for SOB includes abdominal bloating in the setting of known cancer, anemia though ruled out with normal CBC, long COVID or other respiratory etiology for which will f/u CXR. Plan: 1. Endometrial cancer - Plan for Ra-TLH, BSO, injection of ICG dye, SLND - Pre-op labs, EKG and CXR ordered - [employer] consent as below Informed Consent: Our plan is to move forward to the operating room for robotic assisted TLH, BSO, injection of ICG dye, sentinel lymph node dissection. The patient understands the risks of surgery to include but not be limited to risk of bleeding necessitating a blood transfusion, risk of infection including pneumonia, wound infection or bladder infection, risk of damage to other structures including the bowel, the bladder, ureters, nerves or vessels and the perioperative risk of DVT and PE. She understands by signing the consent form, she agrees to the above medical decision making, the proposed surgical procedure and the risks that it entails. She agrees to a blood transfusion if medically necessary. She agrees to the risks of general anesthetic and she releases her tissue to the property of the [facility]. Following this discussion, the patient had ample time to ask questions. All her questions were answered to the best of my ability and she signed an informed consent form. She also signed the [place] opioid consent form and the [place] hysterectomy consent form. I also reviewed with her the logistics of the surgery, which is a 2-3 hour operation, a 1-night hospital stay, a 2-week followup visit for postop and pathology discussion, a 12-week vaginal cuff examand then to enter surveillance at 6 and 12 months and then yearly after that. I also reviewed postoperative restrictions, which are to use common sense, no soaking in dirty water, no driving on the opioids, no lifting over 40 pounds and nothing in the vagina for 12 weeks. No douching, tampons or intercourse. Lastly, I reviewed return to work and the options for adjuvant treatment. Again, after this discussion, the patient had ample time to ask questions and all of her questions were answered to the best of my ability. Discussed with Dr. Nidia Cruz, MS4 The above documentation was initially written [...] treatment plan. I spent a total of 60 minutes in evaluating, planning and counseling the patient on the date of this encounter. No procedures were performed. Sigifredo Jacob MD * Kayleigh Jiang RN - 10/09/2022 2457 EDT Patient Education Topic: pre-op instruction/scrub Method: Handout and Verbal Taught to: Patient Barriers: None Outcomes: Independent Pt provided with 2 surgical scrubs. Pt declines ordered EKG as she reports having one recently done at [facility]. [facility] called and report requested. Signature: KAYLEIGH JIANG RN 10/09/2022 15:42 documented in this encounter Plan of Treatment Scheduled Orders Name Type Priority Associated Diagnoses Orde r Schedule EKG 12-LEAD ECG Routine Endometrial cancer ([facility]) Expected: 10/09/2022 (Approximate) documented as of this encounter Results * (ABNORMAL) HEMOGLOBIN A1C (10/09/2022 15:41 EDT) Hemoglobin A1c 7.0(H) <5.7 % 10/09/2022 22:19 EDT [facility] Comment: Glycemic Status References: Normal: ??<5.7% Pre-Diabetes: ??5.7% - 6.4% Diagnostic of Diabetes: ??> or = 6.5% (if confirmed) Est Avg Glucose 154 mg/dL 22:19 EDT [facility] Comment:The eAG represents t he A1c result expressed as average glucose in mg/dL. Blood VENOUS BLOOD / Unknown Venipuncture / Unknown 10/09/2022 15:41 EDT 10/09/2022 15:51 EDT us Sigifredo Jacob MD CHEMISTRY & BLOOD GAS ORDERA BLES Final Result [facility] [address] [place] [id number] * (ABNORMAL) COMPREHENSIVE METABOLIC PANEL (CMP) (10/09/2022 15:41 EDT) Sodium 140 136 - 145 mmol/L 10/09/2022 16:25 EDT [facility] Potassium 4.7 3.5 - 5.0 mmol/L 10/09/2022 16:25 EDT [facility] Chloride 106 96 - 110 mmol/L 10/09/2022 16:25 EDT [facility] CO2 Total 23 22 - 32 mmol/L 10/09/2022 [facility] Glucose 102(H) 70 - 100 mg/dl 10/09/2022 16:25 [facility] BUN 17 10 - 26 mg/dL 10/09/2022 16:25 [facility] Creatinine 0.88 0.52 - 1.04 mg/dL 10/09/2022 16:25 [facility] eGFR 76 >60 mL/min/1.7 3m2 10/09/2022 16:25 [facility] Total Protein 7.8 6.3 - 8.2 g/dL 10/09/2022 16:25 [facility] Albumin 4.6 3.4 - 4.9 g/dL 10/09/2022 16:25 [facility] Alkaline Phosphatase 102 38 - 126 U/L 10/09/2022 16:25 [facility] AST 33 15 - 46 U/L 10/09/2022 16:25 [facility] ALT 44(H) <35 U/L 10/09/2022 16:25 [facility] Bilirubin, Total <0.5 <1.4 mg/dL 10/10/19 16:25 [facility] Calcium 10.0 8.5 - 10.5 mg/dL 10/09/2022 16:25 [facility] Albumin/Globulin Ratio 1.4 1.0 - 2.5 10/09/2022 16:25 [facility] Anion Gap 11 5 - 14 mmol/L 10/09/2022 16:25 [facility] Blood VENOUS BLOOD / Unknown Venipuncture / Unknown 10/09/2022 15:41 EDT 10/09/2022 15:52 EDT us Sigifredo Jacob MD CHEMISTRY & BLOOD GAS ORDERA BLES Final Result [facility] [address] [place] [address] * COMPLETE BLOOD COUNT (10/09/2022 15:41 EDT) WBC 9.79 4.00 - 12.40 K/cmm 10/09/2022 16:10 [facility] RBC 4.48 3.86 - 5.04 M/cmm 10/09/2022 16:10 [facility] Hemoglobin 13.4 11.6 - 15.2 g/dL 10/09/2022 16:10 [facility] HCT 40.0 34.9 - 44.4 % 10/09/2022 16:10 [facility] MCV 89 81 - 98 fL 10/09/2022 16:10 [facility] MCH 29.9 26.7 - 33.3 pg 10/09/2022 16:10 [facility] MCHC 33.5 32.1 - 35.9 g/dL 10/09/2022 16:10 [facility] RDW-CV 14.2 <14.7 % 10/09/2022 16:10 [facility] RDW-SD 46.5 <50.4 fl 10/09/2022 16:10 [facility] PLT 313 141 - 377 K/cmm 10/09/2022 16:10 [facility] MPV 11.0 9.5 - 12.7 fL 10/09/2022 16:10 [facility] Blood VENOUS BLOOD / Unknown Venipuncture / Unknown 10/09/2022 15:41 EDT 10/09/2022 15:51 EDT us Sigifredo Jacob MD HEMATOLOGY & PF4 ORDERABLES Final Result [facility] [address] [place] [address] * XR CHEST 2 VIEWS (10/09/2022 15:22 EDT) Anatomical Region Laterality Modality Computed Radiogr aphy 10/09/2022 15:3 4 EDT Impressions 10/09/2022 15:34 EDT Focal linear opacity in the left midlung, likely representing mild, focal bronchiectasis with associated airway wall thickening. Otherwise normal chest x- ray. Narrative 10/09/2022 15:34 EDT XR CHEST 2 VIEWS ??10/09/2022 3:20 PM Clinical History/Comments: pre-op Comparison:None Technique: PA and lateral views of the chest were performed. Findings: Very mild, focal, linear opacity in the left lung at the level of the posterior eighth rib. Otherwise clear lungs. There is no pleural effusion or pneumothorax. Cardiomediastinal silhouette is normal in size and contour. Visualized bones and superficial soft tissues are grossly unremarkable. Procedure Note Sondra Brownlee MD - 10/09/2022 XR CHEST 2 VIEWS 10/09/2022 3:20 PM Clinical History/Comments: pre-op Comparison:None Technique: PA and lateral views of the chest were performed. Findings: Very mild, focal, linear opacity in the left lung at the level of theposterior eighth rib. Otherwise clear lungs. There is no pleural effusionor pneumothorax. Cardiomediastinal silhouette is normal in size and contour. Visualized bones and superficial soft tissues are grossly unremarkable. IMPRESSION Focal linear opacity in the left midlung, likely representing mild, focalbronchiectasis with associated airway wall thickening. Otherwise normalchest x-ray. Sigifredo Jacob MD IMG DIAGNOSTIC IMAGING ORDER DESIREE Final Result documented in this encounter Visit Diagnoses Diagnosis Endometrial cancer (HCC-CMS)- Primary Malignant neoplasm of corpus uteri, except isthmus Endometrial cancer (HCC-CMS) Malignant neoplasm of corpus uteri, except isthmus documented in this encounter Discontinued Medications Medication Sig Discontinue Reason Start Date End Da te gabapentin (NEURONTIN) 100 mg capsule Take 200 mg by mouth 3 times daily. 10/14/2022 progesterone (PROMETRIUM) 100 mg capsule Take 200 mg by mouth daily. 10/14/2022 UNKNOWN TO PATIENT Weight loss pill 10/14/2022 documented as of this encounter Historical Medications * This list may reflect changes made after this encounter. ergocalciferol, vitamin D2, (VITAMIN D ORAL) Take by mouth. VITAMIN B COMPLEX ORAL Take by mouth. Multivitamins with Minerals tablet tablet Take 1 Tablet by mouth daily. LORazepam (ATIVAN) 0.5 mg tablet Take 2 Tablets by mouth at bedtime as needed. progesterone (PROMETRIUM) 200 mg capsule Take 1 Capsule by mouth daily. olmesartan (BENICAR) 20 mg tablet Take 1 Tablet by mouth daily. gabapentin (NEURONTIN) 100 mg capsule Take 200 mg by mouth 3 times daily. 10/14/2022 progesterone (PROMETRIUM) 100 mg capsule Take 200 mg by mouth daily. 10/14/2022 added in this encounter Orders Case Request Count Last Ordered Date First Orde red Date CASE REQUEST OPERATING ROOM 1 10/09/2022 documented in this encounter Care Teams Alligator Shear Operator Relationship Specialty Start Date End Date Vicki Mays NP [address] [place] [address] PCP - General 01/17/16 documented as of this encounter
--- OUTSIDE RECORDS SUMMARY | 2024-04-05 13:44 | XMS_ITS | Encounter Summary ---
Author Organization [facility] Address [address] [place] [address] Care Team Providers Care Car Wash Supervisor Name Role Phone Unknown, Provider Primary Care Provider Vicki Corley AIRPLANE PILOT Primary Care Provider [phone] Encounter Details Date Type Department Care Team (Late st Contact Info) Description 04/01/2010 Historical Results Only [facility] Lab - Main [address] [address] Jennifer Brown[address] [phone] Social History Tobacco Use Types Packs/Day Years [...] Name Priority Date/Time Associated Diagnosis Comments PAP TEST Routine 04/01/2010 documented in this encounter Results * PAP TEST (04/01/2010) 04/01/2010 04/03/2010 21: 52 EST Narrative [facility] - 04/08/2010 9:48 EST ----- ------- Name: GLADYSFRANNIE ? : [birth year] ?Age/Sex: 58/F ?Unit#: [id number] ? Loc: LAB.[facility] ? Status: REG REF ?? Reg Date: 04/01/10 ? Pt.Phone Number: ? ----- ------- Specimen: [id number] ?STATUS: SOUT ?Spec Date:04/01/10 ? Physician Copies: ?Jennifer Brown ? Tissues: ? Cervical/Endo Pap ? CPT: 82555 ?? Units: ??1 ----- ------- ? CYTOLOGY DIAGNOSIS SPECIMEN ADEQUACY: ?Satisfactory for evaluation. Transformation zone component present. GENERAL CATEGORIZATION: ?Negative for Intraepithelial Lesion or Malignancy DESCRIPTIVE DIAGNOSIS: ? Negative for Intraepithelial Lesion or Malignancy. RECOMMENDATIONS/COMMENTS: ?None. ----- ------- ORDER QUERIES: LMP: 03/04/10- ? N Post ? N ??PREVIOUS ATYPICAL: N BCP/HRT? N Rad Rx? N IUD?PAP PLUS HPV? N ??REFLEX TO HR-HPV IF ASCUS ?? REFLEX TO HPV 16/18 IF HPV POS/PAP NEG ?? HPV REGARDLESS?RFLX HPV IF LSIL ?? IF ASCUS DO HPV? Y ?[facility] Information ? [facility] ?? Patients Phone# ??[phone] ?? [facility] Order# ? Signed Simeon Stephen CT(ASCP) 04/08/10 By the signature above, the attending physician certifies that he/she has personally conducted a gross and/or microscopic examination of the described specimens and rendered or confirmed the above diagnosis. Test Performed by [facility], [address] [place] [address] Strip Roller: Alicia Michel MD PHD ----- ------- us Jennifer KAUFMAN PATHOLOGY ORDERABLES Final R esult [facility] documented in this encounter Visit Diagnoses Not on filedocumented in this encounter Care Teams Car Wash Supervisor Relationship Specialty Start Date End Date Unknown, Provider, PCP - General 09/11/11 01/16/16 Vicki Mays, AIRPLANE PILOT [address] [place] [address] PCP - General 01/17/16 documented as of this encounter
--- OUTSIDE RECORDS SUMMARY | 2024-04-05 13:44 | XMS_ITS | Encounter Summary ---
Author Organization [facility] Address [address] [place] [address] Care Team Providers Care Health Services Coordinator Name Role Phone Vicki Mays CLAIMS MANAGER Primary Care Provider Reason for Visit * Reason Onset Date Comments Follow-up 08/27/2020 Encounter Details Date Type Department Care Team ([facility] st Contact Info) Description 08/27/2020 Telephone [facility] - [address] [address] Margo Garcia, RN [address] [address] Follow-up Social History Tobacco Use Types Packs/Day Years [...] 18:30 EDT documented as of this encounter Miscellaneous Notes * Telephone Encounter - Margo Garcia RN - 08/27/2020 1016 EDT Spoke with Chance Headley [facility] Health Officer Tej , dog bite reported * Telephone Encounter - Margo Garcia RN - 08/27/2020 1011 EDT ----- Message from Rosario Ash RN sent at 08/26/2020 19:10 EDT ----- Regarding: Animal bite Please notify Chance Headley, [facility] Health Officer in [place] to report this dog bite. The dog belongs to her son, the bite occurred in [place] at the pt's home. She states the dog is UTD on vaccines. I tried calling Chance's cell and home phone this evening and he is not answering , I was unable to leave a message. Thank you, Shannan Baig documented in this encounter Plan of Treatment Not on file documented as of this encounter Visit Diagnoses Not on filedocumented in this encounter Care Teams Health Services Coordinator Relationship Specialty Start Date End Date Vicki Mays, [place] [address] [place] [address] PCP - General 01/17/16 documented as of this encounter
--- OUTSIDE RECORDS SUMMARY | 2024-04-05 13:44 | XMS_ITS | Encounter Summary ---
Author Organization [facility] Address [address] [place] [address] Care Team Providers Care Wire Frame Lampshade Maker Name Role Phone Unavailable Primary Care Provider Unavailabl e Encounter Details Date Type Department Care Team (Late st Contact Info) Description 09/23/2004 Results Only [facility] - Maple conversion [address] [place] [address] Mendy Mejia MD [address] [place] [id number] Social History Tobacco Use Types Packs/Day Years [...] Priority Date/Time Associated Diagnosis Comments CYTOPATHOLOGY Routine 09/23/2004 0:00 EDT documented in this encounter Results * CYTOPATHOLOGY (09/23/2004 0:00 EDT) Pathology Report: CYTOPATHOLOGY REPORT Reports generated via electronic interface contain original data; however they are lacking the format of the original report. Caution should be taken when reading/interpreti ng unformatted reports. Name: ? FRANNIE GRAHAM ? Accession #: ? [id number] : ? 1960 (Age: 43) ??F ?Collect Date: ? 09/23/2004 Location: ? [facility] ? Receive Date: ? 09/25/2004 Provider: ?MENDY MEJIA MD Copy to: ? Specimen/Source: ?ThinPrep Pap Test, Cervix/Endocervix Last Menstrual Period: ? 09/01/04 Other: ? HPVA - HPV testing requested if ASC-US on the current ThinPrep Pap test. ? SPECIMEN ADEQUACY ? Satisfactory for Evaluation - transformation zone component present GENERAL CATEGORIZATION ? Negative for Intraepithelial Lesion or Malignancy ? Document reviewed and electronically signed by: ? TYLER Tompkins(ASCP) ? Report Date: ??10/01/2004 12:54 End of Report [facility] 09/23/2004 09/25/2004 us Mendy Mejia MD PATHOLOGY ORDERABLES Fin al Result [facility] [address] [place] [address] documented in this encounter Visit Diagnoses Not on filedocumented in this encounter
--- OUTSIDE RECORDS SUMMARY | 2024-04-05 13:44 | XMS_ITS | Encounter Summary ---
Author Organization [facility] Address [address] [place] [address] Care Team Providers Care Inside Sales Agent Name Role Phone Vicki Mays NP Primary Care Provider [phone] Reason for Referral * Radiology Services (Routine/Next Available) - Authorization Not Required Specialty Diagnoses / Procedures Referred By Contac t Referred To Contact Diagnoses Endometrial cancer ([facility]) Procedures XR CHEST 2 VIEWS Sigifredo Jacob MD Phone: tel: fax: [facility] Referral ID Status Reason Start Date Expiration Date Visits Requested Visits Authorized [id number] Authorization Not Required 10/09/2022 1 1 Reason for Visit * Radiology Services (Routine/Next Available) - Authorization Not Required Specialty Diagnoses / Procedures Referred By Contac t Referred To Contact Diagnoses Endometrial cancer (HCC-CMS) Procedures XR CHEST 2 VIEWS Sigifredo Jacob MD Phone: tel: fax: [facility] Referral ID Status Reason Start Date Expiration Date Visits Requested Visits Authorized [id number] Authorization Not Required 10/09/2022 1 1 Encounter Details Date Type Department Care Team (Latest Contact Info) Description 10/09/2022 15:15 EDT - 10/09/2022 23:59 EDT Hospital Encounter [facility] Radiology Xray Outpatient - [facility] [address] [place] [address] Endometrial cancer (HCC-CMS) Discharge Disposition: Home or Self Care Social [...] on file documented as of this encounter Medications at Time of Discharge [...] D2, (VITAMIN D ORAL) Take by mouth. FLUoxetine (PROZAC) 20 mg capsule Take 1 [...] tablet Take 1 Tablet by mouth daily. enoxaparin (LOVENOX) 40 mg/0.4 mL injection Inject 40 mg into the skin every 12 hours for 7 days. 6 mL 11/18/2022 enoxaparin (LOVENOX) 40 mg/0.4 mL injection Inject 40 mg into the skin every 12 hours for 7 days. 6 mL 11/17/2022 3 gabapentin (NEURONTIN) 100 mg capsule Take 200 mg by mouth 3 times daily. 3 oxyCODONE (ROXICODONE) 5 mg immediate release tablet Take 1 Tablet by mouth every 4 hours as needed for Pain. Daily Max: 30 mg 6 Tablet 11/17/2022 3 progesterone (PROMETRIUM) 100 mg capsule Take 200 mg by mouth daily. 3 UNKNOWN TO PATIENT Weight loss pill 3 documented as of this encounter Discharge Disposition Disposition Code Departure Means Destination Home or Self Care documented in this encounter Plan of Treatment Not on file documented as of this encounter Procedures Procedure Name Priority Date/Time Associated Diagnosis Comments XR CHEST 2 VIEWS Routine 10/09/2022 15:2 2 EDT Endometrial cancer ([facility]) documented in this encounter Results * XR CHEST 2 VIEWS (10/09/2022 15:22 [...] this encounter Visit Diagnoses Diagnosis Endometrial cancer (HCC-CMS) Malignant neoplasm of corpus uteri, except isthmus documented in this encounter Care Teams Inside Sales Agent Relationship Specialty Start Date End Date Vicki Mays NP [address] [place] [address] PCP - General 01/17/16 documented as of this encounter
--- OUTSIDE RECORDS SUMMARY | 2024-04-05 13:44 | XMS_ITS | Encounter Summary ---
Author Organization [facility] Address [address] [place] [address] Care Team Providers Care Chief Security And Safety Officer Name Role Phone Vicki Mays TUBE FORMER OPERATOR Primary Care Provider [phone] Encounter Details Date Type Department Care Team (Late st Contact Info) Description 01/17/2016 Results Only Imaging [facility] [phone] Vicki Mays, TUBE FORMER OPERATOR [address] [place], [place] [id number] Social History Tobacco Use Types Packs/Day Years [...] Procedure Name Priority Date/Time Associated Diagnosis Comments RAD US GUIDANCE BIOPSY FNA THYROID 01/17/2016 14:41 EDT documented in this encounter Results * RAD US GUIDANCE BIOPSY FNA THYROID (01/17/2016 14:41 EDT) Anatomical Region Laterality Modality Other 01/17/2016 14:4 1 EDT 01/17/2016 14:52 EDT Narrative 01/17/2016 14:52 EDT RAD US GUIDANCE BIOPSY FNA THYROID ??01/17/2016 2:41 PM Clinical History/Comments: thyroid nodule, incidental finding on [facility] maintenance exam. TSH normal Informed written and verbal consent was obtained from the patient by Dr. Lowry. The patient's neck was prepped and draped in sterile fashion. Local anesthesia was obtained with 1% lidocaine. A Jurado moment was performed at which time the patient confirmed her name, date of , procedure to be performed, and site of procedure. Using ultrasound guidance, 3 passes were made into the left thyroid nodule using a 25-gauge venipuncture needle. On-site pathology requested further sampling. 3 more passes were made into the left thyroid nodule using ultrasound guidance with a 25-gauge spinal needle. At this time on-site pathology confirmed adequate cells for diagnosis. There were no immediate complications and the patient left the ultrasound suite in satisfactory condition. Procedure Note Emiliano Lowry MD - 01/17/2016 RAD US GUIDANCE BIOPSY FNA THYROID 01/17/2016 2:41 PM Clinical History/Comments: thyroid nodule, incidental finding on [facility] maintenance exam. TSH normal Informed written and verbal consent was obtained from the patient by Dr. Lowry. The patient's neck was prepped and draped in sterile fashion. Local anesthesia was obtained with 1% lidocaine. A Jurado moment was performed at which time the patient confirmed her name, date of , procedure to be performed, and site of procedure. Using ultrasound guidance, 3 passes were made into the left thyroid nodule using a 25-gauge venipuncture needle. On-site pathology requested further sampling. 3 more passes were made into the left thyroid nodule using ultrasound guidance with a 25-gauge spinal needle. At this time on-site pathology confirmed adequate cells for diagnosis. There were no immediate complications and the patient left the ultrasound suite in satisfactory condition. us Vicki Mays NP IMG US ORDERABLES Final Resul t documented in this encounter Visit Diagnoses Not on filedocumented in this encounter Care Teams Chief Security And Safety Officer Relationship Specialty Start Date End Date Vicki Mays, [place] [address] [place] [address] PCP - General 01/17/16 documented as of this encounter
--- OUTSIDE RECORDS SUMMARY | 2024-04-05 13:44 | XMS_ITS | Encounter Summary ---
Author Organization [facility] Address [address] [place] [address] Care Team Providers Care Block Press Operator Name Role Phone Vicki Moody ACUTE SPECIALIST Primary Care Provider [phone] Encounter Details Date Type Department Care Team (Latest Contact Info) Description 01/17/2016 12:30 EDT - 01/17/2016 23:58 EDT Hospital Encounter [facility] Radiology - Main [place] [address] [place], [place] [address] Vicki Moody, ACUTE SPECIALIST [address] [place], [place] [phone] Discharge Disposition: Home or Self Care Social History Tobacco Use Types Packs/Day Years Used Date Smoking Tobacco: Never Assessed Comments Unknown Sex and Gender Information Value Date Recorded Sex Assigned at Not on file Legal Sex Female 18:21 EST Gender Identity Not on file Sexual Orientation Not on file documented as of this encounter Discharge Diagnoses Diagnosis E04.1 Nontoxic single thyroid nodule-E04.1[ICD-10-CM] documented in this encounter Discharge Disposition Disposition Code Departure Means Destination Home or Self Care documented in this encounter Plan of Treatment Scheduled Orders Name Type Priority Associated Diagnoses Orde r Schedule CYTOLOGY (NON-GYNECOLOGIC INCLUDING FLUIDS AND FINE NEEDLE ASPIRATION)- ORDER ONLY Pathology Routine One Time for 1 Occurrences starting 01/17/2016 until 01/17/2016 documented as of this encounter Procedures Procedure Name Priority Date/Time Associated Diagnosis Comments CYTOPATHOLOGY Routine 01/17/2016 0:00 EDT documented in this encounter Results * CYTOPATHOLOGY (01/17/2016 0:00 EDT) Pathology Report: CYTOPATHOLOGY REPORT Reports generated via electronic interface contain original data; however they are lacking the format of the original report. Caution should be taken when reading/interpreti ng unformatted reports. Name: ? FRANNIE GRAHAM ? Accession #: ? [id number] : ? 1960 (Age: 55) ??F ?Collect Date: ? 01/17/2016 Location: ? RAD ? Receive Date: ? 01/17/2016 Provider: ? EMILIANO VILLANUEVA MD Copy to: ?VICKI MOODY ACUTE SPECIALIST ? CYTOLOGIC DIAGNOSIS: THYROID, LEFT LOBE 2.8 CM SOLID MASS, ULTRASOUND GUIDED FINE NEEDLE ASPIRATION: - No malignant cells identified. - Numerous groups of benign follicular epithelial cells in macrofollicular and microfollicular aggregates. - Numerous siderophages, indicating prior hemorrhage. - BENIGN THYROID NODULE WITH PREVIOUS HEMORRHAGE. Document reviewed and electronically signed by: ? CIERA CARCAMO MD [facility] Report Date: ??01/18/2016 16:44 By the signature above, the attending physician certifies that he/she has personally conducted a gross and/or microscopic examination of the described specimens and rendered or confirmed the above diagnosis. Specimen Type: ? Thyroid, Fine Needle Aspiration, left Clinical History: ? 2.8 cm solid left thyroid nodule ? Rapid Interpretation: THYROID, LEFT, 2.8 CM NODULE, ULTRASOUND GUIDED FINE NEEDLE ASPIRATION: ? Evaluation episode #1: Passes 1-3: Only rare inflammatory cells identified. Additional passes requested . Evaluation episode #2: Passes 4-6: Numerous follicular cell groups present in a background of abundant macrophages. ??Adequate for evaluation. TYLER Valera ([facility]) 01/17/2016 14:21 Gross Description: ? 7 fixed prepared slides, 6 air dried prepared slides, and 1 tube of CytoLyt were received and processed by selective cellular enhancement technique. ? End of Report [facility] 01/17/2016 01/17/2016 15: 54 EDT us Emiliano Villanueva MD PATHOLOGY ORDERABLES Beata jewell Result [facility] [address] [place] [address] documented in this encounter Visit Diagnoses Not on filedocumented in this encounter Care Teams Block Press Operator Relationship Specialty Start Date End Date Vicki Moody, ACUTE SPECIALIST [address] [place] [address] PCP - General 01/17/16 documented as of this encounter
--- OUTSIDE RECORDS SUMMARY | 2024-04-05 13:44 | XMS_ITS | Encounter Summary ---
Author Organization [facility] Address [address] [place] [address] Care Team Providers Care Lavender Farm Worker Name Role Phone Unavailable Primary Care Provider Unavailabl e Encounter Details Date Type Department Care Team ([facility] st Contact Info) Description 04/12/2002 14:10 EST Hospital Encounter [facility] - Other [address] [place] [address] Mendy Mejia MD [address] [place] [phone] Unknown, Provider, Social History Tobacco Use Types [...] Priority Date/Time Associated Diagnosis Comments CYTOPATHOLOGY Routine 04/12/2002 0:00 EST documented in this encounter Results * CYTOPATHOLOGY (04/12/2002 0:00 EST) Pathology Report: CYTOPATHOLOGY REPORT Reports generated via electronic interface contain original data; however they are lacking the format of the original report. Caution should be taken when reading/interpreti ng unformatted reports. Name: ? FRANNIE GRAHAM ? Accession #: ? [id number] : ? 1960 (Age: 41) ??F ?Collect Date: ? 04/12/2002 Location: ? [facility] ? Receive Date: ? 04/15/2002 Provider: ?MENDY MEJIA MD Copy to: ? Specimen/Source: ?ThinPrep Pap Test, Cervix/Endocervix Last Menstrual Period: ? 03/26/02 Hormonal/Contracep tive Status: ? Control Pills ? SPECIMEN ADEQUACY ? Satisfactory for Evaluation - transformation zone component present GENERAL CATEGORIZATION ? Negative for Intraepithelial Lesion or Malignancy ? Document reviewed and electronically signed by: ? Phoebe Escalante, ??SCT(ASCP) ? Report Date: ??04/20/2002 09:14 End of Report [facility] 04/12/2002 04/15/2002 us Mendy Mejia MD PATHOLOGY ORDERABLES Fin al Result [facility] [address] [place] [address] documented in this encounter Visit Diagnoses Not on filedocumented in this encounter
--- OUTSIDE RECORDS SUMMARY | 2024-04-05 13:44 | XMS_ITS | Encounter Summary ---
Author Organization [facility] Address [address] [place] [address] Care Team Providers Care Aviation Program Manager Name Role Phone Vicki Mays NEON INSTALLER Primary Care Provider [phone] Reason for Visit * Reason Comments Animal Bite Dog bite to left kermit mb Encounter Details Date Type Department Care Team (Latest Contact Info) Description 08/26/2020 18:45 EDT - 08/26/2020 19:10 EDT Hospital Encounter [facility] - [address] [address] Emily Cano MD [address] [place] [phone] Dog bite, initial encounter (Primary Dx); Cellulitis of left thumb Discharge Disposition: Home or Self Care Social [...] 18:30 EDT documented as of this encounter Last Filed Vital Signs Vital Sign Reading Time Taken Comments Blood Pressure 168/104 08/26/20201840 EDT Pulse 78 08/26/20201840 EDT Temperature 36.9 ??C (98.5 ??F) 08/26/20201840 EDT Respiratory Rate 20 08/26/20201840 EDT Oxygen Saturation 98% 08/26/20201840 EDT Inhaled Oxygen Concentration - - Weight - - Height - - Body Mass Index - - documented in this encounter Discharge Instructions * Discharge Instructions* Emily Cano MD - 08/26/2020 18:59 EDT Your wound due to an animal bite does appear to be infected. You have been started on and antibiotic. It is important for you to take an finish the entire antibiotic course, even if you feel well. This should be improving by 48-72 hours. If not getting better by 3 days or getting significantly worse, you should see your pcp. Call your pcp tomorrow to check on your tetanus shot status. If more than 10 years you should have one. We did not give it to you to day because you should not have it within 2 weeks of the covid vaccine. * Attachments The following attachments cannot be sent through Care Everywhere. * Bites: Animal (Armenian) documented in this encounter Medications at Time of Discharge FLUoxetine (PROZAC) 20 mg capsule Take 1 Capsule by mouth daily. amoxicillin-clavu lanate (AUGMENTIN) 875-125 mg per tablet Take 1 Tab by mouth every 12 hours for 7 days. 14 Tab 08/26/2020 09/02/2020 buPROPion (WELLBUTRIN) 100 mg tablet Take 1 Tablet by mouth daily. 11/17/2022 UNKNOWN TO PATIENT Weight loss pill 10/14/2022 documented as of this encounter Ordered Prescriptions Prescription Sig Dispense Quantity Refills Last Filled Start Date End Date amoxicillin-clavula alma (AUGMENTIN) 875-125 mg per tablet Take 1 Tab by mouth every 12 hours for 7 days. 14 Tab 08/26/2020 09/02/2020 documented in this encounter Discharge Disposition Disposition Code Departure Means Destination Home or Self Senior Living documented in this encounter ED Notes * Rosario Ash RN - 08/26/2020 1908 EDT Washed wound with soap and water, dried and covered with bandaid. * Emily Cano MD - 08/26/2020 1900 EDT DOS: 08/26/2020 Chief Complaint: Chief Complaint Patient presents with ??? Animal Bite Dog bite to left thumb Assessment and Plan: Final diagnoses: Dog bite, initial encounter Cellulitis of left thumb She has a puncture bite from a dog. It is getting more swollen painful and red. She was given augmentin 875 mg bid for 7 days. Starter pack given today. Discussed tetanus- she does not recall last shot but thinks she is up to date. Will call her doctor tomorrow- she has her covid vaccine scheduled for 5 days from now. Animal had its rabies shots and is in possession. Animal control called. Followup with pcp for worsening or not improving in 3 days. Procedures No results found for this visit on 08/26/20. Radiology orders: None Consult orders: None Imaging Results None No orders to display The patient is a 59 y.o. female who presents today with Animal Bite (Dog bite to left thumb) The history is provided by the patient. Animal Bite Contact animal: Dog Location: Finger Finger injury location: L thumb Time since incident: 30 hours Pain details: Quality: Aching and sore Severity: Moderate Timing: Constant Progression: Worsening Incident location: Home Provoked: provoked (she was her cat and her sons dog who were fighting) Notifications: Animal control Animal's rabies vaccination status: Up to date Animal in possession: yes Tetanus status: Unknown (but she is pretty sure up to date and has her covid vaccine appt in 5 days) Relieved by: None tried Worsened by: Activity (pressure) Associated symptoms: swelling Review of Systems Constitutional: Negative for activity change. Musculoskeletal: Positive for arthralgias. Skin: Positive for color change and wound. Current Facility-Administered Medications Medication Dose Route Frequency Provider Last Rate Last Admin ??? Augmentin 875 mg Tab STARTER PACK 1 Package oral Now Emily Cano MD Current Outpatient Medications Medication Sig Dispense Refill ??? amoxicillin-clavulanate (AUGMENTIN) 875-125 mg per tablet Take 1 Tab by mouth every 12 hours for 7 days. 14 Tab 0 ??? buPROPion (WELLBUTRIN) 100 mg tablet Take 100 mg by mouth 2 times daily. ??? FLUoxetine (PROZAC) 20 mg capsule Take 20 mg by mouth daily. ??? UNKNOWN TO PATIENT Weight loss pill No Known Allergies There are no active problems to display for this patient. History reviewed. No pertinent past medical history. Social History Tobacco Use ??? Smoking status: Never Smoker ??? Smokeless tobacco: Never Used Substance Use Topics ??? Alcohol use: Not Currently ??? Drug use: Never History reviewed. No pertinent family history. BP (!) 168/104 Pulse 78 Temp 98.5 ??F (36.9 ??C) Resp 20 SpO2 98% Physical Exam Vitals signs and nursing note reviewed. Constitutional: General: She is not in acute distress. HENT: Head: Atraumatic. Pulmonary: Effort: Pulmonary effort is normal. No respiratory distress. Skin: General: Skin is dry. Comments: She has a puncture on the dorsal thumb, can extend, cannot flex due to swelling. Tender over red swollen area. No purulence. Neurological: Mental Status: She is alert and oriented to person, place, and time. PCP: Vicki Mays No supervision required. Urgent Care Course A medical screening exam was performed. DISPOSITION: Discharged The patient's pain was managed to an adequate level weighing risk vs. benefit of further medications. Upon departure from [facility], the patient's pain was 5 on a zero to ten scale. Any further pain treatment will be at the discretion of the provider following up with the patient based on their clinical assessment . Condition at departure from the [facility] : Good [facility] 08/26/2020 19:00 * Rosario Ash RN - 08/26/2020 7993 EDT Presents with approx 1 cm lac on left thumb from dog bite received yesterday. The dog is her son's dog who she had at her home in [place]. The dog started fighting with her cat and received the bitewhile breaking up the fight. Moderate swelling. * Rosario Ash RN - 08/26/2020 1855 EDT Placed calls to [facility] Officer, Chance Headley's, cell and home phone. Unable to reach him. Wewill try him again tomorrow to report the dog bite. * Darcy Wilkes RN - 08/26/2020 1842 EDT C/O dog bite to left thumb S/P trying to break apart a dog vs cat fight yesterday. Pt is UTD on tetanus. Swelling noted. documented in this encounter Plan of Treatment Not on file documented as of this encounter Visit Diagnoses Diagnosis Dog bite, initial encounter- Primary Cellulitis of left thumb Cellulitis and abscess of finger, unspecified documented in this encounter Administered Medications Inactive Administered Medications - up to 3 most recent administrations Medication Order MAR Action Action Date Dose Rate Site Augmentin 875 mg Tab STARTER PACK 1 Package, oral, NOW X1, 1 dose, On 08/26/20 at 1900, Routine Given 08/26/2020 19:01 EDT 1 Package documented in this encounter Historical Medications * This list may reflect changes made after this encounter. FLUoxetine (PROZAC) 20 mg capsule Take 1 Capsule by mouth daily. UNKNOWN TO PATIENT Weight loss pill 10/14/2022 buPROPion (WELLBUTRIN) 100 mg tablet Take 1 Tablet by mouth daily. 11/17/2022 added in this encounter Active and Recently Administered Medications Times are shown in EDT. Scheduled Medication Order 08/24/2020 08/25/2020 08/26/2020 Augmentin 875 mg Tab STARTER PACK (COMPLETED) 1 Package, oral, NOW X1, 1 dose, On 08/26/20 at 1900, Routine 1901 (Given - Provid er: Rosario Ash RN - Comment: R) documented in this encounter Orders Medications Ordered That Frank ht Not Have Been Administered Count Last Ordered Date First Ordered Date tetanus toxoid, reduced diph theria toxoid, acellular pertussis vaccine (BOOSTRIX) IM injection 0.5 mL 1 08/26/2020 documented in this encounter Care Teams Aviation Program Manager Relationship Specialty Start Date End Date Vicki Mays, [place] [address] [place] [address] PCP - General 01/17/16 documented as of this encounter
--- OUTSIDE RECORDS SUMMARY | 2024-04-05 13:44 | XMS_ITS | Encounter Summary ---
Author Organization [facility] Address [address] [place] [address] Care Team Providers Care Ancillary Services Manager Therapy Name Role Phone Unknown, Provider Primary Care Provider Unava ilable Encounter Details Date Type Department Care Team (Late st Contact Info) Description 12/28/2015 Results Only Imaging [facility] [phone] Unknown, Provider, Social History Tobacco Use Types Packs/Day Years Used Date Smoking Tobacco: Never Assessed Comments Unknown Sex and Gender Information Value Date Recorded Sex Assigned at Not on file Legal Sex Female 18:21 EST Gender Identity Not on file Sexual Orientation Not on file documented as of this encounter Plan of Treatment Pending Results Name Type Priority Associated Diagnoses Date /Time OUTSIDE IMAGES - US NEURO Imaging 12/28/2015 11:55 EDT documented as of this encounter Visit Diagnoses Not on filedocumented in this encounter Care Teams Ancillary Services Manager Therapy Relationship Specialty Start Date End Date Unknown, Provider, PCP - General 09/11/11 01/16/16 documented as of this encounter
--- OUTSIDE RECORDS SUMMARY | 2024-04-05 13:44 | XMS_ITS | Encounter Summary ---
Author Organization [facility] Address [address] [place] [address] Care Team Providers Care Collections Attorney Name Role Phone Vicki Mays NP Primary Care Provider [phone] Sam Morris MD Unavailable [phone] Encounter Details Date Type Department Care Team (Late st Contact Info) Description 05/29/2020 Lab Requisition [facility]ology & Laboratory Medicine - [address] [address] Outr Resulting Lab, Provider Social History Tobacco [...] Procedure Name Priority Date/Time Associated Diagnosis Comments ANTI NUCLEAR AB (SHIMON), IFA Routine 05/28/2020 14:15 EST documented in this encounter Results * ANTI NUCLEAR AB (SHIMON), IFA (05/28/2020 14:15 EST) SHIMON Interpretation Negative Negative 2020 14:27 EST [facility] Comment:No titer performed, SHIMON Screen is negative. Blood VENOUS BLOOD / Unknown 05/28/2020 14:15 EST 05/29/2020 15:48 EST Narrative [facility] - 05/30/2020 14:27 EST Results were obtained with the INOVA NOVA Lite HEp-2 SHIMON Kit by indirect immunofluorescence. us Provider Outr Resulting Lab IMMUNOLOGY AND SEROL OGY ORDERABLES Final Result [facility] [address] [place] [address] documented in this encounter Visit Diagnoses Not on filedocumented in this encounter Care Teams Collections Attorney Relationship Specialty Start Date End Date Vicki Mays, [place] [address] [place] [address] PCP - General 01/17/16 Sam Morris MD [address] [facility] [address] [place] [id number] 11/17/22 documented as of this encounter
--- OUTSIDE RECORDS SUMMARY | 2024-04-05 13:44 | XMS_ITS | Encounter Summary ---
Author Organization [facility] Address [address] [place] [address] Care Team Providers Care Agent Producer Name Role Phone Vicki Mays NP Primary Care Provider [phone] Sam Morris MD Unavailable [phone] Encounter Details Date Type Department Care Team (Late st Contact Info) Description 09/30/2022 Lab Requisition [facility] Pathology & Laboratory Medicine - [address] [address] Mallika Jon MD [address] [facility] [address] [place] [address] Encounter for other general examination Social History Tobacco Use Types Packs/Day Years [...] Procedure Name Priority Date/Time Associated Diagnosis Comments OUTSIDE CASE REVIEW Today 10/01/2022 1 5:11 EDT documented in this encounter Results * OUTSIDE CASE REVIEW (10/01/2022 15:11 EDT) Ancillary Studies Addendum RESULTS OF IMMUNOHISTOCHEMICAL STAINING: Retained expression of MLH1, PMS2, MSH2 and MSH6 TISSUE SUBMITTED: Formalin fixed paraffin embedded tissue block labelled ([id number]), block (A1) TUMOR TYPE: Endometrial adenocarcinoma INTERPRETATION: These results are indicative of normal DNA mismatch repair function within the tumor. This patient most likely does not have Jimenez syndrome. However, it is important to note that 3-10% of Jimenez syndrome patients may reveal retained expression of mismatch repair proteins due to mutation in other genes. Hence these findings should be interpreted in the context of family and clinical history. If results do not match clinicopathologic findings, molecular testing (specifically microsatellite instability by PCR) can be ordered upon obtaining preauthorization or an advanced beneficiary notice. ANTIBODY (CLONE) (BLOCK): RESULT MLH1 (M1, [place]) (block A1): Retained expression in tumor PMS2 (A16-4, [place]) (block A1): Retained expression in tumor MSH2 ([id number], [place]) (block A1): Retained expression in tumor MSH6 (SP93, [place]) (block A1): Retained expression in tumor Internal controls: Adequate NOTE: One or more of the reagents used in immunohistochemical testing in this case may not have been cleared or approved by the U.S. Food and Drug Administration (FDA). The FDA has determined that such clearance or approval is not necessary. These tests are used for clinical purposes. They should not be regarded as investigational or for research. These reagents' performance characteristics have been determined by [facility] and/or by the referring laboratory. The positive and negative controls worked appropriately. This laboratory is certified under the Clinical Laboratory Improvement Amendments of 1988 (CLIA-88) as qualified to perform high complexity clinical laboratory testing. 10/09/2022 14:05 [facility] Addendum electronically signed by Minor Barajas MD on 10/09/2022 at 1405 Final Diagnosis OUTSIDE [facility] [id number] (9), PROCEDURE DATE 09/19/2022 A. ENDOMETRIUM CURETTAGE: - Findings most suggestive of endometrial adenocarcinoma, endometrioid type (FIGO Grade 1) involving an endometrial polyp. - See Comment. 10/09/2022 14:05 [facility] Diagnosis Comment Thank you for allowing us to review this difficult case. Histologic Aide slides of this case were reviewed at the intradepartmental consultation conference, and in consensus with Dr. Perez. The findings are of fragments of endometrial polyp involved by a neoplastic glandular proliferation having minor squamous differentiation, secretory vacuoles, and focal mucin. The cytoplasm is predominantly eosinophilic and apical mitoses are not conspicuous. We note that immunohistochemical stains have been interpreted by the referring institution, and we have reviewed them with the following interpretation: CEA (monoclonal): Negative in polyp glands, Patchy apical staining present in adenocarcinoma (equivocal pattern) vimentin: Positive in polyp glands, Patchy weak basal staining present in adenocarcinoma (equivocal pattern) p16: Patchy staining in adenocarcinoma (endometrial pattern) estrogen receptor: Positive in adenocarcinoma (more than 50%) progesterone receptor: Low heterogeneous expression only. It is our consensus opinion that the overall morphologic and immunophenotypic findings are more suggestive of an endometrial adenocarcinoma of the endometrioid type. Immunohistochemical staining for mismatch repair (MMR) proteins for [place] Jimenez Screening has been ordered. The results of this test will be issued as an addendum to this report. Based on the immunophenotype, it may be difficult to exclude an endocervical component. Correlation with clinical/colposcopic/ radiologic findings is needed. Although correlation with cervical tissue sampling may be considered, definitive classification may also be deferred to a resection specimen. 10/09/2022 14:05 [facility] Attestation By the signature below, the attending physician certifies that they have 1) personally conducted a gross and/or microscopic examination of the described specimen(s), and/or personally interpreted the results of laboratory testing of the described specimen(s), and 2) personally rendered or confirmed the above diagnosis. 10/09/2022 14:05 [facility] at 1258 Microscopic Description Histologic Aide slides of this case were reviewed at the intradepartmental consultation conference. 10/09/2022 14:05 [facility] Clinical History Endometrial cancer 10/09/2022 14:05 [facility] Gross Description A. Nine slides are received for review from [facility], one each labelled [id number] A1-2, [id number] A2-2, [id number] A3-2, [id number] A4-2, [id number] A4 CEA Foard, [id number] A4 ER, [id number] A4 PRA, [id number] A4 P16, [id number] A4 Vimentin. 10/09/2022 14:05 EDT [facility] Scanned Images 10/09/2022 14:05 EDT [facility] ZZUNK ENTIRE ENDOMETRIUM / Unknown 10/01/2022 15:11 EDT 10/01/2022 15:11 EDT us Mallika Jon MD PATHOLOGY ORDERABLES Ranulfo thu Result - Final [facility] [address] [place] [address] documented in this encounter Visit Diagnoses Diagnosis Encounter for other general examination documented in this encounter Care Teams Agent Producer Relationship Specialty Start Date End Date Vicki Mays NP [address] [place] [address] PCP - General 01/17/16 Sam Morris MD [address] [facility] [address] [place] [id number] 11/17/22 documented as of this encounter
--- OUTSIDE RECORDS SUMMARY | 2024-04-05 13:44 | XMS_ITS | Encounter Summary ---
Author Organization [facility] Address [address] [place] [address] Care Team Providers Care Human Resources Safety Manager Name Role Phone Unavailable Primary Care Provider Unavailabl e Encounter Details Date Type Department Care Team (Late st Contact Info) Description 09/30/2005 Results Only [facility] [address] [place] [address] Mendy Mejia MD [address] [place] [phone] Social History Tobacco Use Types Packs/Day Years [...] Priority Date/Time Associated Diagnosis Comments CYTOPATHOLOGY Routine 09/30/2005 0:00 EDT documented in this encounter Results * CYTOPATHOLOGY (09/30/2005 0:00 EDT) Pathology Report: CYTOPATHOLOGY REPORT Reports generated via electronic interface contain original data; however they are lacking the format of the original report. Caution should be taken when reading/interpreti ng unformatted reports. Name: ? FRANNIE GRAHAM ? Accession #: ? [id number] : ? 1960 (Age: 44) ??F ?Collect Date: ? 09/30/2005 Location: ? [facility] ? Receive Date: ? 10/02/2005 Provider: ?MENDY MEJIA MD Copy to: ? Specimen/Source: ?ThinPrep Pap Test, Cervix/Endocervix, processed on [employer] ThinPrep Imaging System, with manual evaluation Last Menstrual Period: ? 09/02/05 Other: ? HPVA - HPV testing requested if ASC-US on the current ThinPrep Pap test. ? SPECIMEN ADEQUACY ? Satisfactory for Evaluation - transformation zone component present GENERAL CATEGORIZATION ? Negative for Intraepithelial Lesion or Malignancy ? Document reviewed and electronically signed by: ? TYLER Cole(ASCP) ? Report Date: ??10/06/2005 07:17 End of Report [facility] 09/30/2005 10/02/2005 Mendy Mejia MD PATHOLOGY ORDERABLES Fin al Result [facility] [address] [place] [address] documented in this encounter Visit Diagnoses Not on filedocumented in this encounter
== END 2024-04-05 13:09 | disposition home or self-care (01) ==
LOC: NCHCN 13:08
PROVIDERS: PCP Nurse Practitioner Family; Visit Provider Nurse Practitioner Family
DX: E11.9 Type 2 diabetes mellitus without complications (principal); K76.0 Fatty (change of) liver, not elsewhere classified; E66.9 Obesity, unspecified
CPT/HCPCS: 82043; 82570

== ENCOUNTER 2024-09-26 12:56 | Outpatient (REF) | payer BC, SELFPAY ==
[2024-09-26 14:28] LABS: HCT 48.5 % (36.0-46.0); HGB 15.6 g/dL (11.2-15.7); MCHC 32.2 % (32.0-36.0); MCV 90 fL (80-95); MPV 11.4 fL (8.0-11.0); Platelet Count 265 10^3/uL (130-400); RBC 5.38 10^6/uL (3.93-5.22); RDW 13.7 % (11.7-14.6); RDW-SD 45.4 fL
[2024-09-26 15:05] LABS: ALT 39 U/L (14-59); AST 24 U/L (15-37); Albumin 3.7 g/dL (3.4-5.0); Alkaline Phosphatase 191 U/L (46-116); Anion Gap 9.4 mmol/L (3-11); BUN 20 mg/dL (7-18); Bilirubin, Total 0.5 mg/dL (0.2-1.0); CO2 25.6 mmol/L (21.0-32.0); Calcium 9.6 mg/dL (8.5-10.1); Chloride 103 mmol/L (98-107); Estimated GFR 64.09 (mL/min/1.73m2); Glucose 99 mg/dL (74-106); Potassium 4.4 mmol/L (3.5-5.1); Sodium 138 mmol/L (136-145); TSH 1.68 uIU/mL (0.36-3.74); Total Protein 8.2 g/dL (6.4-8.2); Vitamin B12 666 pg/mL (193-986)
== END 2024-09-26 12:57 | disposition home or self-care (01) ==
LOC: NCHCN 12:56
PROVIDERS: PCP Nurse Practitioner Family; Visit Provider Nurse Practitioner Family
DX: I10 Essential (primary) hypertension (principal); R53.83 Other fatigue; D64.9 Anemia, unspecified
CPT/HCPCS: 80053; 85027; 82607; 84443

== ENCOUNTER 2024-10-03 14:21 | Outpatient (REF) | payer BC, SELFPAY ==
[2024-10-03 22:19] LABS: HCT 43.4 % (36.0-46.0); HGB 14.4 g/dL (11.2-15.7); MCHC 33.2 % (32.0-36.0); MCV 88 fL (80-95); MPV 11.2 fL (8.0-11.0); Platelet Count 292 10^3/uL (130-400); RBC 4.96 10^6/uL (3.93-5.22); RDW 13.9 % (11.7-14.6); RDW-SD 44.1 fL; WBC 10.18 10^3/uL (4.4-10.8)
[2024-10-03 22:55] LABS: ALT 48 U/L (14-59); AST 29 U/L (15-37); Albumin 3.9 g/dL (3.4-5.0); Alkaline Phosphatase 197 U/L (46-116); Anion Gap 8.5 mmol/L (3-11); BUN 18 mg/dL (7-18); Bilirubin, Total 0.6 mg/dL (0.2-1.0); CO2 24.5 mmol/L (21.0-32.0); Calcium 9.6 mg/dL (8.5-10.1); Chloride 103 mmol/L (98-107); Estimated GFR 64.09 (mL/min/1.73m2); GGT 75 U/L (5-55); Glucose 95 mg/dL (74-106); PHOSPHORUS 3.3 mg/dL (2.6-4.7); Potassium 5.7 mmol/L (3.5-5.1); Sodium 136 mmol/L (136-145); Total Protein 7.7 g/dL (6.4-8.2)
[2024-10-03 22:58] LABS: Hemoglobin A1C 5.6 % (<5.7)
[2024-10-04 20:37] LABS: Vitamin D 25 Total 37 ng/mL (30-100)
[2024-10-04 21:39] LABS: Parathyroid Hormone,Intact 56 pg/mL (19-88)
[2024-10-05 12:22] LABS: HIV-1/2 Ag & Ab Screen Negative (Negative)
[2024-10-05 12:33] LABS: Hepatitis C Ab w Rflx HCV PCR Negative (Negative)
[2024-10-06 10:22] LABS: Erythropoietin 10.5 mIU/mL (2.6 - 18.5)
== END 2024-10-03 14:22 | disposition home or self-care (01) ==
LOC: NCHCN 14:21
PROVIDERS: PCP Nurse Practitioner Family; Visit Provider Nurse Practitioner Family
DX: E11.9 Type 2 diabetes mellitus without complications (principal); I10 Essential (primary) hypertension; Z11.59 Encounter for screening for other viral diseases; R74.9 Abnormal serum enzyme level, unspecified; D75.1 Secondary polycythemia
CPT/HCPCS: 80053; 82306; 82668; 85027; 86803; 87389; 82977; 83036; 83970; 84100

== ENCOUNTER 2024-11-14 15:35 | Outpatient (REF) | payer BC, SELFPAY ==
[2024-11-14 16:01] LABS: Anion Gap 10.6 mmol/L (3-11); BUN 16 mg/dL (7-18); CO2 24.4 mmol/L (21.0-32.0); Calcium 9.5 mg/dL (8.5-10.1); Chloride 103 mmol/L (98-107); Estimated GFR 64.09 (mL/min/1.73m2); Glucose 103 mg/dL (74-106); Potassium 4.5 mmol/L (3.5-5.1); Sodium 138 mmol/L (136-145)
[2024-11-15 10:11] LABS: Hepatitis A Antibody IgM Negative (Negative); Hepatitis B Core Antibody Negative (Negative); Hepatitis B surface Ag Negative (Negative); Hepatitis C Ab w Rflx HCV PCR Negative (Negative)
== END 2024-11-14 15:36 | disposition home or self-care (01) ==
LOC: NCHCN 15:35
PROVIDERS: PCP Nurse Practitioner Family; Visit Provider Nurse Practitioner Family
DX: E87.5 Hyperkalemia (principal); K76.0 Fatty (change of) liver, not elsewhere classified
CPT/HCPCS: 80048; 86704; 86709; 86803; 87340

== ENCOUNTER 2025-01-30 16:33 | Outpatient (REF) | payer BC, SELFPAY ==
[2025-01-30 15:20] LABS: COMMENT (LAB VIEW ONLY) 109.46 mg/dL; Microalb ug/mg Crea 4.1 ug/mg Cr
== END 2025-01-30 16:34 | disposition home or self-care (01) ==
LOC: NCHCN 16:33
PROVIDERS: PCP Nurse Practitioner Family; Visit Provider Nurse Practitioner Family
DX: E11.9 Type 2 diabetes mellitus without complications (principal); E66.9 Obesity, unspecified; K76.0 Fatty (change of) liver, not elsewhere classified
CPT/HCPCS: 82043; 82570